=== PATIENT | female | born 1980 ===

== ENCOUNTER 2017-02-22 06:22 | Inpatient (IN) | payer MEDICAID ==
[~2017-02-22] VITALS: Ht 162.6 cm; Wt 70.8 kg
[2017-02-23 12:05] VITALS: BP 120/86
--- OUTSIDE RECORDS SUMMARY | 2017-02-23 12:30 | XMS REPORT ---
Author [facility] [place] Address [address] [place] [address] Care Team Providers Care Hall Porter Name Role Phone JULIEN COCHRAN Unavailable PROBLEMS Type Condition ICD9-CM Code [id number] Code Onset Dates Condition Status SNOMED Code Problem Glomerular disease in systemic lupus erythematosus M32.14 Active 891005743 Problem Fibromyalgia M79.7 Active 653199401 Problem Depression, major, recurrent, in partial remission F33.41 Active 23364061 Problem Other chronic pain G89.29 Active 41705334 Problem Drug-induced systemic lupus erythematosus M32.0 Active 815980783 Problem Anxiety F41.9 Active 08954460 Problem Benign essential hypertension I10 Active 6620743 ALLERGIES No Information SOCIAL HISTORY Never Assessed PLAN OF CARE VITAL SIGNS MEDICATIONS Medication Instructions Dosage Frequency Start Date End Date Duration Status Lyrica 75 MG Orally Twice a day 1 capsule 12h 23 Mar, 2016 Active RESULTS No Results PROCEDURES No Known procedures IMMUNIZATIONS No Known Immunizations MEDICAL (GENERAL) HISTORY Type Description Date Medical History stage 4 lupus- dx 2012 Medical History stage 2 kidney disease- [place] Medical History high blood pressure Surgical History right shoulder repair 2004 Surgical History tubal ligation 2002 Surgical History Right ovary removed 2009 Surgical History cholecystectomy 2009 Surgical History hysterectomy 2012 Hospitalization History surgeries Hospitalization History lupus 2013 Hospitalization History Phenumia 2014 Hospitalization History child
--- OUTSIDE RECORDS SUMMARY | 2017-02-23 12:31 | XMS REPORT ---
Author Author [facility] Address [address] [place] [address] Care Team Providers Care Skiving Machine Operator Name Role Phone JULIEN COCHRAN Unavailable PROBLEMS Type Condition ICD9-CM Code [id number] Code Onset Dates Condition Status SNOMED Code Problem Glomerular disease in systemic lupus erythematosus M32.14 Active 324905295 Problem Fibromyalgia M79.7 Active 909759357 Problem Depression, major, recurrent, in partial remission F33.41 Active 64185322 Problem Other chronic pain G89.29 Active 56704098 Problem Drug-induced systemic lupus erythematosus M32.0 Active 030952963 Problem Anxiety F41.9 Active 99433981 Problem Benign essential hypertension I10 Active 2231581 ALLERGIES Unknown Allergies SOCIAL HISTORY No smoking Hx information available PLAN OF CARE VITAL SIGNS MEDICATIONS Medication Instructions Dosage Frequency Start Date End Date Duration Status Gabapentin 300 MG Orally at bedtime for 3 days, then twice daily 1 capsule Mar, 0 days Active RESULTS No Results PROCEDURES No Known procedures IMMUNIZATIONS No Known Immunizations
--- OUTSIDE RECORDS SUMMARY | 2017-02-23 12:31 | XMS REPORT ---
Author Author [facility] [place] Address [address] [place] [address] Care Team Providers Care Pallet Stone Positioner Name Role Phone JULIEN COCHRAN Unavailable PROBLEMS Type Condition ICD9-CM Code [id number] Code Onset Dates Condition Status SNOMED Code Problem Glomerular disease in systemic lupus erythematosus M32.14 Active 973368294 Problem Fibromyalgia M79.7 Active 751890622 Problem Depression, major, recurrent, in partial remission F33.41 Active 83119007 Problem Other chronic pain G89.29 Active 12251471 Problem Drug-induced systemic lupus erythematosus M32.0 Active 077427712 Problem Anxiety F41.9 Active 72904246 Problem Benign essential hypertension I10 Active 3780268 ALLERGIES No Information SOCIAL HISTORY Never Assessed PLAN OF CARE VITAL SIGNS MEDICATIONS Medication Instructions Dosage Frequency Start Date End Date Duration Status Xanax XR 1 MG Orally Once a day- MUST LAST A MONTH 1 tablet Mar, Active RESULTS No Results PROCEDURES No Known procedures IMMUNIZATIONS No Known Immunizations MEDICAL (GENERAL) HISTORY Type Description Date Medical History stage 4 lupus- dx 2012 [facility] Surgical History right shoulder repair 2004 Surgical History tubal ligation 2002 Surgical History Right ovary removed 2009 Surgical History cholecystectomy 2009 Surgical History hysterectomy 2013 Hospitalization History surgeries Hospitalization History lupus 2013 Hospitalization History Phenumia 2014 Hospitalization History child
--- OUTSIDE RECORDS SUMMARY | 2017-02-23 12:31 | XMS REPORT ---
Author Author [facility] [place] Address [address] [place] [address] Care Team Providers Care Access Manager Name Role Phone JULIEN COCHRAN Unavailable PROBLEMS Type Condition ICD9-CM Code [id number] Code Onset Dates Condition Status SNOMED Code Problem Glomerular disease in systemic lupus erythematosus M32.14 Active 516628645 Problem Fibromyalgia M79.7 Active 410467716 Problem Depression, major, recurrent, in partial remission F33.41 Active 43963460 Problem Other chronic pain G89.29 Active 32170229 Problem Drug-induced systemic lupus erythematosus M32.0 Active 214147933 Problem Anxiety F41.9 Active 41074318 Problem Benign essential hypertension I10 Active 8324369 ALLERGIES Unknown Allergies SOCIAL HISTORY No smoking Hx information available PLAN OF CARE VITAL SIGNS MEDICATIONS Medication Instructions Dosage Frequency Start Date End Date Duration Status Xanax XR 1 MG Orally Once a day- MUST LAST A MONTH 1 tablet Mar, Active RESULTS No Results PROCEDURES No Known procedures IMMUNIZATIONS No Known Immunizations
--- OUTSIDE RECORDS SUMMARY | 2017-02-23 12:31 | XMS REPORT ---
Author Author JULIEN COCHRAN [facility] [place] Address [address] [place] [address] Care Team Providers Care And Rescue Fire Fighter Crash Fire Name Role Phone JULIEN COCHRAN Unavailable PROBLEMS Type Condition ICD9-CM Code [id number] Code Onset Dates Condition Status SNOMED Code Problem Other chronic pain G89.29 Active 43641281 Problem Fibromyalgia M79.7 Active 452008333 Problem Depression, major, recurrent, in partial remission F33.41 Active 97141533 Problem Benign essential hypertension I10 Active 6233231 Problem Anxiety F41.9 Active 11049913 Problem Drug-induced systemic lupus erythematosus M32.0 Active 802169588 Problem Glomerular disease in systemic lupus erythematosus M32.14 Active 967050569 ALLERGIES Substance Reaction Event Type Date Status Tramadol HCl headache Drug Allergy Feb, Active Morphine Sulfate hives Drug Allergy Feb, Active Keflex Unknown Drug Allergy Feb, Active SOCIAL HISTORY No smoking Hx information available PLAN OF CARE Activity Details Follow Up 2 Weeks Reason:anxiety/lupus f/u VITAL SIGNS Height 65.5 in 2016-03-09 Weight 181.1 lbs 2016-03-09 Temperature 96.9 degrees Fahrenheit 2016-03-09 Heart Rate 69 bpm 2016-03-09 Respiratory Rate 16 2016-03-09 Oximetry 97 % 2016-03-09 BMI 29.68 kg/m2 2016-03-09 Blood pressure systolic 130 mmHg 2016-03-09 Blood pressure diastolic 90 mmHg 2016-03-09 MEDICATIONS Medication Instructions Dosage Frequency Start Date End Date Duration Status Azathioprine 50 MG Active PredniSONE 20 MG Orally Once a day 1 tablet 24h Active Alprazolam 1 MG Orally Twice a day 1 tablet 12h Active BuPROPion HCl (SR) 150 MG Orally Twice a day 1 tablet 12h Active BusPIRone HCl 10 mg Orally Three times a day as needed for anxiety 1 tablet Feb, Active Glucosamine 500 MG Orally Once a day 1 capsule with a meal 24h Active Losartan Potassium 100 MG Orally Once a day 1 tablet 24h Active Minoxidil 10 mg Orally twice a day 2 tablet 12h Active Percocet 7.5-325 MG Orally every 6 hrs 1 tablet as needed 6h Active Norvasc 5 mg Orally Once a day 1 tablet 24h Feb, Active Metoprolol Succinate ER 100 MG Orally Once a day 1 tablet 24h Active RESULTS Name Result Date Reference Range URINE DRUG SCREEN (IN HOUSE) 2016-03-09 Lot # [id number] Exp date 08/03 Control + COCAINE neg AMPH neg MTD neg THC neg OPIATE neg BENZO + PCP neg BAR neg OXY + MAMP neg TCA + BUP MDMA neg UA LONG DIP (IN HOUSE) 2016-03-09 Lot # [id number] Exp date 11/02 Clarity clear Color dark yellow Odor none GLU neg IVORY 1+ KET negative SG >1.030 BLO 2+ pH 6.0 Protein 1+ URO 0.2 E.U/dL NIT neg SELENE neg Lot # Exp date THYROID ANALYZER 2016-03-09 TSH 3.270 0.450-4.500 CBC 2016-03-09 WBC 7.9 3.4-10.8 RBC 4.52 3.77-5.28 Hemoglobin 14.1 11.1-15.9 Hematocrit 41.5 34.0-46.6 MCV 92 79-97 MCH 31.2 26.6-33.0 MCHC 34.0 31.5-35.7 RDW 15.0 12.3-15.4 Platelets 250 150-379 Neutrophils 77 Lymphs 14 Monocytes 6 Eos 3 Basos 0 Neutrophils (Absolute) 6.0 1.4-7.0 Lymphs (Absolute) 1.1 0.7-3.1 Monocytes(Absolute) 0.5 0.1-0.9 Eos (Absolute) 0.2 0.0-0.4 Baso (Absolute) 0.0 0.0-0.2 Immature Granulocytes 0 Immature Grans (Abs) 0.0 0.0-0.1 ESR/SED RATE 2016-03-09 Sedimentation Rate-Westergren 8 0-32 CRP 2016-03-09 C-Reactive Protein, Quant 2.4 0.0-4.9 CMP 2016-03-09 Glucose, Serum 91 65-99 BUN 11 6-20 Creatinine, Serum 0.91 0.57-1.00 eGFR If NonAfricn Am 81 >59 eGFR If Africn Am 94 >59 BUN/Creatinine Ratio 12 8-20 Sodium, Serum 141 134-144 Potassium, Serum 3.8 3.5-5.2 Chloride, Serum 104 96-106 Carbon Dioxide, Total 22 18-29 Calcium, Serum 9.2 8.7-10.2 Protein, Total, Serum 6.5 6.0-8.5 Albumin, Serum 4.2 3.5-5.5 Globulin, Total 2.3 1.5-4.5 A/G Ratio 1.8 1.1-2.5 Bilirubin, Total 0.4 0.0-1.2 Alkaline Phosphatase, S 43 39-117 AST (SGOT) 13 0-40 ALT (SGPT) 9 0-32 PROCEDURES Procedure Date Ordered Related Diagnosis Body Site ROUTINE VENIPUNCTURE 2016-03-09 N/A LAB NOT BILLED BY [facility] Mar 09, 2016 DRUG SCREEN NON TLC DEVICES Mar 09, 2016 URINALYSIS, AUTO, W/O SCOPE Mar 09, 2016 Office Visit, New Pt., Level 4 Mar 09, 2016 VENIPUNCT, ROUTINE* Mar 09, 2016 IMMUNIZATIONS No Known Immunizations
--- OUTSIDE RECORDS SUMMARY | 2017-02-23 12:31 | XMS REPORT ---
Author Author [facility]ALD RUTLEDGE [facility] Address Unknown Phone Unavailable Care Team Providers Care Laborer Drying Department Name Role Phone GERALD RUTLEDGE Unavailable Unavailable PROBLEMS Type Condition ICD9-CM Code [id number] Code Onset Dates Condition Status SNOMED Code Problem Other chronic pain G89.29 Active 16018743 Problem Fibromyalgia M79.7 Active 559014557 Problem Depression, major, recurrent, in partial remission F33.41 Active 70714917 Problem Benign essential hypertension I10 Active 9887941 Problem Anxiety F41.9 Active 74984631 Problem Drug-induced systemic lupus erythematosus M32.0 Active 492982341 Problem Glomerular disease in systemic lupus erythematosus M32.14 Active 686656700 ALLERGIES Unknown Allergies SOCIAL HISTORY No smoking Hx information available PLAN OF CARE VITAL SIGNS MEDICATIONS Unknown Medications RESULTS No Results PROCEDURES No Known procedures IMMUNIZATIONS No Known Immunizations
--- OUTSIDE RECORDS SUMMARY | 2017-02-23 12:31 | XMS REPORT ---
Author Author [facility] [place] Address [address] [place] [address] Care Team Providers Care Drafter Automotive Design Name Role Phone JULIEN COCHRAN Unavailable PROBLEMS Type Condition ICD9-CM Code [id number] Code Onset Dates Condition Status SNOMED Code Problem Glomerular disease in systemic lupus erythematosus M32.14 Active 787940242 Problem Fibromyalgia M79.7 Active 210573085 Problem Depression, major, recurrent, in partial remission F33.41 Active 58483496 Problem Other chronic pain G89.29 Active 79449891 Problem Drug-induced systemic lupus erythematosus M32.0 Active 650760946 Problem Anxiety F41.9 Active 61066187 Problem Benign essential hypertension I10 Active 5560600 ALLERGIES Unknown Allergies SOCIAL HISTORY No smoking Hx information available PLAN OF CARE VITAL SIGNS MEDICATIONS Medication Instructions Dosage Frequency Start Date End Date Duration Status Percocet 7.5-500 MG Orally once daily as needed for severe pain 1 tablet Active RESULTS No Results PROCEDURES No Known procedures IMMUNIZATIONS No Known Immunizations
--- OUTSIDE RECORDS SUMMARY | 2017-02-23 12:31 | XMS REPORT ---
Author [facility] Address [address] [place] [address] Care Team Providers Care Plant Hr Manager Name Role Phone JULIEN COCHRAN Unavailable PROBLEMS Type Condition ICD9-CM Code KPB37-KC Code Onset Dates Condition Status SNOMED Code Problem Glomerular disease in systemic lupus erythematosus M32.14 Active 196456252 Problem Fibromyalgia M79.7 Active 697982751 Problem Depression, major, recurrent, in partial remission F33.41 Active 26265078 Problem Other chronic pain G89.29 Active 57122231 Problem Drug-induced systemic lupus erythematosus M32.0 Active 911508212 Problem Anxiety F41.9 Active 08794937 Problem Benign essential hypertension I10 Active 7554496 ALLERGIES Unknown Allergies SOCIAL HISTORY No smoking Hx information available PLAN OF CARE VITAL SIGNS MEDICATIONS Medication Instructions Dosage Frequency Start Date End Date Duration Status Percocet 7.5-325 MG Orally every 12 hours as needed- (MUST LAST A MONTH) 1 tablet Apr, Active RESULTS No Results PROCEDURES No Known procedures IMMUNIZATIONS No Known Immunizations
--- OUTSIDE RECORDS SUMMARY | 2017-02-23 12:31 | XMS REPORT ---
Author Author JULIEN COCHRAN [facility] [place] Address [address] [place] [address] Care Team Providers Care Radiological Technologist Name Role Phone JULIEN COCHRAN Unavailable PROBLEMS Type Condition ICD9-CM Code IIN41-UK Code Onset Dates Condition Status SNOMED Code Problem Other chronic pain G89.29 Active 33464533 Problem Fibromyalgia M79.7 Active 111158363 Problem Depression, major, recurrent, in partial remission F33.41 Active 12810893 Problem Benign essential hypertension I10 Active 0647908 Problem Anxiety F41.9 Active 98484422 Problem Drug-induced systemic lupus erythematosus M32.0 Active 249039254 Problem Glomerular disease in systemic lupus erythematosus M32.14 Active 489255037 ALLERGIES Substance Reaction Event Type Date Status Tramadol HCl headache Drug Allergy Mar, Active Morphine Sulfate hives Drug Allergy Mar, Active Keflex Unknown Drug Allergy Mar, Active SOCIAL HISTORY No smoking Hx information available PLAN OF CARE Activity Details Follow Up 3 Weeks Reason:pain/anxiety VITAL SIGNS Height 65.5 in 2016-03-20 Weight 185.3 lbs 2016-03-20 Temperature 97.9 degrees Fahrenheit 2016-03-20 Heart Rate 78 bpm 2016-03-20 Respiratory Rate 18 2016-03-20 BMI 30.36 kg/m2 2016-03-20 Blood pressure systolic 122 mmHg 2016-03-20 Blood pressure diastolic 64 mmHg 2016-03-20 MEDICATIONS Medication Instructions Dosage Frequency Start Date End Date Duration Status Glucosamine 500 MG Orally Once a day 1 capsule with a meal 24h Active BusPIRone HCl 10 mg Orally Three times a day as needed for anxiety 1 tablet Feb, Active Azathioprine 50 MG Active Metoprolol Succinate ER 100 MG Orally Once a day 1 tablet 24h Active Xanax XR 1 MG Orally Once a day- MUST LAST A MONTH 1 tablet Mar, Active BuPROPion HCl (SR) 150 MG Orally Twice a day 1 tablet 12h Active Percocet 7.5-325 MG Orally every 8 hours as needed- MUST LAST ONE MONTH 1 tablet Active Abilify 5 mg Orally Once a day 1 tablet 24h Mar, Active PredniSONE 20 MG Orally Once a day 1 tablet 24h Active Norvasc 5 mg Orally Once a day 1 tablet 24h Feb, Active Minoxidil 10 mg Orally twice a day 2 tablet 12h Active Losartan Potassium 100 MG Orally Once a day 1 tablet 24h Active RESULTS No Results PROCEDURES Procedure Date Ordered Related Diagnosis Body Site Office Visit, Est Pt., Level 3 Mar 20, 2016 IMMUNIZATIONS No Known Immunizations
--- OUTSIDE RECORDS SUMMARY | 2017-02-23 12:31 | XMS REPORT ---
Author Author PATRICE BLANCO [facility] Address [address] [place] [address] Care Team Providers Care Study Hall Supervisor Name Role Phone PATRICE BLANCO Unavailable PROBLEMS Type Condition ICD9-CM Code [id number] Code Onset Dates Condition Status SNOMED Code Problem Glomerular disease in systemic lupus erythematosus M32.14 Active 249028913 Problem Fibromyalgia M79.7 Active 790605528 Problem Depression, major, recurrent, in partial remission F33.41 Active 08576292 Problem Other chronic pain G89.29 Active 61425719 Problem Drug-induced systemic lupus erythematosus M32.0 Active 500672058 Problem Anxiety F41.9 Active 81921020 Problem Benign essential hypertension I10 Active 3428685 ALLERGIES No Information SOCIAL HISTORY Never Assessed [...] [facility] Surgical History right shoulder repair 2004 Surgical History tubal ligation 2002 Surgical History Right ovary removed 2009 Surgical History cholecystectomy 2010 Surgical History hysterectomy 2013 Hospitalization History surgeries Hospitalization History lupus 2013 Hospitalization History Phenumia 2014 Hospitalization History child
--- OUTSIDE RECORDS SUMMARY | 2017-02-23 12:31 | XMS REPORT ---
Author Author [facility] [place] Address [address] [place] [address] Care Team Providers Care Relations Mgr Name Role Phone JULIEN COCHRAN Unavailable PROBLEMS Type Condition ICD9-CM Code [id number] Code Onset Dates Condition Status SNOMED Code Problem Glomerular disease in systemic lupus erythematosus M32.14 Active 876924804 Problem Fibromyalgia M79.7 Active 285504436 Problem Depression, major, recurrent, in partial remission F33.41 Active 09752961 Problem Other chronic pain G89.29 Active 18388900 Problem Drug-induced systemic lupus erythematosus M32.0 Active 682889335 Problem Anxiety F41.9 Active 32164959 Problem Benign essential hypertension I10 Active 7374048 ALLERGIES Unknown Allergies SOCIAL HISTORY No smoking Hx information available PLAN OF CARE VITAL SIGNS MEDICATIONS Medication Instructions Dosage Frequency Start Date End Date Duration Status Xanax XR 1 MG Orally Once a day- MUST LAST A MONTH 1 tablet Mar, Active RESULTS No Results PROCEDURES No Known procedures IMMUNIZATIONS No Known Immunizations
--- OUTSIDE RECORDS SUMMARY | 2017-02-23 12:31 | XMS REPORT ---
Author Author [facility] [place] Address [address] [place] [address] Care Team Providers Care Hide House Supervisor Name Role Phone JULIEN COCHRAN Unavailable PROBLEMS Type Condition ICD9-CM Code ZTZ22-HM Code Onset Dates Condition Status SNOMED Code Problem Glomerular disease in systemic lupus erythematosus M32.14 Active 656829434 Problem Fibromyalgia M79.7 Active 619146034 Problem Depression, major, recurrent, in partial remission F33.41 Active 97328829 Problem Other chronic pain G89.29 Active 25011181 Problem Drug-induced systemic lupus erythematosus M32.0 Active 487674480 Problem Anxiety F41.9 Active 72737706 Problem Benign essential hypertension I10 Active 0544065 ALLERGIES No Information SOCIAL HISTORY Never Assessed PLAN OF CARE VITAL SIGNS MEDICATIONS Unknown Medications RESULTS No Results PROCEDURES No Known procedures IMMUNIZATIONS No Known Immunizations MEDICAL (GENERAL) HISTORY Type Description Date Medical History stage 4 lupus- dx 2012 Medical History stage 2 kidney disease- [place] Medical History high blood pressure Surgical History right shoulder repair 2004 Surgical History tubal ligation 2002 Surgical History Right ovary removed 2009 Surgical History cholecystectomy 2009 Surgical History hysterectomy 2013 Hospitalization History surgeries Hospitalization History lupus 2013 Hospitalization History Phenumia 2014 Hospitalization History child
--- OUTSIDE RECORDS SUMMARY | 2017-02-23 12:31 | XMS REPORT ---
Author Author JULIEN COCHRAN [facility] [place] Address [address] [place] [address] Care Team Providers Care In House Cra Name Role Phone JULIEN COCHRAN Unavailable PROBLEMS Type Condition ICD9-CM Code [id number] Code Onset Dates Condition Status SNOMED Code Problem Glomerular disease in systemic lupus erythematosus M32.14 Active 514972478 Problem Fibromyalgia M79.7 Active 792836416 Problem Depression, major, recurrent, in partial remission F33.41 Active 76723140 Problem Other chronic pain G89.29 Active 28732817 Problem Drug-induced systemic lupus erythematosus M32.0 Active 578695342 Problem Anxiety F41.9 Active 49088915 Problem Benign essential hypertension I10 Active 3160073 ALLERGIES Substance Reaction Event Type Date Status Tramadol HCl headache Drug Allergy Mar, Active Morphine Sulfate hives Drug Allergy Mar, Active Keflex Unknown Drug Allergy Mar, Active SOCIAL HISTORY No smoking Hx information available PLAN OF CARE Activity Details Follow Up 3 Weeks Reason:pain/anxiety visit VITAL SIGNS Height 65.5 in 2016-04-10 Weight 179.0 lbs 2016-04-10 Temperature 97.6 degrees Fahrenheit 2016-04-10 Heart Rate 81 bpm 2016-04-10 Respiratory Rate 17 2016-04-10 BMI 29.33 kg/m2 2016-04-10 Blood pressure systolic 118 mmHg 2016-04-10 Blood pressure diastolic 78 mmHg 2016-04-10 MEDICATIONS Medication Instructions Dosage Frequency Start Date End Date Duration Status Xanax XR 1 MG Orally Once a day- MUST LAST A MONTH 1 tablet Mar, Active Azathioprine 50 MG Active Lyrica 75 MG Orally Twice a day 1 capsule 12h Mar, Active Abilify 5 mg Orally Once a day 1 tablet 24h Mar, Active BuPROPion HCl (SR) 150 MG Orally Once a day 1 tablet 24h Active Metoprolol Succinate ER 100 MG Orally Once a day 1 tablet 24h Active PredniSONE 20 MG Orally Once a day 1 tablet 24h Active BusPIRone HCl 10 mg Orally Three times a day as needed for anxiety 1 tablet Feb, Active Losartan Potassium 100 MG Orally Once a day 1 tablet 24h Active Glucosamine 500 MG Orally Once a day 1 capsule with a meal 24h Active Minoxidil 10 mg Orally twice a day 2 tablet 12h Active Ranitidine Acid Director Blood Bank 75 MG Orally Once a day 1 tablet as needed 24h Active Percocet 7.5-500 MG Orally once daily as needed for severe pain 1 tablet Active Norvasc 5 mg Orally Once a day 1 tablet 24h Feb, Active RESULTS No Results PROCEDURES Procedure Date Ordered Related Diagnosis Body Site Office Visit, Est Pt., Level 3 Apr 10, 2016 IMMUNIZATIONS No Known Immunizations
[2017-02-23] MEDS ORDERED: NON-FORMULARY MEDICATION 1 EA EA PO SCH (13:00)
[2017-02-23] MEDS ORDERED: RANI-515 PO (13:26)
[2017-02-23] MEDS ORDERED: ARIP5TAB20 PO (13:26)
[2017-02-23] MEDS ORDERED: OXYC-464 PO (13:26)
[2017-02-23] MEDS ORDERED: GLUC500T10 PO (13:26)
[2017-02-23] MEDS ORDERED: AMLO5TAB2 PO (13:26)
[2017-02-23] MEDS ORDERED: LOSA100T28 PO (13:26)
[2017-02-23] MEDS ORDERED: BUPR150T14 PO (13:26)
[2017-02-23] MEDS ORDERED: PROM25TA14 PO (13:26)
[2017-02-23] MEDS ORDERED: ALPR1TAB7 PO (13:29)
[2017-02-23] MEDS ORDERED: METO-395 PO (13:29)
[2017-02-23] MEDS: oxyCODONE/APAP 5/325MG (PERCOCET 5) TABLET PO PRN ×2 (13:58→20:23)
--- NOTE | 2017-02-23 14:06 | Physical Therapy Evaluation ---
PT Evaluation-General Medical Diagnosis Admission Date Feb 23, 2017 at 11:55 Medical Diagnosis: CVA Onset Date: Feb 19, 2017 Therapy Diagnosis Therapy Diagnosis: impaired mobility, strength, endurance, balance Referral Physician: Rg Reason for Referral: Evaluation/Treatment Medical History Additional Medical History acute renal failure, anxiety, depression, chest pain, diarrhea, GERD, kidney calculus, headache, IBS, HTN, hyponatremia, hypoxia, Lupus, nephrotic syndrome, panic attacks, PTSD, cholecystectomy, left oophorectomy, hysterectomy, tubal ligation, RCR Reviewed History: Yes Social History Home: Single Level Current Living Status: Entry Into Home: Stairs Without Railing PT Steps Into Home: 2 Patient lives with roommates Prior/Core FIM Prior Level of Function Functional [place] Measure 0=Not Assessed/NA 4=Minimal Assistance 1=Total Assistance 5=Supervision or Setup 2=Maximal Assistance 6=Modified [place] 3=Moderate Assistance 7=Complete [place] Bed Mobility: 7 Transfers (B,C,W/C) (FIM): 7 Gait: 7 Patient was completely independent with mobility prior to having CVA PT Evaluation-Current Subjective Patient wheelchair pre tx, she had been working with OT. Has pain of 4/10 headache. Will be co-treating with OT after evaluation. Patient states she is extremely tired and has been since she had her stroke, she states she will often actually fall asleep during previous activities in the hospital. Pt/Family Goals to be able to take care of herself at home Objective Patient Orientation: Person, Place, Situation ROM/Strength ROM Lower Extremities WNL Strenght Lower Extremities right leg gross 5/5, left leg hip flexion 1/5, knee flexion 1/5, knee extension 2/5, dorsiflexion 0/5 Neuromuscular (Tone, Coordination, Reflexes) Patient has slightly increased tone in left leg. Patient has no numbness in her face but has a left facial droop, tongue deviates to the left, has a slightly impaired left peripheral vision and minimally reduced tracking Sensory Vision: Functional Hearing: Functional Sensation Right Lower Extremit: Intact Sensation Left Lower Extremity: Intact Sensation Lower Extremities Patient has no complaints of numbness or tingling in her left leg and seems to have intact light touch sensation. Transfers Functional [place] Measure 0=Not Assessed/NA 4=Minimal Assistance 1=Total Assistance 5=Supervision or Setup 2=Maximal Assistance 6=Modified [place] 3=Moderate Assistance 7=Complete IndependenceIRFPAI Quality Coding Scale 6 Independent with activity with or without an assistive device 5 Patient requires set up or clean up by helper. Patient completes activity by themselves 4 Supervision or touching assist (CGA). [place] provide cues , steadying assist 3 The helper provides less than half the effort to complete the activity 2 The helper provides more than half the effort to complete the activity 1 Dependent. The helper does all the effort to complete an activity 7 Patient refused to complete or attempt activity 9 The patient did not perform the activity before the current illness or injury 88 Not attempted due to Medical conditions or safety concerns Transfers (B, C, W/C) (FIM): 3 Scootin Rollin Roll Left to Right (QC): 3 Supine to/from Sit: 4 Sit to/from Stand: 4 bed t/f WC(FIM only if WC use): 2 Sit to Lying (QC): 3 Lying to Sitting/Side of Bed(Q: 3 Sit to Stand (QC): 3 Chair/Nxf-zk-Whidb Xfer(QC): 2 Car Transfer (QC): 88 Patient performs bed mobility with min assist (needs assist with left leg going supine <-> sit), sit to stand with min assist, and stand pivot transfer with min assist to the right and mod assist to the left. Gait Does the Patient Walk?: Yes Mode of Locomotion: Walk Anticipated Mode of Locomotion: Walk Gait (FIM): 1 Walk 10 feet (QC): 88 Walk 50 ft with 2 Turns(QC): 88 Walk 150 ft (QC): 88 Walking 10ft/uneven surface-QC: 88 Distance: 8'x3 Gait Level of Assist: 2 Gait Persons Needed: 1 Gait Assistive Device: Parallel Bars Comments/Gait Description Wheelchair follow. Max assist for balance and support of left leg. Patient has hyperextension of left leg and requires assist to advance left leg. Wheelchair Training Does the Pt Use a Wheelchair?: Yes Wheelchair (FIM): 5 Distance: 150' Wheelchair Level of Assist: 5 Wheel 50 ft with 2 turns (QC): 4 Wheel 150 ft (QC): 4 Type of Wheelchair: Manual Patient can propel a manual wheelchair 150' with standby assist, cues for direction and obstacles. She uses her right arm and leg to propel. Stairs 1 Step (curb) (QC): 88 4 Steps (QC): 88 12 Steps (QC): 88 If not tested on admit;explain Patient is not safe to attempt stairs at this time due to poor strength in her left leg and poor balance. Balance Sitting Static: Fair Sitting Dynamic: Fair Standing Static: Poor Standing Dynamic: Poor Picking up an Object (QC): 88 Treatment Co-treated with OT for 70 min. PT performed evaluation for 10' and then worked on bed mobility, transfers, ambulation, wheelchair mobility, and sitting and standing balance during grooming and bathing. OT worked on grooming, bathing, transfers, ADL's Assessment/Needs Patient has impaired mobility, strength, endurance, balance, post CVA. Left hemiparesis. Rehab Potential: Fair PT Short Term Goals Short Term Goals Time Frame: Mar 02, 2017 Transfers (B,C,W/C) (FIM): 4 Gait (FIM): 1 Gait Distance Comment: 20' Gait Level of Assist: 2 Gait Assistive Device: Walker Nathan Wheelchair (FIM): 6 PT Ell Tutor Goals Ell Tutor Goals PT Ell Tutor Goals Time Frame: Mar 16, 2017 Transfers (B,C,W/C) (FIM): 5 Sit to Lying (QC): 4 Lying-Sitting on Side/Bed(QC): 4 Sit to Stand (QC): 4 Rollin Roll Left to Right (QC): 4 Chair/Vai-cf-Rfksy Xfer(QC): 4 Car Transfer (QC): 3 Gait (FIM): 2 Distance: 30' Walk 10 feet (QC): 3 Walk 10ft-Uneven Surface(QC): 3 Gait Level of Assist: 4 Gait Assistive Device: Cane Large Base Quad PT Plan Problem List Problem List: Activity Tolerance, Functional Strength, Safety, Balance, Gait, Transfer, Bed Mobility, ROM Treatment/Plan Treatment Plan: Continue Plan of Care Treatment Plan: Bed Mobility, Concurrent Therapy, Education, Functional Activity Luis, Functional Strength, Group Therapy, Gait, Safety, Therapeutic Exercise, Transfers Treatment Duration: Mar 16, 2017 Frequency: At least 5 of 7 days/Wk (IRF) Estimated Hrs Per Day: 1.5 hours per day Patient and/or Family Agrees t: Yes Safety Risks/Education Patient Education: Gait Training, Transfer Techniques, Correct Positioning, W/ C Management, Disease Process, Safety Issues Teaching Recipient: Patient Teaching Methods: Demonstration, Discussion Response to Teaching: Reinforcement Needed Discharge Recommendations Plan Patient will perform bed mobility and transfer training, balance and endurance training, functional strengthening, stair training, gait training, education, to improve functional mobility and independence at home. Therapy D/C Recommendations: Home w/ Family Support Time/GCodes Time In: 1240 Time Out: 1400 Total Billed Treatment Time: 80 Total Billed Treatment 1 visit EVM 10' GT 20' WCH 15' FA 35' PT performed eval from [id number] and co-treated from [id number] KIERRA STERLING PT Feb 23, 2017 14:06
--- NOTE | 2017-02-23 14:37 | ST Cognitive Linguistic Eval ---
Speech Evaluation-General Medical Diagnosis CVA Onset Date: Feb 19, 2017 Therapy Diagnosis Therapy Diagnosis: Mild Dysarthria Referral Referring Physician: Dr. Carrington Diez Reason for Referral: Evaluation/Treatment Cognitive Evaluation Medical History Reviewed History: Yes Social History Current Living Status: Speech PLF-Current Status Prior Level of Function The patient denied prior challenges with speech, langauge, or cognition. Subjective The patient was recently admitted to [facility] following a CVA. The patient greeted the clinician and was agreeable to participation in the cognitive evaluation. Language Eval: Auditory Comprehends Simple Yes/No Ques: Functional Indent/Objects [place]: Functional Ident/Pics in [place]: Functional Follows 1-Step Commands: Functional Follows Complex Directions: Functional Follows General Conversations: Functional Language Eval: Verbal Language Completes Spontaneous Greeting: Functional Produces Auto, Serial Info: Functional Imitates Simple Words/Phrases: Functional Word Finding: Functional Requests Basic Needs: Functional States Basic Personal Info: Functional Expresses Complex Ideas: Functional Cognitive Patient Orientation The patient was independently oriented to month, day of week, date, and year. Objective Cognitive Domain Attention: WNL Memory: Mild Problem Solving: Functional Objective Oral Motor/Speech Production The patient displayed a left facial droop, imprecise articulation, hyponasal resonance, and slightly reduced rate of speech correlating to mild dysarthria. Impression The patient displays cognitive skills within normal limits. The patient demonstrates mild flaccid dysarthria. Communication/Social Cognition Comprehension: 5 Expression: 5 Social Interaction: 5 Problem Solvin Memory: 5 Speech Patient Assess Expression of Ideas/Wants: Exhibits (3) Understanding [place] Content: Usually Understands (3) Brief Interview-Mental Status: Yes Repetition of Three Words: Three (3) Temporal Orientation: Year: Correct (3) Temporal Orientation: Month: Accurate within 5 days(2) Temporal Orientation: Day: Correct (1) Recall : Wear to say "Sock": Yes, no cue required (2) Recall : Color: Yes, no cue required (2) Recall : Bed: No, could not recall (0) Speech Short Term Goals Short Term Goals Short Term Goals 1. The patient will display 90% accuracy with oral motor exercises with mild clinician cueing. Time Frame-STG: One Week Speech Intermediate Goals Intermediate Goals 1. The patient will display improved articulatory precision for increased intelligibility through verbal communication. Time Frame: Two Weeks Comprehension: 5 Expression: 6 Social Interaction: 6 Problem Solvin Memory: 5 Speech-Plan Treatment Plan Speech Therapy Treatment Plan: Continue Plan of Care Continue skilled speech pathology to target improved labial and lingual strength and function. Treatment Duration: Mar 09, 2017 Frequency: Modified Program (IRF) Estimated Hrs Per Day: .5 hour per day Rehab Potential: Fair Safety Risks/Education Teaching Recipient: Patient Teaching Methods: Discussion Response to Teaching: Verbalize Understanding Education Topics Provided: Results, Plan of Care, Recommendations Time Speech Therapy Time In: 14:00 Speech Therapy Time Out: 14:10 Total Billed Time: 10 Billed Treatment Time 1, CAMI MACIEL Feb 23, 2017 14:37
--- NOTE | 2017-02-23 14:42 | ST Dysphagia Evaluation ---
Speech Evaluation-General Medical Diagnosis CVA Onset Date: Feb 19, 2017 Therapy Diagnosis Therapy Diagnosis: Mild Oral Dysphagia Precautions Precautions: Aspiration Referral Referring Physician: Dr. Carrington Diez Reason for Referral: Evaluation/Treatment Clinical Bedside Swallowing Evaluation Medical History Reviewed History: Yes Social History Current Living Status: Speech PLF/Current-Dysphagia Prior Level of Function The patient denied prior challenges with swallowing. The patient stated she consumed a regular diet with thin liquids at home. Following the patient's CVA, she was placed on a mechanical soft diet with thin liquids. Subjective The patient greeted the clinician upon entrance. The patient was seated upright in bed and was agreeable to participation in the dysphagia evaluation. Cognitive Status Patient Orientation: Person, Place, Time, Situation, Normal For Age Oral Motor Skills Dentition: Natural Current Food Consistancy: Mechanical Soft, Thin Liquids Ability to Follow Directions: Excellent Oral Expression Ability: Mild Impairment Voice Voice Phonatory-Based Quality: Normal (Mild hyponasality.) Voice Pitch: Normal Voice Loudness: Normal Face Facial Symmetry: Asymmetrical (Left facial droop.) Oral-Facial Assessment Oral-Facial Dentition: Normal Labial Seal Description: Droops Left Smile: Droops Left Puff Cheeks: Reduced Strength (Left) Lingual Protrusion: Normal Lingual ROM: Normal Lingual Strength: Normal Pharynx Velopharyngeal Move.: Normal Volitional Dry Swallow: Yes Dysphagia Evaluation Consistencies Presented: Regular, Thin Liquid Oral Phase: Anterior Spillage, Left Pocketing - The patient displayed anterior left labial spillage (thin liquid via straw), as well as, left pocketing (solid). The patient was able to independently clear the pocketed material with a left lingual tongue sweep. - No pharyngeal deficits were noted. - No signs/symptoms of aspiration were displayed with multiple trials of thin liquid (via straw), solid (saltine cracker), or pill administration (whole with water- administered by RN). The patient's vocal quality remained clear throughout the trials. Dietary Recommendations: Regular Liquid Recommendations: Thin Swallowing Precautions: Alternate Liquids/Solids, Pocketing, Small Bites and Sips, Sitting Upright 90 Degrees, Left Tongue Sweep Dysphagia Evaluation Summary The patient displayed mild oral dysphagia characterized by reduced left labial strength, range of motion and sensation. Speech Short Term Goals Short Term Goals Short Term Goals 1. The patient will display 90% accuracy with oral motor exercises with mild clinician cueing. Time Frame-STG: One Week Speech Fpc Goals Ict Educator Goals 1. The patient will display improved articulatory precision for increased intelligibility through verbal communication. Time Frame: Two Weeks Comprehension: 5 Expression: 6 Social Interaction: 6 Problem Solvin Memory: 5 Speech-Plan Treatment Plan Speech Therapy Treatment Plan: Discontinue ST Evaluation, only. Treatment Duration: Mar 09, 2017 Frequency: Modified Program (IRF) (Continued skilled speech pathology for labial strengthening.) Estimated Hrs Per Day: .5 hour per day Rehab Potential: Fair Safety Risks/Education Teaching Recipient: Patient Teaching Methods: Discussion Response to Teaching: Verbalize Understanding Education Topics Provided: Plan of Care, Results, Recommendations Time Speech Therapy Time In: 14:10 Speech Therapy Time Out: 14:20 Total Billed Time: 10 Billed Treatment Time 1, CAMI CUELLAR Feb 23, 2017 14:42
--- NOTE | 2017-02-23 14:46 | Occupational Therapy Eval ---
OT Evaluation-General/PLF Medical Diagnosis Admission Date Feb 23, 2017 at 11:55 Medical Diagnosis: CVA Onset Date: Feb 19, 2017 Therapy Diagnosis Therapy Diagnosis: impaired self care skills Referral Physician: Rg Medical History Pertinent Medical History: GERD, HTN Additional Medical History acute renal failure, anxiety, depression, chest pain, diarrhea, kidney calculus , headache, IBS, hyponatremia, hypoxia, Lupus, nephrotic syndrome, panic attacks , PTSD, cholecystectomy, left oophorectomy, hysterectomy, tubal ligation, RCR Reviewed History: Yes Social History Home: Single Level Current Living Status: roommates Entry Into Home: Stairs Without Railing Steps Into Home: 2 ADL-Prior Level of Function ADL PLOF Comments Pt reports being independent with self care and mobility prior to CVA. DME/Equipment: Tub/Shower Drive Self: Yes OT Current Status Subjective Pt sitting in w/c, agrees to treatment. Pt reports 7 headache, requests pain meds, RN aware. Pt states she is very fatigued this afternoon. Mental Status/Objective Patient Orientation: Person, Place, Time Current Glasses/Contacts: Yes (reading) Hearing Aids: No Hand Dominance: Left Upper Extremity ROM Right UE grossly WFL Left UE PROM grossly WFL. Slightly increased tone Upper Extremity Coordination Right UE WFL Left UE impaired Upper Extremity Sensation Right UE WFL Left UE: intact to light touch. Upper Extremity Strength Right UE WFL Left UE: no active movement noted Pt has mildly decreased left peripheral vision and tracking. ADL-Treatment ADL-Current Co-treat with PT this pm. Pt agrees to shower this afternoon. Pt transferred EOB to shower chair with mod assist to left side. To shower room via shower chair. Pt required maximal assistance to doff pants and mod assist to doff shirt.Total assist to doff socks. Seated bathing completed using hand held shower. pt able to wash chest, abdomen, and bilateral upper legs. Assist is required for all other areas. Pt has decreased sitting balance during shower and requires occasional CGA. Don pullover shirt with mod assist. Pt dependent to don pants and socks. Pt combed hair using right hand, requires assist to brush left side of head. Pt brushed teeth while sitting at sink. Pt required assist to place toothpaste on toothbrush, but then able to complete task. Pt declined need to use restroom during treatment. To therapy gym via w/c. Pt stood in parallel bars and was able to walk short distance with max assist and close w/c follow. Pt fatigues with activity. Pt demonstrated ability to propel w /c with right UE/LE with cues for technique and to avoid obstacles. Pt returned to bed with needs met after session. Co-treat with PT. OT focusing on ADL completion, safety, and UE positioning while PT focusing on balance, safety, and LE positioning. Functional [place] Measure 0=Not Assessed/NA 4=Minimal Assistance 1=Total Assistance 5=Supervision or Setup 2=Maximal Assistance 6=Modified [place] 3=Moderate Assistance 7=Complete IndependenceIRFPAI Quality Coding Scale 6 Independent with activity with or without an assistive device 5 Patient requires set up or clean up by helper. Patient completes activity by themselves 4 Supervision or touching assist (CGA). [place] provide cues , steadying assist 3 The helper provides less than half the effort to complete the activity 2 The helper provides more than half the effort to complete the activity 1 Dependent. The helper does all the effort to complete an activity 7 Patient refused to complete or attempt activity 9 The patient did not perform the activity before the current illness or injury 88 Not attempted due to Medical conditions or safety concerns Eating (FIM): 5 (Pt drinking from cup with set up) Grooming (FIM): 3 Oral Hygiene (QC): 3 Bathing (FIM): 2 Shower/Bathe Self (QC): 2 Upper Body Dressing (FIM): 3 Upper Body Dressing (QC): 3 Lower Body Dressing (FIM): 1 Lower Body Dressing (QC): 1 On/Off Footwear (QC): 1 Shower Transfer (FIM): 1 Education OT Patient Education: Rehab process Teaching Recipient: Patient Teaching Methods: Discussion Response to Teaching: Verbalize Understanding OT Short Term Goals Short Term Goals Time Frame: Mar 02, 2017 Grooming(FIM): 5 Bathing(FIM): 3 Upper Body Dressing(FIM): 4 Lower Body Dressing(FIM): 3 Toileting(FIM): 3 Transfers (B,C,W/C) (FIM): 4 Toilet/Commode Transfer(FIM): 3 1=Demonstrate adherence to instructed precautions during ADL tasks. 2=Patient will verbalize/demonstrate understanding of assistive devices/ modifications for ADL. 3=Patient will improve strength/tolerance for activity to enable patient to perform ADL's. OT Tv Production Assistant Goals Retirement Goals Time Frame: Mar 16, 2017 Eating (FIM): 6 Eating (QC): 6 Groomin Oral Hygiene (QC): 6 Bathing(FIM): 4 Shower/Bathe Self (QC): 4 Upper Body Dressing(FIM): 5 Upper Body Dressing (QC): 5 Lower Body Dressing(FIM): 4 Lower Body Dressing (QC): 4 On/Off Footwear (QC): 4 Toileting(FIM): 5 Toileting Hygiene (QC): 4 Toilet/Commode Transfer(FIM): 5 Toilet/Commode Transfer (QC): 4 Shower Transfer(FIM): 4 Additional Goals: 1-Demonstrate ADL Tasks, 2-Verbalize Understanding, 3- ImproveStrength/Luis 1=Demonstrate adherence to instructed precautions during ADL tasks. 2=Patient will verbalize/demonstrate understanding of assistive devices/ modifications for ADL. 3=Patient will improve strength/tolerance for activity to enable patient to perform ADL's. OT Education/Plan Problem List/Assessment Assessment: Decreased Activ Tolerance, Decreased UE Strength, Dependent Transfers, Impaired Coordination, Impaired Funct Balance, Impaired I ADL's, Impaired Self-Care Skills, Restricted Funct UE ROM Pt admitted with CVA with left side deficits. Pt demonstrates decreased mobility , strength, activity tolerance, and ADL functioning. Pt to benefit from skilled OT intervention for ADL training, transfers, strengthening, and safety education to improve level of function and allow safe discharge plan. Discharge Recommendations Plan/Recommendations: Continue POC Treatment Plan/Plan of Care Treatment,Training & Education: Yes Patient would benefit from OT for education, treatment and training to promote independence in ADL's, mobility, safety and/or upper extremity function for ADL' s. Plan of Care: ADL Retraining, Functional Mobility, Group Exercise/Act as Ind, UE Funct Exercise/Act, UE Neuromus Re-Ed/Coord Treatment Duration: Mar 16, 2017 Frequency: At least 5 of 7 days/Wk (IRF) Estimated Hrs Per Day: 1.5 hours per day Agreement: Yes Rehab Potential: Fair Time/GCodes Start Time: 12:30 Stop Time: 14:00 Total Time Billed (hr/min): 80 Billed Treatment Time 1 visit, EV [id number] (10minutes) Co-treat with PT [id number] ADLx2(35minutes) FAx2(35minutes) RUBY MENDOSA OT Feb 23, 2017 14:46
[2017-02-23] MEDS: buPROPion SR 150 MG (WELLBUTRIN SR) TAB PO SCH (18:00)
[2017-02-23 19:33] VITALS: BP 104/72
[2017-02-23] MEDS: FAMOTIDINE 20 MG (PEPCID) TABLET PO SCH (20:21)
[2017-02-23] MEDS: DOCUSATE SODIUM 100 MG (COLACE) CAP PO SCH (20:22)
[2017-02-23] MEDS: ATORVASTATIN 40 MG (LIPITOR) TABLET PO SCH (20:22)
[2017-02-24 05:31] VITALS: BP 110/67
[2017-02-24] MEDS: buPROPion SR 150 MG (WELLBUTRIN SR) TAB PO SCH ×2 (05:32→16:15)
[2017-02-24] MEDS: oxyCODONE/APAP 5/325MG (PERCOCET 5) TABLET PO PRN ×3 (05:32→19:44)
[2017-02-24] MEDS: CLOPIDOGREL 75 MG (PLAVIX) TABLET PO SCH (10:00)
[2017-02-24] MEDS: ARIPIPRAZOLE 10 MG (ABILIFY) TAB PO SCH (10:00)
[2017-02-24] MEDS: meTOprolol SUCCINATE 100 MG (TOPROL XL) TAB PO SCH (10:00)
[2017-02-24] MEDS: FAMOTIDINE 20 MG (PEPCID) TABLET PO SCH ×2 (10:00→19:44)
[2017-02-24] MEDS: amLODIPine 5 MG (NORVASC) TAB PO SCH (10:01)
[2017-02-24] MEDS: DOCUSATE SODIUM 100 MG (COLACE) CAP PO SCH ×2 (10:01→19:44)
--- NOTE | 2017-02-24 11:08 | Physical Therapy Daily Note ---
PT Daily Note-Current Subjective Pt agreeable with encouragement. With standing attempts Pt stated, "okay, I'm tired" and returned to [facility]. c/o pain in (B) LE but not rated. Mental Status Patient Orientation: Person, Place, Time, Situation Transfers Functional [place] Measure 0=Not Assessed/NA 4=Minimal Assistance 1=Total Assistance 5=Supervision or Setup 2=Maximal Assistance 6=Modified [place] 3=Moderate Assistance 7=Complete IndependenceIRFPAI Quality Coding Scale 6 Independent with activity with or without an assistive device 5 Patient requires set up or clean up by helper. Patient completes activity by themselves 4 Supervision or touching assist (CGA). [place] provide cues , steadying assist 3 The helper provides less than half the effort to complete the activity 2 The helper provides more than half the effort to complete the activity 1 Dependent. The helper does all the effort to complete an activity 7 Patient refused to complete or attempt activity 9 The patient did not perform the activity before the current illness or injury 88 Not attempted due to Medical conditions or safety concerns Transfers (B, C, W/C) (FIM): 4 Supine to/from Sit: 4 Sit to/from Stand: 4 Sit to Lying (QC): 3 Sit to Stand (QC): 3 Chair/Paq-zo-Tuthi Xfer(QC): 3 Weight Bearing Right Lower Extremity: Right Weight Bearing/Tolerated Left Lower Extremity: Left Weight Bearing/Tolerated Exercises NuStep Minutes: 8 NuStep Workload: 3 Treatments NuStep for (B) integration, functional strengthening with assist to maintain neutral hip abduction on (L). TFR training, to (R) side, with min A x 1. Sit<-> stand and weightbearing/weight shifting in // bars. Returned to bed with all needs met. Assessment Current Status: Fair Progress Pt tolerated fair, c/o fatigue. Some facilitation in (L) LE with forced weight- bearing. PT Short Term Goals Short Term Goals Time Frame: Mar 02, 2017 Transfers (B,C,W/C) (FIM): 4 Gait (FIM): 1 Gait Distance Comment: 20' Gait Level of Assist: 2 Gait Assistive Device: Walker Nathan Wheelchair (FIM): 6 Wheelchair Distance: 150' PT Spring Former Machine Goals Longterm Goals PT Longterm Goals Time Frame: Mar 16, 2017 Transfers (B,C,W/C) (FIM): 5 Sit to Lying (QC): 4 Lying-Sitting on Side/Bed(QC): 4 Sit to Stand (QC): 4 Rollin Roll Left to Right (QC): 4 Chair/Olo-sk-Jngzz Xfer(QC): 4 Car Transfer (QC): 3 Gait (FIM): 2 Distance: 30' Walk 10 feet (QC): 3 Walk 10ft-Uneven Surface(QC): 3 Gait Level of Assist: 4 Gait Assistive Device: Cane Large Base Quad PT Plan Problem List Problem List: Activity Tolerance, Functional Strength, Safety, Balance, Gait, Transfer, Bed Mobility Treatment/Plan Treatment Plan: Continue Plan of Care Treatment Plan: Bed Mobility, Concurrent Therapy, Education, Functional Activity Luis, Functional Strength, Group Therapy, Gait, Safety, Therapeutic Exercise, Transfers Treatment Duration: Mar 17, 2017 Frequency: At least 5 of 7 days/Wk (IRF) Estimated Hrs Per Day: 1.5 hours per day Patient and/or Family Agrees t: Yes Safety Risks/Education Patient Education: Transfer Techniques Teaching Recipient: Patient Teaching Methods: Demonstration, Discussion Response to Teaching: Reinforcement Needed Discharge Recommendations Barriers to Progress arousal, fatigue Time/GCodes Time In: 0848 Time Out: 0920 Total Billed Treatment Time: 32 Total Billed Treatment 1, EX x 8', FA x 24' G Codes Necessary: ROE Garcia DPJamison Feb 24, 2017 11:08
[2017-02-24 17:43] VITALS: BP 126/93
[2017-02-24] MEDS: ALPRAZolam 1 MG (XANAX) TAB PO PRN (17:49)
[2017-02-24] MEDS: ATORVASTATIN 40 MG (LIPITOR) TABLET PO SCH (19:44)
[2017-02-24] MEDS: RT-ALBUTEROL/IPRATROPIUM 3 ML (DUONEB) VIAL INH SCH (22:00)
[2017-02-25 05:25] VITALS: BP 112/78
[2017-02-25] MEDS: buPROPion SR 150 MG (WELLBUTRIN SR) TAB PO SCH ×2 (05:27→17:43)
[2017-02-25] MEDS: oxyCODONE/APAP 5/325MG (PERCOCET 5) TABLET PO PRN ×2 (05:27→18:34)
[2017-02-25] MEDS: RT-ALBUTEROL/IPRATROPIUM 3 ML (DUONEB) VIAL INH SCH ×2 (07:55→14:15)
[2017-02-25] MEDS: amLODIPine 5 MG (NORVASC) TAB PO SCH (08:44)
[2017-02-25] MEDS: meTOprolol SUCCINATE 100 MG (TOPROL XL) TAB PO SCH (08:44)
[2017-02-25] MEDS: DOCUSATE SODIUM 100 MG (COLACE) CAP PO SCH ×3 (08:44→20:16)
[2017-02-25] MEDS: FAMOTIDINE 20 MG (PEPCID) TABLET PO SCH ×2 (08:44→20:16)
[2017-02-25] MEDS: ARIPIPRAZOLE 10 MG (ABILIFY) TAB PO SCH (08:44)
[2017-02-25] MEDS: CLOPIDOGREL 75 MG (PLAVIX) TABLET PO SCH (08:44)
--- NOTE | 2017-02-25 08:50 | PM&R Post Admission Assessment ---
Post Admission Physician Asses The preadmission screen agrees with the post admission assessment that the patient is a good candidate for inpatient rehabilitation. The patient will have a comprehensive program of inpatient rehabilitation with a goal of maximizing level of functional independence prior to discharge home with [facility]. The patient will have PT/OT ninety minutes per day, each discipline , five days a week for gait, strengthening, conditioning, balance, ADLs, any patient/family/caregiver training as necessary. Speech therapy to do cognitive assessment and treat as indicated. Rehabilitation nursing to assist with bowel, bladder, skin, wound care, medication administration, pain management. Roller Painter to assist with discharge planning, community reentry. SCD's for DVT prophylaxis. She appears to be well motivated to participate in three hours of therapy a day. She should be able to tolerate three hours of therapy a day from a medical standpoint. She should benefit from the three hours of therapy a day. She has a reasonable discharge plan, reasonable discharge rehabilitation goals and a supportive family. She has various comorbidities that need to be closely monitored with medications and treatments adjusted on a daily basis as needed. These include: HTN Barriers to discharge for this patient who had been independent prior to this are for her to be modified independent to supervision for ADLs and mobility skills prior to discharge home with [facility], so as to lessen the burden of the caregivers. Risks for this patient include: 1. Fall 2. Fracture 3. DVT 4. Pulmonary embolism 5. poorly controlled HTN 6. Skin breakdown 7. Contractures 8. Poorly controlled pain 9. Urinary retention 10. UTI 11. Respiratory infection 12. Aspiration Estimated Length of Stay: 21 days Prognosis: Rehab prognosis appears good for goal of discharge home with [facility] modified independent to supervision for ADLs and mobility skills. RODOLFO HUITRON MD Feb 25, 2017 08:50
[2017-02-25] MEDS: guaiFENesin/CODEINE (ROBITUSSIN AC) 10ML UDC PO PRN ×2 (10:54→18:12)
--- NOTE | 2017-02-25 12:09 | Consultation-Hospitalist ---
HPI History of Present Illness: HPI/Chief Complaint CC: Wheezing and cough HPI: This is a 36yoWF who presented to [facility] In-pt rehab s/p ischemic stroke on s/p tPA but sustained severe left sided weakness as residual. She has a h/ o of non-compliance with BP meds prior to the CVA and a h/o meth use. Currently she is c/o cough and yesterday I ordered Nebs and Robitussin AC which have helped but her lungs are very coarse and will check CXR in am and add meds. Source: patient Exam Limitations: no limitations Date Seen 02/25/17 Attending Physician Carrington Diez MD PCP Girish Mccoy DO Referring Physician Date of Admission Feb 23, 2017 at 11:55 Home Medications & Allergies Home Medications Reviewed patient Home Medication Reconciliation Form Allergies Allergies Coded Allergies morphine (Verified Allergy, Unknown, 02/23/17) RASH tramadol (Verified Allergy, Unknown, 02/23/17) Past Ejfcdlz-Tfnlzg-Zvmahw Hx Patient Social History Marrital Status: single Employed/Student: unemployed Alcohol Use: Occasionally Uses Recreational Drug Use: Yes ("I have used meth in the past") Drug of Choice: meth Smoking Status: Current Everyday Smoker Type Used: Cigarettes Physical Abuse Screen: No Sexual Abuse: No Recent Foreign Travel: No Contact w/other who traveled: No Recent Hopitalizations: Yes ([facility]) Recent Infectious Disease Expo: No Immunizations Up To Date Date of Pneumonia Vaccine: Dec 03, 2013 Date of Influenza Vaccine: Jan 20, 2017 Seasonal Allergies Seasonal Allergies: Yes Surgeries Yes Respiratory Yes Asthma, COPD Cardiovascular Yes Hypertension Neurological Yes Stroke (02/19/17) Genitourinary Yes Kidney Stones Gastrointestinal Gastroesophageal Reflux, Pancreatitis, Irritable Bowel Musculoskeletal Yes (Lupus) Endocrine History of Endocrine Disorders: No HEENT Loss of Vision: Denies Cancer No Psychosocial History of Psychiatric Problem: Yes (panic attacks) Behavioral Health Disorders: Sleep Difficulties, Anxiety, Depression Blood Transfusions History of Blood Disorders: Yes (thrombocytopenia) Review of Systems Constitutional: see HPI EENTM: no symptoms reported Respiratory: cough, wheezing Cardiovascular: no symptoms reported Gastrointestinal: no symptoms reported Genitourinary: no symptoms reported Musculoskeletal: muscle weakness Skin: no symptoms reported Psychiatric/Neurological: Depressed All Other Systems Reviewed Negative Unless Noted: Yes Physical Exam Physical Exam Vital Signs Vital Sign - Last 12Hours 02/23/17 12:05 Temp 97.5 Pulse 64 Resp 20 B/P (MAP) 120/86 (97) Pulse Ox 96 O2 Delivery Room Air Capillary Refill : General Appearance: No Apparent Distress, WD/WN, Chronically ill Eyes: Bilateral Eye Normal Inspection, Bilateral Eye PERRL HEENT: PERRL/EOMI, Normal ENT Inspection, Pharynx Normal Neck: Full Range of Motion, Normal Inspection, Non Tender, Supple, Carotid Bruit Respiratory: Chest Non Tender, No Accessory Muscle Use, No Respiratory Distress , Crackles, Decreased Breath Sounds, Wheezing Cardiovascular: Regular Rate, Rhythm, No Edema, No Gallop, No JVD, No Murmur, Normal Peripheral Pulses Gastrointestinal: Normal Bowel Sounds, No Organomegaly, No Pulsatile Mass, Non Tender, Soft Back: Normal Inspection, No CVA Tenderness, No Vertebral Tenderness Extremity: Normal Capillary Refill, Normal Inspection, Normal Range of Motion, Non Tender, No Calf Tenderness, No Pedal Edema Neurologic/Psychiatric: Alert, Oriented x3, No Motor/Sensory Deficits, Normal Mood/Affect Skin: Normal Color, Warm/Dry Lymphatic: No Adenopathy Assessment/Plan Admission Diagnosis s/p CVA at [facility] s/p tPA right with subsequent left sided weakness 02/19/17 HTN Meth abuse Wheezing Assessment and Plan Plan: Rehab protocol Home med Nebs IS Pulmicort Smoking cessation Clinical Quality Measures DVT/VTE Risk/Contraindication: Risk Factor Score Per Nursin RFS Level Per Nursing on Admit: 4+=Very High TRACEY SIMON DO Feb 25, 2017 12:09
[2017-02-25 12:41] VITALS: BP 125/85
[2017-02-25] MEDS: ALPRAZolam 1 MG (XANAX) TAB PO PRN (12:46)
[2017-02-25 18:20] VITALS: BP 130/83
[2017-02-25] MEDS: ATORVASTATIN 40 MG (LIPITOR) TABLET PO SCH (20:16)
[2017-02-26] MEDS: oxyCODONE/APAP 5/325MG (PERCOCET 5) TABLET PO PRN ×4 (01:08→20:02)
[2017-02-26] MEDS: RT-BUDESONIDE NEBS 0.5 MG/2ML (PULMICORT) AMP INH SCH ×3 (03:08→21:51)
[2017-02-26] MEDS: RT-ALBUTEROL/IPRATROPIUM 3 ML (DUONEB) VIAL INH SCH ×4 (03:08→21:51)
[2017-02-26 05:44] VITALS: BP 126/84
[2017-02-26] MEDS: buPROPion SR 150 MG (WELLBUTRIN SR) TAB PO SCH ×2 (05:46→18:17)
--- NOTE | 2017-02-26 08:00 | Diagnostic Imaging Report ---
INDICATION: Cough with congestion and wheezing.. TECHNIQUE: Two view chest 7:52 AM CORRELATION STUDY: None FINDINGS: The heart size, mediastinal configuration and pulmonary vasculature are within normal limits. The lungs are clear with no consolidating infiltrate. There is no significant pleural effusion or pneumothorax. Cholecystectomy clips in the right upper quadrant. Visualized osseous structures are unremarkable. IMPRESSION: 1. No radiographic evidence for acute abnormality of the chest. Dictated by: Dictated on workstation # [id number]
--- NOTE | 2017-02-26 08:09 | History & Physicial ---
History of Present Illness History of Present Illness Reason for visit/HPI patient had an ischemic stroke on 02/19/17 on the right side with left-sided weakness especially of the left upper extremity. Patient has a history of hypertension with noncompliance blood pressure medicine. Patient has history of meth use. Surgeries rotator cuff . right, complete hysterectomy and gallbladder. Patient transferred to [facility] in [facility] Patient has drooping on left side of mouth. Patient can move left leg Date of Admission Feb 23, 2017 at 11:55 Time Seen by Provider: 08:05 I consulted on this patient on 02/26/17 08:05 Attending Physician Carrington Diez MD Admitting Physician Girish Mccoy DO Consult Allergies and Home Medications Allergies Coded Allergies: morphine (Verified Allergy, Unknown, 02/23/17) RASH tramadol (Verified Allergy, Unknown, 02/23/17) Home Medications Alprazolam 1 Mg Tablet, 1 MG PO BID PRN for ANXIETY, (Reported) Amlodipine Besylate 5 Mg Tablet, 5 MG PO DAILY, (Reported) Aripiprazole 5 Mg Tablet, 5 MG PO DAILY, (Reported) Bupropion HCl 150 Mg Tablet.er, 150 MG PO BID, (Reported) Glucosamine HCl 500 Mg Tablet, 500 MG PO DAILY, (Reported) Losartan Potassium 100 Mg Tablet, 100 MG PO DAILY, (Reported) Metoprolol Succinate 100 Mg Tab.er.24h, 100 MG PO BID, (Reported) Oxycodone HCl/Acetaminophen 1 Each Tablet, 1 TAB PO Q6H PRN for PAIN-MODERATE, ( Reported) Promethazine HCl 25 Mg Tablet, 25 MG PO Q6H PRN for NAUSEA/VOMITING-2ND LINE, ( Reported) Ranitidine HCl 150 Mg Tablet, 150 MG PO BID, (Reported) Past Ipckfsp-Cirwpd-Wsdkwh Hx Patient Social History Marrital Status: single Employed/Student: unemployed Alcohol Use: Occasionally Uses Recreational Drug Use: Yes ("I have used meth in the past") Drug of Choice: meth Smoking Status: Current Everyday Smoker Type Used: Cigarettes Physical Abuse Screen: No Sexual Abuse: No Recent Foreign Travel: No Contact w/other who traveled: No Recent Hopitalizations: Yes ([facility]) Recent Infectious Disease Expo: No Immunizations Up To Date Date of Pneumonia Vaccine: Dec 03, 2013 Date of Influenza Vaccine: Jan 20, 2017 Seasonal Allergies Seasonal Allergies: Yes Surgeries Yes Respiratory Yes Asthma, COPD Cardiovascular Yes Hypertension Neurological Yes Stroke (02/19/17) Genitourinary Yes Kidney Stones Gastrointestinal Gastroesophageal Reflux, Pancreatitis, Irritable Bowel Musculoskeletal Yes (Lupus) Endocrine History of Endocrine Disorders: No HEENT Loss of Vision: Denies Cancer No Psychosocial History of Psychiatric Problem: Yes (panic attacks) Behavioral Health Disorders: Sleep Difficulties, Anxiety, Depression Blood Transfusions History of Blood Disorders: Yes (thrombocytopenia) Constitutional: weakness EENTM: no symptoms reported Respiratory: no symptoms reported Cardiovascular: other (hypertension) Gastrointestinal: no symptoms reported Genitourinary: no symptoms reported Physical Exam Vital Signs Vital Sign - Last 12Hours 02/23/17 12:05 Temp 97.5 Pulse 64 Resp 20 B/P (MAP) 120/86 (97) Pulse Ox 96 O2 Delivery Room Air Capillary Refill : General Appearance: No Apparent Distress Eyes: Bilateral Eye Normal Inspection HEENT: Normal ENT Inspection, Other (left mouth droops) Neck: Full Range of Motion, Normal Inspection Respiratory: Chest Non Tender, Decreased Breath Sounds, Wheezing Cardiovascular: Regular Rate, Rhythm, No Murmur Gastrointestinal: Non Tender, Soft Assessment/Plan Assessment and Plan CVA. Hypertension. History of meth use. Problems: Clinical Quality Measures DVT/VTE Risk/Contraindication: Risk Factor Score Per Nursin RFS Level Per Nursing on Admit: 4+=Very High JOAQUIM SHEN DO Feb 26, 2017 08:09
[2017-02-26] MEDS: PROMETHAZINE 25 MG (PHENERGAN) TAB PO PRN (08:25)
[2017-02-26] MEDS: amLODIPine 5 MG (NORVASC) TAB PO SCH (09:10)
[2017-02-26] MEDS: CLOPIDOGREL 75 MG (PLAVIX) TABLET PO SCH (09:10)
[2017-02-26] MEDS: meTOprolol SUCCINATE 100 MG (TOPROL XL) TAB PO SCH (09:10)
[2017-02-26] MEDS: FAMOTIDINE 20 MG (PEPCID) TABLET PO SCH ×2 (09:10→20:01)
[2017-02-26] MEDS: ARIPIPRAZOLE 10 MG (ABILIFY) TAB PO SCH (09:10)
[2017-02-26] MEDS: DOCUSATE SODIUM 100 MG (COLACE) CAP PO SCH ×2 (09:12→19:29)
--- NOTE | 2017-02-26 09:42 | Physical Therapy Daily Note ---
PT Daily Note-Current Subjective Agreeable to PT. Reports nausea, which she took an anti nausea pill at start of treatment. Tearful...."I don't know why I cry all the time." Mental Status Patient Orientation: Person, Place, Time (questionable, she asked if it was Radha time after seeing decoration.), Situation Transfers Functional [place] Measure 0=Not Assessed/NA 4=Minimal Assistance 1=Total Assistance 5=Supervision or Setup 2=Maximal Assistance 6=Modified [place] 3=Moderate Assistance 7=Complete IndependenceIRFPAI Quality Coding Scale 6 Independent with activity with or without an assistive device 5 Patient requires set up or clean up by helper. Patient completes activity by themselves 4 Supervision or touching assist (CGA). [place] provide cues , steadying assist 3 The helper provides less than half the effort to complete the activity 2 The helper provides more than half the effort to complete the activity 1 Dependent. The helper does all the effort to complete an activity 7 Patient refused to complete or attempt activity 9 The patient did not perform the activity before the current illness or injury 88 Not attempted due to Medical conditions or safety concerns Transfers (B, C, W/C) (FIM): 2 Roll Left to Right (QC): 4 Supine to/from Sit: 4 Sit to/from Stand: 2 Sit to Stand (QC): 2 Chair/Ghy-wz-Pxcat Xfer(QC): 2 max assist with stand pivot transfer several transfers throughout treatment to get in/out of wheelchair, on/off toilet. Pt able to take steps with the rigth LE and turn the left; poor ankle control left and it tends to invert in standing. Pt able to assist with the stand put for optimal safety and completion, needs max assist. PUshes up from the surface and holds this therapist's forearm during transfer; transfer is performed dance style. Weight Bearing Right Lower Extremity: Right Weight Bearing/Tolerated Left Lower Extremity: Left Weight Bearing/Tolerated Gait Training Took steps in the // bars 4 ft x 2 with asssit to hold onto the bar with the left UE as asssit to step with the left as well as to support knee and ankle position in WB with the left. Poor hip, knee and ankle control in WB stance on the left. Wheelchair Training Does the Pt Use a Wheelchair?: Yes Wheelchair (FIM): 4 Wheelchair Distance: 3=150 ft Wheelchair Level of Assist: 4 Type of Wheelchair: Manual pt uses right arm and leg to propel, tends to graze her left side in doorways and with turns, needs min assist to maneuver in small spaces but she is able to go in/out of the room and get into the bathroom, needed min assist to position at the toilet or at the sink. Skilled cues provided 50% of the time for sequencing and safety. Neuromuscular Pt does have proprioceptive awareness of the left LE but is not able to discriminate hot/cold or sharp/dull left LE; she also has difficulty discriminating sharp/dull on the right side but can tell hot/cold on the right. Assessment Pt is progressing, recent admit. Working on functional transfers and mobility; safety training implemented as well. Pt cooperative and motivated; pt follows cues well and able to carry out what is asked of her. She is doing will with problem solving as well to complete tasks. PT Short Term Goals Short Term Goals Time Frame: Mar 02, 2017 Transfers (B,C,W/C) (FIM): 4 Gait (FIM): 1 Gait Distance Comment: 20' Gait Level of Assist: 2 Gait Assistive Device: Walker Nathan Wheelchair (FIM): 6 Wheelchair Distance: 150' PT Mcfp Goals Mcfp Goals PT Senior Marketing Manager Goals Time Frame: Mar 16, 2017 Transfers (B,C,W/C) (FIM): 5 Sit to Lying (QC): 4 Lying-Sitting on Side/Bed(QC): 4 Sit to Stand (QC): 4 Rollin Roll Left to Right (QC): 4 Chair/Iva-xm-Crrnm Xfer(QC): 4 Car Transfer (QC): 3 Gait (FIM): 2 Distance: 30' Walk 10 feet (QC): 3 Walk 10ft-Uneven Surface(QC): 3 Gait Level of Assist: 4 Gait Assistive Device: Cane Large Base Quad PT Plan Problem List Problem List: Activity Tolerance, Functional Strength, Safety, Balance, Gait, Transfer, Bed Mobility Treatment/Plan Treatment Plan: Continue Plan of Care Treatment Plan: Bed Mobility, Concurrent Therapy, Education, Functional Activity Luis, Functional Strength, Group Therapy, Gait, Safety, Therapeutic Exercise, Transfers Treatment Duration: Mar 17, 2017 Frequency: At least 5 of 7 days/Wk (IRF) Estimated Hrs Per Day: 1.5 hours per day Patient and/or Family Agrees t: Yes Safety Risks/Education Patient Education: Transfer Techniques, Safety Issues Teaching Recipient: Patient Teaching Methods: Demonstration, Discussion Response to Teaching: Reinforcement Needed Also educated on the aspect of being tearful and explained to pt that this is very normal. Time/GCodes Time In: 804 Time Out: 900 Total Billed Treatment Time: 56 Total Billed Treatment visit FA 46 WC 10 KAHLIL JOSHUA PT Feb 26, 2017 09:42
[2017-02-26 09:50] LABS: HEMOGLOBIN 12.8 G/DL (11.5-16.0); MEAN PLATELET VOLUME 10.2 FL (7.4-10.4); RED BLOOD COUNT 4.12 10^6/uL (4.35-5.85); RED CELL DISTRIBUTION WIDTH 12.3 % (10.0-14.5); WHITE BLOOD COUNT 9.7 10^3/uL (4.3-11.0)
[2017-02-26 10:10] LABS: BUN/CREATININE RATIO 17; CALCIUM 9.1 MG/DL (8.5-10.1); CARBON DIOXIDE 22 MMOL/L (21-32); CHLORIDE 107 MMOL/L (98-107); CREATININE SERUM 0.81 MG/DL (0.60-1.30); GFR ESTIMATED > 60; GLUCOSE 99 MG/DL (70-105); POTASSIUM 3.2 MMOL/L (3.6-5.0); SODIUM 139 MMOL/L (135-145)
--- NOTE | 2017-02-26 10:48 | Speech Therapy Daily Note ---
Speech Daily Progress Note Subjective Date Seen by Provider: Feb 26, 2017 Time Seen by Provider: 09:00 The patient was seated upright in wheelchair upon entrance. The patient greeted the clinician and was agreeable to participation in the speech therapy session. Objective Oral Motor Exercises: Oral motor exercises were initiated on this date in attempts to improve functional range of motion of the left facial nerve. The patient completed all exercises with high accuracy and completed five repetitions of each exercise with moderate clinician cueing. The patient was provided with a handout of the exercises following the session. The patient and clinician discussed the patient's increased emotions on this date. The patient was reassured that her feelings were valid and not unusual with her current condition. The patient appeared relieved and participated well in the session. Assessment Assessment Current Status: Good Progress Treatment Plan Continue Plan of Care Communication Comprehension: 4 Expression: 5 Social Cognition Social Interaction: 4 Problem Solvin Memory: 4 Speech Short Term Goals Short Term Goals Short Term Goals 1. The patient will display 90% accuracy with oral motor exercises with mild clinician cueing. Time Frame-STG: One Week Speech Maintenance Engineer [employer] Goals Maintenance Engineer [employer] Goals 1. The patient will display improved articulatory precision for increased intelligibility through verbal communication. Time Frame: Two Weeks Social Interaction: 6 Problem Solvin Memory: 6 Speech-Plan Treatment Plan Speech Therapy Treatment Plan: Continue Plan of Care Continue skilled speech pathology to target improved range of motion of left musculature. Treatment Duration: Mar 09, 2017 Frequency: Modified Program (IRF) (Continued skilled speech pathology for labial strengthening.) Estimated Hrs Per Day: .5 hour per day Rehab Potential: Fair Safety Risks/Education Teaching Recipient: Patient Teaching Methods: Demonstration, Handout, Discussion Response to Teaching: Return Demonstration, Reinforcement Needed Education Topics Provided: Oral Motor Exercises Time Speech Therapy Time In: 09:00 Speech Therapy Time Out: 09:30 Total Billed Time: 30 Billed Treatment Time 1, NICKOLASJOSE CAMI SPRINGER Feb 26, 2017 10:48
--- NOTE | 2017-02-26 13:50 | Physical Therapy Daily Note ---
PT Daily Note-Current Subjective Reports she is tired from this morning's therapy sessions. Agreeable to PT. Transfers Functional [place] Measure 0=Not Assessed/NA 4=Minimal Assistance 1=Total Assistance 5=Supervision or Setup 2=Maximal Assistance 6=Modified [place] 3=Moderate Assistance 7=Complete IndependenceIRFPAI Quality Coding Scale 6 Independent with activity with or without an assistive device 5 Patient requires set up or clean up by helper. Patient completes activity by themselves 4 Supervision or touching assist (CGA). [place] provide cues , steadying assist 3 The helper provides less than half the effort to complete the activity 2 The helper provides more than half the effort to complete the activity 1 Dependent. The helper does all the effort to complete an activity 7 Patient refused to complete or attempt activity 9 The patient did not perform the activity before the current illness or injury 88 Not attempted due to Medical conditions or safety concerns Weight Bearing Right Lower Extremity: Right Weight Bearing/Tolerated Left Lower Extremity: Left Weight Bearing/Tolerated Treatments Supine to sit EOB with min asssit and skilled cues for techniques to get her left leg out of bed. SPT x 4 reps dance style with mod assist, pt able to push up to a stand with little outside assist and perform SPT; difficulty picking up her left foot to turn to transfer. Nu step x 10 minutes to increase LE strength and functional activity tolernace. Transferred onto the toilet at end of treatment as pt needed to have BM. She was able to pull her pants down while this therapist assisted with standing. Pt on toilet post treatment with nursing notified. Assessment Current Status: Good Progress Pt tolerated treatment well. Fatigued from therapy services today. PT Short Term Goals Short Term Goals Time Frame: Mar 02, 2017 Transfers (B,C,W/C) (FIM): 4 Gait (FIM): 1 Gait Distance Comment: 20' Gait Level of Assist: 2 Gait Assistive Device: Walker Nathan Wheelchair (FIM): 6 Wheelchair Distance: 150' PT Manager Information Goals Manager Information Goals PT Manager Information Goals Time Frame: Mar 16, 2017 Transfers (B,C,W/C) (FIM): 5 Sit to Lying (QC): 4 Lying-Sitting on Side/Bed(QC): 4 Sit to Stand (QC): 4 Rollin Roll Left to Right (QC): 4 Chair/Cux-zh-Zdskt Xfer(QC): 4 Car Transfer (QC): 3 Gait (FIM): 2 Distance: 30' Walk 10 feet (QC): 3 Walk 10ft-Uneven Surface(QC): 3 Gait Level of Assist: 4 Gait Assistive Device: Cane Large Base Quad PT Plan Problem List Problem List: Activity Tolerance, Functional Strength, Safety Treatment/Plan Treatment Plan: Continue Plan of Care Treatment Plan: Bed Mobility, Concurrent Therapy, Education, Functional Activity Luis, Functional Strength, Group Therapy, Gait, Safety, Therapeutic Exercise, Transfers Treatment Duration: Mar 17, 2017 Frequency: At least 5 of 7 days/Wk (IRF) Estimated Hrs Per Day: 1.5 hours per day Patient and/or Family Agrees t: Yes Safety Risks/Education Patient Education: Transfer Techniques Teaching Recipient: Patient Teaching Methods: Demonstration, Discussion Response to Teaching: Reinforcement Needed Time/GCodes Time In: 1245 Time Out: 1315 Total Billed Treatment Time: 30 Total Billed Treatment visit EX 10 FA 20 KAHLIL JOSHUA PT Feb 26, 2017 13:50
--- NOTE | 2017-02-26 14:09 | Diagnostic Imaging Report ---
INDICATION: Left elbow pain status post fall. COMPARISON: None. FINDINGS: Three views of the left elbow show no fractures, dislocations, or other acute bony abnormalities identified. Joint spaces are well maintained throughout. The soft tissues appear unremarkable. No radiopaque foreign bodies are identified. IMPRESSION: No acute fractures or dislocations of the left elbow. Dictated by: Dictated on workstation # [id number]
--- NOTE | 2017-02-26 15:06 | Occupational Ther Daily Note ---
OT Current Status-Daily Note Subjective No pain reported. Pt. states that she is very tired. Appearance Pt. is in bed. Declines showering, as her boyfriend is bringing her clothing later. OT offered to get her a gown, but pt. states that she will shower tomorrow. Mental Status/Objective Patient Orientation: Person, Place Functional [place] Measure 0=Not Assessed/NA 4=Minimal Assistance 1=Total Assistance 5=Supervision or Setup 2=Maximal Assistance 6=Modified [place] 3=Moderate Assistance 7=Complete [place] Memory(FIM): 4 (Occassionally pt. will ask a question about something that did not happen. When it is explained to her that it did not happen, pt. states, "I must have dreamed it.") ADL-Treatment Functional [place] Measure 0=Not Assessed/NA 4=Minimal Assistance 1=Total Assistance 5=Supervision or Setup 2=Maximal Assistance 6=Modified [place] 3=Moderate Assistance 7=Complete IndependenceIRFPAI Quality Coding Scale 6 Independent with activity with or without an assistive device 5 Patient requires set up or clean up by helper. Patient completes activity by themselves 4 Supervision or touching assist (CGA). [place] provide cues , steadying assist 3 The helper provides less than half the effort to complete the activity 2 The helper provides more than half the effort to complete the activity 1 Dependent. The helper does all the effort to complete an activity 7 Patient refused to complete or attempt activity 9 The patient did not perform the activity before the current illness or injury 88 Not attempted due to Medical conditions or safety concerns Transfers (B, C, W/C) (FIM): 3 (Pt. requires mod assist for supine-sit, and then mod assist to stand and pivot transfer to either side. Did this transfer multiple times today. Please see note.) Other Treatment Pt. declined ADLs but agreed to go to therapy gym. Transferred to wheelchair with mod assist to stand and pivot to left side. Pt. practiced using right UE/ LE to self propel wheelchair to gym. OT completed PROM to pt's left UE in all planes while pt. sitting up. Noted that pt's arm is tight in shoulder and elbow. Pt. able to tolerate PROM to approximately 80 degrees in shoulder flexion. Pt. tolerated e-stim to left wrist extensors, 5 brandi-amps x 10 minutes. Noted good muscle facilitation in wrist extensors. Pt. then tolerated e-stim to finger flexors on left hand, 4 brandi-amps x 10 minutes. Tolerated this well. Transferred to mat and laid down with mod assist. Pt. tolerated passive stretch in supine position. OT able to stretch left UE within full range and provided compression to pectorals. Pt. tolerated facilitated scapular glide. Completed joint compressions to left shoulder. No subluxation noted. Provided education for position as pt. has no active movement noted in left hand, elbow, shoulder. Provided hot moist pack for comfort during education. Transferred back to chair with mod assist and went back to room. Transferred back to chair in room and positioned pt. to comfort level. Called call center and ordered pt's lunch. All needs met. Education OT Patient Education: Correct positioning, Exercise program, Modified ADL techniques, Progress toward Goal/Update tx plan, Purpose of tx/functional activities, Reviewed precautions, Rehab process, Transfer techniques Teaching Recipient: Patient Teaching Methods: Demonstration, Discussion Response to Teaching: Verbalize Understanding, Return Demonstration OT Short Term Goals Short Term Goals Time Frame: Mar 02, 2017 Grooming(FIM): 5 Bathing(FIM): 3 Upper Body Dressing(FIM): 4 Lower Body Dressing(FIM): 3 Toileting(FIM): 3 Transfers (B,C,W/C) (FIM): 4 Toilet/Commode Transfer(FIM): 3 1=Demonstrate adherence to instructed precautions during ADL tasks. 2=Patient will verbalize/demonstrate understanding of assistive devices/ modifications for ADL. 3=Patient will improve strength/tolerance for activity to enable patient to perform ADL's. OT Intermediate Goals Intermediate Goals Time Frame: Mar 16, 2017 Eating (FIM): 6 Eating (QC): 6 Groomin Oral Hygiene (QC): 6 Bathing(FIM): 4 Shower/Bathe Self (QC): 4 Upper Body Dressing(FIM): 5 Upper Body Dressing (QC): 5 Lower Body Dressing(FIM): 4 Lower Body Dressing (QC): 4 On/Off Footwear (QC): 4 Toileting(FIM): 6 Toileting Hygiene (QC): 4 Toilet/Commode Transfer(FIM): 5 Toilet/Commode Transfer (QC): 4 Shower Transfer(FIM): 4 Social Interaction(FIM): 6 Problem Solving(FIM): 6 Memory(FIM): 6 Additional Goals: 1-Demonstrate ADL Tasks, 2-Verbalize Understanding, 3- ImproveStrength/Luis 1=Demonstrate adherence to instructed precautions during ADL tasks. 2=Patient will verbalize/demonstrate understanding of assistive devices/ modifications for ADL. 3=Patient will improve strength/tolerance for activity to enable patient to perform ADL's. OT Education/Plan Problem List/Assessment Assessment: Decreased Activ Tolerance, Decreased Safety Aware, Decreased UE Strength, Dependent Transfers, Impaired Bed Mobility, Impaired Cognition, Impaired Coordination, Impaired Funct Balance, Impaired I ADL's, Impaired Self- Care Skills, Restricted Funct UE ROM Pt admitted with CVA with left side deficits. Pt demonstrates decreased mobility , strength, activity tolerance, and ADL functioning. Pt to benefit from skilled OT intervention for ADL training, transfers, strengthening, and safety education to improve level of function and allow safe discharge plan. Discharge Recommendations Plan/Recommendations: Continue POC Therapy D/C Recommendations: Home w/ Family Support, Occupational Therapy Home Care, Scheduled Assistance Comment Equipment needs to be determined. Treatment Plan/Plan of Care Treatment,Training & Education: Yes Patient would benefit from OT for education, treatment and training to promote independence in ADL's, mobility, safety and/or upper extremity function for ADL' s. Plan of Care: ADL Retraining, Functional Mobility, Group Exercise/Act as Ind, UE Funct Exercise/Act, UE Neuromus Re-Ed/Coord Treatment Duration: Mar 16, 2017 Frequency: At least 5 of 7 days/Wk (IRF) Estimated Hrs Per Day: 1.5 hours per day Agreement: Yes Rehab Potential: Fair Time/GCodes Start Time: 10:15 Stop Time: 11:30 Total Time Billed (hr/min): 75 Billed Treatment Time 1, NM x 60minutes, ADL x 15minutes MARI ECKERT OT Feb 26, 2017 15:06
[2017-02-26] MEDS: ACETAMINOPHEN 325 MG TABLET/CAPLET (TYLENOL) PO PRN (15:22)
[2017-02-26 18:00] VITALS: BP 117/77
[2017-02-26] MEDS: ATORVASTATIN 40 MG (LIPITOR) TABLET PO SCH (20:01)
[2017-02-26] MEDS: ALPRAZolam 1 MG (XANAX) TAB PO PRN (22:40)
[2017-02-27] MEDS: buPROPion SR 150 MG (WELLBUTRIN SR) TAB PO SCH ×2 (05:15→16:49)
[2017-02-27] MEDS: oxyCODONE/APAP 5/325MG (PERCOCET 5) TABLET PO PRN ×2 (05:15→17:34)
[2017-02-27 05:42] VITALS: BP 124/84
[2017-02-27] MEDS: RT-ALBUTEROL/IPRATROPIUM 3 ML (DUONEB) VIAL INH SCH ×3 (06:47→21:24)
[2017-02-27] MEDS: RT-BUDESONIDE NEBS 0.5 MG/2ML (PULMICORT) AMP INH SCH ×2 (06:48→21:24)
--- NOTE | 2017-02-27 07:59 | Progress Note (SOAP) ---
Subjective Time Seen by Provider: 07:55 Subjective/Events-last exam CVA on left. History of meth use. Hypertension history noncompliant with medicine. Patient wants a NicoDerm patch to stop smoking. X-ray of elbow negative. Patient working progress Objective Exam Vital Signs Date Time Temp Pulse Resp B/P (MAP) Pulse Ox O2 Delivery O2 Flow Rate FiO2 02/27/17 06:52 93 02/27/17 06:47 94 Room Air 02/27/17 05:42 98.0 85 18 124/84 (97) 97 Room Air 02/26/17 21:55 Room Air 02/26/17 21:51 95 Room Air 02/26/17 21:00 Room Air 02/26/17 18:00 97.7 74 20 117/77 (90) 97 Room Air 02/26/17 15:04 95 Room Air 02/26/17 09:00 94 Room Air I & O 02/27/17 07:00 Intake Total 560 ml Balance 560 ml Capillary Refill : General Appearance: No Apparent Distress, WD/WN HEENT: Normal ENT Inspection, Other (left side of mouth drooping) Neck: Normal Inspection Respiratory: Chest Non Tender, No Accessory Muscle Use, No Respiratory Distress Cardiovascular: Regular Rate, Rhythm, No Murmur Gastrointestinal: non tender, soft Results Lab Laboratory Tests 02/26/17 09:40 Laboratory Tests 02/26/17 09:40: White Blood Count 9.7, Red Blood Count 4.12L, Hemoglobin 12.8, Hematocrit 38, Mean Corpuscular Volume 92, Mean Corpuscular Hemoglobin 31, Mean Corpuscular Hemoglobin Concent 34, Red Cell Distribution Width 12.3, Platelet Count 243, Mean Platelet Volume 10.2, Sodium Level 139, Potassium Level 3.2L, Chloride Level 107, Carbon Dioxide Level 22, Anion Gap 10, Blood Urea Nitrogen 14, Creatinine 0.81, Estimat Glomerular Filtration Rate > 60, BUN/Creatinine Ratio 17, Glucose Level 99, Calcium Level 9.1 Assessment/Plan Assessment/Plan Assess & Plan/Chief Complaint CVA. Left side weakness. Hypertension. Meth abuse history. Clinical Quality Measures DVT/VTE Risk/Contraindication: Risk Factor Score Per Nursin RFS Level Per Nursing on Admit: 4+=Very High JOAQUIM SHEN DO Feb 27, 2017 07:59
[2017-02-27] MEDS ORDERED: NICOTINE 21 MG (NICODERM) PATCH TD NR (08:00)
--- NOTE | 2017-02-27 08:59 | Physical Therapy Daily Note ---
PT Daily Note-Current Subjective Patient in bed pre tx, agrees to PT, has no complaints of pain. Appearance Patient in bed post tx with nurse call, phone, tray, all needs met. Mental Status Patient Orientation: Normal For Age Transfers Functional [place] Measure 0=Not Assessed/NA 4=Minimal Assistance 1=Total Assistance 5=Supervision or Setup 2=Maximal Assistance 6=Modified [place] 3=Moderate Assistance 7=Complete IndependenceIRFPAI Quality Coding Scale 6 Independent with activity with or without an assistive device 5 Patient requires set up or clean up by helper. Patient completes activity by themselves 4 Supervision or touching assist (CGA). [place] provide cues , steadying assist 3 The helper provides less than half the effort to complete the activity 2 The helper provides more than half the effort to complete the activity 1 Dependent. The helper does all the effort to complete an activity 7 Patient refused to complete or attempt activity 9 The patient did not perform the activity before the current illness or injury 88 Not attempted due to Medical conditions or safety concerns Transfers (B, C, W/C) (FIM): 4 Scootin Rollin Supine to/from Sit: 4 (needs assist with left leg) Sit to/from Stand: 4 Bed to/from Chair: 4 Weight Bearing Right Lower Extremity: Right Weight Bearing/Tolerated Left Lower Extremity: Left Weight Bearing/Tolerated Gait Training Gait (FIM): 1 Distance: 10'x3 Gait Level of Assist: 3 Gait Persons Needed: 1 Gait Assistive Device: Walker Nathan Wheelchair follow, albaro wrap on left ankle, knee immobilizer. She is able to advance her left leg but needs assist with balance and weight shifting. Wheelchair Training Does the Pt Use a Wheelchair?: Yes Wheelchair (FIM): 5 Distance: 150'x2 Type of Wheelchair: Manual Exercises in parallel bars standing hip flexion on the right side with therapist supporting left leg, LAQ left side x10 Treatments bed mobility and transfers, ambulation, functional strengthening, wheelchair mobility Assessment Current Status: Fair Progress improving balance, endurance, ambulation PT Short Term Goals Short Term Goals Time Frame: Mar 02, 2017 Transfers (B,C,W/C) (FIM): 4 Gait (FIM): 1 Gait Distance Comment: 20' Gait Level of Assist: 2 Gait Assistive Device: Walker Nathan Wheelchair (FIM): 6 Wheelchair Distance: 150' PT Shelter Goals Plant Floor Automation Manager Goals PT Shelter Goals Time Frame: Mar 16, 2017 Transfers (B,C,W/C) (FIM): 5 Sit to Lying (QC): 4 Lying-Sitting on Side/Bed(QC): 4 Sit to Stand (QC): 4 Rollin Roll Left to Right (QC): 4 Chair/Teh-ke-Ifrhs Xfer(QC): 4 Car Transfer (QC): 3 Gait (FIM): 2 Distance: 30' Walk 10 feet (QC): 3 Walk 10ft-Uneven Surface(QC): 3 Gait Level of Assist: 4 Gait Assistive Device: Cane Large Base Quad PT Plan Problem List Problem List: Activity Tolerance, Functional Strength, Safety, Balance, Gait, Transfer, Bed Mobility, ROM Treatment/Plan Treatment Plan: Continue Plan of Care Treatment Plan: Bed Mobility, Concurrent Therapy, Education, Functional Activity Luis, Functional Strength, Group Therapy, Gait, Safety, Therapeutic Exercise, Transfers Treatment Duration: Mar 17, 2017 Frequency: At least 5 of 7 days/Wk (IRF) Estimated Hrs Per Day: 1.5 hours per day Patient and/or Family Agrees t: Yes Safety Risks/Education Patient Education: Gait Training, Transfer Techniques, Correct Positioning, W/ C Management, Safety Issues Teaching Recipient: Patient Teaching Methods: Demonstration, Discussion Response to Teaching: Reinforcement Needed Time/GCodes Time In: 800 Time Out: 900 Total Billed Treatment Time: 60 Total Billed Treatment 1 visit GT 30' FA 15' EX 15' KIERRA STERLING PT Feb 27, 2017 08:59
[2017-02-27 09:21] LABS: BUN/CREATININE RATIO 18; CALCIUM 8.7 MG/DL (8.5-10.1); CARBON DIOXIDE 20 MMOL/L (21-32); CHLORIDE 108 MMOL/L (98-107); CREATININE SERUM 0.84 MG/DL (0.60-1.30); GFR ESTIMATED > 60; GLUCOSE 92 MG/DL (70-105); POTASSIUM 3.8 MMOL/L (3.6-5.0); SODIUM 139 MMOL/L (135-145)
[2017-02-27] MEDS: CLOPIDOGREL 75 MG (PLAVIX) TABLET PO SCH (09:27)
[2017-02-27] MEDS: FAMOTIDINE 20 MG (PEPCID) TABLET PO SCH ×2 (09:27→20:04)
[2017-02-27] MEDS: DOCUSATE SODIUM 100 MG (COLACE) CAP PO SCH ×2 (09:28→20:04)
[2017-02-27] MEDS: ARIPIPRAZOLE 10 MG (ABILIFY) TAB PO SCH (09:28)
[2017-02-27] MEDS: amLODIPine 5 MG (NORVASC) TAB PO SCH (09:29)
[2017-02-27] MEDS: meTOprolol SUCCINATE 100 MG (TOPROL XL) TAB PO SCH (09:29)
[2017-02-27] MEDS: guaiFENesin/CODEINE (ROBITUSSIN AC) 10ML UDC PO PRN ×3 (09:29→20:04)
--- NOTE | 2017-02-27 11:17 | Occupational Ther Daily Note ---
OT Current Status-Daily Note Subjective Pt in bed, agrees to treatment. Pt states she is tired today. Reports 8/10 upper back pain. Mental Status/Objective Functional [place] Measure 0=Not Assessed/NA 4=Minimal Assistance 1=Total Assistance 5=Supervision or Setup 2=Maximal Assistance 6=Modified [place] 3=Moderate Assistance 7=Complete [place] ADL-Treatment Pt declined to shower today, but agrees to sponge bath. Supine to sit with minimal assistance for left LE. Stand pivot transfer to w/c with moderate assistance and cues for safety. To restroom via w/c. Sponge bath completed seated at sink. Pt doffed shirt with minimal assistance and cues for technique. Sit to stand with minimal assistance using grab bar. Max assist to doff pants. Pt able to wash left UE, chest, abdomen, and [place] area. Assist required to wash buttocks and upper legs. Pt doffed socks with minimal assistance. Assist to wash bilateral lower legs and feet. Pt donned pullover shirt with mod assist and skilled cues for technique. Pt donned pants with max assist. Don right sock with set up. Don left sock with minimal assistance. Grooming tasks completed seated at sink. Pt brushed teeth with set up. Pt able to brush hair, but requires assist to pull back in ponytail. Pt practiced transfers to [facility] over toilet x3. Pt able to complete transfer with mod to min assist using grab bar for balance and safety. Pt required assist to manage pants down/up, but is able to complete toileting hygiene without assistance. Pt washed right hand while seated at sink with SBA. Pt fatigues with activity and requires occasional rest breaks during functional tasks. Functional [place] Measure 0=Not Assessed/NA 4=Minimal Assistance 1=Total Assistance 5=Supervision or Setup 2=Maximal Assistance 6=Modified [place] 3=Moderate Assistance 7=Complete IndependenceIRFPAI Quality Coding Scale 6 Independent with activity with or without an assistive device 5 Patient requires set up or clean up by helper. Patient completes activity by themselves 4 Supervision or touching assist (CGA). [place] provide cues , steadying assist 3 The helper provides less than half the effort to complete the activity 2 The helper provides more than half the effort to complete the activity 1 Dependent. The helper does all the effort to complete an activity 7 Patient refused to complete or attempt activity 9 The patient did not perform the activity before the current illness or injury 88 Not attempted due to Medical conditions or safety concerns Grooming (FIM): 4 Oral Hygiene (QC): 5 Bathing (FIM): 2 Upper Body (FIM): 3 Upper Body Dressing (QC): 3 Lower Body Dressing (FIM): 2 Lower Body Dressing (QC): 2 On/Off Footwear (QC): 3 Toileting (FIM): 2 Toileting Hygiene (QC): 2 Toilet/Commode Transfer (FIM): 3 Other Treatment Pt transferred w/c to EOB with minimal assistance to right side. Weight bearing completed through left UE while seated EOB. Assist required to maintain proper posture. PROM completed at all joints. Tightness noted in left shoulder and elbow. Pt sit to supine with assist for left LE. Pt tolerated passive stretch while in supine position. Pt resting in bed with needs met after session. OT Short Term Goals Short Term Goals Time Frame: Mar 02, 2017 Grooming(FIM): 5 Bathing(FIM): 3 Upper Body Dressing(FIM): 4 Lower Body Dressing(FIM): 3 Toileting(FIM): 3 Transfers (B,C,W/C) (FIM): 4 Toilet/Commode Transfer(FIM): 3 1=Demonstrate adherence to instructed precautions during ADL tasks. 2=Patient will verbalize/demonstrate understanding of assistive devices/ modifications for ADL. 3=Patient will improve strength/tolerance for activity to enable patient to perform ADL's. OT Longterm Goals [place] Machine Feeder Goals Time Frame: Mar 16, 2017 Eating (FIM): 6 Eating (QC): 6 Groomin Oral Hygiene (QC): 6 Bathing(FIM): 4 Shower/Bathe Self (QC): 4 Upper Body Dressing(FIM): 5 Upper Body Dressing (QC): 5 Lower Body Dressing(FIM): 4 Lower Body Dressing (QC): 4 On/Off Footwear (QC): 4 Toileting(FIM): 6 Toileting Hygiene (QC): 4 Toilet/Commode Transfer(FIM): 5 Toilet/Commode Transfer (QC): 4 Shower Transfer(FIM): 4 Social Interaction(FIM): 6 Problem Solving(FIM): 6 Memory(FIM): 6 Additional Goals: 1-Demonstrate ADL Tasks, 2-Verbalize Understanding, 3- ImproveStrength/Luis 1=Demonstrate adherence to instructed precautions during ADL tasks. 2=Patient will verbalize/demonstrate understanding of assistive devices/ modifications for ADL. 3=Patient will improve strength/tolerance for activity to enable patient to perform ADL's. OT Education/Plan Discharge Recommendations Plan/Recommendations: Continue POC Treatment Plan/Plan of Care Patient would benefit from OT for education, treatment and training to promote independence in ADL's, mobility, safety and/or upper extremity function for ADL' s. Plan of Care: ADL Retraining, Functional Mobility, Group Exercise/Act as Ind, UE Funct Exercise/Act, UE Neuromus Re-Ed/Coord Treatment Duration: Mar 16, 2017 Frequency: At least 5 of 7 days/Wk (IRF) Estimated Hrs Per Day: 1.5 hours per day Agreement: Yes Rehab Potential: Fair Time/GCodes Start Time: 09:30 Stop Time: 10:45 Total Time Billed (hr/min): 75 Billed Treatment Time 1 visit, ADLx3(50minutes), NMx2(25minutes) RUBY MENDOSA OT Feb 27, 2017 11:17
--- NOTE | 2017-02-27 13:01 | Speech Therapy Daily Note ---
Speech Daily Progress Note Subjective Date Seen by Provider: Feb 27, 2017 Time Seen by Provider: 09:00 The patient was seated upright in her bed upon entrance. The patient greeted the clinician and was agreeable to participation in the speech treatment session. Objective Oral Motor Exercises: Oral motor exercises were continued on this date in attempts to improve functional range of motion of the left facial nerve/left labial retraction. The patient completed all exercises with high accuracy and completed five to ten repetitions of each exercise with minimal clinician cueing. The patient denied questions regarding the exercises. Assessment Assessment Current Status: Good Progress Treatment Plan Discontinue ST, Goals Met Communication Comprehension: 5 Expression: 5 Social Cognition Social Interaction: 4 Problem Solvin Memory: 5 Speech Short Term Goals Short Term Goals Short Term Goals 1. The patient will display 90% accuracy with oral motor exercises with mild clinician cueing. MET Time Frame-STG: One Week Speech Field Trainer Goals Senior Care Goals 1. The patient will display improved articulatory precision for increased intelligibility through verbal communication. MET Time Frame: Two Weeks Comprehension: 5 (MET) Expression: 5 (MET) Social Interaction: 5 (NOT MET) Problem Solvin (MET) Memory: 5 (MET) Speech-Plan Treatment Plan Speech Therapy Treatment Plan: Discontinue ST, Goals Met Goals met at this time. Discontinue ST. Treatment Duration: Mar 09, 2017 Frequency: Modified Program (IRF) (Continued skilled speech pathology for labial strengthening.) Estimated Hrs Per Day: .5 hour per day Rehab Potential: Fair Safety Risks/Education Teaching Recipient: Patient Teaching Methods: Discussion Response to Teaching: Verbalize Understanding Education Topics Provided: Oral Motor Exercises, Discharge Time Speech Therapy Time In: 09:00 Speech Therapy Time Out: 09:30 Total Billed Time: 30 Billed Treatment Time 1ELISABETH ELIZABETH ST Feb 27, 2017 13:01
--- NOTE | 2017-02-27 13:03 | Therapy Team Discharge Summary ---
Therapy Discharge Summary Discharge Recommendations Date of Discharge Therapy D/C Recommendations: Home w/ Family Support, Occupational Therapy Home Care, Scheduled Assistance Occupational Therapy Decreased Activ Tolerance, Decreased Safety Aware, Decreased UE Strength, Dependent Transfers, Impaired Bed Mobility, Impaired Cognition, Impaired Coordination, Impaired Funct Balance, Impaired I ADL's, Impaired Self-Care Skills, Restricted Funct UE ROM Speech-Language Pathology The patient was admitted to [facility] following a right sided CVA. Upon admission, the patient demonstrated a left facial droop resulting in mild dysarthria. Skilled speech pathology focused on oral motor exercises to stimulate the left facial nerve. While the patient continues to demonstrate a left facial droop, she is able to independently demonstrate oral motor exercises with high accuracy. At this time, the patient has met all speech pathology goals and was encouraged to continue oral motor exercises independently. The patient verbalized comprehension of the plan. The patient will be discharged from skilled speech pathology. PT Elevator Adjuster Goals Elevator Adjuster Goals PT Chcf Goals Time Frame: Mar 16, 2017 Transfers (B,C,W/C) (FIM): 5 Roll Left to Right (QC): 4 Sit to Lying (QC): 4 Lying-Sitting on Side/Bed(QC): 4 Sit to Stand (QC): 4 Chair/Eyv-wd-Zatha Xfer(QC): 4 Car Transfer (QC): 3 Gait (FIM): 2 Distance: 30' Walk 10 feet (QC): 3 Walk 10ft-Uneven Surface(QC): 3 Gait Level of Assist: 4 Gait Assistive Device: Cane Large Base Quad OT Chcf Goals Chcf Goals Time Frame: Mar 16, 2017 Eating (FIM): 6 Eating (QC): 6 Oral Hygiene (QC): 6 Grooming(FIM): 6 Bathing(FIM): 4 Shower/Bathe Self (QC): 4 Upper Body Dressing(FIM): 5 Upper Body Dressing (QC): 5 Lower Body Dressing(FIM): 4 Lower Body Dressing (QC): 4 On/Off Footwear (QC): 4 Toileting(FIM): 6 Toileting Hygiene (QC): 4 Toilet/Commode Transfer(FIM): 5 Toilet/Commode Transfer (QC): 4 Shower Transfer(FIM): 4 Comprehension(FIM): 5 (MET) Expression (FIM): 5 (MET) Social Interaction(FIM): 5 (NOT MET) Problem Solving(FIM): 5 (MET) Memory(FIM): 5 (MET) Additional Goals: 1-Demonstrate ADL Tasks, 2-Verbalize Understanding, 3- ImproveStrength/Luis 1=Demonstrate adherence to instructed precautions during ADL tasks. 2=Patient will verbalize/demonstrate understanding of assistive devices/ modifications for ADL. 3=Patient will improve strength/tolerance for activity to enable patient to perform ADL's. Speech Elevator Adjuster Goals Chcf Goals 1. The patient will display improved articulatory precision for increased intelligibility through verbal communication. MET Time Frame: Two Weeks Comprehension: 5 (MET) Expression: 5 (MET) Social Interaction: 5 (NOT MET) Problem Solvin (MET) Memory: 5 (MET) CAMI SPRINGER Feb 27, 2017 13:03
--- NOTE | 2017-02-27 13:36 | Physical Therapy Daily Note ---
PT Daily Note-Current Subjective Patient agrees to PT. No c/o. Pain Numeric Pain Scale: 0-No Pain Location: No Pain Reported Mental Status Patient Orientation: Normal For Age Transfers Functional [place] Measure 0=Not Assessed/NA 4=Minimal Assistance 1=Total Assistance 5=Supervision or Setup 2=Maximal Assistance 6=Modified [place] 3=Moderate Assistance 7=Complete IndependenceIRFPAI Quality Coding Scale 6 Independent with activity with or without an assistive device 5 Patient requires set up or clean up by helper. Patient completes activity by themselves 4 Supervision or touching assist (CGA). [place] provide cues , steadying assist 3 The helper provides less than half the effort to complete the activity 2 The helper provides more than half the effort to complete the activity 1 Dependent. The helper does all the effort to complete an activity 7 Patient refused to complete or attempt activity 9 The patient did not perform the activity before the current illness or injury 88 Not attempted due to Medical conditions or safety concerns Transfers (B, C, W/C) (FIM): 4 Scootin Rollin Roll Left to Right (QC): 4 Supine to/from Sit: 4 Sit to/from Stand: 4 Sit to Lying (QC): 4 Sit to Stand (QC): 4 Chair/Slr-vw-[place] Xfer(QC): 4 Bed to/from Chair: 4 Weight Bearing Right Lower Extremity: Right Weight Bearing/Tolerated Left Lower Extremity: Left Weight Bearing/Tolerated Wheelchair Training Does the Pt Use a Wheelchair?: Yes Wheelchair (FIM): 2 Wheelchair Distance: 4=293-28 ft Distance: 50' x 2 Wheelchair Level of Assist: 3 Wheel 50 ft with 2 turns (QC): 3 Type of Wheelchair: Manual Exercises Supine Ex: Bridging, Pelvic tilt, Glut sets Supine Reps: 10 NuStep Minutes: 10 NuStep Workload: 3 (to increase strength) Assessment Patient improving with sit to stand and SPT to the right. Patient is emotional during treatment while talking about her children. PT Short Term Goals Short Term Goals Time Frame: Mar 02, 2017 Transfers (B,C,W/C) (FIM): 4 Gait (FIM): 1 Gait Distance Comment: 20' Gait Level of Assist: 2 Gait Assistive Device: Walker Nathan Wheelchair (FIM): 6 Wheelchair Distance: 150'x2 PT Cyberathlete Goals Fpc Goals PT Fpc Goals Time Frame: Mar 16, 2017 Transfers (B,C,W/C) (FIM): 5 Sit to Lying (QC): 4 Lying-Sitting on Side/Bed(QC): 4 Sit to Stand (QC): 4 Rollin Roll Left to Right (QC): 4 Chair/Gjl-va-Oputw Xfer(QC): 4 Car Transfer (QC): 3 Gait (FIM): 2 Distance: 30' Walk 10 feet (QC): 3 Walk 10ft-Uneven Surface(QC): 3 Gait Level of Assist: 4 Gait Assistive Device: Cane Large Base Quad PT Plan Treatment/Plan Treatment Plan: Continue Plan of Care Treatment Plan: Bed Mobility, Concurrent Therapy, Education, Functional Activity Luis, Functional Strength, Group Therapy, Gait, Safety, Therapeutic Exercise, Transfers Treatment Duration: Mar 16, 2017 Frequency: At least 5 of 7 days/Wk (IRF) Estimated Hrs Per Day: 1.5 hours per day Patient and/or Family Agrees t: Yes Time/GCodes Time In: 1300 Time Out: 1330 Total Billed Treatment Time: 30 Total Billed Treatment 1 visit EX 17 min [facility] 13 min KANDACE NICHOLE PT Feb 27, 2017 13:36
[2017-02-27] MEDS: ALPRAZolam 1 MG (XANAX) TAB PO PRN (14:13)
--- NOTE | 2017-02-27 16:23 | PM & R (SOAP) Progress Note ---
Subjective Time Seen by Provider: 16:15 Subjective/Events-last exam Patient was seen in her room this afternoon Patient min assist for transfers Appreciate DR chavez and Eula notes and therapy notes ST has signed nahid on patient Patient states that she lives with her boyfriend and 2 roommates,Has no volitional movement noted in left arm. Review of Systems Gastrointestinal: Other (dyspepsia) Neurological: Weakness Objective Exam Last Set of Vital Signs Vital Signs Date Time Temp Pulse Resp B/P (MAP) Pulse Ox O2 Delivery O2 Flow Rate FiO2 02/27/17 14:40 98 Room Air 02/27/17 05:42 98.0 85 18 124/84 (97) Capillary Refill : I&O Intake and Output 02/27/17 00:00 Intake Total 560 ml Balance 560 ml Intake Oral 560 ml # Voids 6 # Bowel Movements 2 General: Alert, Oriented X3, Cooperative, No Acute Distress HEENT: Atraumatic, EOMI, Mucous Memb Moist/[place] Neck: Supple, No JVD Lungs: Clear to Auscultation Abdomen: Normal Bowel Sounds, Soft, No Tenderness Extremities: No Edema, No Tenderness/Swelling Neuro: Other (Left HP with o/5 strength UE fiar+ good - left leg Sensation intact Cognition and speech and swallow intact) Results Lab Laboratory Tests 02/26/17 09:40: White Blood Count 9.7, Red Blood Count 4.12L, Hemoglobin 12.8, Hematocrit 38, Mean Corpuscular Volume 92, Mean Corpuscular Hemoglobin 31, Mean Corpuscular Hemoglobin Concent 34, Red Cell Distribution Width 12.3, Platelet Count 243, Mean Platelet Volume 10.2, Sodium Level 139, Potassium Level 3.2L, Chloride Level 107, Carbon Dioxide Level 22, Anion Gap 10, Blood Urea Nitrogen 14, Creatinine 0.81, Estimat Glomerular Filtration Rate > 60, BUN/Creatinine Ratio 17, Glucose Level 99, Calcium Level 9.1 02/27/17 08:56: Sodium Level 139, Potassium Level 3.8, Chloride Level 108H, Carbon Dioxide Level 20L, Anion Gap 11, Blood Urea Nitrogen 15, Creatinine 0.84, Estimat Glomerular Filtration Rate > 60, BUN/Creatinine Ratio 18, Glucose Level 92, Calcium Level 8.7 Assessment/Plan Assessment RT cva with Left HP HTN controlled HX of meth use Plan ContinuePT/OT ST has signed off Team Conference tomorrow Treat dyspepsia as needed Monitor PO intake RODOLFO HUITRON MD Feb 27, 2017 16:23
--- NOTE | 2017-02-27 16:31 | Individualized Plan of Care ---
Individualized Plan of Care Rehab Nursing IPOC Order Admission Date Feb 23, 2017 at 11:55 Current Orders Orders Transfer - Room Transfer (02/23/17 11:55) Ambulate TID (02/23/17 12:29) Sequential Compression Device 08,20 (02/23/17 12:29) Dvt/Vte Risk - Notifiy Physici (02/23/17 12:29) Admission (Physician Order) (02/23/17 12:46) Code/Resuscitation (02/23/17 12:46) Initiate Admission Nursing Pro .admission (02/23/17 12:46) Isolation Central Supply Req (02/23/17 12:46) Acetaminophen Tablet/Caplet (Tylenol T (02/23/17 13:00) Atorvastatin Tablet (Lipitor) (02/23/17 21:00) Clopidogrel Tablet (Plavix Tablet) (02/24/17 09:00) Docusate Sodium Capsule (Colace Capsule) (02/23/17 21:00) Oxycodone/Apap 5/325mg Tablet (Percocet (02/23/17 13:00) Alprazolam Tablet (Xanax Tablet) (02/23/17 13:00) Metoprolol Succinate (Xl) Tab (Toprol Xl (02/24/17 09:00) Amlodipine Tablet (Norvasc Tablet) (02/24/17 09:00) Aripiprazole Tablet (Abilify Tablet) (02/24/17 09:00) Bupropion Sr 12 Hr Tablet (Wellbutrin Sr (02/23/17 17:00) Promethazine Tablet (Phenergan Tablet) (02/23/17 13:00) Non-Formulary Medication (Non-Formulary (02/23/17 13:00) Dys2 Mechanically Altered (02/23/17 Lunch) Activity (02/23/17 12:47) Follow-Up Appointment (02/23/17 12:47) Famotidine Tablet (Pepcid Tablet) (02/23/17 21:00) General/Regular (02/23/17 Lunch) Patient Visit (02/23/17 ) Speech Sound Lang Comp (02/23/17 ) Patient Visit (02/23/17 ) Dysphagia Evaluation Std (02/23/17 ) Patient Visit (02/23/17 ) Pt Eval Moderate Complexity (02/23/17 ) Gait Training, Ea 15 Min (02/23/17 ) Wheelchair Mgmt/Propulsn 15min (02/23/17 ) Functional Activities, Ea 15 (02/23/17 ) Admission-Acute Rehab Unit (02/23/17 15:57) Edu Tobacco/Smoking Cessation .prn (02/23/17 16:15) Tobacco Replacement Protocol (02/23/17 16:16) Request Ot Evaluate & Treat (02/23/17 16:46) Pt Evaluate/Treat Request (02/23/17 16:46) Weight Bearing Status (02/23/17 16:46) Request Speech/Language Servic (02/23/17 16:46) Patient Visit (02/24/17 ) Exercise Therap, Ea 15 Min (02/24/17 ) Functional Activities, Ea 15 (02/24/17 ) Consult Physician (02/24/17 18:36) Guaifenesin/Codeine Syrup (Robitussin Ac (02/24/17 19:00) Albuterol/Ipra Inhalation Soln (Duoneb I (02/24/17 22:00) Svn Sm Volume Nebulizer Rt-Rfs (02/24/17 18:59) Chest Pa/Lat (2 View) (02/26/17 09:00) Budesonide Inhalation Solution (Pulmicor (02/25/17 12:15) Svn Sm Volume Nebulizer Rt-Rfs (02/25/17 12:04) Incentive Spirometryrt Initial (02/25/17 12:04) Incentive Spirometry (Nursing) Q2H (02/25/17 12:04) Basic Metabolic Panel (02/26/17 08:09) Cbc No Diff (02/26/17 08:09) Patient Visit (02/26/17 ) Treat. Speech/Lang/Voice (02/26/17 ) Elbow, Left, 3 Views (02/26/17 13:37) Patient Visit (02/26/17 ) Functional Activities, Ea 15 (02/26/17 ) Exercise Therap, Ea 15 Min (02/26/17 ) Wheelchair Mgmt/Propulsn 15min (02/26/17 ) Basic Metabolic Panel (02/27/17 07:53) Nicotine Patch (Nicoderm Patch) (02/27/17 08:00) Patch Removal (Patch Removal) (02/28/17 07:59) Patient Visit (02/27/17 ) Treat. Speech/Lang/Voice (02/27/17 ) Patient Visit (02/27/17 ) Gait Training, Ea 15 Min (02/27/17 ) Exercise Therap, Ea 15 Min (02/27/17 ) Functional Activities, Ea 15 (02/27/17 ) Patient Visit (02/27/17 ) Exercise Therap, Ea 15 Min (02/27/17 ) Wheelchair Mgmt/Propulsn 15min (02/27/17 ) Other Nursing Orders: Monitor for urinary retention and constipation PT IPOC Problem List: Activity Tolerance, Functional Strength, Safety, Balance, Gait, Transfer, Bed Mobility, ROM Treatment Plan: Continue Plan of Care Bed Mobility, Concurrent Therapy, Education, Functional Activity Luis, Functional Strength, Group Therapy, Gait, Safety, Therapeutic Exercise, Transfers Treatment Duration: Mar 16, 2017 Frequency: At least 5 of 7 days/Wk (IRF) Estimated Hrs Per Day: 1.5 hours per day OT IPOC Problems: Decreased Activ Tolerance, Decreased Safety Aware, Decreased UE Strength, Dependent Transfers, Impaired Bed Mobility, Impaired Cognition, Impaired Coordination, Impaired Funct Balance, Impaired I ADL's, Impaired Self- Care Skills, Restricted Funct UE ROM OT Treatment, Training and Edu: Yes Plan of Care: ADL Retraining, Functional Mobility, Group Exercise/Act as Ind, UE Funct Exercise/Act, UE Neuromus Re-Ed/Coord Treatment Duration: Mar 16, 2017 Frequency: At least 5 of 7 days/Wk (IRF) Estimated Hrs Per Day: 1.[address] IPOC Speech Therapy Treatment Plan: Discontinue ST, Goals Met Treatment Duration: Feb 27, 2017 Frequency: Modified Program (IRF) (Continued skilled speech pathology for labial strengthening.) Estimated Hrs Per Day: .5 hour per day Milieu Therapist/Case Mgmt Milieu Therapist/Case Managemen: Discharge Planning, Patient/Family Counseling Physician IPOC Medical Issues being managed closely and that require the 24 hour availability of a physician: HTN Pain Smoking cessation Dyspepsia Medical Issues: Bowel/Bladder Function, DVT Prophylaxis, Falls Precautions, Fluid/Electrolyte/Nutrition Balance, Infection Protection, Pain Management, Other (List) (as per above) Brief Synthesis of Preadmission Screen, Post-Admission Evaluation, and Therapy Evaluations: 36 yo female who sustained a RT CVA with left HP with rsulting decline in Functional [place] PMH Tobaccoism HTN Meth use Had been Independent prior to this Lives in [place] with boyfriend Medical Prognosis: good Anticipated Length of Stay: 03-16-17 Rehab Goals Modified Independent to supervision for adls and mobility skills Anticipated discharge destinat: Home with Friends and [facility] RODOLFO HUITRON MD Feb 27, 2017 16:31
[2017-02-27 18:00] VITALS: BP 124/84
[2017-02-27] MEDS: ATORVASTATIN 40 MG (LIPITOR) TABLET PO SCH (20:04)
[2017-02-28] MEDS: oxyCODONE/APAP 5/325MG (PERCOCET 5) TABLET PO PRN ×3 (02:24→21:16)
[2017-02-28 05:33] VITALS: BP 102/64
[2017-02-28] MEDS: buPROPion SR 150 MG (WELLBUTRIN SR) TAB PO SCH ×2 (06:25→16:55)
[2017-02-28] MEDS: RT-BUDESONIDE NEBS 0.5 MG/2ML (PULMICORT) AMP INH SCH ×2 (07:56→21:35)
[2017-02-28] MEDS: RT-ALBUTEROL/IPRATROPIUM 3 ML (DUONEB) VIAL INH SCH ×3 (07:56→21:35)
[2017-02-28] MEDS ORDERED: NICOTINE PATCH REMOVAL TP SCH (07:59)
[2017-02-28] MEDS: ARIPIPRAZOLE 10 MG (ABILIFY) TAB PO SCH (08:06)
[2017-02-28] MEDS: meTOprolol SUCCINATE 100 MG (TOPROL XL) TAB PO SCH (08:07)
[2017-02-28] MEDS: amLODIPine 5 MG (NORVASC) TAB PO SCH (08:07)
[2017-02-28] MEDS: DOCUSATE SODIUM 100 MG (COLACE) CAP PO SCH ×2 (08:07→20:34)
[2017-02-28] MEDS: CLOPIDOGREL 75 MG (PLAVIX) TABLET PO SCH (08:07)
[2017-02-28] MEDS: FAMOTIDINE 20 MG (PEPCID) TABLET PO SCH ×2 (08:07→20:34)
--- NOTE | 2017-02-28 08:15 | Progress Note (SOAP) ---
Subjective Time Seen by Provider: 08:13 Subjective/Events-last exam patient complaining of chest problems today. Patient had a chest x-ray yesterday and has medicine for coughing. CVA. History of meth use Objective Exam Vital Signs Date Time Temp Pulse Resp B/P (MAP) Pulse Ox O2 Delivery O2 Flow Rate FiO2 02/28/17 07:56 89 Room Air 02/28/17 07:56 Room Air 02/28/17 05:33 97.0 72 20 102/64 (77) 97 Room Air 02/27/17 21:29 98 Room Air 02/27/17 21:24 94 Room Air 02/27/17 20:00 Room Air 02/27/17 18:00 97.7 86 18 124/84 (97) 96 Room Air 02/27/17 14:40 98 Room Air 02/27/17 09:00 Room Air I & O 02/28/17 07:00 Intake Total 1780 ml Balance 1780 ml Capillary Refill : General Appearance: No Apparent Distress HEENT: Normal ENT Inspection Respiratory: Other (loose congestion with coughing) Cardiovascular: Regular Rate, Rhythm, No Murmur Gastrointestinal: non tender, soft Results Lab Laboratory Tests 02/27/17 08:56 Laboratory Tests 02/27/17 08:56: Sodium Level 139, Potassium Level 3.8, Chloride Level 108H, Carbon Dioxide Level 20L, Anion Gap 11, Blood Urea Nitrogen 15, Creatinine 0.84, Estimat Glomerular Filtration Rate > 60, BUN/Creatinine Ratio 18, Glucose Level 92, Calcium Level 8.7 Assessment/Plan Assessment/Plan Assess & Plan/Chief Complaint CVA. Left side weakness. Hypertension. Meth abuse history. . 02/28/17. CVA. Left-sided weakness. Hypertension. Patient is abuse history. Chest discomfort with some loose congestion Clinical Quality Measures DVT/VTE Risk/Contraindication: Risk Factor Score Per Nursin RFS Level Per Nursing on Admit: 4+=Very High JOAQUIM SHEN DO Feb 28, 2017 08:15
--- NOTE | 2017-02-28 09:08 | Physical Therapy Daily Note ---
PT Daily Note-Current Subjective Patient in bed pre tx, agrees to PT, has no complaints of pain. Patient states she feels bad today like she is getting a cold, nurse and doctor are aware. Appearance Patient in wheelchair at bedside post tx, has nurse call, phone, tray, all needs met. Mental Status Patient Orientation: Normal For Age Transfers Functional [place] Measure 0=Not Assessed/NA 4=Minimal Assistance 1=Total Assistance 5=Supervision or Setup 2=Maximal Assistance 6=Modified [place] 3=Moderate Assistance 7=Complete IndependenceIRFPAI Quality Coding Scale 6 Independent with activity with or without an assistive device 5 Patient requires set up or clean up by helper. Patient completes activity by themselves 4 Supervision or touching assist (CGA). [place] provide cues , steadying assist 3 The helper provides less than half the effort to complete the activity 2 The helper provides more than half the effort to complete the activity 1 Dependent. The helper does all the effort to complete an activity 7 Patient refused to complete or attempt activity 9 The patient did not perform the activity before the current illness or injury 88 Not attempted due to Medical conditions or safety concerns Transfers (B, C, W/C) (FIM): 4 Scootin Rollin Supine to/from Sit: 4 Sit to/from Stand: 4 Bed to/from Chair: 4 patient needs min assist with left leg getting up from bed, CGA with transfers to the right and min assist with stand pivot to the left Weight Bearing Right Lower Extremity: Right Weight Bearing/Tolerated Left Lower Extremity: Left Weight Bearing/Tolerated Gait Training Gait (FIM): 1 Distance: 20'x2 Gait Level of Assist: 3 Gait Persons Needed: 1 Gait Assistive Device: Walker Nathan wheelchair follow, AFO left side and left knee immobilizer, patient needs assist with balance and weight shifting Wheelchair Training Does the Pt Use a Wheelchair?: Yes Wheelchair (FIM): 6 Distance: 150'x2 Type of Wheelchair: Manual Exercises NuStep Minutes: 15 NuStep Workload: 5 Treatments bed mobility and transfers, ambulation, functional strengthening Assessment Current Status: Fair Progress improved ambulation and transfers PT Short Term Goals Short Term Goals Time Frame: Mar 02, 2017 Transfers (B,C,W/C) (FIM): 4 Gait (FIM): 1 Gait Distance Comment: 20' Gait Level of Assist: 2 Gait Assistive Device: Walker Nathan Wheelchair (FIM): 6 Wheelchair Distance: 50' x 2 PT Halfway Goals Halfway Goals PT Occupational Health Physiotherapist Goals Time Frame: Mar 16, 2017 Transfers (B,C,W/C) (FIM): 5 Sit to Lying (QC): 4 Lying-Sitting on Side/Bed(QC): 4 Sit to Stand (QC): 4 Rollin Roll Left to Right (QC): 4 Chair/Opo-bw-Oevks Xfer(QC): 4 Car Transfer (QC): 3 Gait (FIM): 2 Distance: 30' Walk 10 feet (QC): 3 Walk 10ft-Uneven Surface(QC): 3 Gait Level of Assist: 4 Gait Assistive Device: Cane Large Base Quad PT Plan Problem List Problem List: Activity Tolerance, Functional Strength, Safety, Balance, Gait, Transfer, Bed Mobility Treatment/Plan Treatment Plan: Continue Plan of Care Treatment Plan: Bed Mobility, Concurrent Therapy, Education, Functional Activity Luis, Functional Strength, Group Therapy, Gait, Safety, Therapeutic Exercise, Transfers Treatment Duration: Mar 16, 2017 Frequency: At least 5 of 7 days/Wk (IRF) Estimated Hrs Per Day: 1.5 hours per day Patient and/or Family Agrees t: Yes Safety Risks/Education Patient Education: Gait Training, Transfer Techniques, Correct Positioning, W/ C Management, Safety Issues Teaching Recipient: Patient Teaching Methods: Demonstration, Discussion Response to Teaching: Reinforcement Needed Time/GCodes Time In: 800 Time Out: 900 Total Billed Treatment Time: 60 Total Billed Treatment 1 visit EX 15' WCH 15' GT 30' KIERRA STERLING PT Feb 28, 2017 09:08
--- NOTE | 2017-02-28 09:48 | PM & R (SOAP) Progress Note ---
Subjective Time Seen by Provider: 09:15 Subjective/Events-last exam Patient was seen in her room this AM C/O cough Receiving Resp treatments Cough is somewhat productive and patient has mild tenderness to palpation ant ribs Patient on Patch for smoking cessation.Patient up in chairPatient min assist for transfers. Review of Systems Pulmonary: Cough Neurological: Weakness Objective Exam Last Set of Vital Signs Vital Signs Date Time Temp Pulse Resp B/P (MAP) Pulse Ox O2 Delivery O2 Flow Rate FiO2 02/28/17 08:31 Room Air 02/28/17 07:56 89 02/28/17 05:33 97.0 72 20 102/64 (77) Capillary Refill : I&O Intake and Output 02/28/17 00:00 Intake Total 1480 ml Balance 1480 ml Intake Oral 1480 ml # Voids 5 General: Alert, Oriented X3, Cooperative, No Acute Distress HEENT: Atraumatic, EOMI, Mucous Memb Moist/[place] Neck: Supple, No JVD Lungs: Clear to Auscultation Abdomen: Normal Bowel Sounds, Soft, No Tenderness Extremities: No Edema, No Tenderness/Swelling Neuro: Other (Left HP with o/5 strength UE fiar+ good - left leg Sensation intact Cognition and speech and swallow intact) Results Lab Laboratory Tests 02/26/17 09:40: White Blood Count 9.7, Red Blood Count 4.12L, Hemoglobin 12.8, Hematocrit 38, Mean Corpuscular Volume 92, Mean Corpuscular Hemoglobin 31, Mean Corpuscular Hemoglobin Concent 34, Red Cell Distribution Width 12.3, Platelet Count 243, Mean Platelet Volume 10.2, Sodium Level 139, Potassium Level 3.2L, Chloride Level 107, Carbon Dioxide Level 22, Anion Gap 10, Blood Urea Nitrogen 14, Creatinine 0.81, Estimat Glomerular Filtration Rate > 60, BUN/Creatinine Ratio 17, Glucose Level 99, Calcium Level 9.1 02/27/17 08:56: Sodium Level 139, Potassium Level 3.8, Chloride Level 108H, Carbon Dioxide Level 20L, Anion Gap 11, Blood Urea Nitrogen 15, Creatinine 0.84, Estimat Glomerular Filtration Rate > 60, BUN/Creatinine Ratio 18, Glucose Level 92, Calcium Level 8.7 Assessment/Plan Assessment RT cva with Left HP HTN controlled HX of meth use Tobaccoism-currently abstaining and on patch GERD on med COPD with cough on resp treatments-CXR clear Plan ContinuePT/OT ST has signed off Team Conference later today-see report for full functional update and POC and ELOS Treat dyspepsia as needed-improved Monitor PO intake Continue resp treatments-add Mucinex See orders RODOLFO HUITRON MD Feb 28, 2017 09:48
--- NOTE | 2017-02-28 10:45 | Occupational Ther Daily Note ---
OT Current Status-Daily Note Subjective Pt alert, sitting in w/c. Pt agreed to therapy. No c/o pain. Mental Status/Objective Patient Orientation: Person, Place, Time, Situation Functional [place] Measure 0=Not Assessed/NA 4=Minimal Assistance 1=Total Assistance 5=Supervision or Setup 2=Maximal Assistance 6=Modified [place] 3=Moderate Assistance 7=Complete [place] ADL-Treatment Functional [place] Measure 0=Not Assessed/NA 4=Minimal Assistance 1=Total Assistance 5=Supervision or Setup 2=Maximal Assistance 6=Modified [place] 3=Moderate Assistance 7=Complete IndependenceIRFPAI Quality Coding Scale 6 Independent with activity with or without an assistive device 5 Patient requires set up or clean up by helper. Patient completes activity by themselves 4 Supervision or touching assist (CGA). [place] provide cues , steadying assist 3 The helper provides less than half the effort to complete the activity 2 The helper provides more than half the effort to complete the activity 1 Dependent. The helper does all the effort to complete an activity 7 Patient refused to complete or attempt activity 9 The patient did not perform the activity before the current illness or injury 88 Not attempted due to Medical conditions or safety concerns Grooming (FIM): 4 (Pt is able to complete oral care sitting at sink. Pt is able to brush hair, requires assistance for ponytail.) Oral Hygiene (QC): 6 Bathing (FIM): 4 (Using grabbar, long handle sponge, hand held shower and shower bench pt is able to complete all bathing/drying except buttocks. Pt stabilizes self using grabbar while assist to cleanse buttocks.) Bathing Location: L Arm, R Arm, L Upper Leg, R Upper Leg, L Lower Leg ( including foot), R Lower Leg (including foot), Chest, Abdomen, Perineal Area Shower/Bathe Self (QC): 3 Upper Body (FIM): 3 (After set up, pt is able to doff shirt by self. Pt educated on one handed dressing technique to don shirt. Assist to thread L UE through shirt then pt able to thread arm and head. Assist to straighten shirt.) Upper Body Dressing (QC): 3 Lower Body Dressing (FIM): 3 (Assist to cross L LE over R knee pt is able to thread pants over L LE. Pt able to thread pants over R LE. Assist for standing balance, pt is able to hike pants over hips, assist to straighten. Pt educated on one-handed technique to don socks. Pt able to don socks with assist to stabilize L LE over R knee. Assist to don/doff shoes.) Lower Body Dressing (QC): 2 On/Off Footwear (QC): 2 Transfers (B, C, W/C) (FIM): 3 (Positioning L LE then assist to shift L foot during stand pivot transfer. Pt able to bear wt on R LE.) Shower Transfer(FIM): 3 (Using shower bench and grabbar then positioning L LE then assist to shift L foot during stand pivot transfer. Pt able to bear wt on R LE. ) Pt educated on self-ROM techniques. Pt only able to move L UE with R UE small amount before pt c/o L shldr hurting. Pt was able to bear wt through L elbow/ shldr while sitting in w/c, tolerated. Pt completed 2 sets 5 reps of shldr shrugs. Minimal movement noted. Pt was able to place clothing into washer at w /c level, set up required. After therapy, pt lying in bed with call light/ phone in reach. All needs met in room. Education OT Patient Education: Exercise program, Modified ADL techniques Teaching Recipient: Patient Teaching Methods: Demonstration, Discussion Response to Teaching: Verbalize Understanding, Return Demonstration, Reinforcement Needed OT Short Term Goals Short Term Goals Time Frame: Mar 02, 2017 Grooming(FIM): 5 Bathing(FIM): 3 Upper Body Dressing(FIM): 4 Lower Body Dressing(FIM): 3 Toileting(FIM): 3 Transfers (B,C,W/C) (FIM): 4 Toilet/Commode Transfer(FIM): 3 1=Demonstrate adherence to instructed precautions during ADL tasks. 2=Patient will verbalize/demonstrate understanding of assistive devices/ modifications for ADL. 3=Patient will improve strength/tolerance for activity to enable patient to perform ADL's. OT Mcc Goals Oxide Furnace Tender Goals Time Frame: Mar 16, 2017 Eating (FIM): 6 Eating (QC): 6 Groomin Oral Hygiene (QC): 6 Bathing(FIM): 4 Shower/Bathe Self (QC): 4 Upper Body Dressing(FIM): 5 Upper Body Dressing (QC): 5 Lower Body Dressing(FIM): 4 Lower Body Dressing (QC): 4 On/Off Footwear (QC): 4 Toileting(FIM): 6 Toileting Hygiene (QC): 4 Toilet/Commode Transfer(FIM): 5 Toilet/Commode Transfer (QC): 4 Shower Transfer(FIM): 4 Comprehension(FIM): 5 (MET) Expression (FIM): 5 (MET) Social Interaction(FIM): 5 (NOT MET) Problem Solving(FIM): 5 (MET) Memory(FIM): 5 (MET) Additional Goals: 1-Demonstrate ADL Tasks, 2-Verbalize Understanding, 3- ImproveStrength/Luis 1=Demonstrate adherence to instructed precautions during ADL tasks. 2=Patient will verbalize/demonstrate understanding of assistive devices/ modifications for ADL. 3=Patient will improve strength/tolerance for activity to enable patient to perform ADL's. OT Education/Plan Discharge Recommendations Plan/Recommendations: Continue POC Treatment Plan/Plan of Care Patient would benefit from OT for education, treatment and training to promote independence in ADL's, mobility, safety and/or upper extremity function for ADL' s. Plan of Care: ADL Retraining, Functional Mobility, Group Exercise/Act as Ind, UE Funct Exercise/Act, UE Neuromus Re-Ed/Coord Treatment Duration: Mar 16, 2017 Frequency: At least 5 of 7 days/Wk (IRF) Estimated Hrs Per Day: 1.5 hours per day Agreement: Yes Rehab Potential: Fair Time/GCodes Start Time: 09:00 Stop Time: 10:30 Total Time Billed (hr/min): 90 Billed Treatment Time 1 visit-ADL 4 (60 min) FA 1 (10 min) NM 1 (20 min) KAHLIL MENDEZ Feb 28, 2017 10:45
[2017-02-28] MEDS: guaiFENesin/CODEINE (ROBITUSSIN AC) 10ML UDC PO PRN ×2 (11:40→18:25)
--- NOTE | 2017-02-28 13:39 | Physical Therapy Daily Note ---
PT Daily Note-Current Subjective Patient in bed pre tx, agrees to PT, has no complaints of pain. Appearance Patient in wheelchair at bedside post tx with nurse call, brown, all needs met. Mental Status Patient Orientation: Normal For Age Transfers Functional [place] Measure 0=Not Assessed/NA 4=Minimal Assistance 1=Total Assistance 5=Supervision or Setup 2=Maximal Assistance 6=Modified [place] 3=Moderate Assistance 7=Complete IndependenceIRFPAI Quality Coding Scale 6 Independent with activity with or without an assistive device 5 Patient requires set up or clean up by helper. Patient completes activity by themselves 4 Supervision or touching assist (CGA). [place] provide cues , steadying assist 3 The helper provides less than half the effort to complete the activity 2 The helper provides more than half the effort to complete the activity 1 Dependent. The helper does all the effort to complete an activity 7 Patient refused to complete or attempt activity 9 The patient did not perform the activity before the current illness or injury 88 Not attempted due to Medical conditions or safety concerns Transfers (B, C, W/C) (FIM): 4 Scootin Rollin Supine to/from Sit: 4 Sit to/from Stand: 4 Bed to/from Chair: 4 Weight Bearing Right Lower Extremity: Right Weight Bearing/Tolerated Left Lower Extremity: Left Weight Bearing/Tolerated Wheelchair Training Does the Pt Use a Wheelchair?: Yes Wheelchair (FIM): 6 Distance: 150'x2 Type of Wheelchair: Manual Exercises SAQ left side for 5 min, manually resisted leg press left side 3 sets of 10, PROM left LE Treatments bed mobility and transfers, wheelchair mobility, ROM, strengthening Assessment Current Status: Fair Progress improving transfers PT Short Term Goals Short Term Goals Time Frame: Mar 02, 2017 Transfers (B,C,W/C) (FIM): 4 Gait (FIM): 1 Gait Distance Comment: 20' Gait Level of Assist: 2 Gait Assistive Device: Walker Nathan Wheelchair (FIM): 6 Wheelchair Distance: 150'x2 PT Online Marketing Analyst Goals Online Marketing Analyst Goals PT Online Marketing Analyst Goals Time Frame: Mar 16, 2017 Transfers (B,C,W/C) (FIM): 5 Sit to Lying (QC): 4 Lying-Sitting on Side/Bed(QC): 4 Sit to Stand (QC): 4 Rollin Roll Left to Right (QC): 4 Chair/[id number]-Zjlsd Xfer(QC): 4 Car Transfer (QC): 3 Gait (FIM): 2 Distance: 30' Walk 10 feet (QC): 3 Walk 10ft-Uneven Surface(QC): 3 Gait Level of Assist: 4 Gait Assistive Device: Cane Large Base Quad PT Plan Problem List Problem List: Activity Tolerance, Functional Strength, Safety, Balance, Gait, Transfer, Bed Mobility, ROM Treatment/Plan Treatment Plan: Continue Plan of Care Treatment Plan: Bed Mobility, Concurrent Therapy, Education, Functional Activity Luis, Functional Strength, Group Therapy, Gait, Safety, Therapeutic Exercise, Transfers Treatment Duration: Mar 16, 2017 Frequency: At least 5 of 7 days/Wk (IRF) Estimated Hrs Per Day: 1.5 hours per day Patient and/or Family Agrees t: Yes Safety Risks/Education Patient Education: Transfer Techniques, Correct Positioning, W/C Management, Safety Issues Teaching Recipient: Patient Teaching Methods: Demonstration, Discussion Response to Teaching: Reinforcement Needed Time/GCodes Time In: 1300 Time Out: 1331 Total Billed Treatment Time: 31 Total Billed Treatment 1 visit [facility] 10' EX 21' KIERRA STERLING PT Feb 28, 2017 13:39
[2017-02-28 14:29] VITALS: BP 130/80
[2017-02-28 17:25] VITALS: BP 126/76
[2017-02-28] MEDS: guaiFENesin (MUCINEX) 600 MG TAB PO SCH (20:34)
[2017-02-28] MEDS: ATORVASTATIN 40 MG (LIPITOR) TABLET PO SCH (20:34)
[2017-03-01] MEDS: oxyCODONE/APAP 5/325MG (PERCOCET 5) TABLET PO PRN ×4 (03:14→21:17)
[2017-03-01 05:10] VITALS: BP 138/87
[2017-03-01] MEDS: RT-BUDESONIDE NEBS 0.5 MG/2ML (PULMICORT) AMP INH SCH ×2 (07:22→21:01)
[2017-03-01] MEDS: RT-ALBUTEROL/IPRATROPIUM 3 ML (DUONEB) VIAL INH SCH ×3 (07:22→21:01)
[2017-03-01] MEDS: buPROPion SR 150 MG (WELLBUTRIN SR) TAB PO SCH ×2 (07:24→17:46)
[2017-03-01] MEDS: FAMOTIDINE 20 MG (PEPCID) TABLET PO SCH ×2 (08:06→21:17)
[2017-03-01] MEDS: CLOPIDOGREL 75 MG (PLAVIX) TABLET PO SCH (08:06)
[2017-03-01] MEDS: amLODIPine 5 MG (NORVASC) TAB PO SCH (08:06)
[2017-03-01] MEDS: meTOprolol SUCCINATE 100 MG (TOPROL XL) TAB PO SCH (08:07)
[2017-03-01] MEDS: ARIPIPRAZOLE 10 MG (ABILIFY) TAB PO SCH (08:07)
[2017-03-01] MEDS: DOCUSATE SODIUM 100 MG (COLACE) CAP PO SCH ×2 (08:07→21:18)
[2017-03-01] MEDS: PROMETHAZINE 25 MG (PHENERGAN) TAB PO PRN (08:08)
--- NOTE | 2017-03-01 08:21 | Progress Note (SOAP) ---
Subjective Time Seen by Provider: 08:15 Subjective/Events-last exam patient felt nauseous today. Patient improving with left leg in walking. patient can't move the left upper extremity. CVA. hypertension. History of meth usage Objective Exam Vital Signs Date Time Temp Pulse Resp B/P (MAP) Pulse Ox O2 Delivery O2 Flow Rate FiO2 03/01/17 07:23 93 Room Air 03/01/17 07:22 93 Room Air 03/01/17 05:10 97.5 67 16 138/87 (104) 98 Room Air 02/28/17 21:41 99 Room Air 02/28/17 21:35 96 Room Air 02/28/17 21:30 Room Air 02/28/17 17:25 98.0 84 20 126/76 (93) 98 Room Air 02/28/17 14:29 98.4 78 22 130/80 (97) 100 Room Air 02/28/17 08:31 Room Air I & O 03/01/17 07:00 Intake Total 1085 ml Balance 1085 ml Capillary Refill : General Appearance: No Apparent Distress, WD/WN HEENT: Normal ENT Inspection Neck: Full Range of Motion, Normal Inspection Respiratory: Chest Non Tender, No Accessory Muscle Use, No Respiratory Distress Cardiovascular: Regular Rate, Rhythm, No Murmur Assessment/Plan Assessment/Plan Assess & Plan/Chief Complaint CVA. Left side weakness. Hypertension. Meth abuse history. . 02/28/17. CVA. Left-sided weakness. Hypertension. Patient is abuse history. Chest discomfort with some loose congestion. . 03/01/17. cva. llEFT-SIDED WEAKNESS. hYPERTENSION. METH ABUSE. Patient felt nauseous this a.m. Clinical Quality Measures DVT/VTE Risk/Contraindication: Risk Factor Score Per Nursin RFS Level Per Nursing on Admit: 4+=Very High JOAQUIM SHEN DO Mar 01, 2017 08:20
--- NOTE | 2017-03-01 09:28 | Physical Therapy Daily Note ---
PT Daily Note-Current Subjective Patient in bed pre tx, agrees to PT, has no complaints of pain, patient has nausea and nurse gave her medication for that. Appearance Patient in wheelchair at bedside post tx, has nurse call, brown. Patient needs to use the restroom and wants nursing to take her, nursing notified. Mental Status Patient Orientation: Normal For Age Transfers Functional [place] Measure 0=Not Assessed/NA 4=Minimal Assistance 1=Total Assistance 5=Supervision or Setup 2=Maximal Assistance 6=Modified [place] 3=Moderate Assistance 7=Complete IndependenceIRFPAI Quality Coding Scale 6 Independent with activity with or without an assistive device 5 Patient requires set up or clean up by helper. Patient completes activity by themselves 4 Supervision or touching assist (CGA). [place] provide cues , steadying assist 3 The helper provides less than half the effort to complete the activity 2 The helper provides more than half the effort to complete the activity 1 Dependent. The helper does all the effort to complete an activity 7 Patient refused to complete or attempt activity 9 The patient did not perform the activity before the current illness or injury 88 Not attempted due to Medical conditions or safety concerns Transfers (B, C, W/C) (FIM): 4 Scootin Rollin Supine to/from Sit: 4 Sit to/from Stand: 4 Bed to/from Chair: 4 patient performs supine to sit with min assist with left leg, sit to stand with CGA, transfers to the right with CGA, and transfers to the left with min assist , cues for hand placement and positioning. Patient practiced transfers to the left side x8. Weight Bearing Right Lower Extremity: Right Weight Bearing/Tolerated Left Lower Extremity: Left Weight Bearing/Tolerated Gait Training Gait (FIM): 1 Distance: 20'x3 Gait Level of Assist: 3 Gait Persons Needed: 1 Gait Assistive Device: Walker Nathan Patient ambulated 20'x3 with min/mod assist using a nathan walker and left AFO and knee immobilizer. Patient needs assist with balance and weight shifting and cues for positioning of walker. Wheelchair Training Does the Pt Use a Wheelchair?: Yes Wheelchair (FIM): 6 Distance: 150'x2 Type of Wheelchair: Manual Exercises sit to senior principal parallel bars 3 sets of 5 NuStep Minutes: 15 NuStep Workload: 5 Treatments bed mobility and transfers, ambulation, functional strengthening Assessment Current Status: Fair Progress Improving ambulation but patient was a little ill and needed extra rest breaks. PT Short Term Goals Short Term Goals Time Frame: Mar 02, 2017 Transfers (B,C,W/C) (FIM): 4 Gait (FIM): 1 Gait Distance Comment: 20' Gait Level of Assist: 2 Gait Assistive Device: Walker Nathan Wheelchair (FIM): 6 Wheelchair Distance: 150'x2 PT Belt Buckle Maker Goals Belt Buckle Maker Goals PT [place] Goals Time Frame: Mar 16, 2017 Transfers (B,C,W/C) (FIM): 5 Sit to Lying (QC): 4 Lying-Sitting on Side/Bed(QC): 4 Sit to Stand (QC): 4 Rollin Roll Left to Right (QC): 4 Chair/Fuq-dv-Mhayq Xfer(QC): 4 Car Transfer (QC): 3 Gait (FIM): 2 Distance: 30' Walk 10 feet (QC): 3 Walk 10ft-Uneven Surface(QC): 3 Gait Level of Assist: 4 Gait Assistive Device: Cane Large Base Quad PT Plan Problem List Problem List: Activity Tolerance, Functional Strength, Safety, Balance, Gait, Transfer, Bed Mobility, ROM Treatment/Plan Treatment Plan: Continue Plan of Care Treatment Plan: Bed Mobility, Concurrent Therapy, Education, Functional Activity Lusi, Functional Strength, Group Therapy, Gait, Safety, Therapeutic Exercise, Transfers Treatment Duration: Mar 16, 2017 Frequency: At least 5 of 7 days/Wk (IRF) Estimated Hrs Per Day: 1.5 hours per day Patient and/or Family Agrees t: Yes Safety Risks/Education Patient Education: Gait Training, Transfer Techniques, Correct Positioning, W/ C Management, Safety Issues Teaching Recipient: Patient Teaching Methods: Demonstration, Discussion Response to Teaching: Reinforcement Needed Time/GCodes Time In: 800 Time Out: 930 Total Billed Treatment Time: 90 Total Billed Treatment 1 visit [facility] 30' FA 30' EX 30' KIERRA STERLING PT Mar 01, 2017 09:27
--- NOTE | 2017-03-01 10:42 | PM & R (SOAP) Progress Note ---
Subjective Time Seen by Provider: 09:45 Subjective/Events-last exam Patient was seen in GYM this AM Patient min assist for transfers Cough improved Objective Exam Last Set of Vital Signs Vital Signs Date Time Temp Pulse Resp B/P (MAP) Pulse Ox O2 Delivery O2 Flow Rate FiO2 03/01/17 09:00 Room Air 03/01/17 07:23 93 03/01/17 05:10 97.5 67 16 138/87 (104) Capillary Refill : I&O Intake and Output 03/01/17 00:00 Intake Total 1065 ml Balance 1065 ml Intake Oral 1065 ml # Voids 5 # Bowel Movements 1 General: Alert, Oriented X3, Cooperative, No Acute Distress HEENT: Atraumatic, EOMI, Mucous Memb Moist/[place] Neck: Supple, No JVD Lungs: Clear to Auscultation Abdomen: Normal Bowel Sounds, Soft, No Tenderness Extremities: No Edema, No Tenderness/Swelling Neuro: Other (Left HP with o/5 strength UE fiar+ good - left leg Sensation intact Cognition and speech and swallow intact) Results Lab Laboratory Tests 02/27/17 08:56: Sodium Level 139, Potassium Level 3.8, Chloride Level 108H, Carbon Dioxide Level 20L, Anion Gap 11, Blood Urea Nitrogen 15, Creatinine 0.84, Estimat Glomerular Filtration Rate > 60, BUN/Creatinine Ratio 18, Glucose Level 92, Calcium Level 8.7 Assessment/Plan Assessment RT cva with Left HP HTN controlled HX of meth use Tobaccoism-currently abstaining and on patch GERD on med COPD with cough on resp treatments-CXR clear Plan ContinuePT/OT ST has signed off Team Conference held yesterday--see report for full functional update and POC and ELOS Treat dyspepsia as needed-improved Monitor PO intake Continue resp treatments-add Mucinex-done cough improving RODOLFO HUITRON MD Mar 01, 2017 10:42
[2017-03-01] MEDS: guaiFENesin (MUCINEX) 600 MG TAB PO SCH ×2 (11:26→21:17)
--- NOTE | 2017-03-01 12:56 | Occupational Ther Daily Note ---
OT Current Status-Daily Note Subjective Pt seen in room, up in w/c, agreeable to OT. No pain mentioned. Appearance Alert, cooperative Mental Status/Objective Functional [place] Measure 0=Not Assessed/NA 4=Minimal Assistance 1=Total Assistance 5=Supervision or Setup 2=Maximal Assistance 6=Modified [place] 3=Moderate Assistance 7=Complete [place] ADL-Treatment Pt declined bathing but agreed to groom and change clothes. Functional [place] Measure 0=Not Assessed/NA 4=Minimal Assistance 1=Total Assistance 5=Supervision or Setup 2=Maximal Assistance 6=Modified [place] 3=Moderate Assistance 7=Complete IndependenceIRFPAI Quality Coding Scale 6 Independent with activity with or without an assistive device 5 Patient requires set up or clean up by helper. Patient completes activity by themselves 4 Supervision or touching assist (CGA). [place] provide cues , steadying assist 3 The helper provides less than half the effort to complete the activity 2 The helper provides more than half the effort to complete the activity 1 Dependent. The helper does all the effort to complete an activity 7 Patient refused to complete or attempt activity 9 The patient did not perform the activity before the current illness or injury 88 Not attempted due to Medical conditions or safety concerns Grooming (FIM): 5 (setup at sink to brush teeth and comb hair. Help to braid hair. ) Upper Body (FIM): 4 (Pt was able to take dirty shirt off without help. Skilled cues for problem-solving getting L arm in shirt sleeve and min assist. pt was able to recall instructions and to get shirt over head and pulled down. ) Lower Body Dressing (FIM): 3 (Pt stood mod assist and held on to bed rail while OT pulled pants down over hips. pt was able to get them off the rest of the way. Able to remove shoes and socks. Able to get panties and pants over L foot but needs help to hold L foot on R knee. Stood mod assist for help to pull pants up over hips. She is unable to turn loose of railing to help. She put socks and shoes on but was unable to tie shoes. ) Other Treatment Pt propelled w/c from room to gym. In gym, skilled facilitation techniques used for shoulder and forearm passive and active assisted movement. Pt reported tightness in upper L shoulder felt better and she was able to achieve approx 100 degrees sh flex passively. With gravity eliminate, pt demonstrated L horizontal sh abd and elbow flexion. Pt has some increased muscle tone L UE. Transferred min to mod assist from w/c back to bed at end of tx. Pt educ on different facilitation techniques used and why they work. Pt seemed pleased with progress. Pt propelled w/c back to room and transferred to bed with mod assist and help to get L leg up into bed. Pt left up in bed, 4 rails up, all needs met. Education OT Patient Education: Modified ADL techniques, Progress toward Goal/Update tx plan, Purpose of tx/functional activities Teaching Recipient: Patient Teaching Methods: Discussion Response to Teaching: Verbalize Understanding OT Short Term Goals Short Term Goals Time Frame: Mar 02, 2017 Grooming(FIM): 5 Bathing(FIM): 3 Upper Body Dressing(FIM): 4 Lower Body Dressing(FIM): 3 Toileting(FIM): 3 Transfers (B,C,W/C) (FIM): 4 Toilet/Commode Transfer(FIM): 3 1=Demonstrate adherence to instructed precautions during ADL tasks. 2=Patient will verbalize/demonstrate understanding of assistive devices/ modifications for ADL. 3=Patient will improve strength/tolerance for activity to enable patient to perform ADL's. OT Data Control Clerk Supervisor Goals Shelter Goals Time Frame: Mar 16, 2017 Eating (FIM): 6 Eating (QC): 6 Groomin Oral Hygiene (QC): 6 Bathing(FIM): 4 Shower/Bathe Self (QC): 4 Upper Body Dressing(FIM): 5 Upper Body Dressing (QC): 5 Lower Body Dressing(FIM): 4 Lower Body Dressing (QC): 4 On/Off Footwear (QC): 4 Toileting(FIM): 6 Toileting Hygiene (QC): 4 Toilet/Commode Transfer(FIM): 5 Toilet/Commode Transfer (QC): 4 Shower Transfer(FIM): 4 Comprehension(FIM): 5 (MET) Expression (FIM): 5 (MET) Social Interaction(FIM): 5 (NOT MET) Problem Solving(FIM): 5 (MET) Memory(FIM): 5 (MET) Additional Goals: 1-Demonstrate ADL Tasks, 2-Verbalize Understanding, 3- ImproveStrength/Luis 1=Demonstrate adherence to instructed precautions during ADL tasks. 2=Patient will verbalize/demonstrate understanding of assistive devices/ modifications for ADL. 3=Patient will improve strength/tolerance for activity to enable patient to perform ADL's. OT Education/Plan Discharge Recommendations Plan/Recommendations: Continue POC Treatment Plan/Plan of Care Patient would benefit from OT for education, treatment and training to promote independence in ADL's, mobility, safety and/or upper extremity function for ADL' s. Plan of Care: ADL Retraining, Functional Mobility, Group Exercise/Act as Ind, UE Funct Exercise/Act, UE Neuromus Re-Ed/Coord Treatment Duration: Mar 16, 2017 Frequency: At least 5 of 7 days/Wk (IRF) Estimated Hrs Per Day: 1.5 hours per day Agreement: Yes Rehab Potential: Fair Time/GCodes Start Time: 09:30 Stop Time: 11:00 Total Time Billed (hr/min): 90 Billed Treatment Time visit, 28 minutes ADL, 62 minutes neuromotor TENISHA IGLESIAS OT Mar 01, 2017 12:56
[2017-03-01 17:57] VITALS: BP 115/61
[2017-03-01] MEDS: guaiFENesin/CODEINE (ROBITUSSIN AC) 10ML UDC PO PRN (18:21)
[2017-03-01] MEDS: ACETAMINOPHEN 325 MG TABLET/CAPLET (TYLENOL) PO PRN (18:21)
[2017-03-01] MEDS: ATORVASTATIN 40 MG (LIPITOR) TABLET PO SCH (21:17)
[2017-03-02] MEDS: guaiFENesin/CODEINE (ROBITUSSIN AC) 10ML UDC PO PRN ×4 (04:49→17:59)
[2017-03-02 04:54] VITALS: BP 98/58
[2017-03-02] MEDS: buPROPion SR 150 MG (WELLBUTRIN SR) TAB PO SCH ×2 (06:14→17:23)
[2017-03-02] MEDS: RT-ALBUTEROL/IPRATROPIUM 3 ML (DUONEB) VIAL INH SCH ×3 (06:53→19:54)
[2017-03-02] MEDS: RT-BUDESONIDE NEBS 0.5 MG/2ML (PULMICORT) AMP INH SCH ×2 (06:54→19:54)
--- NOTE | 2017-03-02 08:11 | Progress Note (SOAP) ---
Subjective Time Seen by Provider: 08:10 Subjective/Events-last exam CVA. Left sided weakness. Left leg doing better. Left upper extremity not improving at this moment. hypertension noncompliance. history of meth use Objective Exam Vital Signs Date Time Temp Pulse Resp B/P (MAP) Pulse Ox O2 Delivery O2 Flow Rate FiO2 03/02/17 06:58 98 03/02/17 06:53 95 Room Air 03/02/17 04:54 97.2 76 18 98/58 (71) 97 Room Air 03/01/17 21:09 97 Room Air 03/01/17 21:03 97 Room Air 03/01/17 21:00 98.9 03/01/17 20:39 Room Air 03/01/17 17:57 99.3 85 18 115/61 (79) 97 Room Air 03/01/17 15:22 97 Room Air 03/01/17 09:00 Room Air I & O 03/02/17 07:00 Intake Total 504 ml Balance 504 ml Capillary Refill : General Appearance: No Apparent Distress, WD/WN Assessment/Plan Assessment/Plan Assess & Plan/Chief Complaint CVA. Left side weakness. Hypertension. Meth abuse history. . 02/28/17. CVA. Left-sided weakness. Hypertension. Patient is abuse history. Chest discomfort with some loose congestion. . 03/01/17. cva. llEFT-SIDED WEAKNESS. hYPERTENSION. METH ABUSE. Patient felt nauseous this a.m.. . 03/02/17. CVA. Left-sided weakness. Hypertension. Left abuse. Patient's left leg doing better. Patient's left upper extremity problems Clinical Quality Measures DVT/VTE Risk/Contraindication: Risk Factor Score Per Nursin RFS Level Per Nursing on Admit: 4+=Very High JOAQUIM SHEN DO Mar 02, 2017 08:11
--- NOTE | 2017-03-02 08:21 | PM & R (SOAP) Progress Note ---
Subjective Time Seen by Provider: 07:50 Subjective/Events-last exam Patient was seen in her room this AM Patient min assist for transfers Cough better Slept well .Continent of bowel and bladder Objective Exam Last Set of Vital Signs Vital Signs Date Time Temp Pulse Resp B/P (MAP) Pulse Ox O2 Delivery O2 Flow Rate FiO2 03/02/17 06:58 98 03/02/17 06:53 Room Air 03/02/17 04:54 97.2 76 18 98/58 (71) Capillary Refill : I&O Intake and Output 03/02/17 00:00 Intake Total 900 ml Balance 900 ml Intake Oral 900 ml # Voids 3 General: Alert, Oriented X3, Cooperative, No Acute Distress HEENT: Atraumatic, EOMI, Mucous Memb Moist/[place] Neck: Supple, No JVD Lungs: Clear to Auscultation Abdomen: Normal Bowel Sounds, Soft, No Tenderness Extremities: No Edema, No Tenderness/Swelling Neuro: Other (Left HP with o/5 strength UE fiar+ good - left leg Sensation intact Cognition and speech and swallow intact) Results Lab Laboratory Tests 02/27/17 08:56: Sodium Level 139, Potassium Level 3.8, Chloride Level 108H, Carbon Dioxide Level 20L, Anion Gap 11, Blood Urea Nitrogen 15, Creatinine 0.84, Estimat Glomerular Filtration Rate > 60, BUN/Creatinine Ratio 18, Glucose Level 92, Calcium Level 8.7 Assessment/Plan Assessment RT cva with Left HP HTN controlled HX of meth use Tobaccoism-currently abstaining and on patch GERD on med COPD with cough on resp treatments-CXR clear Plan ContinuePT/OT ST has signed off Team Conference held 02-28-17-see report for full functional update and POC and ELOS Treat dyspepsia as needed-improved Monitor PO intake Continue resp treatments-add Mucinex-done cough improved RODOLFO HUITRON MD Mar 02, 2017 08:21
[2017-03-02] MEDS: DOCUSATE SODIUM 100 MG (COLACE) CAP PO SCH ×2 (08:23→20:59)
[2017-03-02] MEDS: meTOprolol SUCCINATE 100 MG (TOPROL XL) TAB PO SCH (08:23)
[2017-03-02] MEDS: ARIPIPRAZOLE 10 MG (ABILIFY) TAB PO SCH (08:23)
[2017-03-02] MEDS: FAMOTIDINE 20 MG (PEPCID) TABLET PO SCH ×2 (08:23→20:54)
[2017-03-02] MEDS: oxyCODONE/APAP 5/325MG (PERCOCET 5) TABLET PO PRN ×4 (08:24→23:34)
[2017-03-02] MEDS: amLODIPine 5 MG (NORVASC) TAB PO SCH (08:24)
[2017-03-02] MEDS: CLOPIDOGREL 75 MG (PLAVIX) TABLET PO SCH (08:24)
[2017-03-02] MEDS: PROMETHAZINE 25 MG (PHENERGAN) TAB PO PRN (08:26)
[2017-03-02] MEDS: guaiFENesin (MUCINEX) 600 MG TAB PO SCH ×2 (08:27→20:58)
--- NOTE | 2017-03-02 10:37 | Physical Therapy Daily Note ---
PT Daily Note-Current Subjective Pt sitting on [facility] upon arrival. Pt agrees to PT but reports not sleeping well, feeling nauseated & tired. Pain Numeric Pain Scale: 6 Location: Left Location Body Site: Thigh Pain Description: Ache, Tightness Mental Status Patient Orientation: Person, Place, Situation Attachments: Other-See Comments (AFO & Knee Immobilizer fotr LLE) Transfers Functional [place] Measure 0=Not Assessed/NA 4=Minimal Assistance 1=Total Assistance 5=Supervision or Setup 2=Maximal Assistance 6=Modified [place] 3=Moderate Assistance 7=Complete IndependenceIRFPAI Quality Coding Scale 6 Independent with activity with or without an assistive device 5 Patient requires set up or clean up by helper. Patient completes activity by themselves 4 Supervision or touching assist (CGA). [place] provide cues , steadying assist 3 The helper provides less than half the effort to complete the activity 2 The helper provides more than half the effort to complete the activity 1 Dependent. The helper does all the effort to complete an activity 7 Patient refused to complete or attempt activity 9 The patient did not perform the activity before the current illness or injury 88 Not attempted due to Medical conditions or safety concerns Scootin Supine to/from Sit: 4 Sit to/from Stand: 4 Sit to Lying (QC): 4 Sit to Stand (QC): 4 Weight Bearing Right Lower Extremity: Right Weight Bearing/Tolerated Left Lower Extremity: Left Weight Bearing/Tolerated Gait Training Does the Patient Walk?: Yes Distance (FIM): 1=up to 49 ft Distance: 30' Walk 10 feet (QC): 4 Gait Level of Assist: 4 Gait Persons Needed: 1 Gait Assistive Device: Walker Nathan Wheelchair Training Does the Pt Use a Wheelchair?: Yes Wheelchair Distance: 0=192-04 ft Distance: 100' Wheelchair Level of Assist: 5 Wheel 50 ft with 2 turns (QC): 5 Type of Wheelchair: Manual Exercises Seated Therapy Exercises: Ankle pumps (PROM to loosen up tightness) Seated Reps: 20 NuStep Minutes: 10 NuStep Workload: 5 Treatments Pt using [facility]. Pt transfers from [facility] to [facility] at Min A. Pt propelled [facility] to Therapy Gym. Pt transfers to [facility] and uses for 10m at Workload 5. Pt then takes short rest before putting AFO & knee immobilizer on while pt lays Supine on mat. Pt ambulates using Nathan walker at [facility] in Gym before needing to rest. Pt wants to return to room so HEALTH OCCUPATIONS TEACHER propels [facility] for pt. Pt rests in room at end of tx with all needs met awaiting OT. Assessment Current Status: Good Progress Pt reports feeling fatigued, didn't sleep well so she is tired as well as nauseated. PT Short Term Goals Short Term Goals Time Frame: Mar 02, 2017 Transfers (B,C,W/C) (FIM): 4 Gait (FIM): 1 Gait Distance Comment: 20' Gait Level of Assist: 2 Gait Assistive Device: Walker Nathan Wheelchair (FIM): 6 Wheelchair Distance: 150'x2 PT Mcfp Goals Wood Crew Supervisor Goals PT Wood [employer] Supervisor Goals Time Frame: Mar 16, 2017 Transfers (B,C,W/C) (FIM): 5 Sit to Lying (QC): 4 Lying-Sitting on Side/Bed(QC): 4 Sit to Stand (QC): 4 Rollin Roll Left to Right (QC): 4 Chair/Opu-wp-Ckxtm Xfer(QC): 4 Car Transfer (QC): 3 Gait (FIM): 2 Distance: 30' Walk 10 feet (QC): 3 Walk 10ft-Uneven Surface(QC): 3 Gait Level of Assist: 4 Gait Assistive Device: Cane Large Base Quad PT Plan Problem List Problem List: Activity Tolerance, Functional Strength, Safety, Balance, Gait, Transfer Treatment/Plan Treatment Plan: Continue Plan of Care Treatment Plan: Bed Mobility, Concurrent Therapy, Education, Functional Activity Luis, Functional Strength, Group Therapy, Gait, Safety, Therapeutic Exercise, Transfers Treatment Duration: Mar 16, 2017 Frequency: At least 5 of 7 days/Wk (IRF) Estimated Hrs Per Day: 1.5 hours per day Patient and/or Family Agrees t: Yes Safety Risks/Education Patient Education: Gait Training, Transfer Techniques, Correct Positioning, Safety Issues Teaching Recipient: Patient Teaching Methods: Discussion Response to Teaching: Verbalize Understanding Time/GCodes Time In: 820 Time Out: 925 Total Billed Treatment Time: 65 Total Billed Treatment 1, WCH (15m), FA (15m), GT (15m) & EX (20m) EMAJESSE HEALTH OCCUPATIONS TEACHER Mar 02, 2017 10:37
--- NOTE | 2017-03-02 12:02 | Occupational Ther Daily Note ---
OT Current Status-Daily Note Subjective Pt sitting in chair, states she is tired today. Agrees to treatment. Pt reports 7/10 back pain. Mental Status/Objective Functional [place] Measure 0=Not Assessed/NA 4=Minimal Assistance 1=Total Assistance 5=Supervision or Setup 2=Maximal Assistance 6=Modified [place] 3=Moderate Assistance 7=Complete [place] ADL-Treatment Pt agrees to shower this morning. To restroom via w/c. Pt transferred w/c to shower bench with minimal assistance using grab bar for balance and safety. Pt requires assist to pull pants down over hips, but is then able to doff them the rest of the way while seated. Pt required assist to doff left shoe, but is able to doff right shoe and socks with CGA for balance. Doff pullover shirt with SBA and verbal cues for technique. Pt able to wash left UE, chest, abdomen, bilateral upper legs, and kelby area. Uses long handled sponge to wash lower legs and feet. Assist to wash/dry right UE and buttocks. Pt donned pullover shirt with minimal assistance and cues for technique. Pt able to start underwear and pants over feet and pull up to knees. Pt sit to stand with minimal assistance using grab bar for balance. Assist required to pull pants up over hips. Pt donned bilateral socks with set up. Pt able to don right shoe, but requires assist for left. Assist required to tie both shoes. Pt brushed teeth with set up while seated in w/c. Pt able to comb hair, but requires assist to pull back in ponytail. Pt propelled w/c to laundry room. Pt placed laundry and soap in washer at w/c level, but required assist to manage washer settings as she was unable to reach them. Functional [place] Measure 0=Not Assessed/NA 4=Minimal Assistance 1=Total Assistance 5=Supervision or Setup 2=Maximal Assistance 6=Modified [place] 3=Moderate Assistance 7=Complete IndependenceIRFPAI Quality Coding Scale 6 Independent with activity with or without an assistive device 5 Patient requires set up or clean up by helper. Patient completes activity by themselves 4 Supervision or touching assist (CGA). [place] provide cues , steadying assist 3 The helper provides less than half the effort to complete the activity 2 The helper provides more than half the effort to complete the activity 1 Dependent. The helper does all the effort to complete an activity 7 Patient refused to complete or attempt activity 9 The patient did not perform the activity before the current illness or injury 88 Not attempted due to Medical conditions or safety concerns Grooming (FIM): 4 Oral Hygiene (QC): 5 Bathing (FIM): 4 Shower/Bathe Self (QC): 3 Upper Body (FIM): 4 Upper Body Dressing (QC): 3 Lower Body Dressing (FIM): 3 Lower Body Dressing (QC): 3 Shower Transfer(FIM): 4 Other Treatment Pt completed weight bearing through left UE while seated EOB. Pt demonstrates minimal active left shoulder shrug and scapular retraction. Pt sit to supine with assist for left LE. Pt has increased tone in shoulder and elbow. PROM completed left UE at all joints. Pt demonstrates minimal active shoulder abduction. Pt resting in bed with needs met after session. OT Short Term Goals Short Term Goals Time Frame: Mar 02, 2017 Grooming(FIM): 5 Bathing(FIM): 3 Upper Body Dressing(FIM): 4 Lower Body Dressing(FIM): 3 Toileting(FIM): 3 Transfers (B,C,W/C) (FIM): 4 Toilet/Commode Transfer(FIM): 3 1=Demonstrate adherence to instructed precautions during ADL tasks. 2=Patient will verbalize/demonstrate understanding of assistive devices/ modifications for ADL. 3=Patient will improve strength/tolerance for activity to enable patient to perform ADL's. OT Net C Developer Goals Residential Goals Time Frame: Mar 16, 2017 Eating (FIM): 6 Eating (QC): 6 Groomin Oral Hygiene (QC): 6 Bathing(FIM): 4 Shower/Bathe Self (QC): 4 Upper Body Dressing(FIM): 5 Upper Body Dressing (QC): 5 Lower Body Dressing(FIM): 4 Lower Body Dressing (QC): 4 On/Off Footwear (QC): 4 Toileting(FIM): 6 Toileting Hygiene (QC): 4 Toilet/Commode Transfer(FIM): 5 Toilet/Commode Transfer (QC): 4 Shower Transfer(FIM): 4 Comprehension(FIM): 5 (MET) Expression (FIM): 5 (MET) Social Interaction(FIM): 5 (NOT MET) Problem Solving(FIM): 5 (MET) Memory(FIM): 5 (MET) Additional Goals: 1-Demonstrate ADL Tasks, 2-Verbalize Understanding, 3- ImproveStrength/Luis 1=Demonstrate adherence to instructed precautions during ADL tasks. 2=Patient will verbalize/demonstrate understanding of assistive devices/ modifications for ADL. 3=Patient will improve strength/tolerance for activity to enable patient to perform ADL's. OT Education/Plan Discharge Recommendations Plan/Recommendations: Continue POC Treatment Plan/Plan of Care Patient would benefit from OT for education, treatment and training to promote independence in ADL's, mobility, safety and/or upper extremity function for ADL' s. Plan of Care: ADL Retraining, Functional Mobility, Group Exercise/Act as Ind, UE Funct Exercise/Act, UE Neuromus Re-Ed/Coord Treatment Duration: Mar 16, 2017 Frequency: At least 5 of 7 days/Wk (IRF) Estimated Hrs Per Day: 1.5 hours per day Agreement: Yes Rehab Potential: Fair Time/GCodes Start Time: 09:30 Stop Time: 11:00 Total Time Billed (hr/min): 90 Billed Treatment Time 1 visit, ALx4(60minutes), NMx2(30minutes) RUBY MENDOSA OT Mar 02, 2017 12:02
[2017-03-02] MEDS: ALPRAZolam 1 MG (XANAX) TAB PO PRN ×2 (12:40→17:25)
--- NOTE | 2017-03-02 14:49 | Physical Therapy Daily Note ---
PT Daily Note-Current Subjective Pt laying Supine in bed upon arrival. Pt agrees to PT. Mental Status Patient Orientation: Person, Place Transfers Functional [place] Measure 0=Not Assessed/NA 4=Minimal Assistance 1=Total Assistance 5=Supervision or Setup 2=Maximal Assistance 6=Modified [place] 3=Moderate Assistance 7=Complete IndependenceIRFPAI Quality Coding Scale 6 Independent with activity with or without an assistive device 5 Patient requires set up or clean up by helper. Patient completes activity by themselves 4 Supervision or touching assist (CGA). [place] provide cues , steadying assist 3 The helper provides less than half the effort to complete the activity 2 The helper provides more than half the effort to complete the activity 1 Dependent. The helper does all the effort to complete an activity 7 Patient refused to complete or attempt activity 9 The patient did not perform the activity before the current illness or injury 88 Not attempted due to Medical conditions or safety concerns Scootin Supine to/from Sit: 4 Sit to/from Stand: 4 Sit to Lying (QC): 4 Sit to Stand (QC): 4 Chair/Kaj-rr-Zsgvt Xfer(QC): 4 Bed to/from Chair: 4 Weight Bearing Right Lower Extremity: Right Weight Bearing/Tolerated Left Lower Extremity: Left Weight Bearing/Tolerated Exercises Supine Ex: Ankle pumps, Quad Set, Glut sets, Heel Slides, Straight leg raise, Hip abd/add Supine Reps: 20 Treatments Pt completes Supine Ex in bed. During Ex, pt needs to use BSC. Pt transfers to BSC at Min-Mod A. Pt returns to bed and finishes EX. Pt resting Supine in bed at end of tx with all needs met. Assessment Current Status: Good Progress Pt reports feeling tired and still a little nauseated. PT Short Term Goals Short Term Goals Time Frame: Mar 02, 2017 Transfers (B,C,W/C) (FIM): 4 Gait (FIM): 1 Gait Distance Comment: 20' Gait Level of Assist: 2 Gait Assistive Device: Walker Nathan Wheelchair (FIM): 6 Wheelchair Distance: 100' PT Assisted Goals Machine Heel Seat Laster Goals PT Machine Heel Seat Laster Goals Time Frame: Mar 16, 2017 Transfers (B,C,W/C) (FIM): 5 Sit to Lying (QC): 4 Lying-Sitting on Side/Bed(QC): 4 Sit to Stand (QC): 4 Rollin Roll Left to Right (QC): 4 Chair/Wbg-nc-Phhdj Xfer(QC): 4 Car Transfer (QC): 3 Gait (FIM): 2 Distance: 30' Walk 10 feet (QC): 3 Walk 10ft-Uneven Surface(QC): 3 Gait Level of Assist: 4 Gait Assistive Device: Cane Large Base Quad PT Plan Problem List Problem List: Activity Tolerance, Functional Strength, Safety, Balance, Gait, Transfer, Bed Mobility Treatment/Plan Treatment Plan: Continue Plan of Care Treatment Plan: Bed Mobility, Concurrent Therapy, Education, Functional Activity Luis, Functional Strength, Group Therapy, Gait, Safety, Therapeutic Exercise, Transfers Treatment Duration: Mar 16, 2017 Frequency: At least 5 of 7 days/Wk (IRF) Estimated Hrs Per Day: 1.5 hours per day Patient and/or Family Agrees t: Yes Safety Risks/Education Patient Education: Gait Training, Transfer Techniques, Correct Positioning, Safety Issues Teaching Recipient: Patient Teaching Methods: Discussion Response to Teaching: Verbalize Understanding Time/GCodes Time In: 1330 Time Out: 1355 Total Billed Treatment Time: 25 Total Billed Treatment 1, EX x2 (25m) JESSE BOO PTA Mar 02, 2017 14:49
[2017-03-02] MEDS: ACETAMINOPHEN 325 MG TABLET/CAPLET (TYLENOL) PO PRN (17:25)
[2017-03-02 18:00] VITALS: BP 121/60
[2017-03-02] MEDS: ATORVASTATIN 40 MG (LIPITOR) TABLET PO SCH (20:54)
[2017-03-03 06:10] VITALS: BP 103/70
[2017-03-03] MEDS: buPROPion SR 150 MG (WELLBUTRIN SR) TAB PO SCH ×2 (06:47→17:06)
[2017-03-03] MEDS: oxyCODONE/APAP 5/325MG (PERCOCET 5) TABLET PO PRN ×3 (06:47→20:04)
[2017-03-03] MEDS: RT-BUDESONIDE NEBS 0.5 MG/2ML (PULMICORT) AMP INH SCH ×2 (08:00→21:04)
[2017-03-03] MEDS: RT-ALBUTEROL/IPRATROPIUM 3 ML (DUONEB) VIAL INH SCH ×3 (08:00→21:04)
[2017-03-03] MEDS: ARIPIPRAZOLE 10 MG (ABILIFY) TAB PO SCH (09:00)
[2017-03-03] MEDS: amLODIPine 5 MG (NORVASC) TAB PO SCH (09:00)
[2017-03-03] MEDS: DOCUSATE SODIUM 100 MG (COLACE) CAP PO SCH ×2 (09:00→20:04)
[2017-03-03] MEDS: FAMOTIDINE 20 MG (PEPCID) TABLET PO SCH ×2 (09:00→20:04)
[2017-03-03] MEDS: meTOprolol SUCCINATE 100 MG (TOPROL XL) TAB PO SCH (09:00)
[2017-03-03] MEDS: CLOPIDOGREL 75 MG (PLAVIX) TABLET PO SCH (09:00)
[2017-03-03] MEDS: guaiFENesin/CODEINE (ROBITUSSIN AC) 10ML UDC PO PRN ×3 (09:06→21:38)
[2017-03-03] MEDS: guaiFENesin (MUCINEX) 600 MG TAB PO SCH ×2 (09:06→20:04)
--- NOTE | 2017-03-03 09:39 | Physical Therapy Daily Note ---
PT Daily Note-Current Subjective Pt. agrees to rx. Requests BSC at end of rx. No pain Pain Numeric Pain Scale: 0-No Pain Mental Status Patient Orientation: Normal For Age Attachments: Other-See Comments (AFO and knee brace left) Transfers Functional [place] Measure 0=Not Assessed/NA 4=Minimal Assistance 1=Total Assistance 5=Supervision or Setup 2=Maximal Assistance 6=Modified [place] 3=Moderate Assistance 7=Complete IndependenceIRFPAI Quality Coding Scale 6 Independent with activity with or without an assistive device 5 Patient requires set up or clean up by helper. Patient completes activity by themselves 4 Supervision or touching assist (CGA). [place] provide cues , steadying assist 3 The helper provides less than half the effort to complete the activity 2 The helper provides more than half the effort to complete the activity 1 Dependent. The helper does all the effort to complete an activity 7 Patient refused to complete or attempt activity 9 The patient did not perform the activity before the current illness or injury 88 Not attempted due to Medical conditions or safety concerns Transfers (B, C, W/C) (FIM): 4 Scootin Rollin Supine to/from Sit: 5 Sit to/from Stand: 4 Bed to/from Chair: 4 Weight Bearing Right Lower Extremity: Right Weight Bearing/Tolerated Left Lower Extremity: Left Weight Bearing/Tolerated Gait Training Does the Patient Walk?: Yes Gait (FIM): 1 Distance (FIM): 1=up to 49 ft (12x4) Gait Level of Assist: 2 Gait Persons Needed: 1 Gait Assistive Device: Parallel Bars parallel bars with w/c f/y. assist to stablize LLE and for step length etc Wheelchair Training Does the Pt Use a Wheelchair?: Yes Wheelchair (FIM): 3 Wheelchair Distance: 3=150 ft Wheelchair Level of Assist: 3 Type of Wheelchair: Manual assist with turns Exercises Supine Ex: Bridging, Quad Set, Rolling, Heel Slides, Straight leg raise, Hip abd/add Supine Reps: 15 Treatments toileted with assist for pants up down, SPTs CGA Assessment Current Status: Good Progress PT Short Term Goals Short Term Goals Time Frame: Mar 02, 2017 Transfers (B,C,W/C) (FIM): 4 Gait (FIM): 1 Gait Distance Comment: 20' Gait Level of Assist: 2 Gait Assistive Device: Walker Nathan Wheelchair (FIM): 6 Wheelchair Distance: 100' PT Halfway Goals Halfway Goals PT Commercial Crabber Goals Time Frame: Mar 16, 2017 Transfers (B,C,W/C) (FIM): 5 Sit to Lying (QC): 4 Lying-Sitting on Side/Bed(QC): 4 Sit to Stand (QC): 4 Rollin Roll Left to Right (QC): 4 Chair/Gqe-lo-Ziixp Xfer(QC): 4 Car Transfer (QC): 3 Gait (FIM): 2 Distance: 30' Walk 10 feet (QC): 3 Walk 10ft-Uneven Surface(QC): 3 Gait Level of Assist: 4 Gait Assistive Device: Cane Large Base Quad PT Plan Treatment/Plan Treatment Plan: Continue Plan of Care Treatment Plan: Bed Mobility, Concurrent Therapy, Education, Functional Activity Luis, Functional Strength, Group Therapy, Gait, Safety, Therapeutic Exercise, Transfers Treatment Duration: Mar 16, 2017 Frequency: At least 5 of 7 days/Wk (IRF) Estimated Hrs Per Day: 1.5 hours per day Patient and/or Family Agrees t: Yes Safety Risks/Education Patient Education: Gait Training, Transfer Techniques, Correct Positioning, Safety Issues Teaching Recipient: Patient Teaching Methods: Demonstration, Discussion Response to Teaching: Verbalize Understanding, Return Demonstration, Reinforcement Needed Time/GCodes Time In: 830 Time Out: 900 Total Billed Treatment Time: 30 Total Billed Treatment 1,GT15m,FA15m G Codes Necessary: MARY KATE Urena TEST DESK OPERATOR Mar 03, 2017 09:39
[2017-03-03 18:00] VITALS: BP 121/65
[2017-03-03] MEDS: ATORVASTATIN 40 MG (LIPITOR) TABLET PO SCH (20:04)
[2017-03-03] MEDS: ALPRAZolam 1 MG (XANAX) TAB PO PRN (21:38)
[2017-03-04 05:51] VITALS: BP 132/85
[2017-03-04] MEDS: buPROPion SR 150 MG (WELLBUTRIN SR) TAB PO SCH ×2 (06:19→16:47)
[2017-03-04] MEDS: guaiFENesin/CODEINE (ROBITUSSIN AC) 10ML UDC PO PRN ×3 (06:28→16:47)
[2017-03-04] MEDS: RT-BUDESONIDE NEBS 0.5 MG/2ML (PULMICORT) AMP INH SCH ×2 (07:02→21:08)
[2017-03-04] MEDS: RT-ALBUTEROL/IPRATROPIUM 3 ML (DUONEB) VIAL INH SCH ×3 (07:02→21:08)
[2017-03-04] MEDS: CLOPIDOGREL 75 MG (PLAVIX) TABLET PO SCH (08:25)
[2017-03-04] MEDS: oxyCODONE/APAP 5/325MG (PERCOCET 5) TABLET PO PRN ×2 (08:25→16:06)
[2017-03-04] MEDS: amLODIPine 5 MG (NORVASC) TAB PO SCH (08:25)
[2017-03-04] MEDS: ARIPIPRAZOLE 10 MG (ABILIFY) TAB PO SCH (08:26)
[2017-03-04] MEDS: FAMOTIDINE 20 MG (PEPCID) TABLET PO SCH ×2 (08:26→20:44)
[2017-03-04] MEDS: meTOprolol SUCCINATE 100 MG (TOPROL XL) TAB PO SCH (08:26)
[2017-03-04] MEDS: DOCUSATE SODIUM 100 MG (COLACE) CAP PO SCH ×2 (08:26→20:11)
[2017-03-04] MEDS: guaiFENesin (MUCINEX) 600 MG TAB PO SCH ×2 (08:47→20:44)
[2017-03-04 17:31] VITALS: BP 121/84
[2017-03-04] MEDS: ATORVASTATIN 40 MG (LIPITOR) TABLET PO SCH (20:44)
[2017-03-04] MEDS: ALPRAZolam 1 MG (XANAX) TAB PO PRN (22:01)
[2017-03-05 05:18] VITALS: BP 110/69
[2017-03-05] MEDS: oxyCODONE/APAP 5/325MG (PERCOCET 5) TABLET PO PRN ×2 (05:18→20:16)
[2017-03-05] MEDS: buPROPion SR 150 MG (WELLBUTRIN SR) TAB PO SCH ×2 (06:18→16:02)
[2017-03-05] MEDS: RT-BUDESONIDE NEBS 0.5 MG/2ML (PULMICORT) AMP INH SCH ×2 (07:08→22:10)
[2017-03-05] MEDS: RT-ALBUTEROL/IPRATROPIUM 3 ML (DUONEB) VIAL INH SCH ×3 (07:08→22:09)
--- NOTE | 2017-03-05 07:58 | Progress Note (SOAP) ---
Subjective Time Seen by Provider: 07:55 Subjective/Events-last exam CVA. Unable to move left upper extremity. Left leg doing better. history of meth use. Hypertension history noncompliance Objective Exam Vital Signs Date Time Temp Pulse Resp B/P (MAP) Pulse Ox O2 Delivery O2 Flow Rate FiO2 03/05/17 07:13 93 Room Air 03/05/17 07:08 95 Room Air 03/05/17 05:18 97.7 87 18 110/69 (83) 99 Room Air 03/04/17 21:14 99 Room Air 03/04/17 21:09 95 Room Air 03/04/17 20:10 Room Air 03/04/17 17:31 98.8 73 18 121/84 (96) 99 Room Air 03/04/17 14:46 97 Room Air 03/04/17 08:34 Room Air I & O 03/05/17 07:00 Intake Total 1050 ml Balance 1050 ml Capillary Refill : General Appearance: No Apparent Distress, WD/WN Assessment/Plan Assessment/Plan Assess & Plan/Chief Complaint CVA. Left side weakness. Hypertension. Meth abuse history. . 02/28/17. CVA. Left-sided weakness. Hypertension. Patient is abuse history. Chest discomfort with some loose congestion. . 03/01/17. cva. llEFT-SIDED WEAKNESS. hYPERTENSION. METH ABUSE. Patient felt nauseous this a.m.. . 03/02/17. CVA. Left-sided weakness. Hypertension. Left abuse. Patient's left leg doing better. Patient's left upper extremity problems. . 03/05/17. CVA Left sided weakness. Meth abuse. Patient's left leg doing better Patient has problems with moving of left upper extremity. Patient voices no complaints Clinical Quality Measures DVT/VTE Risk/Contraindication: Risk Factor Score Per Nursin RFS Level Per Nursing on Admit: 4+=Very High JOAQUIM SHEN DO Mar 05, 2017 07:58
[2017-03-05] MEDS: FAMOTIDINE 20 MG (PEPCID) TABLET PO SCH ×2 (08:56→21:30)
[2017-03-05] MEDS: guaiFENesin (MUCINEX) 600 MG TAB PO SCH ×2 (08:56→21:30)
[2017-03-05] MEDS: CLOPIDOGREL 75 MG (PLAVIX) TABLET PO SCH (08:56)
[2017-03-05] MEDS: DOCUSATE SODIUM 100 MG (COLACE) CAP PO SCH ×2 (08:56→21:30)
[2017-03-05] MEDS: ARIPIPRAZOLE 10 MG (ABILIFY) TAB PO SCH (08:56)
[2017-03-05] MEDS: meTOprolol SUCCINATE 100 MG (TOPROL XL) TAB PO SCH (08:56)
[2017-03-05] MEDS: amLODIPine 5 MG (NORVASC) TAB PO SCH (08:56)
--- NOTE | 2017-03-05 11:11 | Occupational Ther Daily Note ---
OT Current Status-Daily Note Subjective Pt. states that she slept most of the weekend. Does report that she got "out" yesterday in her wheelchair, and that this felt good. Appearance Pt. in bed. Declines showering but agrees to spongebathe with OT assist. Mental Status/Objective Patient Orientation: Person, Place Functional [place] Measure 0=Not Assessed/NA 4=Minimal Assistance 1=Total Assistance 5=Supervision or Setup 2=Maximal Assistance 6=Modified [place] 3=Moderate Assistance 7=Complete [place] ADL-Treatment Functional [place] Measure 0=Not Assessed/NA 4=Minimal Assistance 1=Total Assistance 5=Supervision or Setup 2=Maximal Assistance 6=Modified [place] 3=Moderate Assistance 7=Complete IndependenceIRFPAI Quality Coding Scale 6 Independent with activity with or without an assistive device 5 Patient requires set up or clean up by helper. Patient completes activity by themselves 4 Supervision or touching assist (CGA). [place] provide cues , steadying assist 3 The helper provides less than half the effort to complete the activity 2 The helper provides more than half the effort to complete the activity 1 Dependent. The helper does all the effort to complete an activity 7 Patient refused to complete or attempt activity 9 The patient did not perform the activity before the current illness or injury 88 Not attempted due to Medical conditions or safety concerns Grooming (FIM): 2 (OT brushed pt's hair and put it in ponytail, as pt. could not do for herself.) Oral Hygiene (QC): 5 (Pt. is able to brush her teeth with set up from wheelchair level at sink.) Bathing (FIM): 3 (OT washed under pt's arms, and assisted in stance while pt. washed between legs. Pt. able to wash all other parts including put lotion on feet.) Shower/Bathe Self (QC): 3 Upper Body (FIM): 2 (Max assist needed overall to don bra and shirt.) Upper Body Dressing (QC): 2 Lower Body Dressing (FIM): 3 (Pt. able to get brief and pants over feet and pulled to thighs. Required assist in stance and assist to wool puller hips. Able to get shoes and socks on, but required assist to tie shoes.) Lower Body Dressing (QC): 3 On/Off Footwear (QC): 3 Toileting (FIM): 3 Toileting Hygiene (QC): 3 (Pt. able to cleanse self, but required assist to pull up and down brief and pants.) Transfers (B, C, W/C) (FIM): 3 Toilet/Commode Transfer (FIM): 3 Toilet Transfer (QC): 3 Other Treatment After ADLs in room, pt. self propelled wheelchair to therapy gym. Tolerated 4 brandi-amps to left wrist extensors x 9 minutes for wrist extension, and then 5 brandi-amps to left finger flexors x 8 minutes for finger flexion. Noted good movement each time. No pain noted. Pt. then practiced self ROM with threading bilateral hands together and completing shoulder flexion exercises, x 10 reps. Pt. able to flex left shoulder to approximately 70 degrees without discomfort. Pt. is educated about joint integrity and need for movement. Pt. verbalizes understanding. Pt. self propelled back to room. Transferred to bed with mod assist and all needs met. Education OT Patient Education: Correct positioning, Modified ADL techniques, Progress toward Goal/Update tx plan, Purpose of tx/functional activities, Reviewed precautions, Rehab process, Transfer techniques Teaching Recipient: Patient Teaching Methods: Demonstration, Discussion Response to Teaching: Verbalize Understanding, Return Demonstration OT Short Term Goals Short Term Goals Time Frame: Mar 02, 2017 Grooming(FIM): 5 Bathing(FIM): 3 Upper Body Dressing(FIM): 4 Lower Body Dressing(FIM): 3 Toileting(FIM): 3 Transfers (B,C,W/C) (FIM): 4 Toilet/Commode Transfer(FIM): 3 1=Demonstrate adherence to instructed precautions during ADL tasks. 2=Patient will verbalize/demonstrate understanding of assistive devices/ modifications for ADL. 3=Patient will improve strength/tolerance for activity to enable patient to perform ADL's. OT Turbine Subassembler Goals Turbine Subassembler Goals Time Frame: Mar 16, 2017 Eating (FIM): 6 Eating (QC): 6 Groomin Oral Hygiene (QC): 6 Bathing(FIM): 4 Shower/Bathe Self (QC): 4 Upper Body Dressing(FIM): 5 Upper Body Dressing (QC): 5 Lower Body Dressing(FIM): 4 Lower Body Dressing (QC): 4 On/Off Footwear (QC): 4 Toileting(FIM): 6 Toileting Hygiene (QC): 4 Toilet/Commode Transfer(FIM): 5 Toilet/Commode Transfer (QC): 4 Shower Transfer(FIM): 4 Comprehension(FIM): 5 (MET) Expression (FIM): 5 (MET) Social Interaction(FIM): 5 (NOT MET) Problem Solving(FIM): 5 (MET) Memory(FIM): 5 (MET) Additional Goals: 1-Demonstrate ADL Tasks, 2-Verbalize Understanding, 3- ImproveStrength/Luis 1=Demonstrate adherence to instructed precautions during ADL tasks. 2=Patient will verbalize/demonstrate understanding of assistive devices/ modifications for ADL. 3=Patient will improve strength/tolerance for activity to enable patient to perform ADL's. OT Education/Plan Problem List/Assessment Assessment: Decreased Activ Tolerance, Decreased UE Strength, Dependent Transfers, Impaired Bed Mobility, Impaired Cognition, Impaired Coordination, Impaired Funct Balance, Impaired I ADL's, Impaired Self-Care Skills, Restricted Funct UE ROM, Visual-Perceptual Deficit Discharge Recommendations Plan/Recommendations: Continue POC Therapy D/C Recommendations: Home w/ Family Support, Occupational Therapy Home Care, Scheduled Assistance Comment Equipment needs to be determined. Pt. states that her boyfriend is buying them a new trailer, and is working on it while she is in the hospital. Treatment Plan/Plan of Care Treatment,Training & Education: Yes Patient would benefit from OT for education, treatment and training to promote independence in ADL's, mobility, safety and/or upper extremity function for ADL' s. Plan of Care: ADL Retraining, Functional Mobility, Group Exercise/Act as Ind, UE Funct Exercise/Act, UE Neuromus Re-Ed/Coord Treatment Duration: Mar 16, 2017 Frequency: At least 5 of 7 days/Wk (IRF) Estimated Hrs Per Day: 1.5 hours per day Agreement: Yes Rehab Potential: Fair Time/GCodes Start Time: 08:30 Stop Time: 10:00 Total Time Billed (hr/min): 90 Billed Treatment Time 1, ADL x 60minutes, NM x 30minutes MARI ECKERT OT Mar 05, 2017 11:11
--- NOTE | 2017-03-05 12:00 | Physical Therapy Daily Note ---
PT Daily Note-Current Subjective Pt. tearful today speaking of her medical issues and her past and her children. Agrees to Rx. C/o fatigue with gait Pain Numeric Pain Scale: 0-No Pain Mental Status Patient Orientation: Normal For Age Attachments: Other-See Comments (AFO and immoblizer donned to LLE as well as bilat shoes) Transfers Functional [place] Measure 0=Not Assessed/NA 4=Minimal Assistance 1=Total Assistance 5=Supervision or Setup 2=Maximal Assistance 6=Modified [place] 3=Moderate Assistance 7=Complete IndependenceIRFPAI Quality Coding Scale 6 Independent with activity with or without an assistive device 5 Patient requires set up or clean up by helper. Patient completes activity by themselves 4 Supervision or touching assist (CGA). [place] provide cues , steadying assist 3 The helper provides less than half the effort to complete the activity 2 The helper provides more than half the effort to complete the activity 1 Dependent. The helper does all the effort to complete an activity 7 Patient refused to complete or attempt activity 9 The patient did not perform the activity before the current illness or injury 88 Not attempted due to Medical conditions or safety concerns Transfers (B, C, W/C) (FIM): 4 Scootin Rollin Roll Left to Right (QC): 6 Supine to/from Sit: 5 Sit to/from Stand: 4 Bed to/from Chair: 4 Car Transfer (QC): 4 Weight Bearing Right Lower Extremity: Right Weight Bearing/Tolerated Left Lower Extremity: Left Weight Bearing/Tolerated Gait Training Does the Patient Walk?: Yes Gait (FIM): 1 Distance (FIM): 1=up to 49 ft (15ft at rail in hallway with w/c back up, 10ft x 3 in parallel bars) Gait Level of Assist: 3 Gait Persons Needed: 1 Gait Assistive Device: Parallel Bars (rail in lorezno, uses RUE only) AFO and knee immob on LLE. strong tone LLE this date, much stretching and tone reduction efforts L ankle before applied Wheelchair Training Does the Pt Use a Wheelchair?: Yes Wheelchair (FIM): 3 Wheelchair Distance: 3=150 ft Wheelchair Level of Assist: 3 Type of Wheelchair: Manual ssist for brakes and for tight turns Exercises Supine Ex: Bridging, Ankle pumps (HC stretch L), Quad Set, Rolling, Glut sets, Heel Slides, Short Arc Quads, Scooting, Straight leg raise, Hip abd/add Supine Reps: 15 NuStep Minutes: 10 NuStep Workload: 3 Assessment Current Status: Fair Progress dependent for all mobility PT Short Term Goals Short Term Goals Time Frame: Mar 02, 2017 Transfers (B,C,W/C) (FIM): 4 Gait (FIM): 1 Gait Distance Comment: 20' Gait Level of Assist: 2 Gait Assistive Device: Walker Nathan Wheelchair (FIM): 6 Wheelchair Distance: 100' PT Erp Analyst Goals Correction Goals PT Erp Analyst Goals Time Frame: Mar 16, 2017 Transfers (B,C,W/C) (FIM): 5 Sit to Lying (QC): 4 Lying-Sitting on Side/Bed(QC): 4 Sit to Stand (QC): 4 Rollin Roll Left to Right (QC): 4 Chair/Swf-tg-Xrshv Xfer(QC): 4 Car Transfer (QC): 3 Gait (FIM): 2 Distance: 30' Walk 10 feet (QC): 3 Walk 10ft-Uneven Surface(QC): 3 Gait Level of Assist: 4 Gait Assistive Device: Cane Large Base Quad PT Plan Treatment/Plan Treatment Plan: Continue Plan of Care Treatment Plan: Bed Mobility, Concurrent Therapy, Education, Functional Activity Luis, Functional Strength, Group Therapy, Gait, Safety, Therapeutic Exercise, Transfers Treatment Duration: Mar 16, 2017 Frequency: At least 5 of 7 days/Wk (IRF) Estimated Hrs Per Day: 1.5 hours per day Patient and/or Family Agrees t: Yes Safety Risks/Education Patient Education: Gait Training, Transfer Techniques, Correct Positioning, W/ C Management, Disease Process, Safety Issues Teaching Recipient: Patient Teaching Methods: Demonstration, Discussion Response to Teaching: Verbalize Understanding, Return Demonstration, Reinforcement Needed Time/GCodes Time In: 1100 Time Out: 1200 Total Billed Treatment Time: 60 Total Billed Treatment 1,GT25m,WC15m,EX20m G Codes Necessary: MARY KATE Urena PRINTING PRESS OPERATOR APPRENTICE Mar 05, 2017 12:00
--- NOTE | 2017-03-05 13:39 | Physical Therapy Daily Note ---
PT Daily Note-Current Subjective Pt. tearful this afternoon and states "this is scary to think about" States she is tired but agrees to Rx Pain Numeric Pain Scale: 3 Location: Right Location Body Site: Back Pain Description: Ache Mental Status Patient Orientation: Normal For Age Transfers Functional [place] Measure 0=Not Assessed/NA 4=Minimal Assistance 1=Total Assistance 5=Supervision or Setup 2=Maximal Assistance 6=Modified [place] 3=Moderate Assistance 7=Complete IndependenceIRFPAI Quality Coding Scale 6 Independent with activity with or without an assistive device 5 Patient requires set up or clean up by helper. Patient completes activity by themselves 4 Supervision or touching assist (CGA). [place] provide cues , steadying assist 3 The helper provides less than half the effort to complete the activity 2 The helper provides more than half the effort to complete the activity 1 Dependent. The helper does all the effort to complete an activity 7 Patient refused to complete or attempt activity 9 The patient did not perform the activity before the current illness or injury 88 Not attempted due to Medical conditions or safety concerns Rx focused on SPTs , discussed the goal of possibly TRFing toward right each time if she were alone but being able to move WC to her right from seated position in bed to be able to TRF back out again to her right etc. Pt. understood concept but states it is scary to consider but wants to be as indep as possible at DC. Will live in a mobile home after DC Weight Bearing Right Lower Extremity: Right Weight Bearing/Tolerated Left Lower Extremity: Left Weight Bearing/Tolerated Wheelchair Training Type of Wheelchair: Manual pt. manuevered w/c to good position beside bed indep as well as about her room with cues only Exercises Supine Ex: Bridging, Ankle pumps, Quad Set, Rolling, Glut sets, Heel Slides, Short Arc Quads, Scooting, Straight leg raise, Hip abd/add Supine Reps: 15 Assessment Current Status: Good Progress gives good effort PT Short Term Goals Short Term Goals Time Frame: Mar 02, 2017 Transfers (B,C,W/C) (FIM): 4 Gait (FIM): 1 Gait Distance Comment: 20' Gait Level of Assist: 2 Gait Assistive Device: Walker Nathan Wheelchair (FIM): 6 Wheelchair Distance: 100' PT Senior Living Goals Armament Repairer Goals PT Senior Living Goals Time Frame: Mar 16, 2017 Transfers (B,C,W/C) (FIM): 5 Sit to Lying (QC): 4 Lying-Sitting on Side/Bed(QC): 4 Sit to Stand (QC): 4 Rollin Roll Left to Right (QC): 4 Chair/Pya-jv-Tzrmy Xfer(QC): 4 Car Transfer (QC): 3 Gait (FIM): 2 Distance: 30' Walk 10 feet (QC): 3 Walk 10ft-Uneven Surface(QC): 3 Gait Level of Assist: 4 Gait Assistive Device: Cane Large Base Quad PT Plan Treatment/Plan Treatment Plan: Continue Plan of Care Treatment Plan: Bed Mobility, Concurrent Therapy, Education, Functional Activity Luis, Functional Strength, Group Therapy, Gait, Safety, Therapeutic Exercise, Transfers Treatment Duration: Mar 16, 2017 Frequency: At least 5 of 7 days/Wk (IRF) Estimated Hrs Per Day: 1.5 hours per day Patient and/or Family Agrees t: Yes Safety Risks/Education Patient Education: Transfer Techniques, Correct Positioning, W/C Management, Disease Process, Safety Issues Teaching Recipient: Patient Teaching Methods: Demonstration, Discussion Response to Teaching: Verbalize Understanding, Return Demonstration, Reinforcement Needed Time/GCodes Time In: 1300 Time Out: 1330 Total Billed Treatment Time: 30 Total Billed Treatment 1,FA20m,EX10m G Codes Necessary: MARY KATE Urena INFORMATICS SPECIALIST Mar 05, 2017 13:39
[2017-03-05] MEDS: guaiFENesin/CODEINE (ROBITUSSIN AC) 10ML UDC PO PRN (16:00)
[2017-03-05] MEDS: ALPRAZolam 1 MG (XANAX) TAB PO PRN (16:00)
[2017-03-05 17:31] VITALS: BP 140/90
--- NOTE | 2017-03-05 19:12 | PM & R (SOAP) Progress Note ---
Subjective Time Seen by Provider: 19:00 Subjective/Events-last exam Patient was seen in her room this evening. Patient with little return LUE BUT can slr on Left but lacks dorsiflexion. Patient min assist for transfers cough improved.. Review of Systems Neurological: Weakness Objective Exam Last Set of Vital Signs Vital Signs Date Time Temp Pulse Resp B/P (MAP) Pulse Ox O2 Delivery O2 Flow Rate FiO2 03/05/17 17:31 99.0 95 18 140/90 (107) 99 Room Air Capillary Refill : I&O Intake and Output 03/05/17 00:00 Intake Total 1610 ml Balance 1610 ml Intake Oral 1610 ml # Voids 2 General: Alert, Oriented X3, Cooperative, No Acute Distress HEENT: Atraumatic, EOMI, Mucous Memb Moist/[place] Neck: Supple, No JVD Lungs: Clear to Auscultation Abdomen: Normal Bowel Sounds, Soft, No Tenderness Extremities: No Edema, No Tenderness/Swelling Neuro: Other (Left HP with o/5 strength UE fiar+ good - left leg Sensation intact Cognition and speech and swallow intact) Assessment/Plan Assessment RT cva with Left HP HTN controlled HX of meth use Tobaccoism-currently abstaining and on patch GERD on med COPD with cough on resp treatments-CXR clear Plan ContinuePT/OT ST has signed off Treat dyspepsia as needed-improved Monitor PO intake Continue resp treatments-add Mucinex-done cough improved Next Team Conference 03-07-17 RODOLFO HUITRON MD Mar 05, 2017 19:12
[2017-03-05] MEDS: ATORVASTATIN 40 MG (LIPITOR) TABLET PO SCH (21:30)
[2017-03-06] MEDS: oxyCODONE/APAP 5/325MG (PERCOCET 5) TABLET PO PRN ×3 (03:50→17:32)
[2017-03-06 06:05] VITALS: BP 118/75
[2017-03-06] MEDS: buPROPion SR 150 MG (WELLBUTRIN SR) TAB PO SCH ×2 (06:05→16:46)
[2017-03-06] MEDS: RT-ALBUTEROL/IPRATROPIUM 3 ML (DUONEB) VIAL INH SCH ×3 (06:19→22:40)
[2017-03-06] MEDS: RT-BUDESONIDE NEBS 0.5 MG/2ML (PULMICORT) AMP INH SCH ×2 (06:20→22:40)
--- NOTE | 2017-03-06 08:00 | Progress Note (SOAP) ---
Subjective Time Seen by Provider: 08:00 Subjective/Events-last exam cVA on left. Hypertension noncompliance. History of meth use. Patient voices no complaints today Objective Exam Vital Signs Date Time Temp Pulse Resp B/P (MAP) Pulse Ox O2 Delivery O2 Flow Rate FiO2 03/06/17 06:24 97 03/06/17 06:19 95 Room Air 03/06/17 06:05 98.8 89 16 118/75 (89) 97 Room Air 03/05/17 22:18 Room Air 03/05/17 22:10 Room Air 03/05/17 22:10 97 Room Air 03/05/17 17:31 99.0 95 18 140/90 (107) 99 Room Air 03/05/17 14:41 95 Room Air 03/05/17 09:00 Room Air I & O 03/06/17 07:00 Intake Total 1440 ml Balance 1440 ml Capillary Refill : General Appearance: No Apparent Distress, WD/WN HEENT: Normal ENT Inspection Neck: Full Range of Motion, Non Tender Respiratory: Chest Non Tender, No Accessory Muscle Use, No Respiratory Distress Cardiovascular: Regular Rate, Rhythm, No Murmur Gastrointestinal: normal bowel sounds, non tender Assessment/Plan Assessment/Plan Assess & Plan/Chief Complaint CVA. Left side weakness. Hypertension. Meth abuse history. . 02/28/17. CVA. Left-sided weakness. Hypertension. Patient is abuse history. Chest discomfort with some loose congestion. . 03/01/17. cva. llEFT-SIDED WEAKNESS. hYPERTENSION. METH ABUSE. Patient felt nauseous this a.m.. . 03/02/17. CVA. Left-sided weakness. Hypertension. Left abuse. Patient's left leg doing better. Patient's left upper extremity problems. . 03/05/17. CVA Left sided weakness. Meth abuse. Patient's left leg doing better Patient has problems with moving of left upper extremity. Patient voices no complaints. . 04/1916. CVA on left. Meth abuse history. Patient doing better with left leg. Not so with left arm. Clinical Quality Measures DVT/VTE Risk/Contraindication: Risk Factor Score Per Nursin RFS Level Per Nursing on Admit: 4+=Very High JOAQUIM SHEN DO Mar 06, 2017 08:00
[2017-03-06] MEDS: meTOprolol SUCCINATE 100 MG (TOPROL XL) TAB PO SCH (08:54)
[2017-03-06] MEDS: DOCUSATE SODIUM 100 MG (COLACE) CAP PO SCH ×3 (08:54→20:35)
[2017-03-06] MEDS: ARIPIPRAZOLE 10 MG (ABILIFY) TAB PO SCH (08:54)
[2017-03-06] MEDS: amLODIPine 5 MG (NORVASC) TAB PO SCH (08:54)
[2017-03-06] MEDS: FAMOTIDINE 20 MG (PEPCID) TABLET PO SCH ×2 (08:54→20:35)
[2017-03-06] MEDS: CLOPIDOGREL 75 MG (PLAVIX) TABLET PO SCH (08:55)
[2017-03-06] MEDS: guaiFENesin (MUCINEX) 600 MG TAB PO SCH ×2 (08:55→20:35)
--- NOTE | 2017-03-06 10:21 | Occupational Ther Daily Note ---
OT Current Status-Daily Note Subjective Pt alert, lying in bed. Pt had difficult time motivating herself to get out of bed. Pt agreed to therapy. No c/o pain at this time. Mental Status/Objective Patient Orientation: Person, Place, Time, Situation Functional [place] Measure 0=Not Assessed/NA 4=Minimal Assistance 1=Total Assistance 5=Supervision or Setup 2=Maximal Assistance 6=Modified [place] 3=Moderate Assistance 7=Complete [place] ADL-Treatment Functional [place] Measure 0=Not Assessed/NA 4=Minimal Assistance 1=Total Assistance 5=Supervision or Setup 2=Maximal Assistance 6=Modified [place] 3=Moderate Assistance 7=Complete IndependenceIRFPAI Quality Coding Scale 6 Independent with activity with or without an assistive device 5 Patient requires set up or clean up by helper. Patient completes activity by themselves 4 Supervision or touching assist (CGA). [place] provide cues , steadying assist 3 The helper provides less than half the effort to complete the activity 2 The helper provides more than half the effort to complete the activity 1 Dependent. The helper does all the effort to complete an activity 7 Patient refused to complete or attempt activity 9 The patient did not perform the activity before the current illness or injury 88 Not attempted due to Medical conditions or safety concerns Eating (FIM): 6 (Pt able to set self up and use regular utensils to feed self.) Eating (QC): 6 Grooming (FIM): 6 (Sitting at sink in w/c, pt able to complete all grooming by self.) Oral Hygiene (QC): 6 Bathing (FIM): 4 (Using grabbar, long handle sponge, shower bench and hand held shower pt is able to complete all bathing. Pt leaned toward L side to cleanse buttocks. Pt required assist to cleanse R side.) Bathing Location: L Arm, L Upper Leg, R Upper Leg, L Lower Leg (including foot) , R Lower Leg (including foot), Chest, Abdomen, Buttocks, Perineal Area Shower/Bathe Self (QC): 3 Upper Body (FIM): 4 (Assist to thread L UE into sleeve using one handed technique. Pt able to thread R UE and head into shirt. Assist to hook bra.) Upper Body Dressing (QC): 3 Lower Body Dressing (FIM): 3 (CGA when leaning forward and position pants to initiate over feet. Pt hiked pants over hips with assist for standing balance. Pt used one-handed technique to don socks and shoes. Assist to tie shoes.) Lower Body Dressing (QC): 3 On/Off Footwear (QC): 4 Shower Transfer(FIM): 4 (Using w/c, grabbars and shower bench pt able to transfer toward strong and weak side with min A.) After therapy, pt sitting in w/c with call light/phone in reach. All needs met in room. OT Short Term Goals Short Term Goals Time Frame: Mar 02, 2017 Grooming(FIM): 5 Bathing(FIM): 3 Upper Body Dressing(FIM): 4 Lower Body Dressing(FIM): 3 Toileting(FIM): 3 Transfers (B,C,W/C) (FIM): 4 Toilet/Commode Transfer(FIM): 3 1=Demonstrate adherence to instructed precautions during ADL tasks. 2=Patient will verbalize/demonstrate understanding of assistive devices/ modifications for ADL. 3=Patient will improve strength/tolerance for activity to enable patient to perform ADL's. OT Usp Goals Usp Goals Time Frame: Mar 16, 2017 Eating (FIM): 6 Eating (QC): 6 Groomin Oral Hygiene (QC): 6 Bathing(FIM): 4 Shower/Bathe Self (QC): 4 Upper Body Dressing(FIM): 5 Upper Body Dressing (QC): 5 Lower Body Dressing(FIM): 4 Lower Body Dressing (QC): 4 On/Off Footwear (QC): 4 Toileting(FIM): 6 Toileting Hygiene (QC): 4 Toilet/Commode Transfer(FIM): 5 Toilet/Commode Transfer (QC): 4 Shower Transfer(FIM): 4 Comprehension(FIM): 5 (MET) Expression (FIM): 5 (MET) Social Interaction(FIM): 5 (NOT MET) Problem Solving(FIM): 5 (MET) Memory(FIM): 5 (MET) Additional Goals: 1-Demonstrate ADL Tasks, 2-Verbalize Understanding, 3- ImproveStrength/Luis 1=Demonstrate adherence to instructed precautions during ADL tasks. 2=Patient will verbalize/demonstrate understanding of assistive devices/ modifications for ADL. 3=Patient will improve strength/tolerance for activity to enable patient to perform ADL's. OT Education/Plan Discharge Recommendations Plan/Recommendations: Continue POC Treatment Plan/Plan of Care Patient would benefit from OT for education, treatment and training to promote independence in ADL's, mobility, safety and/or upper extremity function for ADL' s. Plan of Care: ADL Retraining, Functional Mobility, Group Exercise/Act as Ind, UE Funct Exercise/Act, UE Neuromus Re-Ed/Coord Treatment Duration: Mar 16, 2017 Frequency: At least 5 of 7 days/Wk (IRF) Estimated Hrs Per Day: 1.5 hours per day Agreement: Yes Rehab Potential: Fair Time/GCodes Start Time: 08:30 Stop Time: 10:00 Total Time Billed (hr/min): 90 Billed Treatment Time 1 visit-ADL 6 (90 min) KAHLIL MENDEZ Mar 06, 2017 10:21
--- NOTE | 2017-03-06 12:01 | Physical Therapy Daily Note ---
PT Daily Note-Current Subjective Patient has no complaints of pain. Sitting in wheelchair at bedside pre tx, agrees to PT. Appearance Patient BTB post tx with nurse call, phone, tray, all needs met. Mental Status Patient Orientation: Normal For Age Transfers Functional [place] Measure 0=Not Assessed/NA 4=Minimal Assistance 1=Total Assistance 5=Supervision or Setup 2=Maximal Assistance 6=Modified [place] 3=Moderate Assistance 7=Complete IndependenceIRFPAI Quality Coding Scale 6 Independent with activity with or without an assistive device 5 Patient requires set up or clean up by helper. Patient completes activity by themselves 4 Supervision or touching assist (CGA). [place] provide cues , steadying assist 3 The helper provides less than half the effort to complete the activity 2 The helper provides more than half the effort to complete the activity 1 Dependent. The helper does all the effort to complete an activity 7 Patient refused to complete or attempt activity 9 The patient did not perform the activity before the current illness or injury 88 Not attempted due to Medical conditions or safety concerns Transfers (B, C, W/C) (FIM): 4 Scootin Rollin Supine to/from Sit: 4 Sit to/from Stand: 4 Bed to/from Chair: 4 Bed mobility min assist to get leg into bed, sit to stand CGA, transfers to the left with min assist and to the right with CGA Weight Bearing Right Lower Extremity: Right Weight Bearing/Tolerated Left Lower Extremity: Left Weight Bearing/Tolerated Gait Training Gait (FIM): 1 Distance: 20'x5 Gait Level of Assist: 4 Gait Persons Needed: 1 Gait Assistive Device: Cane Small Base Quad Patient ambulated 20'x5 with a left side AFO and quad cane with min assist for balance and weight shifting. Patient did not need the knee immobilizer and upgraded to a quad cane from a hemiwalker. Wheelchair Training Does the Pt Use a Wheelchair?: Yes Wheelchair (FIM): 5 Distance: 150'x2 Wheelchair Level of Assist: 5 Type of Wheelchair: Manual Patient occasionally runs in to objects on the left side but she is able to correct without difficulty. Exercises Seated Therapy Exercises: Long arc quads Seated Reps: 20 Standing: Sit to Stand Standing Reps: 10 Treatments bed mobility and transfers, ambulation, wheelchair mobility, functional strengthening, patient was also toileted once for a BM Assessment Current Status: Fair Progress improving ambulation, balance, endurance PT Short Term Goals Short Term Goals Time Frame: Mar 02, 2017 Transfers (B,C,W/C) (FIM): 4 Gait (FIM): 1 Gait Distance Comment: 20' Gait Level of Assist: 2 Gait Assistive Device: Walker Nathan Wheelchair (FIM): 6 Wheelchair Distance: 100' PT Regional Sales Trainer Goals Regional Sales Trainer Goals PT Prison Goals Time Frame: Mar 16, 2017 Transfers (B,C,W/C) (FIM): 5 Sit to Lying (QC): 4 Lying-Sitting on Side/Bed(QC): 4 Sit to Stand (QC): 4 Rollin Roll Left to Right (QC): 4 Chair/Qkd-ps-Vsizi Xfer(QC): 4 Car Transfer (QC): 3 Gait (FIM): 2 Distance: 30' Walk 10 feet (QC): 3 Walk 10ft-Uneven Surface(QC): 3 Gait Level of Assist: 4 Gait Assistive Device: Cane Large Base Quad PT Plan Problem List Problem List: Activity Tolerance, Functional Strength, Safety, Balance, Gait, Transfer, Bed Mobility Treatment/Plan Treatment Plan: Continue Plan of Care Treatment Plan: Bed Mobility, Concurrent Therapy, Education, Functional Activity Luis, Functional Strength, Group Therapy, Gait, Safety, Therapeutic Exercise, Transfers Treatment Duration: Mar 16, 2017 Frequency: At least 5 of 7 days/Wk (IRF) Estimated Hrs Per Day: 1.5 hours per day Patient and/or Family Agrees t: Yes Safety Risks/Education Patient Education: Gait Training, Transfer Techniques, Correct Positioning, W/ C Management, Safety Issues Teaching Recipient: Patient Teaching Methods: Demonstration, Discussion Response to Teaching: Reinforcement Needed Time/GCodes Time In: 1100 Time Out: 1200 Total Billed Treatment Time: 60 Total Billed Treatment 1 visit GT 30' FA 15' EX 15' KIERRA STERLING PT Mar 06, 2017 12:01
[2017-03-06] MEDS: ACETAMINOPHEN 325 MG TABLET/CAPLET (TYLENOL) PO PRN (12:52)
--- NOTE | 2017-03-06 13:03 | PM & R (SOAP) Progress Note ---
Subjective Time Seen by Provider: 12:30 Subjective/Events-last exam Patient was seen in her room this noonhour.Patient min assist for transfers Gradually improving with therapies Discussed case with SW Review of Systems Neurological: Weakness Objective Exam Last Set of Vital Signs Vital Signs Date Time Temp Pulse Resp B/P (MAP) Pulse Ox O2 Delivery O2 Flow Rate FiO2 03/06/17 09:31 Room Air 03/06/17 06:24 97 03/06/17 06:05 98.8 89 16 118/75 (89) Capillary Refill : I&O Intake and Output 03/06/17 00:00 Intake Total 1360 ml Balance 1360 ml Intake Oral 1360 ml # Voids 5 # Bowel Movements 1 General: Alert, Oriented X3, Cooperative, No Acute Distress HEENT: Atraumatic, EOMI, Mucous Memb Moist/[place] Neck: Supple, No JVD Lungs: Clear to Auscultation Abdomen: Normal Bowel Sounds, Soft, No Tenderness Extremities: No Edema, No Tenderness/Swelling Neuro: Other (Left HP with o/5 strength UE fiar+ good - left leg Sensation intact Cognition and speech and swallow intact) Assessment/Plan Assessment RT cva with Left HP HTN controlled HX of meth use Tobaccoism-currently abstaining and on patch GERD on med COPD with cough on resp treatments-CXR clear Plan ContinuePT/OT ST has signed off Treat dyspepsia as needed-improved Monitor PO intake Continue resp treatments-add Mucinex-done cough improved Next Team Conference tomorrow 03-07-17 RODOLFO HUITRON MD Mar 06, 2017 13:03
--- NOTE | 2017-03-06 15:02 | Physical Therapy Daily Note ---
PT Daily Note-Current Subjective Patient in bed pre tx, agrees to PT, has a headache of 4/10. Appearance Patient BTB post tx with nurse call, phone, tray, all needs met. Mental Status Patient Orientation: Person, Place, Situation Transfers Functional [place] Measure 0=Not Assessed/NA 4=Minimal Assistance 1=Total Assistance 5=Supervision or Setup 2=Maximal Assistance 6=Modified [place] 3=Moderate Assistance 7=Complete IndependenceIRFPAI Quality Coding Scale 6 Independent with activity with or without an assistive device 5 Patient requires set up or clean up by helper. Patient completes activity by themselves 4 Supervision or touching assist (CGA). [place] provide cues , steadying assist 3 The helper provides less than half the effort to complete the activity 2 The helper provides more than half the effort to complete the activity 1 Dependent. The helper does all the effort to complete an activity 7 Patient refused to complete or attempt activity 9 The patient did not perform the activity before the current illness or injury 88 Not attempted due to Medical conditions or safety concerns Transfers (B, C, W/C) (FIM): 4 Scootin Rollin Supine to/from Sit: 5 Sit to/from Stand: 4 Bed to/from Chair: 4 Patient can perform a stand pivot transfer to the left side with CGA is the has detailed cues and directions. Weight Bearing Right Lower Extremity: Right Weight Bearing/Tolerated Left Lower Extremity: Left Weight Bearing/Tolerated Exercises Supine Ex: Short Arc Quads Supine Reps: 30 manually resisted leg press 3 sets of 10, PROM/stretching of left leg all planes Treatments bed mobility, transfers, functional strengthening, ROM Assessment Current Status: Fair Progress improving transfers PT Short Term Goals Short Term Goals Time Frame: Mar 02, 2017 Transfers (B,C,W/C) (FIM): 4 Gait (FIM): 1 Gait Distance Comment: 20' Gait Level of Assist: 2 Gait Assistive Device: Walker Nathan Wheelchair (FIM): 6 Wheelchair Distance: 150'x2 PT Fpc Goals Fpc Goals PT Fpc Goals Time Frame: Mar 16, 2017 Transfers (B,C,W/C) (FIM): 5 Sit to Lying (QC): 4 Lying-Sitting on Side/Bed(QC): 4 Sit to Stand (QC): 4 Rollin Roll Left to Right (QC): 4 Chair/Jau-nq-Xladz Xfer(QC): 4 Car Transfer (QC): 3 Gait (FIM): 2 Distance: 30' Walk 10 feet (QC): 3 Walk 10ft-Uneven Surface(QC): 3 Gait Level of Assist: 4 Gait Assistive Device: Cane Large Base Quad PT Plan Problem List Problem List: Activity Tolerance, Functional Strength, Safety, Balance, Gait, Transfer, Bed Mobility Treatment/Plan Treatment Plan: Continue Plan of Care Treatment Plan: Bed Mobility, Concurrent Therapy, Education, Functional Activity Luis, Functional Strength, Group Therapy, Gait, Safety, Therapeutic Exercise, Transfers Treatment Duration: Mar 16, 2017 Frequency: At least 5 of 7 days/Wk (IRF) Estimated Hrs Per Day: 1.5 hours per day Patient and/or Family Agrees t: Yes Safety Risks/Education Patient Education: Transfer Techniques, Correct Positioning, W/C Management, Safety Issues Teaching Recipient: Patient Teaching Methods: Demonstration, Discussion Response to Teaching: Reinforcement Needed Time/GCodes Time In: 1430 Time Out: 1500 Total Billed Treatment Time: 30 Total Billed Treatment 1 visit EX 20' FA 10' KIERRA STERLING PT Mar 06, 2017 15:02
[2017-03-06] MEDS: ALPRAZolam 1 MG (XANAX) TAB PO PRN (16:46)
[2017-03-06 17:42] VITALS: BP 110/75
[2017-03-06] MEDS: ATORVASTATIN 40 MG (LIPITOR) TABLET PO SCH (20:35)
[2017-03-07] MEDS: ALPRAZolam 1 MG (XANAX) TAB PO PRN ×2 (01:29→10:40)
[2017-03-07 06:00] VITALS: BP 111/76
[2017-03-07] MEDS: RT-ALBUTEROL/IPRATROPIUM 3 ML (DUONEB) VIAL INH SCH ×2 (07:09→15:30)
[2017-03-07] MEDS: RT-BUDESONIDE NEBS 0.5 MG/2ML (PULMICORT) AMP INH SCH (07:09)
--- NOTE | 2017-03-07 08:21 | Progress Note (SOAP) ---
Subjective Time Seen by Provider: 08:20 Subjective/Events-last exam patient doing better with the left leg and left arm. patient working progress. CVA. Meth use. Hypertension noncompliance. Patient states she's wanting to work hard Objective Exam Vital Signs Date Time Temp Pulse Resp B/P (MAP) Pulse Ox O2 Delivery O2 Flow Rate FiO2 03/07/17 07:11 95 Room Air 03/07/17 06:00 97.4 78 20 111/76 (88) 96 Room Air 03/06/17 22:42 96 Room Air 03/06/17 21:00 Room Air 03/06/17 17:42 96.6 78 20 110/75 (87) 98 Room Air 03/06/17 09:31 Room Air I & O 03/07/17 06:59 Intake Total 1100 ml Balance 1100 ml Capillary Refill : General Appearance: No Apparent Distress, WD/WN HEENT: Normal ENT Inspection Neck: Full Range of Motion, Normal Inspection Respiratory: No Accessory Muscle Use, No Respiratory Distress Cardiovascular: Regular Rate, Rhythm Assessment/Plan Assessment/Plan Assess & Plan/Chief Complaint CVA. Left side weakness. Hypertension. Meth abuse history. . 02/28/17. CVA. Left-sided weakness. Hypertension. Patient is abuse history. Chest discomfort with some loose congestion. . 03/01/17. cva. llEFT-SIDED WEAKNESS. hYPERTENSION. METH ABUSE. Patient felt nauseous this a.m.. . 03/02/17. CVA. Left-sided weakness. Hypertension. Left abuse. Patient's left leg doing better. Patient's left upper extremity problems. . 03/05/17. CVA Left sided weakness. Meth abuse. Patient's left leg doing better Patient has problems with moving of left upper extremity. Patient voices no complaints. . 04/1916. CVA on left. Meth abuse history. Patient doing better with left leg. Not so with left arm.. . 03/07/17. CVA on left. Weakness. Hypertension. Meth abuse. patient doing better with left leg in the left arm. Clinical Quality Measures DVT/VTE Risk/Contraindication: Risk Factor Score Per Nursin RFS Level Per Nursing on Admit: 4+=Very High JOAQUIM SHEN DO Mar 07, 2017 08:21
[2017-03-07] MEDS: FAMOTIDINE 20 MG (PEPCID) TABLET PO SCH ×2 (08:26→20:42)
[2017-03-07] MEDS: amLODIPine 5 MG (NORVASC) TAB PO SCH (08:26)
[2017-03-07] MEDS: CLOPIDOGREL 75 MG (PLAVIX) TABLET PO SCH (08:26)
[2017-03-07] MEDS: guaiFENesin (MUCINEX) 600 MG TAB PO SCH ×2 (08:26→20:42)
[2017-03-07] MEDS: meTOprolol SUCCINATE 100 MG (TOPROL XL) TAB PO SCH (08:26)
[2017-03-07] MEDS: ARIPIPRAZOLE 10 MG (ABILIFY) TAB PO SCH (08:27)
[2017-03-07] MEDS: buPROPion SR 150 MG (WELLBUTRIN SR) TAB PO SCH ×2 (08:27→17:09)
[2017-03-07] MEDS: DOCUSATE SODIUM 100 MG (COLACE) CAP PO SCH ×2 (08:31→19:46)
--- NOTE | 2017-03-07 09:30 | Occupational Ther Daily Note ---
OT Current Status-Daily Note Subjective Pt sleeping in bed, woke easily to name. Pt agreed to therapy. No c/o pain. Pt did report that she had slid to the ground last night when transferring. Pt was worried that it was her fault. VAZQUEZ assured her that as long as someone was there to help transfer her that it was not her fault. Mental Status/Objective Patient Orientation: Person, Place, Time, Situation Functional [place] Measure 0=Not Assessed/NA 4=Minimal Assistance 1=Total Assistance 5=Supervision or Setup 2=Maximal Assistance 6=Modified [place] 3=Moderate Assistance 7=Complete [place] ADL-Treatment Pt declined sponge bath or shower today. Agreed to complete grooming at w/c level. Pt able to complete by self. Pt requires assist to position L foot and stabilize when transferring. Min A to transfer from EOB to w/c toward L side. Pt then transferred to toilet with min A toward L and R side. Pt able to cleanse self though required assist to manipulate clothing. Pt then propelled w /c to therapy gym to complete neuromuscular tasks. Pt transferred to/from therapy mat with min A. Pt worked on wt bearing with L UE. Assist to position then pt was able to stabilize L shldr and elbow with wt bearing, assist with keeping hand in correct position due to increased tone. Min A to lie supine to complete APROM. Pt is able to complete UE adduction movements with assist of increased tone and shldr extension though unable to control speed. Pt then transferred back to w/c and completed horizontal abd/add with APROM. After therapy, pt sitting in w/c with call light/phone in reach. All needs met in room. Functional [place] Measure 0=Not Assessed/NA 4=Minimal Assistance 1=Total Assistance 5=Supervision or Setup 2=Maximal Assistance 6=Modified [place] 3=Moderate Assistance 7=Complete IndependenceIRFPAI Quality Coding Scale 6 Independent with activity with or without an assistive device 5 Patient requires set up or clean up by helper. Patient completes activity by themselves 4 Supervision or touching assist (CGA). [place] provide cues , steadying assist 3 The helper provides less than half the effort to complete the activity 2 The helper provides more than half the effort to complete the activity 1 Dependent. The helper does all the effort to complete an activity 7 Patient refused to complete or attempt activity 9 The patient did not perform the activity before the current illness or injury 88 Not attempted due to Medical conditions or safety concerns Grooming (FIM): 6 Oral Hygiene (QC): 6 Toileting (FIM): 3 Toileting Hygiene (QC): 3 Transfers (B, C, W/C) (FIM): 4 Toilet/Commode Transfer (FIM): 4 Toilet Transfer (QC): 3 Education OT Patient Education: Modified ADL techniques, Purpose of tx/functional activities, Safety issues, Transfer techniques Teaching Recipient: Patient Teaching Methods: Demonstration, Discussion Response to Teaching: Verbalize Understanding, Return Demonstration, Reinforcement Needed OT Short Term Goals Short Term Goals Time Frame: Mar 02, 2017 Grooming(FIM): 5 Bathing(FIM): 3 Upper Body Dressing(FIM): 4 Lower Body Dressing(FIM): 3 Toileting(FIM): 3 Transfers (B,C,W/C) (FIM): 4 Toilet/Commode Transfer(FIM): 3 1=Demonstrate adherence to instructed precautions during ADL tasks. 2=Patient will verbalize/demonstrate understanding of assistive devices/ modifications for ADL. 3=Patient will improve strength/tolerance for activity to enable patient to perform ADL's. OT [facility] Goals Assembler Mechanical Ordnance Goals Time Frame: Mar 16, 2017 Eating (FIM): 6 Eating (QC): 6 Groomin Oral Hygiene (QC): 6 Bathing(FIM): 4 Shower/Bathe Self (QC): 4 Upper Body Dressing(FIM): 5 Upper Body Dressing (QC): 5 Lower Body Dressing(FIM): 4 Lower Body Dressing (QC): 4 On/Off Footwear (QC): 4 Toileting(FIM): 6 Toileting Hygiene (QC): 4 Toilet/Commode Transfer(FIM): 5 Toilet/Commode Transfer (QC): 4 Shower Transfer(FIM): 4 Comprehension(FIM): 5 (MET) Expression (FIM): 5 (MET) Social Interaction(FIM): 5 (NOT MET) Problem Solving(FIM): 5 (MET) Memory(FIM): 5 (MET) Additional Goals: 1-Demonstrate ADL Tasks, 2-Verbalize Understanding, 3- ImproveStrength/Luis 1=Demonstrate adherence to instructed precautions during ADL tasks. 2=Patient will verbalize/demonstrate understanding of assistive devices/ modifications for ADL. 3=Patient will improve strength/tolerance for activity to enable patient to perform ADL's. OT Education/Plan Discharge Recommendations Plan/Recommendations: Continue POC Treatment Plan/Plan of Care Patient would benefit from OT for education, treatment and training to promote independence in ADL's, mobility, safety and/or upper extremity function for ADL' s. Plan of Care: ADL Retraining, Functional Mobility, Group Exercise/Act as Ind, UE Funct Exercise/Act, UE Neuromus Re-Ed/Coord Treatment Duration: Mar 16, 2017 Frequency: At least 5 of 7 days/Wk (IRF) Estimated Hrs Per Day: 1.5 hours per day Agreement: Yes Rehab Potential: Fair Time/GCodes Start Time: 08:00 Stop Time: 09:00 Total Time Billed (hr/min): 60 Billed Treatment Time 1 visit-ADL 2 (30 min) NM 2 (30 min) KAHLIL MENDEZ Mar 07, 2017 09:29
--- NOTE | 2017-03-07 10:04 | Physical Therapy Daily Note ---
PT Daily Note-Current Subjective Pt. agrees to Rx. After Rx states "Wow I did great today" Pain Numeric Pain Scale: 0-No Pain Mental Status Patient Orientation: Normal For Age Transfers Functional [place] Measure 0=Not Assessed/NA 4=Minimal Assistance 1=Total Assistance 5=Supervision or Setup 2=Maximal Assistance 6=Modified [place] 3=Moderate Assistance 7=Complete IndependenceIRFPAI Quality Coding Scale 6 Independent with activity with or without an assistive device 5 Patient requires set up or clean up by helper. Patient completes activity by themselves 4 Supervision or touching assist (CGA). [place] provide cues , steadying assist 3 The helper provides less than half the effort to complete the activity 2 The helper provides more than half the effort to complete the activity 1 Dependent. The helper does all the effort to complete an activity 7 Patient refused to complete or attempt activity 9 The patient did not perform the activity before the current illness or injury 88 Not attempted due to Medical conditions or safety concerns Transfers (B, C, W/C) (FIM): 4 Scootin Rollin Supine to/from Sit: 5 Sit to/from Stand: 5 Bed to/from Chair: 4 much time spent on education RE: TRFing to from w/c to the right with pt. managing w/c directly parallel to Rx table, braking bilat indep, then TRFing SPT with SBA only. Pt. was then able to sit at edge of Rx table , reach to unbrake w/c ,then move w/c 180 degrees and rebrake enabling her to TRF back to w /c with SBA. Weight Bearing Right Lower Extremity: Right Weight Bearing/Tolerated Left Lower Extremity: Left Weight Bearing/Tolerated Gait Training Does the Patient Walk?: Yes Gait (FIM): 1 Distance (FIM): 1=up to 49 ft (15ft,10ftx3) Gait Level of Assist: 3 Gait Persons Needed: 1 Gait Assistive Device: Walker Platform gait initiated this date with LUE platform attachment. Pt. with LLE AFO and knee immoblizer insitu. Pt. initially needed asist to advance and direct LLE but after some education and instruction was able to advance LLE in a good plane and position and step through with RLE. w/c to follow. Wheelchair Training Does the Pt Use a Wheelchair?: Yes Wheelchair (FIM): 3 Wheelchair Distance: 3=150 ft Wheelchair Level of Assist: 3 Type of Wheelchair: Manual slow, awkward dealing with LLE etc Treatments in bed after rx with jackman at hand, alarm insitu and reminder to ring if she has needs Assessment Current Status: Good Progress pt. feels proud and that she has made accomplishment this date. States she is going to go back and call her daughter PT Short Term Goals Short Term Goals Time Frame: Mar 02, 2017 Transfers (B,C,W/C) (FIM): 4 Gait (FIM): 1 Gait Distance Comment: 20' Gait Level of Assist: 2 Gait Assistive Device: Walker Nathan Wheelchair (FIM): 6 Wheelchair Distance: 150'x2 PT Snack Stewardess Goals Halfway Goals PT Halfway Goals Time Frame: Mar 16, 2017 Transfers (B,C,W/C) (FIM): 5 Sit to Lying (QC): 4 Lying-Sitting on Side/Bed(QC): 4 Sit to Stand (QC): 4 Rollin Roll Left to Right (QC): 4 Chair/Guv-lr-Jjtrw Xfer(QC): 4 Car Transfer (QC): 3 Gait (FIM): 2 Distance: 30' Walk 10 feet (QC): 3 Walk 10ft-Uneven Surface(QC): 3 Gait Level of Assist: 4 Gait Assistive Device: Cane Large Base Quad PT Plan Treatment/Plan Treatment Plan: Continue Plan of Care Treatment Plan: Bed Mobility, Concurrent Therapy, Education, Functional Activity Luis, Functional Strength, Group Therapy, Gait, Safety, Therapeutic Exercise, Transfers Treatment Duration: Mar 16, 2017 Frequency: At least 5 of 7 days/Wk (IRF) Estimated Hrs Per Day: 1.5 hours per day Patient and/or Family Agrees t: Yes Safety Risks/Education Patient Education: Gait Training, Transfer Techniques, Correct Positioning, W/ C Management, Disease Process, Safety Issues Teaching Recipient: Patient Teaching Methods: Demonstration, Discussion Response to Teaching: Verbalize Understanding, Return Demonstration, Reinforcement Needed Time/GCodes Time In: 900 Time Out: 1000 Total Billed Treatment Time: 60 Total Billed Treatment 1,GT30m,FA30m G Codes Necessary: MARY KATE Urena BOSTON CUTTER Mar 07, 2017 10:04
--- NOTE | 2017-03-07 11:53 | PM & R (SOAP) Progress Note ---
Subjective Time Seen by Provider: 11:20 Subjective/Events-last exam Patient was seen in her room this AM Patient min assist for transfers Eating and sleeping OK Objective Exam Last Set of Vital Signs Vital Signs Date Time Temp Pulse Resp B/P (MAP) Pulse Ox O2 Delivery O2 Flow Rate FiO2 03/07/17 09:19 Room Air 03/07/17 07:11 95 03/07/17 06:00 97.4 78 20 111/76 (88) Capillary Refill : I&O Intake and Output 03/07/17 00:00 Intake Total 1340 ml Balance 1340 ml Intake Oral 1340 ml # Voids 8 # Bowel Movements 2 General: Alert, Oriented X3, Cooperative, No Acute Distress HEENT: Atraumatic, EOMI, Mucous Memb Moist/[place] Neck: Supple, No JVD Lungs: Clear to Auscultation Abdomen: Normal Bowel Sounds, Soft, No Tenderness Extremities: No Edema, No Tenderness/Swelling Neuro: Other (Left HP with o/5 strength UE fiar+ good - left leg Sensation intact Cognition and speech and swallow intact) Assessment/Plan Assessment RT cva with Left HP HTN controlled HX of meth use Tobaccoism-currently abstaining and on patch GERD on med COPD with cough on resp treatments-CXR clear Plan ContinuePT/OT ST has signed off Treat dyspepsia as needed-improved Monitor PO intake Continue resp treatments-add Mucinex-done cough improved Next Team Conference later today-See report for full functional update and POC and RODOLFO STEVEN MD Mar 07, 2017 11:52
[2017-03-07] MEDS: oxyCODONE/APAP 5/325MG (PERCOCET 5) TABLET PO PRN ×2 (14:07→20:42)
--- NOTE | 2017-03-07 14:34 | Physical Therapy Daily Note ---
PT Daily Note-Current Subjective Pt. states "you really wore me out this morning" Pt. in bed, agrees to therex and bed mobility Pain Numeric Pain Scale: 0-No Pain Comment: c/o some discomfort LUE but does not rate Mental Status Patient Orientation: Normal For Age Transfers Functional [place] Measure 0=Not Assessed/NA 4=Minimal Assistance 1=Total Assistance 5=Supervision or Setup 2=Maximal Assistance 6=Modified [place] 3=Moderate Assistance 7=Complete IndependenceIRFPAI Quality Coding Scale 6 Independent with activity with or without an assistive device 5 Patient requires set up or clean up by helper. Patient completes activity by themselves 4 Supervision or touching assist (CGA). [place] provide cues , steadying assist 3 The helper provides less than half the effort to complete the activity 2 The helper provides more than half the effort to complete the activity 1 Dependent. The helper does all the effort to complete an activity 7 Patient refused to complete or attempt activity 9 The patient did not perform the activity before the current illness or injury 88 Not attempted due to Medical conditions or safety concerns rolling left to right as well as sup to sit and sit to sup all SBA Weight Bearing Right Lower Extremity: Right Weight Bearing/Tolerated Left Lower Extremity: Left Weight Bearing/Tolerated Exercises Supine Ex: Bridging, Ankle pumps, Quad Set, Rolling, Glut sets, Heel Slides, Short Arc Quads, Scooting, Straight leg raise, Hip abd/add Supine Reps: 15 Treatments pt. rolled in bed indep left and right as well as pushing self up in bed indep. sat up and layed down all SBA Assessment Current Status: Good Progress fatigued this PM PT Short Term Goals Short Term Goals Time Frame: Mar 02, 2017 Transfers (B,C,W/C) (FIM): 4 Gait (FIM): 1 Gait Distance Comment: 20' Gait Level of Assist: 2 Gait Assistive Device: Walker Nathan Wheelchair (FIM): 6 Wheelchair Distance: 150'x2 PT Assisted Goals [employer] Web Developer Goals PT Assisted Goals Time Frame: Mar 16, 2017 Transfers (B,C,W/C) (FIM): 5 Sit to Lying (QC): 4 Lying-Sitting on Side/Bed(QC): 4 Sit to Stand (QC): 4 Rollin Roll Left to Right (QC): 4 Chair/Biy-zo-Hdnpm Xfer(QC): 4 Car Transfer (QC): 3 Gait (FIM): 2 Distance: 30' Walk 10 feet (QC): 3 Walk 10ft-Uneven Surface(QC): 3 Gait Level of Assist: 4 Gait Assistive Device: Cane Large Base Quad PT Plan Treatment/Plan Treatment Plan: Continue Plan of Care Treatment Plan: Bed Mobility, Concurrent Therapy, Education, Functional Activity Luis, Functional Strength, Group Therapy, Gait, Safety, Therapeutic Exercise, Transfers Treatment Duration: Mar 16, 2017 Frequency: At least 5 of 7 days/Wk (IRF) Estimated Hrs Per Day: 1.5 hours per day Patient and/or Family Agrees t: Yes Time/GCodes Time In: 1300 Time Out: 1330 Total Billed Treatment Time: 30 Total Billed Treatment 1,EX20,FA10 G Codes Necessary: MARY KATE Urena POTAT[employer] SEED CUTTER Mar 07, 2017 14:34
--- NOTE | 2017-03-07 14:43 | Occupational Ther Daily Note ---
OT Current Status-Daily Note Subjective Pt alert, lying in bed. Pt agreed to therapy. No c/o pain. Mental Status/Objective Patient Orientation: Person, Place, Time, Situation Functional [place] Measure 0=Not Assessed/NA 4=Minimal Assistance 1=Total Assistance 5=Supervision or Setup 2=Maximal Assistance 6=Modified [place] 3=Moderate Assistance 7=Complete [place] ADL-Treatment Functional [place] Measure 0=Not Assessed/NA 4=Minimal Assistance 1=Total Assistance 5=Supervision or Setup 2=Maximal Assistance 6=Modified [place] 3=Moderate Assistance 7=Complete IndependenceIRFPAI Quality Coding Scale 6 Independent with activity with or without an assistive device 5 Patient requires set up or clean up by helper. Patient completes activity by themselves 4 Supervision or touching assist (CGA). [place] provide cues , steadying assist 3 The helper provides less than half the effort to complete the activity 2 The helper provides more than half the effort to complete the activity 1 Dependent. The helper does all the effort to complete an activity 7 Patient refused to complete or attempt activity 9 The patient did not perform the activity before the current illness or injury 88 Not attempted due to Medical conditions or safety concerns Other Treatment Pt completed w/c mobility throughout hospital to increase R UE strengthening and work on L side awareness for daily functional tasks. Pt able to maneuver w/ c through doors and across thresholds. After therapy, pt in room lying in bed. Call light/phone in reach. All needs met in room. OT Short Term Goals Short Term Goals Time Frame: Mar 02, 2017 Grooming(FIM): 5 Bathing(FIM): 3 Upper Body Dressing(FIM): 4 Lower Body Dressing(FIM): 3 Toileting(FIM): 3 Transfers (B,C,W/C) (FIM): 4 Toilet/Commode Transfer(FIM): 3 1=Demonstrate adherence to instructed precautions during ADL tasks. 2=Patient will verbalize/demonstrate understanding of assistive devices/ modifications for ADL. 3=Patient will improve strength/tolerance for activity to enable patient to perform ADL's. OT Halfway Goals Halfway Goals Time Frame: Mar 16, 2017 Eating (FIM): 6 Eating (QC): 6 Groomin Oral Hygiene (QC): 6 Bathing(FIM): 4 Shower/Bathe Self (QC): 4 Upper Body Dressing(FIM): 5 Upper Body Dressing (QC): 5 Lower Body Dressing(FIM): 4 Lower Body Dressing (QC): 4 On/Off Footwear (QC): 4 Toileting(FIM): 6 Toileting Hygiene (QC): 4 Toilet/Commode Transfer(FIM): 5 Toilet/Commode Transfer (QC): 4 Shower Transfer(FIM): 4 Comprehension(FIM): 5 (MET) Expression (FIM): 5 (MET) Social Interaction(FIM): 5 (NOT MET) Problem Solving(FIM): 5 (MET) Memory(FIM): 5 (MET) Additional Goals: 1-Demonstrate ADL Tasks, 2-Verbalize Understanding, 3- ImproveStrength/Luis 1=Demonstrate adherence to instructed precautions during ADL tasks. 2=Patient will verbalize/demonstrate understanding of assistive devices/ modifications for ADL. 3=Patient will improve strength/tolerance for activity to enable patient to perform ADL's. OT Education/Plan Discharge Recommendations Plan/Recommendations: Continue POC Treatment Plan/Plan of Care Patient would benefit from OT for education, treatment and training to promote independence in ADL's, mobility, safety and/or upper extremity function for ADL' s. Plan of Care: ADL Retraining, Functional Mobility, Group Exercise/Act as Ind, UE Funct Exercise/Act, UE Neuromus Re-Ed/Coord Treatment Duration: Mar 16, 2017 Frequency: At least 5 of 7 days/Wk (IRF) Estimated Hrs Per Day: 1.5 hours per day Agreement: Yes Rehab Potential: Fair Time/GCodes Start Time: 11:00 Stop Time: 11:30 Total Time Billed (hr/min): 30 Billed Treatment Time 1 visit-FA 2 (30 min) KAHLIL MENDEZ Mar 07, 2017 14:43
[2017-03-07 17:08] VITALS: BP 127/84
[2017-03-07] MEDS: PROMETHAZINE 25 MG (PHENERGAN) TAB PO PRN (18:36)
[2017-03-07] MEDS: ATORVASTATIN 40 MG (LIPITOR) TABLET PO SCH (20:42)
[2017-03-08] MEDS: RT-BUDESONIDE NEBS 0.5 MG/2ML (PULMICORT) AMP INH SCH ×3 (00:31→21:31)
[2017-03-08] MEDS: RT-ALBUTEROL/IPRATROPIUM 3 ML (DUONEB) VIAL INH SCH ×4 (00:31→21:31)
[2017-03-08] MEDS: buPROPion SR 150 MG (WELLBUTRIN SR) TAB PO SCH ×2 (06:02→16:28)
[2017-03-08 06:06] VITALS: BP 109/76
--- NOTE | 2017-03-08 08:32 | Progress Note (SOAP) ---
Subjective Time Seen by Provider: 08:30 Subjective/Events-last exam CVA. hypertension. Meth use. patient voices no complaints today Objective Exam Vital Signs Date Time Temp Pulse Resp B/P (MAP) Pulse Ox O2 Delivery O2 Flow Rate FiO2 03/08/17 06:06 97.8 74 18 109/76 (87) 96 Room Air 03/07/17 20:40 Room Air 03/07/17 17:08 97.5 82 18 127/84 (98) 97 Room Air 03/07/17 09:19 Room Air I & O 03/08/17 07:00 Intake Total 900 ml Balance 900 ml Capillary Refill : General Appearance: No Apparent Distress, WD/WN HEENT: Normal ENT Inspection Neck: Normal Inspection Assessment/Plan Assessment/Plan Assess & Plan/Chief Complaint CVA. Left side weakness. Hypertension. Meth abuse history. . 02/28/17. CVA. Left-sided weakness. Hypertension. Patient is abuse history. Chest discomfort with some loose congestion. . 03/01/17. cva. llEFT-SIDED WEAKNESS. hYPERTENSION. METH ABUSE. Patient felt nauseous this a.m.. . 03/02/17. CVA. Left-sided weakness. Hypertension. Left abuse. Patient's left leg doing better. Patient's left upper extremity problems. . 03/05/17. CVA Left sided weakness. Meth abuse. Patient's left leg doing better Patient has problems with moving of left upper extremity. Patient voices no complaints. . 04/1916. CVA on left. Meth abuse history. Patient doing better with left leg. Not so with left arm.. . 03/07/17. CVA on left. Weakness. Hypertension. Meth abuse. patient doing better with left leg in the left arm. . 03/08/17. CVA on left. Weakness. Hypertension. Clinical Quality Measures DVT/VTE Risk/Contraindication: Risk Factor Score Per Nursin RFS Level Per Nursing on Admit: 4+=Very High JOAQUIM SHEN DO Mar 08, 2017 08:31
--- NOTE | 2017-03-08 09:03 | PM & R (SOAP) Progress Note ---
Subjective Time Seen by Provider: 08:00 Subjective/Events-last exam Patient was seen in her room this AM Patient SBA for transfers,Continues to improve Tone increased in LUE Lacks Dorsiflexion Left ANKLE PT using AFO Objective Exam Last Set of Vital Signs Vital Signs Date Time Temp Pulse Resp B/P (MAP) Pulse Ox O2 Delivery O2 Flow Rate FiO2 03/08/17 06:06 97.8 74 18 109/76 (87) 96 Room Air Capillary Refill : I&O Intake and Output 03/08/17 00:00 Intake Total 740 ml Balance 740 ml Intake Oral 740 ml # Voids 3 General: Alert, Oriented X3, Cooperative, No Acute Distress HEENT: Atraumatic, EOMI, Mucous Memb Moist/[place] Neck: Supple, No JVD Lungs: Clear to Auscultation Abdomen: Normal Bowel Sounds, Soft, No Tenderness Extremities: No Edema, No Tenderness/Swelling Neuro: Other (Left HP with o/5 strength UE fiar+ good - left leg Sensation intact Cognition and speech and swallow intact) Assessment/Plan Assessment RT cva with Left HP HTN controlled HX of meth use Tobaccoism-currently abstaining and on patch GERD on med COPD with cough on resp treatments-CXR clear-cough improved Plan ContinuePT/OT ST has signed off Treat dyspepsia as needed-improved Monitor PO intake Continue resp treatments-add Mucinex-done cough improved Team Conference held yesterday--See report for full functional update and POC and ELOS Discharge set tentatively for next week RODOLFO HUITRON MD Mar 08, 2017 09:03
--- NOTE | 2017-03-08 09:46 | Physical Therapy Daily Note ---
PT Daily Note-Current Subjective Pt laying Supine in bed upon arrival. Pt agrees to PT. Pain Numeric Pain Scale: 0-No Pain Location: No Pain Reported Mental Status Patient Orientation: Person, Place, Time, Situation Attachments: Other-See Comments (Knee Immobilizer & L AFO) Transfers Functional [place] Measure 0=Not Assessed/NA 4=Minimal Assistance 1=Total Assistance 5=Supervision or Setup 2=Maximal Assistance 6=Modified [place] 3=Moderate Assistance 7=Complete IndependenceIRFPAI Quality Coding Scale 6 Independent with activity with or without an assistive device 5 Patient requires set up or clean up by helper. Patient completes activity by themselves 4 Supervision or touching assist (CGA). [place] provide cues , steadying assist 3 The helper provides less than half the effort to complete the activity 2 The helper provides more than half the effort to complete the activity 1 Dependent. The helper does all the effort to complete an activity 7 Patient refused to complete or attempt activity 9 The patient did not perform the activity before the current illness or injury 88 Not attempted due to Medical conditions or safety concerns Scootin Supine to/from Sit: 4 Sit to/from Stand: 4 Sit to Lying (QC): 4 Sit to Stand (QC): 4 Pt needs assistance getting LLE into bed to put brace on. Weight Bearing Right Lower Extremity: Right Weight Bearing/Tolerated Left Lower Extremity: Left Weight Bearing/Tolerated Gait Training Does the Patient Walk?: Yes Distance (FIM): 1=up to 49 ft Distance: 5' Gait Level of Assist: 4 Gait Persons Needed: 1 Gait Assistive Device: Walker Platform Pt felt dizzy and lightheaded upon standing. SOFTWARE QUALITY TESTER stood with pt for a minute to see if it would subside and after it didn't pt transfers to [facility]. Exercises Seated Therapy Exercises: Ankle pumps, Long arc quads, Hip flexion, Kicking activity Seated Reps: 20 Treatments Pt transfers to EOB at SBA. Pt transfers to BSC at CGA when transferring to R side. Pt completes Seated Ex at EOB. SOFTWARE QUALITY TESTER assists pt with donning L knee immobilizer & AFO. Pt transfers from EOB to standing at CGA-Min A using platform walker. Pt becomes dizzy & light headed and then transfers back to [facility]. Nurse takes pt's Blood Sugar which is 95. PT orders Chocolate milk & Coke to help keep sugar up while in Therapy. PT resting in [facility] at end of tx with all needs met and OT arriving. Assessment Current Status: Good Progress Pt is more independent with Supine to EOB transfers and transferring to R side but still needs assistance lifting LLE into bed due to weakness. PT Short Term Goals Short Term Goals Time Frame: Mar 02, 2017 Transfers (B,C,W/C) (FIM): 4 Gait (FIM): 1 Gait Distance Comment: 20' Gait Level of Assist: 2 Gait Assistive Device: Walker Nathan Wheelchair (FIM): 6 Wheelchair Distance: 150'x2 PT Fdc Goals Director [employer] Goals PT Director For [employer] Goals Time Frame: Mar 16, 2017 Transfers (B,C,W/C) (FIM): 5 Sit to Lying (QC): 4 Lying-Sitting on Side/Bed(QC): 4 Sit to Stand (QC): 4 Rollin Roll Left to Right (QC): 4 Chair/Qus-nt-Uxude Xfer(QC): 4 Car Transfer (QC): 3 Gait (FIM): 2 Distance: 30' Walk 10 feet (QC): 3 Walk 10ft-Uneven Surface(QC): 3 Gait Level of Assist: 4 Gait Assistive Device: Cane Large Base Quad PT Plan Problem List Problem List: Activity Tolerance, Functional Strength, Safety, Balance, Gait, Transfer, Bed Mobility Treatment/Plan Treatment Plan: Continue Plan of Care Treatment Plan: Bed Mobility, Concurrent Therapy, Education, Functional Activity Luis, Functional Strength, Group Therapy, Gait, Safety, Therapeutic Exercise, Transfers Treatment Duration: Mar 16, 2017 Frequency: At least 5 of 7 days/Wk (IRF) Estimated Hrs Per Day: 1.5 hours per day Patient and/or Family Agrees t: Yes Safety Risks/Education Patient Education: Gait Training, Transfer Techniques, Correct Positioning Teaching Recipient: Patient Teaching Methods: Discussion Response to Teaching: Verbalize Understanding Time/GCodes Time In: 845 Time Out: 930 Total Billed Treatment Time: 45 Total Billed Treatment 1, FA x2 (25m) & EX (20m) JESSE BOO SOFTWARE QUALITY TESTER Mar 08, 2017 09:46
[2017-03-08] MEDS: DOCUSATE SODIUM 100 MG (COLACE) CAP PO SCH ×2 (09:59→21:16)
[2017-03-08] MEDS: guaiFENesin (MUCINEX) 600 MG TAB PO SCH ×2 (09:59→21:14)
[2017-03-08] MEDS: ARIPIPRAZOLE 10 MG (ABILIFY) TAB PO SCH (09:59)
[2017-03-08] MEDS: CLOPIDOGREL 75 MG (PLAVIX) TABLET PO SCH (10:00)
[2017-03-08] MEDS: FAMOTIDINE 20 MG (PEPCID) TABLET PO SCH ×2 (10:00→21:14)
[2017-03-08] MEDS: amLODIPine 5 MG (NORVASC) TAB PO SCH (10:00)
[2017-03-08] MEDS: meTOprolol SUCCINATE 100 MG (TOPROL XL) TAB PO SCH (10:00)
[2017-03-08] MEDS: oxyCODONE/APAP 5/325MG (PERCOCET 5) TABLET PO PRN ×2 (10:00→16:28)
--- NOTE | 2017-03-08 10:35 | Occupational Ther Daily Note ---
OT Current Status-Daily Note Subjective Pt seen in room, up in w/c, agreeable to OT. Pt reported light headedness during PT and needed to eat. Appearance Alert, cooperative Mental Status/Objective Functional [place] Measure 0=Not Assessed/NA 4=Minimal Assistance 1=Total Assistance 5=Supervision or Setup 2=Maximal Assistance 6=Modified [place] 3=Moderate Assistance 7=Complete [place] ADL-Treatment Functional [place] Measure 0=Not Assessed/NA 4=Minimal Assistance 1=Total Assistance 5=Supervision or Setup 2=Maximal Assistance 6=Modified [place] 3=Moderate Assistance 7=Complete IndependenceIRFPAI Quality Coding Scale 6 Independent with activity with or without an assistive device 5 Patient requires set up or clean up by helper. Patient completes activity by themselves 4 Supervision or touching assist (CGA). [place] provide cues , steadying assist 3 The helper provides less than half the effort to complete the activity 2 The helper provides more than half the effort to complete the activity 1 Dependent. The helper does all the effort to complete an activity 7 Patient refused to complete or attempt activity 9 The patient did not perform the activity before the current illness or injury 88 Not attempted due to Medical conditions or safety concerns Eating (FIM): 5 (Pt needed set up to open fruit cup and milk carton, Able to eat fruit with concerns about spilling but she did not) Grooming (FIM): 5 (Pt did grooming at sink, w/c level. Sh was able to brush her teeth, brush her hair (help to braid it), put on eye shadow, blush and lipstick with setup. Pt pleased with progress) Other Treatment Pt transported to gym per w/c. Pt did 10 minutes R UE strengthening with arm bike set at 15W resistance and also was able to pinch and place graded clothespins. While she was strengthening R UE to help with transfers, OT was using facilitation techniques to help decrease tone with L UE to allow it to be more functional. Pt returned to room per w/c and was left up in chair per her request, all needs met. Education OT Patient Education: Modified ADL techniques, Progress toward Goal/Update tx plan, Purpose of tx/functional activities, Other Teaching Recipient: Patient Teaching Methods: Demonstration, Discussion Response to Teaching: Verbalize Understanding, Reinforcement Needed OT Short Term Goals Short Term Goals Time Frame: Mar 02, 2017 Grooming(FIM): 5 Bathing(FIM): 3 Upper Body Dressing(FIM): 4 Lower Body Dressing(FIM): 3 Toileting(FIM): 3 Transfers (B,C,W/C) (FIM): 4 Toilet/Commode Transfer(FIM): 3 1=Demonstrate adherence to instructed precautions during ADL tasks. 2=Patient will verbalize/demonstrate understanding of assistive devices/ modifications for ADL. 3=Patient will improve strength/tolerance for activity to enable patient to perform ADL's. OT Meat Hanger Goals Halfway Goals Time Frame: Mar 16, 2017 Eating (FIM): 6 Eating (QC): 6 Groomin Oral Hygiene (QC): 6 Bathing(FIM): 4 Shower/Bathe Self (QC): 4 Upper Body Dressing(FIM): 5 Upper Body Dressing (QC): 5 Lower Body Dressing(FIM): 4 Lower Body Dressing (QC): 4 On/Off Footwear (QC): 4 Toileting(FIM): 6 Toileting Hygiene (QC): 4 Toilet/Commode Transfer(FIM): 5 Toilet/Commode Transfer (QC): 4 Shower Transfer(FIM): 4 Comprehension(FIM): 5 (MET) Expression (FIM): 5 (MET) Social Interaction(FIM): 5 (NOT MET) Problem Solving(FIM): 5 (MET) Memory(FIM): 5 (MET) Additional Goals: 1-Demonstrate ADL Tasks, 2-Verbalize Understanding, 3- ImproveStrength/Luis 1=Demonstrate adherence to instructed precautions during ADL tasks. 2=Patient will verbalize/demonstrate understanding of assistive devices/ modifications for ADL. 3=Patient will improve strength/tolerance for activity to enable patient to perform ADL's. OT Education/Plan Discharge Recommendations Plan/Recommendations: Continue POC Treatment Plan/Plan of Care Patient would benefit from OT for education, treatment and training to promote independence in ADL's, mobility, safety and/or upper extremity function for ADL' s. Plan of Care: ADL Retraining, Functional Mobility, Group Exercise/Act as Ind, UE Funct Exercise/Act, UE Neuromus Re-Ed/Coord Treatment Duration: Mar 16, 2017 Frequency: At least 5 of 7 days/Wk (IRF) Estimated Hrs Per Day: 1.5 hours per day Agreement: Yes Rehab Potential: Fair Time/GCodes Start Time: 09:30 Stop Time: 10:30 Total Time Billed (hr/min): 60 Billed Treatment Time visit, 30 minutes ADL, 30 minutes exercise TENISHA IGLESIAS OT Mar 08, 2017 10:35
--- NOTE | 2017-03-08 15:05 | Physical Therapy Daily Note ---
PT Daily Note-Current Subjective Pt just finishing with OT and sitting in [facility] upon arrival. Pt agrees to to PT. Pain Numeric Pain Scale: 5-Moderate Pain Location: Left Location Body Site: Foot Pain Description: Tightness Mental Status Patient Orientation: Person, Place, Time, Situation Attachments: Other-See Comments (L AFO ) Transfers Functional [place] Measure 0=Not Assessed/NA 4=Minimal Assistance 1=Total Assistance 5=Supervision or Setup 2=Maximal Assistance 6=Modified [place] 3=Moderate Assistance 7=Complete IndependenceIRFPAI Quality Coding Scale 6 Independent with activity with or without an assistive device 5 Patient requires set up or clean up by helper. Patient completes activity by themselves 4 Supervision or touching assist (CGA). [place] provide cues , steadying assist 3 The helper provides less than half the effort to complete the activity 2 The helper provides more than half the effort to complete the activity 1 Dependent. The helper does all the effort to complete an activity 7 Patient refused to complete or attempt activity 9 The patient did not perform the activity before the current illness or injury 88 Not attempted due to Medical conditions or safety concerns Scootin Supine to/from Sit: 5 Sit to/from Stand: 4 Sit to Stand (QC): 4 Chair/Nyq-nl-Aekle Xfer(QC): 4 Bed to/from Chair: 4 Weight Bearing Right Lower Extremity: Right Weight Bearing/Tolerated Left Lower Extremity: Left Weight Bearing/Tolerated Treatments Pt was propelled to room by [employer]. Pt transfers from H to EOB via SPT. Pt transfers from EOB to Supine in bed by hooking LLE with RLE and lifting into bed. Pt is teary over the news that she will probably be staying longer than she expected and into the New Year. Pt then completes Supine Ex. Pt rests in bed at end of tx with all needs met. Assessment Current Status: Good Progress Pt & [employer] discuss why pt would benefit from staying a little longer for Therapy. Pt is feeling better at end of tx. PT Short Term Goals Short Term Goals Time Frame: Mar 02, 2017 Transfers (B,C,W/C) (FIM): 4 Gait (FIM): 1 Gait Distance Comment: 20' Gait Level of Assist: 2 Gait Assistive Device: Walker Nathan Wheelchair (FIM): 6 Wheelchair Distance: 150'x2 PT Assistant Therapy Aide Goals Assistant Therapy Aide Goals PT Chcf Goals Time Frame: Mar 16, 2017 Transfers (B,C,W/C) (FIM): 5 Sit to Lying (QC): 4 Lying-Sitting on Side/Bed(QC): 4 Sit to Stand (QC): 4 Rollin Roll Left to Right (QC): 4 Chair/Hkd-cn-[place] Xfer(QC): 4 Car Transfer (QC): 3 Gait (FIM): 2 Distance: 30' Walk 10 feet (QC): 3 Walk 10ft-Uneven Surface(QC): 3 Gait Level of Assist: 4 Gait Assistive Device: Cane Large Base Quad PT Plan Problem List Problem List: Activity Tolerance, Functional Strength, Safety, Balance, Gait, Transfer Treatment/Plan Treatment Plan: Continue Plan of Care Treatment Plan: Bed Mobility, Concurrent Therapy, Education, Functional Activity Luis, Functional Strength, Group Therapy, Gait, Safety, Therapeutic Exercise, Transfers Treatment Duration: Mar 16, 2017 Frequency: At least 5 of 7 days/Wk (IRF) Estimated Hrs Per Day: 1.5 hours per day Patient and/or Family Agrees t: Yes Safety Risks/Education Patient Education: Transfer Techniques, Correct Positioning, Safety Issues Teaching Recipient: Patient Teaching Methods: Discussion Response to Teaching: Verbalize Understanding Time/GCodes Time In: 1315 Time Out: 1400 Total Billed Treatment Time: 45 Total Billed Treatment 1, FA (15m) & EX x2 (30m) JESSE BOO PTA Mar 08, 2017 15:05
--- NOTE | 2017-03-08 15:17 | Occupational Ther Daily Note ---
OT Current Status-Daily Note Subjective Pt seen in room, up in w/c, agreeable to OT. No pain mentioned until end of tx when she indicated that her L foot was uncomfortable. Info shared with PT and PT will check AFO Appearance Alert, cooperative Mental Status/Objective Functional [place] Measure 0=Not Assessed/NA 4=Minimal Assistance 1=Total Assistance 5=Supervision or Setup 2=Maximal Assistance 6=Modified [place] 3=Moderate Assistance 7=Complete [place] ADL-Treatment Functional [place] Measure 0=Not Assessed/NA 4=Minimal Assistance 1=Total Assistance 5=Supervision or Setup 2=Maximal Assistance 6=Modified [place] 3=Moderate Assistance 7=Complete IndependenceIRFPAI Quality Coding Scale 6 Independent with activity with or without an assistive device 5 Patient requires set up or clean up by helper. Patient completes activity by themselves 4 Supervision or touching assist (CGA). [place] provide cues , steadying assist 3 The helper provides less than half the effort to complete the activity 2 The helper provides more than half the effort to complete the activity 1 Dependent. The helper does all the effort to complete an activity 7 Patient refused to complete or attempt activity 9 The patient did not perform the activity before the current illness or injury 88 Not attempted due to Medical conditions or safety concerns Other Treatment Pt transported to gym per w/c. Skilled facilitation techniques used with L UE to decrease tone and to increase functional use L UE. Pt demonstrated shoulder horiz abd and elbow flex with gravity degreased and trace elbow ext and shoulder horiz add with gravity eliminated and facilitation. With E stim, pt demonstrated wrist extension but was unable to control movement herself without the additional stimulation. Pt seemed pleased with progress. Care transferred to PT. Education OT Patient Education: Other (facil techniques) Teaching Recipient: Patient Teaching Methods: Discussion Response to Teaching: Verbalize Understanding OT Short Term Goals Short Term Goals Time Frame: Mar 02, 2017 Grooming(FIM): 5 Bathing(FIM): 3 Upper Body Dressing(FIM): 4 Lower Body Dressing(FIM): 3 Toileting(FIM): 3 Transfers (B,C,W/C) (FIM): 4 Toilet/Commode Transfer(FIM): 3 1=Demonstrate adherence to instructed precautions during ADL tasks. 2=Patient will verbalize/demonstrate understanding of assistive devices/ modifications for ADL. 3=Patient will improve strength/tolerance for activity to enable patient to perform ADL's. OT Chcf Goals Chcf Goals Time Frame: Mar 16, 2017 Eating (FIM): 6 Eating (QC): 6 Groomin Oral Hygiene (QC): 6 Bathing(FIM): 4 Shower/Bathe Self (QC): 4 Upper Body Dressing(FIM): 5 Upper Body Dressing (QC): 5 Lower Body Dressing(FIM): 4 Lower Body Dressing (QC): 4 On/Off Footwear (QC): 4 Toileting(FIM): 6 Toileting Hygiene (QC): 4 Toilet/Commode Transfer(FIM): 5 Toilet/Commode Transfer (QC): 4 Shower Transfer(FIM): 4 Comprehension(FIM): 5 (MET) Expression (FIM): 5 (MET) Social Interaction(FIM): 5 (NOT MET) Problem Solving(FIM): 5 (MET) Memory(FIM): 5 (MET) Additional Goals: 1-Demonstrate ADL Tasks, 2-Verbalize Understanding, 3- ImproveStrength/Luis 1=Demonstrate adherence to instructed precautions during ADL tasks. 2=Patient will verbalize/demonstrate understanding of assistive devices/ modifications for ADL. 3=Patient will improve strength/tolerance for activity to enable patient to perform ADL's. OT Education/Plan Discharge Recommendations Plan/Recommendations: Continue POC Treatment Plan/Plan of Care Patient would benefit from OT for education, treatment and training to promote independence in ADL's, mobility, safety and/or upper extremity function for ADL' s. Plan of Care: ADL Retraining, Functional Mobility, Group Exercise/Act as Ind, UE Funct Exercise/Act, UE Neuromus Re-Ed/Coord Treatment Duration: Mar 16, 2017 Frequency: At least 5 of 7 days/Wk (IRF) Estimated Hrs Per Day: 1.5 hours per day Agreement: Yes Rehab Potential: Fair Time/GCodes Start Time: 12:58 Stop Time: 13:30 Total Time Billed (hr/min): 32 Billed Treatment Time visit, 32 minutes neuromotor TENISHA IGLESIAS OT Mar 08, 2017 15:17
[2017-03-08 18:00] VITALS: BP 120/76
[2017-03-08] MEDS: ATORVASTATIN 40 MG (LIPITOR) TABLET PO SCH (21:14)
[2017-03-08] MEDS: ALPRAZolam 1 MG (XANAX) TAB PO PRN (22:58)
[2017-03-09] MEDS: oxyCODONE/APAP 5/325MG (PERCOCET 5) TABLET PO PRN ×2 (04:25→15:11)
[2017-03-09 05:51] VITALS: BP 137/79
[2017-03-09] MEDS: buPROPion SR 150 MG (WELLBUTRIN SR) TAB PO SCH ×2 (06:24→16:19)
[2017-03-09] MEDS: RT-ALBUTEROL/IPRATROPIUM 3 ML (DUONEB) VIAL INH SCH ×3 (06:27→21:42)
[2017-03-09] MEDS: RT-BUDESONIDE NEBS 0.5 MG/2ML (PULMICORT) AMP INH SCH ×2 (06:27→21:42)
[2017-03-09] MEDS: meTOprolol SUCCINATE 100 MG (TOPROL XL) TAB PO SCH (07:55)
[2017-03-09] MEDS: amLODIPine 5 MG (NORVASC) TAB PO SCH (07:55)
[2017-03-09] MEDS: DOCUSATE SODIUM 100 MG (COLACE) CAP PO SCH ×3 (07:55→20:26)
[2017-03-09] MEDS: CLOPIDOGREL 75 MG (PLAVIX) TABLET PO SCH (07:55)
[2017-03-09] MEDS: guaiFENesin (MUCINEX) 600 MG TAB PO SCH ×2 (07:55→20:24)
[2017-03-09] MEDS: FAMOTIDINE 20 MG (PEPCID) TABLET PO SCH ×2 (07:55→20:24)
[2017-03-09] MEDS: ARIPIPRAZOLE 10 MG (ABILIFY) TAB PO SCH (07:55)
--- NOTE | 2017-03-09 08:02 | Progress Note (SOAP) ---
Subjective Time Seen by Provider: 08:00 Subjective/Events-last exam patient resting comfortably this morning. Patient feeling okay. cVA. Hypertension. history of meth use Objective Exam Vital Signs Date Time Temp Pulse Resp B/P (MAP) Pulse Ox O2 Delivery O2 Flow Rate FiO2 03/09/17 06:33 93 Room Air 03/09/17 06:27 94 Room Air 03/09/17 05:51 98.6 81 18 137/79 (98) 98 Room Air 03/08/17 21:37 99 Room Air 03/08/17 21:31 99 Room Air 03/08/17 20:20 Room Air 03/08/17 18:00 98.2 73 20 120/76 (91) 97 Room Air 03/08/17 15:37 96 Room Air 03/08/17 09:00 Room Air I & O 03/09/17 07:00 Intake Total 1225 ml Balance 1225 ml Capillary Refill : General Appearance: No Apparent Distress, WD/WN HEENT: Normal ENT Inspection Neck: Full Range of Motion, Normal Inspection Respiratory: Chest Non Tender, Lungs Clear, Normal Breath Sounds, No Accessory Muscle Use, No Respiratory Distress Cardiovascular: Regular Rate, Rhythm, No Murmur Gastrointestinal: non tender, soft Results Lab Laboratory Tests 03/08/17 09:31: Glucometer 95 Assessment/Plan Assessment/Plan Assess & Plan/Chief Complaint CVA. Left side weakness. Hypertension. Meth abuse history. . 02/28/17. CVA. Left-sided weakness. Hypertension. Patient is abuse history. Chest discomfort with some loose congestion. . 03/01/17. cva. llEFT-SIDED WEAKNESS. hYPERTENSION. METH ABUSE. Patient felt nauseous this a.m.. . 03/02/17. CVA. Left-sided weakness. Hypertension. Left abuse. Patient's left leg doing better. Patient's left upper extremity problems. . 03/05/17. CVA Left sided weakness. Meth abuse. Patient's left leg doing better Patient has problems with moving of left upper extremity. Patient voices no complaints. . 04/1916. CVA on left. Meth abuse history. Patient doing better with left leg. Not so with left arm.. . 03/07/17. CVA on left. Weakness. Hypertension. Meth abuse. patient doing better with left leg in the left arm. . 03/08/17. CVA on left. Weakness. Hypertension. . 03/09/17. CVA on left. Weakness. Hypertension. patient resting comfortably. Clinical Quality Measures DVT/VTE Risk/Contraindication: Risk Factor Score Per Nursin RFS Level Per Nursing on Admit: 4+=Very High JOAQUIM SHEN DO Mar 09, 2017 08:02
--- NOTE | 2017-03-09 10:12 | Physical Therapy Daily Note ---
PT Daily Note-Current Subjective Pt. states that yesterday she had trouble with some dizziness but feels better today. Agrees to rx. Pain Numeric Pain Scale: 0-No Pain Mental Status Patient Orientation: Normal For Age Transfers Functional [place] Measure 0=Not Assessed/NA 4=Minimal Assistance 1=Total Assistance 5=Supervision or Setup 2=Maximal Assistance 6=Modified [place] 3=Moderate Assistance 7=Complete IndependenceIRFPAI Quality Coding Scale 6 Independent with activity with or without an assistive device 5 Patient requires set up or clean up by helper. Patient completes activity by themselves 4 Supervision or touching assist (CGA). [place] provide cues , steadying assist 3 The helper provides less than half the effort to complete the activity 2 The helper provides more than half the effort to complete the activity 1 Dependent. The helper does all the effort to complete an activity 7 Patient refused to complete or attempt activity 9 The patient did not perform the activity before the current illness or injury 88 Not attempted due to Medical conditions or safety concerns Transfers (B, C, W/C) (FIM): 4 Scootin Rollin Supine to/from Sit: 5 Sit to/from Stand: 4 Weight Bearing Right Lower Extremity: Right Weight Bearing/Tolerated Left Lower Extremity: Left Weight Bearing/Tolerated Gait Training Does the Patient Walk?: Yes Gait (FIM): 1 Distance (FIM): 1=up to 49 ft (12ftx2) Gait Level of Assist: 3 Gait Persons Needed: 1 Gait Assistive Device: Walker Platform Wheelchair Training Does the Pt Use a Wheelchair?: Yes Wheelchair (FIM): 5 Wheelchair Distance: 3=150 ft Wheelchair Level of Assist: 5 Type of Wheelchair: Manual Exercises Supine Ex: Bridging, Ankle pumps, Quad Set, Rolling, Glut sets, Heel Slides, Short Arc Quads, Scooting, Straight leg raise, Hip abd/add Supine Reps: 15 Treatments TRFs toward right w/c to bed and bed to w/c , managing w/c indep for turning around to prep for TRF back Assessment Current Status: Good Progress PT Short Term Goals Short Term Goals Time Frame: Mar 02, 2017 Transfers (B,C,W/C) (FIM): 4 Gait (FIM): 1 Gait Distance Comment: 20' Gait Level of Assist: 2 Gait Assistive Device: Walker Nathan Wheelchair (FIM): 6 Wheelchair Distance: 150'x2 PT Freight Car Loader Goals Freight Car Loader Goals PT Freight Car Loader Goals Time Frame: Mar 16, 2017 Transfers (B,C,W/C) (FIM): 5 Sit to Lying (QC): 4 Lying-Sitting on Side/Bed(QC): 4 Sit to Stand (QC): 4 Rollin Roll Left to Right (QC): 4 Chair/Ccq-gw-Ikrgw Xfer(QC): 4 Car Transfer (QC): 3 Gait (FIM): 2 Distance: 30' Walk 10 feet (QC): 3 Walk 10ft-Uneven Surface(QC): 3 Gait Level of Assist: 4 Gait Assistive Device: Cane Large Base Quad PT Plan Treatment/Plan Treatment Plan: Continue Plan of Care Treatment Plan: Bed Mobility, Concurrent Therapy, Education, Functional Activity Luis, Functional Strength, Group Therapy, Gait, Safety, Therapeutic Exercise, Transfers Treatment Duration: Mar 16, 2017 Frequency: At least 5 of 7 days/Wk (IRF) Estimated Hrs Per Day: 1.5 hours per day Patient and/or Family Agrees t: Yes Safety Risks/Education Patient Education: Gait Training, Transfer Techniques, Correct Positioning, W/ C Management, Disease Process, Safety Issues Teaching Recipient: Patient Teaching Methods: Demonstration, Discussion Response to Teaching: Verbalize Understanding, Return Demonstration, Reinforcement Needed Time/GCodes Time In: 900 Time Out: 1000 Total Billed Treatment Time: 60 Total Billed Treatment 1,GT30m,FA15m,EX15m G Codes Necessary: MARY KATE Urena TENANT SELECTOR Mar 09, 2017 10:12
--- NOTE | 2017-03-09 10:52 | Occupational Ther Daily Note ---
OT Current Status-Daily Note Subjective Pt in bed, agrees to treatment. Pt reports 7/10 headache, states she's already taken medication for it. Mental Status/Objective Functional [place] Measure 0=Not Assessed/NA 4=Minimal Assistance 1=Total Assistance 5=Supervision or Setup 2=Maximal Assistance 6=Modified [place] 3=Moderate Assistance 7=Complete [place] ADL-Treatment Pt would like to shower this morning. Supine to sit with SBA and increased time. Transfer EOB to w/c with minimal assistance. To restroom via w/c. Pt transferred w/c <-> shower bench with minimal assistance using grab bar. Pt doffed bra and shirt with SBA. Doffed pants and underwear with min assist for balance while pulling pants down. Seated bathing completed using hand held shower. Pt requires assist to wash/dry right UE and buttocks. Able to bathe other areas. Don bra with assist to fasten in back. Pt donned pullover shirt with SBA and cues for technique. Pt able to start underwear and pants over feet and pull up to thighs. Stood with minimal assistance for balance during pant hike. Pt able to don bilateral socks with SBA using one handed technique. Pt able to don right shoe, but needs assist to tie. Pt requires assist to don left shoe and AFO. Grooming tasks completed sitting at sink. Pt brushed hair with setup, but requires assist to pull back in ponytail. Pt brushed teeth with set up. Pt sitting in w/c with needs met after session. Functional [place] Measure 0=Not Assessed/NA 4=Minimal Assistance 1=Total Assistance 5=Supervision or Setup 2=Maximal Assistance 6=Modified [place] 3=Moderate Assistance 7=Complete IndependenceIRFPAI Quality Coding Scale 6 Independent with activity with or without an assistive device 5 Patient requires set up or clean up by helper. Patient completes activity by themselves 4 Supervision or touching assist (CGA). [place] provide cues , steadying assist 3 The helper provides less than half the effort to complete the activity 2 The helper provides more than half the effort to complete the activity 1 Dependent. The helper does all the effort to complete an activity 7 Patient refused to complete or attempt activity 9 The patient did not perform the activity before the current illness or injury 88 Not attempted due to Medical conditions or safety concerns Grooming (FIM): 4 Oral Hygiene (QC): 5 Bathing (FIM): 4 Shower/Bathe Self (QC): 3 Upper Body (FIM): 4 Upper Body Dressing (QC): 3 Lower Body Dressing (FIM): 3 Lower Body Dressing (QC): 3 On/Off Footwear (QC): 3 Shower Transfer(FIM): 4 OT Short Term Goals Short Term Goals Time Frame: Mar 02, 2017 Grooming(FIM): 5 Bathing(FIM): 3 Upper Body Dressing(FIM): 4 Lower Body Dressing(FIM): 3 Toileting(FIM): 3 Transfers (B,C,W/C) (FIM): 4 Toilet/Commode Transfer(FIM): 3 1=Demonstrate adherence to instructed precautions during ADL tasks. 2=Patient will verbalize/demonstrate understanding of assistive devices/ modifications for ADL. 3=Patient will improve strength/tolerance for activity to enable patient to perform ADL's. OT [place] Wheel Operator Goals Retirement Goals Time Frame: Mar 16, 2017 Eating (FIM): 6 Eating (QC): 6 Groomin Oral Hygiene (QC): 6 Bathing(FIM): 4 Shower/Bathe Self (QC): 4 Upper Body Dressing(FIM): 5 Upper Body Dressing (QC): 5 Lower Body Dressing(FIM): 4 Lower Body Dressing (QC): 4 On/Off Footwear (QC): 4 Toileting(FIM): 6 Toileting Hygiene (QC): 4 Toilet/Commode Transfer(FIM): 5 Toilet/Commode Transfer (QC): 4 Shower Transfer(FIM): 4 Comprehension(FIM): 5 (MET) Expression (FIM): 5 (MET) Social Interaction(FIM): 5 (NOT MET) Problem Solving(FIM): 5 (MET) Memory(FIM): 5 (MET) Additional Goals: 1-Demonstrate ADL Tasks, 2-Verbalize Understanding, 3- ImproveStrength/Luis 1=Demonstrate adherence to instructed precautions during ADL tasks. 2=Patient will verbalize/demonstrate understanding of assistive devices/ modifications for ADL. 3=Patient will improve strength/tolerance for activity to enable patient to perform ADL's. OT Education/Plan Discharge Recommendations Plan/Recommendations: Continue POC Treatment Plan/Plan of Care Patient would benefit from OT for education, treatment and training to promote independence in ADL's, mobility, safety and/or upper extremity function for ADL' s. Plan of Care: ADL Retraining, Functional Mobility, Group Exercise/Act as Ind, UE Funct Exercise/Act, UE Neuromus Re-Ed/Coord Treatment Duration: Mar 16, 2017 Frequency: At least 5 of 7 days/Wk (IRF) Estimated Hrs Per Day: 1.5 hours per day Agreement: Yes Rehab Potential: Fair Time/GCodes Start Time: 08:00 Stop Time: 09:00 Total Time Billed (hr/min): 60 Billed Treatment Time 1 visit, ADLx4(60minutes) RUBY MENDOSA OT Mar 09, 2017 10:52
--- NOTE | 2017-03-09 11:47 | Occupational Ther Daily Note ---
OT Current Status-Daily Note Subjective Pt sitting in w/c, agrees to treatment. Mental Status/Objective Functional [place] Measure 0=Not Assessed/NA 4=Minimal Assistance 1=Total Assistance 5=Supervision or Setup 2=Maximal Assistance 6=Modified [place] 3=Moderate Assistance 7=Complete [place] ADL-Treatment Functional [place] Measure 0=Not Assessed/NA 4=Minimal Assistance 1=Total Assistance 5=Supervision or Setup 2=Maximal Assistance 6=Modified [place] 3=Moderate Assistance 7=Complete IndependenceIRFPAI Quality Coding Scale 6 Independent with activity with or without an assistive device 5 Patient requires set up or clean up by helper. Patient completes activity by themselves 4 Supervision or touching assist (CGA). [place] provide cues , steadying assist 3 The helper provides less than half the effort to complete the activity 2 The helper provides more than half the effort to complete the activity 1 Dependent. The helper does all the effort to complete an activity 7 Patient refused to complete or attempt activity 9 The patient did not perform the activity before the current illness or injury 88 Not attempted due to Medical conditions or safety concerns Other Treatment Pt performed w/c mobility from room to therapy gym using right UE/LE. Transfer w /c <-> edge of mat with minimal assistance. Weight bearing completed through left UE with assistance to maintain proper positioning. Sit to supine with min assist for left LE. PROM completed left UE at all joints. Pt demonstrates increased tone left UE, but able to achieve functional PROM. Pt demonstrates minimal active shoulder abduction and elbow flexion in gravity eliminated position. Supine to sit with SBA. Pt returned to room, transferred to bed with minimal assistance. Sit to supine with min assist for left LE. Pt resting in bed with needs met after session. OT Short Term Goals Short Term Goals Time Frame: Mar 02, 2017 Grooming(FIM): 5 Bathing(FIM): 3 Upper Body Dressing(FIM): 4 Lower Body Dressing(FIM): 3 Toileting(FIM): 3 Transfers (B,C,W/C) (FIM): 4 Toilet/Commode Transfer(FIM): 3 1=Demonstrate adherence to instructed precautions during ADL tasks. 2=Patient will verbalize/demonstrate understanding of assistive devices/ modifications for ADL. 3=Patient will improve strength/tolerance for activity to enable patient to perform ADL's. OT Halfway Goals Halfway Goals Time Frame: Mar 16, 2017 Eating (FIM): 6 Eating (QC): 6 Groomin Oral Hygiene (QC): 6 Bathing(FIM): 4 Shower/Bathe Self (QC): 4 Upper Body Dressing(FIM): 5 Upper Body Dressing (QC): 5 Lower Body Dressing(FIM): 4 Lower Body Dressing (QC): 4 On/Off Footwear (QC): 4 Toileting(FIM): 6 Toileting Hygiene (QC): 4 Toilet/Commode Transfer(FIM): 5 Toilet/Commode Transfer (QC): 4 Shower Transfer(FIM): 4 Comprehension(FIM): 5 (MET) Expression (FIM): 5 (MET) Social Interaction(FIM): 5 (NOT MET) Problem Solving(FIM): 5 (MET) Memory(FIM): 5 (MET) Additional Goals: 1-Demonstrate ADL Tasks, 2-Verbalize Understanding, 3- ImproveStrength/Luis 1=Demonstrate adherence to instructed precautions during ADL tasks. 2=Patient will verbalize/demonstrate understanding of assistive devices/ modifications for ADL. 3=Patient will improve strength/tolerance for activity to enable patient to perform ADL's. OT Education/Plan Discharge Recommendations Plan/Recommendations: Continue POC Treatment Plan/Plan of Care Patient would benefit from OT for education, treatment and training to promote independence in ADL's, mobility, safety and/or upper extremity function for ADL' s. Plan of Care: ADL Retraining, Functional Mobility, Group Exercise/Act as Ind, UE Funct Exercise/Act, UE Neuromus Re-Ed/Coord Treatment Duration: Mar 16, 2017 Frequency: At least 5 of 7 days/Wk (IRF) Estimated Hrs Per Day: 1.5 hours per day Agreement: Yes Rehab Potential: Fair Time/GCodes Start Time: 11:00 Stop Time: 11:30 Total Time Billed (hr/min): 30 Billed Treatment Time 1 visit, NMx2(30minutes) RUBY MENDOSA OT Mar 09, 2017 11:47
--- NOTE | 2017-03-09 13:46 | Physical Therapy Daily Note ---
PT Daily Note-Current Subjective Pt. tearful and comments that she is tired as well as worried about her DC plans but is happy to find out she has until march before leaving here. States that her BF has not contacted her for 5 days, then begins to cry Pain Numeric Pain Scale: 0-No Pain Appearance tearful Transfers Functional [place] Measure 0=Not Assessed/NA 4=Minimal Assistance 1=Total Assistance 5=Supervision or Setup 2=Maximal Assistance 6=Modified [place] 3=Moderate Assistance 7=Complete IndependenceIRFPAI Quality Coding Scale 6 Independent with activity with or without an assistive device 5 Patient requires set up or clean up by helper. Patient completes activity by themselves 4 Supervision or touching assist (CGA). [place] provide cues , steadying assist 3 The helper provides less than half the effort to complete the activity 2 The helper provides more than half the effort to complete the activity 1 Dependent. The helper does all the effort to complete an activity 7 Patient refused to complete or attempt activity 9 The patient did not perform the activity before the current illness or injury 88 Not attempted due to Medical conditions or safety concerns in out bed SBA, sit to stand SBA, SPTs CGA Weight Bearing Right Lower Extremity: Right Weight Bearing/Tolerated Left Lower Extremity: Left Weight Bearing/Tolerated Exercises Supine Ex: Bridging, Ankle pumps (HC stretch), Rolling, Glut sets, Heel Slides , Short Arc Quads, Scooting, Straight leg raise, Hip abd/add Supine Reps: 15 Seated Therapy Exercises: Long arc quads, Hip flexion Seated Reps: 12 Treatments rolling left and right , pushing self up in bed , sidelying hip abd with assist on left Assessment Current Status: Fair Progress PT Short Term Goals Short Term Goals Time Frame: Mar 02, 2017 Transfers (B,C,W/C) (FIM): 4 Gait (FIM): 1 Gait Distance Comment: 20' Gait Level of Assist: 2 Gait Assistive Device: Walker Nathan Wheelchair (FIM): 6 Wheelchair Distance: 150'x2 PT Fci Goals Undraped Artist Model Goals PT Undraped Artist Model Goals Time Frame: Mar 16, 2017 Transfers (B,C,W/C) (FIM): 5 Sit to Lying (QC): 4 Lying-Sitting on Side/Bed(QC): 4 Sit to Stand (QC): 4 Rollin Roll Left to Right (QC): 4 Chair/Eer-jq-Affli Xfer(QC): 4 Car Transfer (QC): 3 Gait (FIM): 2 Distance: 30' Walk 10 feet (QC): 3 Walk 10ft-Uneven Surface(QC): 3 Gait Level of Assist: 4 Gait Assistive Device: Cane Large Base Quad PT Plan Treatment/Plan Treatment Plan: Continue Plan of Care Treatment Plan: Bed Mobility, Concurrent Therapy, Education, Functional Activity Luis, Functional Strength, Group Therapy, Gait, Safety, Therapeutic Exercise, Transfers Treatment Duration: Mar 16, 2017 Frequency: At least 5 of 7 days/Wk (IRF) Estimated Hrs Per Day: 1.5 hours per day Patient and/or Family Agrees t: Yes Time/GCodes Time In: 1300 Time Out: 1345 Total Billed Treatment Time: 45 Total Billed Treatment 1,FA20m,EX25m G Codes Necessary: MARY KATE Urena POURED PIPE MAKER Mar 09, 2017 13:46
--- NOTE | 2017-03-09 14:51 | Occupational Ther Daily Note ---
OT Current Status-Daily Note Subjective Pt alert, lying in bed. Pt stated that she thought she was done with therapy. Pt agreed to therapy. No c/o pain. Mental Status/Objective Patient Orientation: Person, Place, Time, Situation Functional [place] Measure 0=Not Assessed/NA 4=Minimal Assistance 1=Total Assistance 5=Supervision or Setup 2=Maximal Assistance 6=Modified [place] 3=Moderate Assistance 7=Complete [place] ADL-Treatment Functional [place] Measure 0=Not Assessed/NA 4=Minimal Assistance 1=Total Assistance 5=Supervision or Setup 2=Maximal Assistance 6=Modified [place] 3=Moderate Assistance 7=Complete IndependenceIRFPAI Quality Coding Scale 6 Independent with activity with or without an assistive device 5 Patient requires set up or clean up by helper. Patient completes activity by themselves 4 Supervision or touching assist (CGA). Spray provide cues , steadying assist 3 The helper provides less than half the effort to complete the activity 2 The helper provides more than half the effort to complete the activity 1 Dependent. The helper does all the effort to complete an activity 7 Patient refused to complete or attempt activity 9 The patient did not perform the activity before the current illness or injury 88 Not attempted due to Medical conditions or safety concerns Other Treatment Pt completed UE activity that works on strength, hand-eye coordination, dexterity and pinch strength for daily functional tasks. Pt then requested to use BSC. Pt was able to go from supine to sitting EOB. Min A for stand pivot transfer then pt hiked pants over hips. Pt was able to cleanse self sitting on BSC. Pt transferred back to bed with min A. After therapy, pt lying in bed with call light/phone in reach. All needs met in room. OT Short Term Goals Short Term Goals Time Frame: Mar 02, 2017 Grooming(FIM): 5 Bathing(FIM): 3 Upper Body Dressing(FIM): 4 Lower Body Dressing(FIM): 3 Toileting(FIM): 3 Transfers (B,C,W/C) (FIM): 4 Toilet/Commode Transfer(FIM): 3 1=Demonstrate adherence to instructed precautions during ADL tasks. 2=Patient will verbalize/demonstrate understanding of assistive devices/ modifications for ADL. 3=Patient will improve strength/tolerance for activity to enable patient to perform ADL's. OT Take Away Worker Goals Take Away Worker Goals Time Frame: Mar 16, 2017 Eating (FIM): 6 Eating (QC): 6 Groomin Oral Hygiene (QC): 6 Bathing(FIM): 4 Shower/Bathe Self (QC): 4 Upper Body Dressing(FIM): 5 Upper Body Dressing (QC): 5 Lower Body Dressing(FIM): 4 Lower Body Dressing (QC): 4 On/Off Footwear (QC): 4 Toileting(FIM): 6 Toileting Hygiene (QC): 4 Toilet/Commode Transfer(FIM): 5 Toilet/Commode Transfer (QC): 4 Shower Transfer(FIM): 4 Comprehension(FIM): 5 (MET) Expression (FIM): 5 (MET) Social Interaction(FIM): 5 (NOT MET) Problem Solving(FIM): 5 (MET) Memory(FIM): 5 (MET) Additional Goals: 1-Demonstrate ADL Tasks, 2-Verbalize Understanding, 3- ImproveStrength/Luis 1=Demonstrate adherence to instructed precautions during ADL tasks. 2=Patient will verbalize/demonstrate understanding of assistive devices/ modifications for ADL. 3=Patient will improve strength/tolerance for activity to enable patient to perform ADL's. OT Education/Plan Discharge Recommendations Plan/Recommendations: Continue POC Treatment Plan/Plan of Care Patient would benefit from OT for education, treatment and training to promote independence in ADL's, mobility, safety and/or upper extremity function for ADL' s. Plan of Care: ADL Retraining, Functional Mobility, Group Exercise/Act as Ind, UE Funct Exercise/Act, UE Neuromus Re-Ed/Coord Treatment Duration: Mar 16, 2017 Frequency: At least 5 of 7 days/Wk (IRF) Estimated Hrs Per Day: 1.5 hours per day Agreement: Yes Rehab Potential: Fair Time/GCodes Start Time: 13:45 Stop Time: 14:20 Total Time Billed (hr/min): 35 Billed Treatment Time 1 visit-FA 2 (35 min) KAHLIL MENDEZ Mar 09, 2017 14:51
[2017-03-09 18:33] VITALS: BP 108/75
[2017-03-09] MEDS: ATORVASTATIN 40 MG (LIPITOR) TABLET PO SCH (20:24)
[2017-03-09] MEDS: ALPRAZolam 1 MG (XANAX) TAB PO PRN (20:24)
[2017-03-10] MEDS: oxyCODONE/APAP 5/325MG (PERCOCET 5) TABLET PO PRN ×2 (04:56→20:14)
[2017-03-10 06:00] VITALS: BP 106/59
[2017-03-10] MEDS: buPROPion SR 150 MG (WELLBUTRIN SR) TAB PO SCH ×2 (06:31→15:59)
[2017-03-10] MEDS: guaiFENesin (MUCINEX) 600 MG TAB PO SCH ×2 (09:17→20:13)
[2017-03-10] MEDS: meTOprolol SUCCINATE 100 MG (TOPROL XL) TAB PO SCH (09:17)
[2017-03-10] MEDS: FAMOTIDINE 20 MG (PEPCID) TABLET PO SCH ×2 (09:17→20:14)
[2017-03-10] MEDS: amLODIPine 5 MG (NORVASC) TAB PO SCH (09:17)
[2017-03-10] MEDS: CLOPIDOGREL 75 MG (PLAVIX) TABLET PO SCH (09:17)
[2017-03-10] MEDS: ARIPIPRAZOLE 10 MG (ABILIFY) TAB PO SCH (09:17)
--- NOTE | 2017-03-10 09:31 | Occupational Ther Daily Note ---
OT Current Status-Daily Note Subjective Pt. reports discomfort in left UE, only with movement from OT. Pain subsides when movement subsides. Appearance Pt. is in bed. Agrees to work with OT. Mental Status/Objective Patient Orientation: Person, Place Functional [place] Measure 0=Not Assessed/NA 4=Minimal Assistance 1=Total Assistance 5=Supervision or Setup 2=Maximal Assistance 6=Modified [place] 3=Moderate Assistance 7=Complete [place] ADL-Treatment Functional [place] Measure 0=Not Assessed/NA 4=Minimal Assistance 1=Total Assistance 5=Supervision or Setup 2=Maximal Assistance 6=Modified [place] 3=Moderate Assistance 7=Complete IndependenceIRFPAI Quality Coding Scale 6 Independent with activity with or without an assistive device 5 Patient requires set up or clean up by helper. Patient completes activity by themselves 4 Supervision or touching assist (CGA). [place] provide cues , steadying assist 3 The helper provides less than half the effort to complete the activity 2 The helper provides more than half the effort to complete the activity 1 Dependent. The helper does all the effort to complete an activity 7 Patient refused to complete or attempt activity 9 The patient did not perform the activity before the current illness or injury 88 Not attempted due to Medical conditions or safety concerns Lower Body Dressing (FIM): 5 (Pt. is able to don socks with no difficulty.) Lower Body Dressing (QC): 4 On/Off Footwear (QC): 4 (SBA) Other Treatment Pt. transferred supine-sit with SBA. Declined showering or dressing, but requested for OT to "work on arm." OT completed gentle PROM to left UE in all planes, including shoulder flexion/abduction, elbow extension. Pt. able to tolerate approximately 90 degrees of shoulder flexion before it is uncomfortable. Noted no subluxation and good scapular glide. Tight pectoral with abduction and this causes discomfort as well. Completed joint compression exercises and elbow extension. Noted increased muscle tone from 90 degrees to end range in elbow extension. Pt. is educated about positioning, and continuing with exercises, mobility, de-sensitization, and strengthening. All needs met. Education OT Patient Education: Correct positioning, Exercise program, Modified ADL techniques, Progress toward Goal/Update tx plan, Purpose of tx/functional activities, Reviewed precautions, Rehab process, Transfer techniques Teaching Recipient: Patient Teaching Methods: Demonstration, Discussion Response to Teaching: Verbalize Understanding, Return Demonstration OT Short Term Goals Short Term Goals Time Frame: Mar 02, 2017 Grooming(FIM): 5 Bathing(FIM): 3 Upper Body Dressing(FIM): 4 Lower Body Dressing(FIM): 3 Toileting(FIM): 3 Transfers (B,C,W/C) (FIM): 4 Toilet/Commode Transfer(FIM): 3 1=Demonstrate adherence to instructed precautions during ADL tasks. 2=Patient will verbalize/demonstrate understanding of assistive devices/ modifications for ADL. 3=Patient will improve strength/tolerance for activity to enable patient to perform ADL's. OT Mcfp Goals Mash Tub Cooker Operator Goals Time Frame: Mar 16, 2017 Eating (FIM): 6 Eating (QC): 6 Groomin Oral Hygiene (QC): 6 Bathing(FIM): 4 Shower/Bathe Self (QC): 4 Upper Body Dressing(FIM): 5 Upper Body Dressing (QC): 5 Lower Body Dressing(FIM): 4 Lower Body Dressing (QC): 4 On/Off Footwear (QC): 4 Toileting(FIM): 6 Toileting Hygiene (QC): 4 Toilet/Commode Transfer(FIM): 5 Toilet/Commode Transfer (QC): 4 Shower Transfer(FIM): 4 Comprehension(FIM): 5 (MET) Expression (FIM): 5 (MET) Social Interaction(FIM): 5 (NOT MET) Problem Solving(FIM): 5 (MET) Memory(FIM): 5 (MET) Additional Goals: 1-Demonstrate ADL Tasks, 2-Verbalize Understanding, 3- ImproveStrength/Luis 1=Demonstrate adherence to instructed precautions during ADL tasks. 2=Patient will verbalize/demonstrate understanding of assistive devices/ modifications for ADL. 3=Patient will improve strength/tolerance for activity to enable patient to perform ADL's. OT Education/Plan Problem List/Assessment Assessment: Decreased Activ Tolerance, Decreased UE Strength, Dependent Transfers, Impaired Funct Balance, Impaired I ADL's, Impaired Self-Care Skills, Restricted Funct UE ROM Discharge Recommendations Plan/Recommendations: Continue POC Therapy D/C Recommendations: Home w/ Family Support, Occupational Therapy Home Care Treatment Plan/Plan of Care Treatment,Training & Education: Yes Patient would benefit from OT for education, treatment and training to promote independence in ADL's, mobility, safety and/or upper extremity function for ADL' s. Plan of Care: ADL Retraining, Functional Mobility, Group Exercise/Act as Ind, UE Funct Exercise/Act, UE Neuromus Re-Ed/Coord Treatment Duration: Mar 16, 2017 Frequency: At least 5 of 7 days/Wk (IRF) Estimated Hrs Per Day: 1.5 hours per day Agreement: Yes Rehab Potential: Good Time/GCodes Start Time: 08:45 Stop Time: 09:05 Total Time Billed (hr/min): 20 Billed Treatment Time 1, EX MARI ECKERT OT Mar 10, 2017 09:31
--- NOTE | 2017-03-10 09:31 | Physical Therapy Daily Note ---
PT Daily Note-Current Subjective Patient sitting EOB pre tx, agrees to PT, has no complaints of pain. Appearance Patient in bed post tx, has nurse call, phone, tray, all needs met. Mental Status Patient Orientation: Normal For Age Transfers Functional [place] Measure 0=Not Assessed/NA 4=Minimal Assistance 1=Total Assistance 5=Supervision or Setup 2=Maximal Assistance 6=Modified [place] 3=Moderate Assistance 7=Complete IndependenceIRFPAI Quality Coding Scale 6 Independent with activity with or without an assistive device 5 Patient requires set up or clean up by helper. Patient completes activity by themselves 4 Supervision or touching assist (CGA). [place] provide cues , steadying assist 3 The helper provides less than half the effort to complete the activity 2 The helper provides more than half the effort to complete the activity 1 Dependent. The helper does all the effort to complete an activity 7 Patient refused to complete or attempt activity 9 The patient did not perform the activity before the current illness or injury 88 Not attempted due to Medical conditions or safety concerns Transfers (B, C, W/C) (FIM): 4 Scootin Rollin Supine to/from Sit: 4 Sit to/from Stand: 4 Bed to/from Chair: 4 Patient needed min assist for sit to supine this morning with her left leg. She practiced stand pivot several times, SBA to the right but CGA to the left with cues for positioning and safety. Weight Bearing Right Lower Extremity: Right Weight Bearing/Tolerated Left Lower Extremity: Left Weight Bearing/Tolerated Exercises NuStep Minutes: 15 NuStep Workload: 5 Treatments bed mobility and transfers, functional strengthening Assessment Current Status: Fair Progress improving balance and transfers PT Short Term Goals Short Term Goals Time Frame: Mar 02, 2017 Transfers (B,C,W/C) (FIM): 4 Gait (FIM): 1 Gait Distance Comment: 20' Gait Level of Assist: 2 Gait Assistive Device: Walker Nathan Wheelchair (FIM): 6 Wheelchair Distance: 150'x2 PT [place] Programmer Goals [place] Programmer Goals PT Chcf Goals Time Frame: Mar 16, 2017 Transfers (B,C,W/C) (FIM): 5 Sit to Lying (QC): 4 Lying-Sitting on Side/Bed(QC): 4 Sit to Stand (QC): 4 Rollin Roll Left to Right (QC): 4 Chair/Vdi-pr-Ultae Xfer(QC): 4 Car Transfer (QC): 3 Gait (FIM): 2 Distance: 30' Walk 10 feet (QC): 3 Walk 10ft-Uneven Surface(QC): 3 Gait Level of Assist: 4 Gait Assistive Device: Cane Large Base Quad PT Plan Problem List Problem List: Activity Tolerance, Functional Strength, Safety, Balance, Gait, Transfer, Bed Mobility, ROM Treatment/Plan Treatment Plan: Continue Plan of Care Treatment Plan: Bed Mobility, Concurrent Therapy, Education, Functional Activity Luis, Functional Strength, Group Therapy, Gait, Safety, Therapeutic Exercise, Transfers Treatment Duration: Mar 16, 2017 Frequency: At least 5 of 7 days/Wk (IRF) Estimated Hrs Per Day: 1.5 hours per day Patient and/or Family Agrees t: Yes Safety Risks/Education Patient Education: Transfer Techniques, Correct Positioning, W/C Management, Safety Issues Teaching Recipient: Patient Teaching Methods: Demonstration, Discussion Response to Teaching: Reinforcement Needed Time/GCodes Time In: 900 Time Out: 930 Total Billed Treatment Time: 30 Total Billed Treatment 1 visit EX 15' FA 15' KIERRA STERLING PT Mar 10, 2017 09:31
[2017-03-10] MEDS: RT-BUDESONIDE NEBS 0.5 MG/2ML (PULMICORT) AMP INH SCH (10:21)
[2017-03-10] MEDS: RT-ALBUTEROL/IPRATROPIUM 3 ML (DUONEB) VIAL INH SCH ×2 (10:21→14:46)
--- NOTE | 2017-03-10 12:16 | Therapy Group Daily Note ---
Therapy Daily Group Note Patient Education Topic Home Safety Exercises LE Seated Exercise, UE Exercise Other/Notes Pt transported to OT/PT group via w/c in therapy gym. Group consisted of introductions (name, place living, favorite Radha memory), socialization, ARU description, seated UE/LE exercises, winter safety, brain teasers for cognition, memory and problem solving activities. Pt introduced self appropriately. Contributed to conversations throughout group with peers. Pt was able to complete R UE and R LE exercises well. Due to increase tone and decreased AROM unable to complete L UE/LE exercises. Pt emotional during group with discussions of family memories. Pt was able to toss childs bag to designated area to answer brain teaser questions. Pt verbalized understanding of winter safety education and was able to contribute to discussion. After therapy, pt lying in bed with call light/phone in reach. All needs met in room. Start Time: 10:30 Stop Time: 12:00 Total Billed Treatment Time: 90 Total Billed Treatment 1-GRP KAHLIL MENDEZ Mar 10, 2017 12:16
[2017-03-10] MEDS: DOCUSATE SODIUM 100 MG (COLACE) CAP PO SCH ×2 (14:28→20:13)
[2017-03-10] MEDS: ALPRAZolam 1 MG (XANAX) TAB PO PRN (15:59)
[2017-03-10 17:59] VITALS: BP 121/79
[2017-03-10] MEDS: ATORVASTATIN 40 MG (LIPITOR) TABLET PO SCH (20:14)
[2017-03-11] MEDS: RT-ALBUTEROL/IPRATROPIUM 3 ML (DUONEB) VIAL INH SCH ×4 (00:01→21:21)
[2017-03-11] MEDS: RT-BUDESONIDE NEBS 0.5 MG/2ML (PULMICORT) AMP INH SCH ×3 (00:01→21:21)
[2017-03-11] MEDS: oxyCODONE/APAP 5/325MG (PERCOCET 5) TABLET PO PRN ×4 (04:12→20:09)
[2017-03-11 05:10] VITALS: BP 120/77
[2017-03-11] MEDS: buPROPion SR 150 MG (WELLBUTRIN SR) TAB PO SCH ×2 (06:47→16:58)
[2017-03-11] MEDS: guaiFENesin (MUCINEX) 600 MG TAB PO SCH ×2 (08:04→20:09)
[2017-03-11] MEDS: ARIPIPRAZOLE 10 MG (ABILIFY) TAB PO SCH (08:04)
[2017-03-11] MEDS: FAMOTIDINE 20 MG (PEPCID) TABLET PO SCH ×2 (08:05→20:09)
[2017-03-11] MEDS: CLOPIDOGREL 75 MG (PLAVIX) TABLET PO SCH (08:05)
[2017-03-11] MEDS: amLODIPine 5 MG (NORVASC) TAB PO SCH (08:08)
[2017-03-11] MEDS: meTOprolol SUCCINATE 100 MG (TOPROL XL) TAB PO SCH (08:08)
[2017-03-11] MEDS: DOCUSATE SODIUM 100 MG (COLACE) CAP PO SCH ×2 (08:09→19:24)
[2017-03-11 08:10] VITALS: BP 106/63
[2017-03-11 16:58] VITALS: BP 119/87
[2017-03-11] MEDS: PROMETHAZINE 25 MG (PHENERGAN) TAB PO PRN (19:31)
[2017-03-11] MEDS: ATORVASTATIN 40 MG (LIPITOR) TABLET PO SCH (20:09)
[2017-03-12 06:00] VITALS: BP 97/68
[2017-03-12] MEDS: buPROPion SR 150 MG (WELLBUTRIN SR) TAB PO SCH ×2 (06:01→16:24)
[2017-03-12] MEDS: oxyCODONE/APAP 5/325MG (PERCOCET 5) TABLET PO PRN ×2 (06:01→16:25)
[2017-03-12 10:00] VITALS: BP 113/73
[2017-03-12] MEDS: ARIPIPRAZOLE 10 MG (ABILIFY) TAB PO SCH (10:09)
[2017-03-12] MEDS: FAMOTIDINE 20 MG (PEPCID) TABLET PO SCH ×2 (10:09→20:07)
[2017-03-12] MEDS: DOCUSATE SODIUM 100 MG (COLACE) CAP PO SCH ×2 (10:09→20:07)
[2017-03-12] MEDS: guaiFENesin (MUCINEX) 600 MG TAB PO SCH ×2 (10:09→20:07)
[2017-03-12] MEDS: CLOPIDOGREL 75 MG (PLAVIX) TABLET PO SCH (10:09)
[2017-03-12] MEDS: amLODIPine 5 MG (NORVASC) TAB PO SCH (10:10)
[2017-03-12] MEDS: meTOprolol SUCCINATE 100 MG (TOPROL XL) TAB PO SCH (10:10)
[2017-03-12] MEDS: ALPRAZolam 1 MG (XANAX) TAB PO PRN ×2 (14:16→22:24)
[2017-03-12] MEDS: PROMETHAZINE 25 MG (PHENERGAN) TAB PO PRN (16:25)
[2017-03-12 16:26] VITALS: BP 105/74
[2017-03-12] MEDS: ATORVASTATIN 40 MG (LIPITOR) TABLET PO SCH (20:07)
[2017-03-13] MEDS: oxyCODONE/APAP 5/325MG (PERCOCET 5) TABLET PO PRN ×2 (03:27→20:33)
[2017-03-13 05:05] VITALS: BP 99/66
[2017-03-13] MEDS: buPROPion SR 150 MG (WELLBUTRIN SR) TAB PO SCH ×3 (06:21→20:33)
--- NOTE | 2017-03-13 07:58 | Progress Note (SOAP) ---
Subjective Time Seen by Provider: 07:55 Subjective/Events-last exam CVA. Hypertension. History of meth abuse. Patient voicing no complaints. Patient would like an increase the dose of her Wellbutrin with depression Objective Exam Vital Signs Date Time Temp Pulse Resp B/P (MAP) Pulse Ox O2 Delivery O2 Flow Rate FiO2 03/13/17 05:05 98.8 85 18 99/66 (77) 98 Room Air 03/12/17 20:10 Room Air 03/12/17 16:26 98.6 88 20 105/74 (84) 98 Room Air 03/12/17 10:00 98.8 83 18 113/73 (86) 97 Room Air 03/12/17 08:17 Room Air I & O 03/13/17 07:00 Intake Total 1075 ml Balance 1075 ml Capillary Refill : General Appearance: No Apparent Distress, WD/WN HEENT: Normal ENT Inspection Neck: Full Range of Motion Respiratory: Chest Non Tender, Lungs Clear, No Accessory Muscle Use, No Respiratory Distress Cardiovascular: Regular Rate, Rhythm Gastrointestinal: non tender, soft Assessment/Plan Assessment/Plan Assess & Plan/Chief Complaint CVA. Left side weakness. Hypertension. Meth abuse history. . 02/28/17. CVA. Left-sided weakness. Hypertension. Patient is abuse history. Chest discomfort with some loose congestion. . 03/01/17. cva. llEFT-SIDED WEAKNESS. hYPERTENSION. METH ABUSE. Patient felt nauseous this a.m.. . 03/02/17. CVA. Left-sided weakness. Hypertension. Left abuse. Patient's left leg doing better. Patient's left upper extremity problems. . 03/05/17. CVA Left sided weakness. Meth abuse. Patient's left leg doing better Patient has problems with moving of left upper extremity. Patient voices no complaints. . 04/1916. CVA on left. Meth abuse history. Patient doing better with left leg. Not so with left arm.. . 03/07/17. CVA on left. Weakness. Hypertension. Meth abuse. patient doing better with left leg in the left arm. . 03/08/17. CVA on left. Weakness. Hypertension. . 03/09/17. CVA on left. Weakness. Hypertension. patient resting comfortably.. . 03/13/17. CVA on left. Weakness. Hypertension. Meth abuse. Depression. to increase the Wellbutrin. Clinical Quality Measures DVT/VTE Risk/Contraindication: Risk Factor Score Per Nursin RFS Level Per Nursing on Admit: 4+=Very High JOAQUIM SHEN DO Mar 13, 2017 07:58
[2017-03-13 09:00] VITALS: BP 119/83
[2017-03-13] MEDS: DOCUSATE SODIUM 100 MG (COLACE) CAP PO SCH ×2 (09:00→20:33)
--- NOTE | 2017-03-13 09:00 | Physical Therapy Daily Note ---
PT Daily Note-Current Subjective Patient in bed pre tx, agrees to PT, has no complaints of pain. Appearance Patient in wheelchair post tx, has nurse call, phone, tray, all needs met. Mental Status Patient Orientation: Normal For Age Transfers Functional [place] Measure 0=Not Assessed/NA 4=Minimal Assistance 1=Total Assistance 5=Supervision or Setup 2=Maximal Assistance 6=Modified [place] 3=Moderate Assistance 7=Complete IndependenceIRFPAI Quality Coding Scale 6 Independent with activity with or without an assistive device 5 Patient requires set up or clean up by helper. Patient completes activity by themselves 4 Supervision or touching assist (CGA). [place] provide cues , steadying assist 3 The helper provides less than half the effort to complete the activity 2 The helper provides more than half the effort to complete the activity 1 Dependent. The helper does all the effort to complete an activity 7 Patient refused to complete or attempt activity 9 The patient did not perform the activity before the current illness or injury 88 Not attempted due to Medical conditions or safety concerns Transfers (B, C, W/C) (FIM): 4 Scootin Rollin Supine to/from Sit: 5 Sit to/from Stand: 4 Bed to/from Chair: 4 Patient can now perform a stand pivot transfer to the left side with CGA and careful cues for positioning. Weight Bearing Right Lower Extremity: Right Weight Bearing/Tolerated Left Lower Extremity: Left Weight Bearing/Tolerated Gait Training Gait (FIM): 1 Distance: 20'x5 Gait Level of Assist: 4 Gait Persons Needed: 1 Gait Assistive Device: Cane Large Base Quad Patient needed occasional assist with balance but she was able to weight shift on her own although she had difficulty with it sometimes. Patient used an AFO on the left and a knee cage to control her knee hyperextension. A 3# ankle weight was applied on the left side to make her work harder on weight shifting. Wheelchair Training Does the Pt Use a Wheelchair?: Yes Wheelchair (FIM): 6 Distance: 150'x2 Type of Wheelchair: Manual Exercises LAQ left side for 5 min Treatments bed mobility, transfers, ambulation, functional strengthening Assessment Current Status: Fair Progress improving transfers and balance PT Short Term Goals Short Term Goals Time Frame: Mar 02, 2017 Transfers (B,C,W/C) (FIM): 4 Gait (FIM): 1 Gait Distance Comment: 20' Gait Level of Assist: 2 Gait Assistive Device: Walker Nathan Wheelchair (FIM): 6 Wheelchair Distance: 150'x2 PT Director Education Goals Director Education Goals PT Director Education Goals Time Frame: Mar 16, 2017 Transfers (B,C,W/C) (FIM): 5 Sit to Lying (QC): 4 Lying-Sitting on Side/Bed(QC): 4 Sit to Stand (QC): 4 Rollin Roll Left to Right (QC): 4 Chair/Gvl-nj-Sobfm Xfer(QC): 4 Car Transfer (QC): 3 Gait (FIM): 2 Distance: 30' Walk 10 feet (QC): 3 Walk 10ft-Uneven Surface(QC): 3 Gait Level of Assist: 4 Gait Assistive Device: Cane Large Base Quad PT Plan Problem List Problem List: Activity Tolerance, Functional Strength, Safety, Balance, Gait, Transfer, Bed Mobility, ROM Treatment/Plan Treatment Plan: Continue Plan of Care Treatment Plan: Bed Mobility, Concurrent Therapy, Education, Functional Activity Luis, Functional Strength, Group Therapy, Gait, Safety, Therapeutic Exercise, Transfers Treatment Duration: Mar 16, 2017 Frequency: At least 5 of 7 days/Wk (IRF) Estimated Hrs Per Day: 1.5 hours per day Patient and/or Family Agrees t: Yes Safety Risks/Education Patient Education: Gait Training, Transfer Techniques, Correct Positioning, W/ C Management, Disease Process, Safety Issues Teaching Recipient: Patient Teaching Methods: Demonstration, Discussion Response to Teaching: Reinforcement Needed Time/GCodes Time In: 800 Time Out: 859 Total Billed Treatment Time: 59 Total Billed Treatment 1 visit EX 5' FA 10' GT 44' KIERRA STERLING PT Mar 13, 2017 09:00
[2017-03-13] MEDS: guaiFENesin (MUCINEX) 600 MG TAB PO SCH ×2 (10:03→20:33)
[2017-03-13] MEDS: ARIPIPRAZOLE 10 MG (ABILIFY) TAB PO SCH (10:04)
[2017-03-13] MEDS: CLOPIDOGREL 75 MG (PLAVIX) TABLET PO SCH (10:04)
[2017-03-13] MEDS: FAMOTIDINE 20 MG (PEPCID) TABLET PO SCH ×2 (10:04→20:33)
[2017-03-13] MEDS: meTOprolol SUCCINATE 100 MG (TOPROL XL) TAB PO SCH (10:09)
[2017-03-13] MEDS: amLODIPine 5 MG (NORVASC) TAB PO SCH (10:11)
--- NOTE | 2017-03-13 11:53 | Occupational Ther Daily Note ---
OT Current Status-Daily Note Subjective Pt sitting in w/c, agrees to treatment. Pt does not have any c/o pain. Mental Status/Objective Functional [place] Measure 0=Not Assessed/NA 4=Minimal Assistance 1=Total Assistance 5=Supervision or Setup 2=Maximal Assistance 6=Modified [place] 3=Moderate Assistance 7=Complete [place] ADL-Treatment Pt requests to shower this morning. To restroom via w/c. Pt performed stand pivot transfer w/c <-> shower bench with CGA using grab bar for balance and safety. Seated bathing completed using hand held shower. Pt requires assist to wash/dry right UE and buttocks. Able to wash other areas with increased time. Don bra with assist to fasten in back. Pt donned pullover shirt with set up and skilled cues for technique. Pt able to thread bilateral LE into underwear and pants. Stood with minimal assistance for balance during pant hike. Pt donned bilateral socks with SBA. Pt able to don right shoe with set up and left shoe with minimal assistance. Requires assist to tie shoes. Grooming tasks completed seated at sink. Pt combed hair with SBA. Pt dried hair with SBA. Assisted pt to use straighten to fix hair. Pt requires assist and increased time to complete task. Pt applied make up with set up. Pt performed w/c mobility to laundry room using right UE/LE with SBA. Pt placed clothes and soap in to washer, but requires assist to manage washer setting secondary to difficulty reaching knobs. Pt returned to room and completed left UE activity while seated in w/c. PROM completed at all joints. Pt able to perform minimal active shoulder elevation and scapular retraction. Pt also demonstrates minimal shoulder abduction. Pt has increased tone in left UE. Pt sitting in w/c with needs met after session. Functional [place] Measure 0=Not Assessed/NA 4=Minimal Assistance 1=Total Assistance 5=Supervision or Setup 2=Maximal Assistance 6=Modified [place] 3=Moderate Assistance 7=Complete IndependenceIRFPAI Quality Coding Scale 6 Independent with activity with or without an assistive device 5 Patient requires set up or clean up by helper. Patient completes activity by themselves 4 Supervision or touching assist (CGA). [place] provide cues , steadying assist 3 The helper provides less than half the effort to complete the activity 2 The helper provides more than half the effort to complete the activity 1 Dependent. The helper does all the effort to complete an activity 7 Patient refused to complete or attempt activity 9 The patient did not perform the activity before the current illness or injury 88 Not attempted due to Medical conditions or safety concerns Grooming (FIM): 4 Bathing (FIM): 4 Shower/Bathe Self (QC): 3 Upper Body (FIM): 4 Upper Body Dressing (QC): 3 Lower Body Dressing (FIM): 4 Shower Transfer(FIM): 4 OT Short Term Goals Short Term Goals Time Frame: Mar 02, 2017 Grooming(FIM): 5 Bathing(FIM): 3 Upper Body Dressing(FIM): 4 Lower Body Dressing(FIM): 3 Toileting(FIM): 3 Transfers (B,C,W/C) (FIM): 4 Toilet/Commode Transfer(FIM): 3 1=Demonstrate adherence to instructed precautions during ADL tasks. 2=Patient will verbalize/demonstrate understanding of assistive devices/ modifications for ADL. 3=Patient will improve strength/tolerance for activity to enable patient to perform ADL's. OT Isotope Technician Goals Chcf Goals Time Frame: Mar 16, 2017 Eating (FIM): 6 Eating (QC): 6 Groomin Oral Hygiene (QC): 6 Bathing(FIM): 4 Shower/Bathe Self (QC): 4 Upper Body Dressing(FIM): 5 Upper Body Dressing (QC): 5 Lower Body Dressing(FIM): 4 Lower Body Dressing (QC): 4 On/Off Footwear (QC): 4 Toileting(FIM): 6 Toileting Hygiene (QC): 4 Toilet/Commode Transfer(FIM): 5 Toilet/Commode Transfer (QC): 4 Shower Transfer(FIM): 4 Comprehension(FIM): 5 (MET) Expression (FIM): 5 (MET) Social Interaction(FIM): 5 (NOT MET) Problem Solving(FIM): 5 (MET) Memory(FIM): 5 (MET) Additional Goals: 1-Demonstrate ADL Tasks, 2-Verbalize Understanding, 3- ImproveStrength/Luis 1=Demonstrate adherence to instructed precautions during ADL tasks. 2=Patient will verbalize/demonstrate understanding of assistive devices/ modifications for ADL. 3=Patient will improve strength/tolerance for activity to enable patient to perform ADL's. OT Education/Plan Discharge Recommendations Plan/Recommendations: Continue POC Treatment Plan/Plan of Care Patient would benefit from OT for education, treatment and training to promote independence in ADL's, mobility, safety and/or upper extremity function for ADL' s. Plan of Care: ADL Retraining, Functional Mobility, Group Exercise/Act as Ind, UE Funct Exercise/Act, UE Neuromus Re-Ed/Coord Treatment Duration: Mar 16, 2017 Frequency: At least 5 of 7 days/Wk (IRF) Estimated Hrs Per Day: 1.5 hours per day Agreement: Yes Rehab Potential: Good Time/GCodes Start Time: 09:00 Stop Time: 10:30 Total Time Billed (hr/min): 90 Billed Treatment Time 1 visit, ADLx5(45minutes), EX(15minutes) RUBY MENDOSA OT Mar 13, 2017 11:53
--- NOTE | 2017-03-13 14:33 | Physical Therapy Daily Note ---
PT Daily Note-Current Subjective Patient in bed pre tx, agrees to PT, has no complaints of pain. Appearance Patient BTB post tx with nurse call, phone, tray, all needs met. Mental Status Patient Orientation: Normal For Age Transfers Functional [place] Measure 0=Not Assessed/NA 4=Minimal Assistance 1=Total Assistance 5=Supervision or Setup 2=Maximal Assistance 6=Modified [place] 3=Moderate Assistance 7=Complete IndependenceIRFPAI Quality Coding Scale 6 Independent with activity with or without an assistive device 5 Patient requires set up or clean up by helper. Patient completes activity by themselves 4 Supervision or touching assist (CGA). [place] provide cues , steadying assist 3 The helper provides less than half the effort to complete the activity 2 The helper provides more than half the effort to complete the activity 1 Dependent. The helper does all the effort to complete an activity 7 Patient refused to complete or attempt activity 9 The patient did not perform the activity before the current illness or injury 88 Not attempted due to Medical conditions or safety concerns Transfers (B, C, W/C) (FIM): 4 Scootin Rollin Supine to/from Sit: 5 Sit to/from Stand: 4 Bed to/from Chair: 4 CGA for stand pivot to the left and SBA to the right Weight Bearing Right Lower Extremity: Right Weight Bearing/Tolerated Left Lower Extremity: Left Weight Bearing/Tolerated Wheelchair Training Does the Pt Use a Wheelchair?: Yes Wheelchair (FIM): 6 Distance: 150'x2 Type of Wheelchair: Manual Patient will hit objects on the left side occasionally but corrects without difficulty. Stair Training Stair Training: Handrails/: 1 handrail Stairs (FIM): 2 #of Steps: 4 Stairs: Pattern: Step to Level of Assist: 4 Patient can go up and down 4 steps using 1 handrail with min assist, AFO on the left, cues for foot placement and safety. Exercises Supine Ex: Bridging, Hip abd/add Supine Reps: 15 Treatments wheelchair mobility, bed mobility and transfers, stair training, functional strengthening Assessment Current Status: Fair Progress PT Short Term Goals Short Term Goals Time Frame: Mar 02, 2017 Transfers (B,C,W/C) (FIM): 4 Gait (FIM): 1 Gait Distance Comment: 20' Gait Level of Assist: 2 Gait Assistive Device: Walker Nathan Wheelchair (FIM): 6 Wheelchair Distance: 150'x2 PT Residential Goals Residential Goals PT Residential Goals Time Frame: Mar 16, 2017 Transfers (B,C,W/C) (FIM): 5 Sit to Lying (QC): 4 Lying-Sitting on Side/Bed(QC): 4 Sit to Stand (QC): 4 Rollin Roll Left to Right (QC): 4 Chair/Jwa-ga-Dbslw Xfer(QC): 4 Car Transfer (QC): 3 Gait (FIM): 2 Distance: 30' Walk 10 feet (QC): 3 Walk 10ft-Uneven Surface(QC): 3 Gait Level of Assist: 4 Gait Assistive Device: Cane Large Base Quad PT Plan Problem List Problem List: Activity Tolerance, Functional Strength, Safety, Balance, Gait, Transfer, Bed Mobility, ROM Treatment/Plan Treatment Plan: Continue Plan of Care Treatment Plan: Bed Mobility, Concurrent Therapy, Education, Functional Activity Luis, Functional Strength, Group Therapy, Gait, Safety, Therapeutic Exercise, Transfers Treatment Duration: Mar 16, 2017 Frequency: At least 5 of 7 days/Wk (IRF) Estimated Hrs Per Day: 1.5 hours per day Patient and/or Family Agrees t: Yes Safety Risks/Education Patient Education: Transfer Techniques, Steps, Correct Positioning, W/C Management, Safety Issues Teaching Recipient: Patient Teaching Methods: Demonstration, Discussion Response to Teaching: Reinforcement Needed Time/GCodes Time In: 1400 Time Out: 1431 Total Billed Treatment Time: 31 Total Billed Treatment 1 visit FA 31' KIERRA STERLING PT Mar 13, 2017 14:33
[2017-03-13] MEDS: ALPRAZolam 1 MG (XANAX) TAB PO PRN (15:37)
[2017-03-13 17:20] VITALS: BP 121/87
[2017-03-13] MEDS: ATORVASTATIN 40 MG (LIPITOR) TABLET PO SCH (20:33)
[2017-03-14 06:08] VITALS: BP 118/83
--- NOTE | 2017-03-14 08:03 | Progress Note (SOAP) ---
Subjective Time Seen by Provider: 08:00 Subjective/Events-last exam patient doing better today. patient in increase the dose of Wellbutrin. CVA. Hypertension. Meth abuse. Depression Objective Exam Vital Signs Date Time Temp Pulse Resp B/P (MAP) Pulse Ox O2 Delivery O2 Flow Rate FiO2 03/14/17 06:08 98.7 81 16 118/83 (95) 98 Room Air 03/13/17 21:00 Room Air 03/13/17 17:20 98.8 98 17 121/87 (98) 97 Room Air 03/13/17 09:00 Room Air 03/13/17 09:00 101 119/83 (95) I & O 03/14/17 07:00 Intake Total 1000 ml Balance 1000 ml Capillary Refill : General Appearance: No Apparent Distress, WD/WN Respiratory: Lungs Clear, No Accessory Muscle Use, No Respiratory Distress Cardiovascular: Regular Rate, Rhythm, No Murmur Assessment/Plan Assessment/Plan Assess & Plan/Chief Complaint CVA. Left side weakness. Hypertension. Meth abuse history. . 02/28/17. CVA. Left-sided weakness. Hypertension. Patient is abuse history. Chest discomfort with some loose congestion. . 03/01/17. cva. llEFT-SIDED WEAKNESS. hYPERTENSION. METH ABUSE. Patient felt nauseous this a.m.. . 03/02/17. CVA. Left-sided weakness. Hypertension. Left abuse. Patient's left leg doing better. Patient's left upper extremity problems. . 03/05/17. CVA Left sided weakness. Meth abuse. Patient's left leg doing better Patient has problems with moving of left upper extremity. Patient voices no complaints. . 04/1916. CVA on left. Meth abuse history. Patient doing better with left leg. Not so with left arm.. . 03/07/17. CVA on left. Weakness. Hypertension. Meth abuse. patient doing better with left leg in the left arm. . 03/08/17. CVA on left. Weakness. Hypertension. . 03/09/17. CVA on left. Weakness. Hypertension. patient resting comfortably.. . 03/13/17. CVA on left. Weakness. Hypertension. Meth abuse. Depression. to increase the Wellbutrin. . 03/14. CVA on left. Depression. Hypertension. meth abuse. Clinical Quality Measures DVT/VTE Risk/Contraindication: Risk Factor Score Per Nursin RFS Level Per Nursing on Admit: 4+=Very High JOAQUIM SHEN DO Mar 14, 2017 08:03
[2017-03-14] MEDS: ARIPIPRAZOLE 10 MG (ABILIFY) TAB PO SCH (08:24)
[2017-03-14] MEDS: guaiFENesin (MUCINEX) 600 MG TAB PO SCH ×2 (08:24→20:08)
[2017-03-14] MEDS: meTOprolol SUCCINATE 100 MG (TOPROL XL) TAB PO SCH (08:24)
[2017-03-14] MEDS: buPROPion SR 150 MG (WELLBUTRIN SR) TAB PO SCH ×2 (08:25→20:08)
[2017-03-14] MEDS: oxyCODONE/APAP 5/325MG (PERCOCET 5) TABLET PO PRN ×2 (08:25→22:08)
[2017-03-14] MEDS: DOCUSATE SODIUM 100 MG (COLACE) CAP PO SCH ×2 (08:25→19:59)
[2017-03-14] MEDS: FAMOTIDINE 20 MG (PEPCID) TABLET PO SCH ×2 (08:25→20:08)
[2017-03-14] MEDS: amLODIPine 5 MG (NORVASC) TAB PO SCH (08:25)
[2017-03-14] MEDS: CLOPIDOGREL 75 MG (PLAVIX) TABLET PO SCH (08:25)
--- NOTE | 2017-03-14 10:18 | Physical Therapy Daily Note ---
PT Daily Note-Current Subjective Pt sitting at EOB upon arrival. Pt agrees to PT. Pain Location: No Pain Reported Mental Status Patient Orientation: Person, Place, Time, Situation Attachments: Other-See Comments (L AFO & L knee immobilizer) Transfers Functional [place] Measure 0=Not Assessed/NA 4=Minimal Assistance 1=Total Assistance 5=Supervision or Setup 2=Maximal Assistance 6=Modified [place] 3=Moderate Assistance 7=Complete IndependenceIRFPAI Quality Coding Scale 6 Independent with activity with or without an assistive device 5 Patient requires set up or clean up by helper. Patient completes activity by themselves 4 Supervision or touching assist (CGA). [place] provide cues , steadying assist 3 The helper provides less than half the effort to complete the activity 2 The helper provides more than half the effort to complete the activity 1 Dependent. The helper does all the effort to complete an activity 7 Patient refused to complete or attempt activity 9 The patient did not perform the activity before the current illness or injury 88 Not attempted due to Medical conditions or safety concerns Scootin Rollin Supine to/from Sit: 5 Sit to/from Stand: 4 Sit to Lying (QC): 5 Sit to Stand (QC): 4 Chair/Uco-vd-Yexat Xfer(QC): 4 Bed to/from Chair: 4 Weight Bearing Right Lower Extremity: Right Weight Bearing/Tolerated Left Lower Extremity: Left Weight Bearing/Tolerated Gait Training Does the Patient Walk?: Yes Distance (FIM): 1=up to 49 ft Distance: 20 x2= 40' Walk 10 feet (QC): 4 Gait Level of Assist: 4 Gait Persons Needed: 1 Gait Assistive Device: FWW Pt wanted to try a FWW to walk with instead of Nathan Walker because she felt safer and didn't like how the platform walker held her arm so high. Pt walks with slow elliot and crossed LLE over R so added Yellow Tband to help aide with positioning. Pt is walking with FWW at CGA-Min A. Wheelchair Training Does the Pt Use a Wheelchair?: Yes Wheelchair Distance: 8=232-02 ft Distance: 100' Wheelchair Level of Assist: 5 Wheel 50 ft with 2 turns (QC): 5 Type of Wheelchair: Manual Exercises Seated Therapy Exercises: Ankle pumps Seated Reps: 20 Treatments Pt transfers from EOB to Supine to assist [employer] with donning knee immobilizer. Pt receives morning meds from Nurse before transferring to [facility] via SPT at [employer]. Pt propels [facility] to Therapy Gym. [employer] stretches DF/PF to aide with donning L AFO. Pt stands from [facility] to walk using FWW at [employer]. Pt ambulates using FWW at Min A. [employer] adds Yellow Tband for positioning to keep LLE from crossing RLE while walking. Pt returns to [facility] after 2x walking in Gym. Pt has all needs met and is seeing OT in Gym at end of PT tx. Assessment Current Status: Good Progress Pt is more independent and safer with transfers and mobility. PT Short Term Goals Short Term Goals Time Frame: Mar 02, 2017 Transfers (B,C,W/C) (FIM): 4 Gait (FIM): 1 Gait Distance Comment: 20' Gait Level of Assist: 2 Gait Assistive Device: Walker Nathan Wheelchair (FIM): 6 Wheelchair Distance: 150'x2 PT Technology Adoption Manager Goals Snf Goals PT Technology Adoption Manager Goals Time Frame: Mar 16, 2017 Transfers (B,C,W/C) (FIM): 5 Sit to Lying (QC): 4 Lying-Sitting on Side/Bed(QC): 4 Sit to Stand (QC): 4 Rollin Roll Left to Right (QC): 4 Chair/Pnx-di-Iidop Xfer(QC): 4 Car Transfer (QC): 3 Gait (FIM): 2 Distance: 30' Walk 10 feet (QC): 3 Walk 10ft-Uneven Surface(QC): 3 Gait Level of Assist: 4 Gait Assistive Device: Cane Large Base Quad PT Plan Problem List Problem List: Activity Tolerance, Functional Strength, Safety, Balance, Gait, Transfer Treatment/Plan Treatment Plan: Continue Plan of Care Treatment Plan: Bed Mobility, Concurrent Therapy, Education, Functional Activity Luis, Functional Strength, Group Therapy, Gait, Safety, Therapeutic Exercise, Transfers Treatment Duration: Mar 16, 2017 Frequency: At least 5 of 7 days/Wk (IRF) Estimated Hrs Per Day: 1.5 hours per day Patient and/or Family Agrees t: Yes Safety Risks/Education Patient Education: Gait Training, Transfer Techniques, Correct Positioning, Safety Issues Teaching Recipient: Patient Teaching Methods: Discussion Response to Teaching: Verbalize Understanding Time/GCodes Time In: 800 Time Out: 900 Total Billed Treatment Time: 60 Total Billed Treatment 1, GT (15m), FA x2 (30m) & [facility] (15m) JESSE BOO [employer] Mar 14, 2017 10:18
--- NOTE | 2017-03-14 11:51 | Occupational Ther Daily Note ---
OT Current Status-Daily Note Subjective No pain reported. Appearance Pt. in wheelchair after finishing with PT. Declined showering today. Agreed to work with OT in gym on UE mobility and strength. Mental Status/Objective Patient Orientation: Person, Place, Time, Situation Functional [place] Measure 0=Not Assessed/NA 4=Minimal Assistance 1=Total Assistance 5=Supervision or Setup 2=Maximal Assistance 6=Modified [place] 3=Moderate Assistance 7=Complete [place] ADL-Treatment Functional [place] Measure 0=Not Assessed/NA 4=Minimal Assistance 1=Total Assistance 5=Supervision or Setup 2=Maximal Assistance 6=Modified [place] 3=Moderate Assistance 7=Complete IndependenceIRFPAI Quality Coding Scale 6 Independent with activity with or without an assistive device 5 Patient requires set up or clean up by helper. Patient completes activity by themselves 4 Supervision or touching assist (CGA). [place] provide cues , steadying assist 3 The helper provides less than half the effort to complete the activity 2 The helper provides more than half the effort to complete the activity 1 Dependent. The helper does all the effort to complete an activity 7 Patient refused to complete or attempt activity 9 The patient did not perform the activity before the current illness or injury 88 Not attempted due to Medical conditions or safety concerns Upper Body (FIM): 4 (Pt. did request to change her shirt once back in room. Required min assist to get shirt off right UE. Pt. able to get clean shirt on with SBA.) Upper Body Dressing (QC): 4 Transfers (B, C, W/C) (FIM): 4 (CGA/Min assist with shoes on for sit-stand and transfers.) Pt. completed series of UE tasks in gym this date. OT completed PROM to left UE in all planes, noting increased tightness at 90 degrees shoulder flexion. Tight pectorals noted. Completed gentle stretch to pt's tolerance level. Constant education provided for pt to complete PROM exercises on her own. No active movement noted of fingers, wrist. Slight elbow flexion noted in gravity eliminated plane. Completed e-stim to left wrist extensors, 10 minutes x 5 brandi-amps, and then e-stim to finger flexors x 10 minutes x 4 brandi-amps. Good movement noted and elicited with this task. Went to therapy kitchen and pt. practiced standing at sink, retrieving cup, getting water, and taking steps to right and back. Pt. able to do this with CGA. Pt. states that she will likely be transferring home to her grandfather's home now. Talked about the set up there, and how to make things easier, and safer. Pt. verbalizes understanding of suggestions, such as using paper plates, keeping most used items handy, etc.....Went to room and pt. practiced doffing/donning shirt. Required min assist to doff shirt off of right UE, and SBA to don clean shirt. All needs met up in chair. Education OT Patient Education: Correct positioning, Exercise program, Home exercise program, Modified ADL techniques, Progress toward Goal/Update tx plan, Purpose of tx/functional activities, Reviewed precautions, Rehab process, Transfer techniques, W/C management Teaching Recipient: Patient Teaching Methods: Demonstration, Discussion Response to Teaching: Verbalize Understanding, Return Demonstration OT Short Term Goals Short Term Goals Time Frame: Mar 02, 2017 Grooming(FIM): 5 Bathing(FIM): 3 Upper Body Dressing(FIM): 4 Lower Body Dressing(FIM): 3 Toileting(FIM): 3 Transfers (B,C,W/C) (FIM): 4 Toilet/Commode Transfer(FIM): 3 1=Demonstrate adherence to instructed precautions during ADL tasks. 2=Patient will verbalize/demonstrate understanding of assistive devices/ modifications for ADL. 3=Patient will improve strength/tolerance for activity to enable patient to perform ADL's. OT Correction Goals Flower Arranger Goals Time Frame: Mar 16, 2017 Eating (FIM): 6 Eating (QC): 6 Groomin Oral Hygiene (QC): 6 Bathing(FIM): 4 Shower/Bathe Self (QC): 4 Upper Body Dressing(FIM): 5 Upper Body Dressing (QC): 5 Lower Body Dressing(FIM): 4 Lower Body Dressing (QC): 4 On/Off Footwear (QC): 4 Toileting(FIM): 6 Toileting Hygiene (QC): 4 Toilet/Commode Transfer(FIM): 5 Toilet/Commode Transfer (QC): 4 Shower Transfer(FIM): 4 Comprehension(FIM): 5 (MET) Expression (FIM): 5 (MET) Social Interaction(FIM): 5 (NOT MET) Problem Solving(FIM): 5 (MET) Memory(FIM): 5 (MET) Additional Goals: 1-Demonstrate ADL Tasks, 2-Verbalize Understanding, 3- ImproveStrength/Luis 1=Demonstrate adherence to instructed precautions during ADL tasks. 2=Patient will verbalize/demonstrate understanding of assistive devices/ modifications for ADL. 3=Patient will improve strength/tolerance for activity to enable patient to perform ADL's. OT Education/Plan Problem List/Assessment Assessment: Decreased Activ Tolerance, Dependent Transfers, Impaired Coordination, Impaired Funct Balance, Impaired I ADL's, Impaired Self-Care Skills, Restricted Funct UE ROM Discharge Recommendations Plan/Recommendations: Continue POC Therapy D/C Recommendations: Home w/ Family Support, Occupational Therapy Home Care Comment Equipment needs to be determined, as pt. has just decided to transfer to grandfathers home. Treatment Plan/Plan of Care Treatment,Training & Education: Yes Patient would benefit from OT for education, treatment and training to promote independence in ADL's, mobility, safety and/or upper extremity function for ADL' s. Plan of Care: ADL Retraining, Functional Mobility, Group Exercise/Act as Ind, UE Funct Exercise/Act, UE Neuromus Re-Ed/Coord Treatment Duration: Mar 16, 2017 Frequency: At least 5 of 7 days/Wk (IRF) Estimated Hrs Per Day: 1.5 hours per day Agreement: Yes Rehab Potential: Good Time/GCodes Start Time: 09:00 Stop Time: 10:30 Total Time Billed (hr/min): 90 Billed Treatment Time 1, ADL x 15minutes, NM x 75minutes MARI ECKERT OT Mar 14, 2017 11:51
--- NOTE | 2017-03-14 11:54 | Physical Therapy Daily Note ---
PT Daily Note-Current Subjective Pt sitting in [facility] in room upon arrival. Pt agrees to PT. Pain Location: No Pain Reported Mental Status Patient Orientation: Person, Place, Time, Situation Attachments: Other-See Comments (L AFO & L knee immobilizer) Transfers Functional [place] Measure 0=Not Assessed/NA 4=Minimal Assistance 1=Total Assistance 5=Supervision or Setup 2=Maximal Assistance 6=Modified [place] 3=Moderate Assistance 7=Complete IndependenceIRFPAI Quality Coding Scale 6 Independent with activity with or without an assistive device 5 Patient requires set up or clean up by helper. Patient completes activity by themselves 4 Supervision or touching assist (CGA). [place] provide cues , steadying assist 3 The helper provides less than half the effort to complete the activity 2 The helper provides more than half the effort to complete the activity 1 Dependent. The helper does all the effort to complete an activity 7 Patient refused to complete or attempt activity 9 The patient did not perform the activity before the current illness or injury 88 Not attempted due to Medical conditions or safety concerns Scootin Rollin Supine to/from Sit: 4 Sit to/from Stand: 4 Sit to Lying (QC): 4 Sit to Stand (QC): 4 Chair/Qeo-lb-Vxcyf Xfer(QC): 5 Bed to/from Chair: 5 Weight Bearing Right Lower Extremity: Right Weight Bearing/Tolerated Left Lower Extremity: Left Weight Bearing/Tolerated Exercises Seated Therapy Exercises: Ankle pumps, Long arc quads, Hip flexion, Kicking activity, Hip abd/add Seated Reps: 20 Treatments ASSOCIATE PROFESSOR OF ARCHAEOLOGY assists pt with doffing her L knee immobilizer and AFO in [facility]. Pt then SPT from [facility] to B. Pt completes Seated Ex at EOB before transferring to Supine in bed. Pt transfers at Min A to lift LLE into bed. Pt resting in bed at end of tx with all needs met. Assessment Pt fatigues and needs rest breaks during tx. PT Short Term Goals Short Term Goals Time Frame: Mar 02, 2017 Transfers (B,C,W/C) (FIM): 4 Gait (FIM): 1 Gait Distance Comment: 20' Gait Level of Assist: 2 Gait Assistive Device: Walker Nathan Wheelchair (FIM): 6 Wheelchair Distance: 100' PT Road Oiler Goals Road Oiler Goals PT Road Oiler Goals Time Frame: Mar 16, 2017 Transfers (B,C,W/C) (FIM): 5 Sit to Lying (QC): 4 Lying-Sitting on Side/Bed(QC): 4 Sit to Stand (QC): 4 Rollin Roll Left to Right (QC): 4 Chair/Lku-oz-Kfamt Xfer(QC): 4 Car Transfer (QC): 3 Gait (FIM): 2 Distance: 30' Walk 10 feet (QC): 3 Walk 10ft-Uneven Surface(QC): 3 Gait Level of Assist: 4 Gait Assistive Device: Cane Large Base Quad PT Plan Problem List Problem List: Activity Tolerance, Functional Strength, Safety, Balance, Gait, Transfer Treatment/Plan Treatment Plan: Continue Plan of Care Treatment Plan: Bed Mobility, Concurrent Therapy, Education, Functional Activity Luis, Functional Strength, Group Therapy, Gait, Safety, Therapeutic Exercise, Transfers Treatment Duration: Mar 16, 2017 Frequency: At least 5 of 7 days/Wk (IRF) Estimated Hrs Per Day: 1.5 hours per day Patient and/or Family Agrees t: Yes Safety Risks/Education Patient Education: Transfer Techniques, Correct Positioning, Safety Issues Teaching Recipient: Patient Teaching Methods: Discussion Response to Teaching: Verbalize Understanding Time/GCodes Time In: 1115 Time Out: 1145 Total Billed Treatment Time: 30 Total Billed Treatment 1, EX x2 (30m) JESSE BOO PTA Mar 14, 2017 11:54
[2017-03-14] MEDS: ALPRAZolam 1 MG (XANAX) TAB PO PRN (17:47)
[2017-03-14 18:23] VITALS: BP 142/78
[2017-03-14] MEDS: ATORVASTATIN 40 MG (LIPITOR) TABLET PO SCH (20:07)
[2017-03-15 06:30] VITALS: BP 119/75
--- NOTE | 2017-03-15 08:22 | Progress Note (SOAP) ---
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 dEPRESSION. hYPERTENSION. mETH ABUSE. Patient feeling better today. Patient positive Objective Exam Vital Signs Date Time Temp Pulse Resp B/P (MAP) Pulse Ox O2 Delivery O2 Flow Rate FiO2 03/15/17 06:30 97.8 82 16 119/75 (90) 99 Room Air 03/14/17 21:00 Room Air 03/14/17 18:23 97.3 83 16 142/78 (99) 98 Room Air 03/14/17 09:00 Room Air I & O 03/15/17 07:00 Intake Total 2140 ml Balance 2140 ml Capillary Refill : General Appearance: No Apparent Distress, WD/WN HEENT: Normal ENT Inspection Neck: Full Range of Motion, Normal Inspection Respiratory: Chest Non Tender, Normal Breath Sounds, No Accessory Muscle Use, No Respiratory Distress Cardiovascular: Regular Rate, Rhythm Assessment/Plan Assessment/Plan Assess & Plan/Chief Complaint CVA. Left side weakness. Hypertension. Meth abuse history. . 02/28/17. CVA. Left-sided weakness. Hypertension. Patient is abuse history. Chest discomfort with some loose congestion. . 03/01/17. cva. llEFT-SIDED WEAKNESS. hYPERTENSION. METH ABUSE. Patient felt nauseous this a.m.. . 03/02/17. CVA. Left-sided weakness. Hypertension. Left abuse. Patient's left leg doing better. Patient's left upper extremity problems. . 03/05/17. CVA Left sided weakness. Meth abuse. Patient's left leg doing better Patient has problems with moving of left upper extremity. Patient voices no complaints. . 04/1916. CVA on left. Meth abuse history. Patient doing better with left leg. Not so with left arm.. . 03/07/17. CVA on left. Weakness. Hypertension. Meth abuse. patient doing better with left leg in the left arm. . 03/08/17. CVA on left. Weakness. Hypertension. . 03/09/17. CVA on left. Weakness. Hypertension. patient resting comfortably.. . 03/13/17. CVA on left. Weakness. Hypertension. Meth abuse. Depression. to increase the Wellbutrin. . 03/14. CVA on left. Depression. Hypertension. meth abuse.. . 03/15/17. CVA on left. Depression better. Hypertension okay. Meth abuse. Patient positive today Clinical Quality Measures DVT/VTE Risk/Contraindication: Risk Factor Score Per Nursin RFS Level Per Nursing on Admit: 4+=Very High JOAQUIM SHEN DO Mar 15, 2017 08:21
[2017-03-15] MEDS: guaiFENesin (MUCINEX) 600 MG TAB PO SCH ×2 (08:36→20:17)
[2017-03-15] MEDS: meTOprolol SUCCINATE 100 MG (TOPROL XL) TAB PO SCH (08:36)
[2017-03-15] MEDS: buPROPion SR 150 MG (WELLBUTRIN SR) TAB PO SCH ×2 (08:36→20:18)
[2017-03-15] MEDS: amLODIPine 5 MG (NORVASC) TAB PO SCH (08:36)
[2017-03-15] MEDS: FAMOTIDINE 20 MG (PEPCID) TABLET PO SCH ×2 (08:36→20:17)
[2017-03-15] MEDS: CLOPIDOGREL 75 MG (PLAVIX) TABLET PO SCH (08:36)
[2017-03-15] MEDS: ARIPIPRAZOLE 10 MG (ABILIFY) TAB PO SCH (08:36)
[2017-03-15] MEDS: oxyCODONE/APAP 5/325MG (PERCOCET 5) TABLET PO PRN ×2 (08:36→18:25)
[2017-03-15] MEDS: DOCUSATE SODIUM 100 MG (COLACE) CAP PO SCH ×2 (08:37→19:25)
--- NOTE | 2017-03-15 09:58 | Physical Therapy Daily Note ---
PT Daily Note-Current Subjective Patient in wheelchair at bedside pre tx, agrees to PT, no complaints of pain. Appearance Patient in wheelchair at bedside post tx with nurse call, phone, tray, all needs met. Mental Status Patient Orientation: Normal For Age Transfers Functional [place] Measure 0=Not Assessed/NA 4=Minimal Assistance 1=Total Assistance 5=Supervision or Setup 2=Maximal Assistance 6=Modified [place] 3=Moderate Assistance 7=Complete IndependenceIRFPAI Quality Coding Scale 6 Independent with activity with or without an assistive device 5 Patient requires set up or clean up by helper. Patient completes activity by themselves 4 Supervision or touching assist (CGA). [place] provide cues , steadying assist 3 The helper provides less than half the effort to complete the activity 2 The helper provides more than half the effort to complete the activity 1 Dependent. The helper does all the effort to complete an activity 7 Patient refused to complete or attempt activity 9 The patient did not perform the activity before the current illness or injury 88 Not attempted due to Medical conditions or safety concerns Transfers (B, C, W/C) (FIM): 5 Sit to/from Stand: 5 Bed to/from Chair: 5 careful cueing and directions for stand pivot transfer to the left side Weight Bearing Right Lower Extremity: Right Weight Bearing/Tolerated Left Lower Extremity: Left Weight Bearing/Tolerated Gait Training Gait (FIM): 4 Distance: 150'x3 Gait Level of Assist: 4 Gait Persons Needed: 1 Gait Assistive Device: Cane Single Point Patient ambulated 150'x3 with a single point cane with min assist for balance, using a left AFO and knee cage. A second therapist was used on the other side during ambulation as a precaution but did not actually assist. Patient was placed at the end of the lorenzo, and after she stood she was instructed to ambulate as fast as she could with a step-through gait pattern. Patient was able to advance her left leg much better and clear the floor with her foot better. Exercises NuStep Minutes: 15 NuStep Workload: 5 Treatments transfers, ambulation, functional strengthening Assessment Current Status: Fair Progress improving balance and ambulation PT Short Term Goals Short Term Goals Time Frame: Mar 02, 2017 Transfers (B,C,W/C) (FIM): 4 Gait (FIM): 1 Gait Distance Comment: 20' Gait Level of Assist: 2 Gait Assistive Device: Walker Nathan Wheelchair (FIM): 6 Wheelchair Distance: 100' PT Resort Manager Goals Care Home Goals PT Care Home Goals Time Frame: Mar 16, 2017 Transfers (B,C,W/C) (FIM): 5 Sit to Lying (QC): 4 Lying-Sitting on Side/Bed(QC): 4 Sit to Stand (QC): 4 Rollin Roll Left to Right (QC): 4 Chair/Llq-ki-Nanmd Xfer(QC): 4 Car Transfer (QC): 3 Gait (FIM): 2 Distance: 30' Walk 10 feet (QC): 3 Walk 10ft-Uneven Surface(QC): 3 Gait Level of Assist: 4 Gait Assistive Device: Cane Large Base Quad PT Plan Problem List Problem List: Activity Tolerance, Functional Strength, Safety, Balance, Gait, Transfer, Bed Mobility, ROM Treatment/Plan Treatment Plan: Continue Plan of Care Treatment Plan: Bed Mobility, Concurrent Therapy, Education, Functional Activity Luis, Functional Strength, Group Therapy, Gait, Safety, Therapeutic Exercise, Transfers Treatment Duration: Mar 16, 2017 Frequency: At least 5 of 7 days/Wk (IRF) Estimated Hrs Per Day: 1.5 hours per day Patient and/or Family Agrees t: Yes Safety Risks/Education Patient Education: Gait Training, Transfer Techniques, Correct Positioning, Safety Issues Teaching Recipient: Patient Teaching Methods: Demonstration, Discussion Response to Teaching: Reinforcement Needed Time/GCodes Time In: 900 Time Out: 1000 Total Billed Treatment Time: 60 Total Billed Treatment 1 visit GT 30' FA 15' EX 15' KIERRA STERLING PT Mar 15, 2017 09:58
--- NOTE | 2017-03-15 11:30 | Occupational Ther Daily Note ---
OT Current Status-Daily Note Subjective Pt alert, sitting in w/c. Pt agreed to therapy. Pt stated that she felt nauseous and had already told nrsg. Mental Status/Objective Patient Orientation: Person, Place, Time, Situation Functional [place] Measure 0=Not Assessed/NA 4=Minimal Assistance 1=Total Assistance 5=Supervision or Setup 2=Maximal Assistance 6=Modified [place] 3=Moderate Assistance 7=Complete [place] ADL-Treatment Pt declined shower today, stating that she did not feel like it. Pt just wanted to complete grooming and change lower body clothing. Pt was able to doff socks/shoes by self. CGA in standing to doff/don pants over hips. Pt was able to doff pants over feet by self. Pt crossed leg over knee to don pants, socks and shoes. Dycem placed on R knee to keep L LE in place when crossing legs. This allowed pt to don lower body clothing over L LE by self. Pt required assist to tie shoes. Pt then took dirty clothing to laundry in w/c. Pt was able to place clothing in washer then stood with CGA to manipulate dials on wash machine to wash clothing. After clothing was washed pt stood at washer and dryer with CGA while pt transfer clothes from washer to dryer then manipulated dryers dials to dry clothing. After therapy, pt sitting in w/c in room with call light/phone in reach. All needs met in room. Functional [place] Measure 0=Not Assessed/NA 4=Minimal Assistance 1=Total Assistance 5=Supervision or Setup 2=Maximal Assistance 6=Modified [place] 3=Moderate Assistance 7=Complete IndependenceIRFPAI Quality Coding Scale 6 Independent with activity with or without an assistive device 5 Patient requires set up or clean up by helper. Patient completes activity by themselves 4 Supervision or touching assist (CGA). [place] provide cues , steadying assist 3 The helper provides less than half the effort to complete the activity 2 The helper provides more than half the effort to complete the activity 1 Dependent. The helper does all the effort to complete an activity 7 Patient refused to complete or attempt activity 9 The patient did not perform the activity before the current illness or injury 88 Not attempted due to Medical conditions or safety concerns Grooming (FIM): 6 (Using w/c, pt is able to sit in front of sink and complete grooming.) Oral Hygiene (QC): 6 Lower Body Dressing (FIM): 4 Lower Body Dressing (QC): 3 Transfers (B, C, W/C) (FIM): 4 Other Treatment Pt transferred to therapy mat from / and back with CGA. Pt laid on therapy mat and completed APROM with stretching. Pt's L shldr demonstrated increased tone with interal/external rotation. Pt has movement towards body, trace movements away from body. Then completed electrical stimulation while sitting in w/c. Worked on extensor patterns with opposite movement as electrical stimulation turned off. Pt did not demonstrate movement with this when working with extending fingers with e. stim and flexing without. OT Short Term Goals Short Term Goals Time Frame: Mar 02, 2017 Grooming(FIM): 5 Bathing(FIM): 3 Upper Body Dressing(FIM): 4 Lower Body Dressing(FIM): 3 Toileting(FIM): 3 Transfers (B,C,W/C) (FIM): 4 Toilet/Commode Transfer(FIM): 3 1=Demonstrate adherence to instructed precautions during ADL tasks. 2=Patient will verbalize/demonstrate understanding of assistive devices/ modifications for ADL. 3=Patient will improve strength/tolerance for activity to enable patient to perform ADL's. OT Hydroelectric Systems Technician Goals Senior Living Goals Time Frame: Mar 16, 2017 Eating (FIM): 6 Eating (QC): 6 Groomin Oral Hygiene (QC): 6 Bathing(FIM): 4 Shower/Bathe Self (QC): 4 Upper Body Dressing(FIM): 5 Upper Body Dressing (QC): 5 Lower Body Dressing(FIM): 4 Lower Body Dressing (QC): 4 On/Off Footwear (QC): 4 Toileting(FIM): 6 Toileting Hygiene (QC): 4 Toilet/Commode Transfer(FIM): 5 Toilet/Commode Transfer (QC): 4 Shower Transfer(FIM): 4 Comprehension(FIM): 5 (MET) Expression (FIM): 5 (MET) Social Interaction(FIM): 5 (NOT MET) Problem Solving(FIM): 5 (MET) Memory(FIM): 5 (MET) Additional Goals: 1-Demonstrate ADL Tasks, 2-Verbalize Understanding, 3- ImproveStrength/Luis 1=Demonstrate adherence to instructed precautions during ADL tasks. 2=Patient will verbalize/demonstrate understanding of assistive devices/ modifications for ADL. 3=Patient will improve strength/tolerance for activity to enable patient to perform ADL's. OT Education/Plan Discharge Recommendations Plan/Recommendations: Continue POC Treatment Plan/Plan of Care Patient would benefit from OT for education, treatment and training to promote independence in ADL's, mobility, safety and/or upper extremity function for ADL' s. Plan of Care: ADL Retraining, Functional Mobility, Group Exercise/Act as Ind, UE Funct Exercise/Act, UE Neuromus Re-Ed/Coord Treatment Duration: Mar 16, 2017 Frequency: At least 5 of 7 days/Wk (IRF) Estimated Hrs Per Day: 1.5 hours per day Agreement: Yes Rehab Potential: Good Time/GCodes Start Time: 01:00 Stop Time: 11:30 Total Time Billed (hr/min): 90 Billed Treatment Time 1 visit-ADL 1 (10 min) FA 3 (50 min) NM 2 (30 min) KAHLIL MENDEZ Mar 15, 2017 11:30
[2017-03-15] MEDS: PROMETHAZINE 25 MG (PHENERGAN) TAB PO PRN ×2 (12:33→20:17)
--- NOTE | 2017-03-15 14:53 | Physical Therapy Daily Note ---
PT Daily Note-Current Subjective Agrees to PT. Initially she reported feeling nauseated, but notes it subsided during the treatment. Pt reports she is likely going to discharge to her grandfather's house but her sister has offered for her to move in with her near [place]. Pain Numeric Pain Scale: 0-No Pain Location: No Pain Reported Mental Status Patient Orientation: Person, Place, Time, Situation Transfers Functional [place] Measure 0=Not Assessed/NA 4=Minimal Assistance 1=Total Assistance 5=Supervision or Setup 2=Maximal Assistance 6=Modified [place] 3=Moderate Assistance 7=Complete IndependenceIRFPAI Quality Coding Scale 6 Independent with activity with or without an assistive device 5 Patient requires set up or clean up by helper. Patient completes activity by themselves 4 Supervision or touching assist (CGA). [place] provide cues , steadying assist 3 The helper provides less than half the effort to complete the activity 2 The helper provides more than half the effort to complete the activity 1 Dependent. The helper does all the effort to complete an activity 7 Patient refused to complete or attempt activity 9 The patient did not perform the activity before the current illness or injury 88 Not attempted due to Medical conditions or safety concerns SPT x 4 reps, 2 times to the right and 2 times to the left ; all with CGA. Education on safety with transfer and on trying to transfer to her right as much as possible. Weight Bearing Right Lower Extremity: Right Weight Bearing/Tolerated Left Lower Extremity: Left Weight Bearing/Tolerated Wheelchair Training Does the Pt Use a Wheelchair?: Yes Wheelchair (FIM): 5 Wheelchair Distance: 3=150 ft Type of Wheelchair: Manual assist with managing her leg rests. Exercises Supine Ex: Bridging, Quad Set, Glut sets, Heel Slides, Short Arc Quads, Straight leg raise, Hip abd/add Supine Reps: 15 (to promote LE strength for improved functional transfers and gait progression. ) Sit to stand 2 x 5 at the // bars to work on sequencing with hand placement as well as strengthening to complete functional transfers without assist. Assessment Current Status: Good Progress Transfers still require CGA and she remains at a fall risk with the transfer if completed unassisted; however, her safety has improved and functional gains noted. PT Short Term Goals Short Term Goals Time Frame: Mar 02, 2017 Transfers (B,C,W/C) (FIM): 4 (met) Gait (FIM): 1 Gait Distance Comment: 20' Gait Level of Assist: 2 Gait Assistive Device: Walker Nathan Wheelchair (FIM): 6 Wheelchair Distance: 100' PT Skilled Nursing Goals Farm Operator Goals PT Skilled Nursing Goals Time Frame: Mar 16, 2017 Transfers (B,C,W/C) (FIM): 5 Sit to Lying (QC): 4 Lying-Sitting on Side/Bed(QC): 4 Sit to Stand (QC): 4 Rollin Roll Left to Right (QC): 4 Chair/Imz-li-Iwdue Xfer(QC): 4 Car Transfer (QC): 3 Gait (FIM): 2 Distance: 30' Walk 10 feet (QC): 3 Walk 10ft-Uneven Surface(QC): 3 Gait Level of Assist: 4 Gait Assistive Device: Cane Large Base Quad PT Plan Problem List Problem List: Activity Tolerance, Functional Strength, Safety, Balance, Gait, Transfer, Bed Mobility Treatment/Plan Treatment Plan: Continue Plan of Care Treatment Plan: Bed Mobility, Concurrent Therapy, Education, Functional Activity Luis, Functional Strength, Group Therapy, Gait, Safety, Therapeutic Exercise, Transfers Treatment Duration: Mar 16, 2017 Frequency: At least 5 of 7 days/Wk (IRF) Estimated Hrs Per Day: 1.5 hours per day Patient and/or Family Agrees t: Yes Safety Risks/Education Patient Education: Transfer Techniques, Safety Issues Teaching Recipient: Patient Teaching Methods: Demonstration, Discussion Response to Teaching: Reinforcement Needed Time/GCodes Time In: 1332 Time Out: 1403 Total Billed Treatment Time: 31 Total Billed Treatment visit EX 31 KAHLIL JOSHUA PT Mar 15, 2017 14:53
[2017-03-15 18:36] VITALS: BP 121/67
[2017-03-15] MEDS: ATORVASTATIN 40 MG (LIPITOR) TABLET PO SCH (20:17)
[2017-03-15] MEDS: ALPRAZolam 1 MG (XANAX) TAB PO PRN (23:57)
[2017-03-16] MEDS: PROMETHAZINE 25 MG (PHENERGAN) TAB PO PRN ×3 (03:07→17:14)
[2017-03-16] MEDS: oxyCODONE/APAP 5/325MG (PERCOCET 5) TABLET PO PRN ×4 (03:08→23:29)
[2017-03-16 05:28] VITALS: BP 135/88
[2017-03-16] MEDS: guaiFENesin (MUCINEX) 600 MG TAB PO SCH ×2 (08:28→20:37)
[2017-03-16] MEDS: FAMOTIDINE 20 MG (PEPCID) TABLET PO SCH ×2 (08:28→20:37)
[2017-03-16] MEDS: amLODIPine 5 MG (NORVASC) TAB PO SCH (08:28)
[2017-03-16] MEDS: meTOprolol SUCCINATE 100 MG (TOPROL XL) TAB PO SCH (08:28)
[2017-03-16] MEDS: buPROPion SR 150 MG (WELLBUTRIN SR) TAB PO SCH ×2 (08:28→20:37)
[2017-03-16] MEDS: DOCUSATE SODIUM 100 MG (COLACE) CAP PO SCH ×2 (08:29→20:37)
[2017-03-16] MEDS: ARIPIPRAZOLE 10 MG (ABILIFY) TAB PO SCH (08:29)
[2017-03-16] MEDS: CLOPIDOGREL 75 MG (PLAVIX) TABLET PO SCH (08:29)
--- NOTE | 2017-03-16 10:54 | Occupational Ther Daily Note ---
OT Current Status-Daily Note Subjective Pt in bed, states she was sick last night. Pt agrees to therapy, would like to shower. Pt reports 8/10 generalized pain. RN aware and provides pain medication during session. Mental Status/Objective Functional [place] Measure 0=Not Assessed/NA 4=Minimal Assistance 1=Total Assistance 5=Supervision or Setup 2=Maximal Assistance 6=Modified [place] 3=Moderate Assistance 7=Complete [place] ADL-Treatment Pt sitting EOB. Transfer EOB to w/c with CGA to left side. To restroom via w/c. Pt transferred w/c <-> shower bench with minimal assistance using grab bar for balance and safety. Pt required minimal assistance for balance while pulling underwear and pants down over hips. Doff socks with SBA. Pt doffed bra and shirt with SBA. Seated bathing completed using hand held shower. Pt requires minimal assistance and increased time to complete task. Pt able to don bra, but requires assist to fasten in the back. Don pullover shirt with minimal assistance to pull down in back. Pt able to start underwear and pants over feet. Stood with minimal assistance for balance during pant hike. Pt donned bilateral socks with SBA. Elastic shoe laces placed in shoes. Pt able to don right shoe with set up. Minimal assistance to don left shoe using foot funnel. Grooming tasks completed seated at sink. Pt combed hair and brushed teeth with SBA. Pt moves slowly today and fatigues with activity. Rest breaks taken throughout ADL tasks. Functional [place] Measure 0=Not Assessed/NA 4=Minimal Assistance 1=Total Assistance 5=Supervision or Setup 2=Maximal Assistance 6=Modified [place] 3=Moderate Assistance 7=Complete IndependenceIRFPAI Quality Coding Scale 6 Independent with activity with or without an assistive device 5 Patient requires set up or clean up by helper. Patient completes activity by themselves 4 Supervision or touching assist (CGA). [place] provide cues , steadying assist 3 The helper provides less than half the effort to complete the activity 2 The helper provides more than half the effort to complete the activity 1 Dependent. The helper does all the effort to complete an activity 7 Patient refused to complete or attempt activity 9 The patient did not perform the activity before the current illness or injury 88 Not attempted due to Medical conditions or safety concerns Grooming (FIM): 4 Oral Hygiene (QC): 4 Bathing (FIM): 4 Shower/Bathe Self (QC): 3 Upper Body (FIM): 4 Upper Body Dressing (QC): 3 Lower Body Dressing (FIM): 4 Lower Body Dressing (QC): 3 On/Off Footwear (QC): 3 Shower Transfer(FIM): 4 Other Treatment Left UE ROM exercises completed to promote increased active movement and ROM. PROM completed at all joints. Increased tone noted in elbow and shoulder. Pt demonstrates minimal active shoulder adduction as well as elbow flexion in gravity eliminated plane. Pt sitting in w/c with needs met after session. OT Short Term Goals Short Term Goals Time Frame: Mar 02, 2017 Grooming(FIM): 5 Bathing(FIM): 3 Upper Body Dressing(FIM): 4 Lower Body Dressing(FIM): 3 Toileting(FIM): 3 Transfers (B,C,W/C) (FIM): 4 (met) Toilet/Commode Transfer(FIM): 3 1=Demonstrate adherence to instructed precautions during ADL tasks. 2=Patient will verbalize/demonstrate understanding of assistive devices/ modifications for ADL. 3=Patient will improve strength/tolerance for activity to enable patient to perform ADL's. OT Fpc Goals Doctor Naturopathic Goals Time Frame: Mar 16, 2017 Eating (FIM): 6 Eating (QC): 6 Groomin Oral Hygiene (QC): 6 Bathing(FIM): 4 Shower/Bathe Self (QC): 4 Upper Body Dressing(FIM): 5 Upper Body Dressing (QC): 5 Lower Body Dressing(FIM): 4 Lower Body Dressing (QC): 4 On/Off Footwear (QC): 4 Toileting(FIM): 6 Toileting Hygiene (QC): 4 Toilet/Commode Transfer(FIM): 5 Toilet/Commode Transfer (QC): 4 Shower Transfer(FIM): 4 Comprehension(FIM): 5 (MET) Expression (FIM): 5 (MET) Social Interaction(FIM): 5 (NOT MET) Problem Solving(FIM): 5 (MET) Memory(FIM): 5 (MET) Additional Goals: 1-Demonstrate ADL Tasks, 2-Verbalize Understanding, 3- ImproveStrength/Luis 1=Demonstrate adherence to instructed precautions during ADL tasks. 2=Patient will verbalize/demonstrate understanding of assistive devices/ modifications for ADL. 3=Patient will improve strength/tolerance for activity to enable patient to perform ADL's. OT Education/Plan Discharge Recommendations Plan/Recommendations: Continue POC Treatment Plan/Plan of Care Patient would benefit from OT for education, treatment and training to promote independence in ADL's, mobility, safety and/or upper extremity function for ADL' s. Plan of Care: ADL Retraining, Functional Mobility, Group Exercise/Act as Ind, UE Funct Exercise/Act, UE Neuromus Re-Ed/Coord Treatment Duration: Mar 16, 2017 Frequency: At least 5 of 7 days/Wk (IRF) Estimated Hrs Per Day: 1.5 hours per day Agreement: Yes Rehab Potential: Good Time/GCodes Start Time: 08:30 Stop Time: 10:00 Total Time Billed (hr/min): 90 Billed Treatment Time 1 visit, ADLx5(70minutes), EX(20minutes) RUBY MENDOSA OT Mar 16, 2017 10:54
[2017-03-16] MEDS: ALPRAZolam 1 MG (XANAX) TAB PO PRN (11:45)
--- NOTE | 2017-03-16 12:20 | Physical Therapy Daily Note ---
PT Daily Note-Current Subjective Pt. tearful today speaking of her Mother and the situation with that relationship as well as with her boyfriend and wondering what she will do at DC and how much better she will get. States she has been nauseous today and having some pain but agrees to Rx and states she is feeling better as Rx progresses. Pain Numeric Pain Scale: 3 Location: Medial Location Body Site: Abdomen Pain Description: Ache Mental Status Patient Orientation: Normal For Age Transfers Functional [place] Measure 0=Not Assessed/NA 4=Minimal Assistance 1=Total Assistance 5=Supervision or Setup 2=Maximal Assistance 6=Modified [place] 3=Moderate Assistance 7=Complete IndependenceIRFPAI Quality Coding Scale 6 Independent with activity with or without an assistive device 5 Patient requires set up or clean up by helper. Patient completes activity by themselves 4 Supervision or touching assist (CGA). [place] provide cues , steadying assist 3 The helper provides less than half the effort to complete the activity 2 The helper provides more than half the effort to complete the activity 1 Dependent. The helper does all the effort to complete an activity 7 Patient refused to complete or attempt activity 9 The patient did not perform the activity before the current illness or injury 88 Not attempted due to Medical conditions or safety concerns Transfers (B, C, W/C) (FIM): 5 Scootin Rollin Supine to/from Sit: 6 Sit to/from Stand: 5 Bed to/from Chair: 5 Weight Bearing Right Lower Extremity: Right Weight Bearing/Tolerated Left Lower Extremity: Left Weight Bearing/Tolerated Gait Training Does the Patient Walk?: Yes Gait (FIM): 2 Distance (FIM): 8=692-21 ft (25x2,50x1) Gait Level of Assist: 3 Gait Persons Needed: 1 Gait Assistive Device: Walker Nathan w/c to f/u Exercises Supine Ex: Bridging, Ankle pumps, Quad Set, Rolling, Glut sets, Heel Slides, Short Arc Quads, Scooting, Straight leg raise, Hip abd/add Supine Reps: 20 Treatments sidelying and prone therex , unable to facilitate LLE hamstring in prone Assessment Current Status: Good Progress PT Short Term Goals Short Term Goals Time Frame: Mar 02, 2017 Transfers (B,C,W/C) (FIM): 4 (met) Gait (FIM): 1 Gait Distance Comment: 20' Gait Level of Assist: 2 Gait Assistive Device: Walker Nathan Wheelchair (FIM): 6 Wheelchair Distance: 100' PT Start Up Specialist Goals Start Up Specialist Goals PT Correction Goals Time Frame: Mar 16, 2017 Transfers (B,C,W/C) (FIM): 5 Sit to Lying (QC): 4 Lying-Sitting on Side/Bed(QC): 4 Sit to Stand (QC): 4 Rollin Roll Left to Right (QC): 4 Chair/Cqs-fi-Skwwf Xfer(QC): 4 Car Transfer (QC): 3 Gait (FIM): 2 Distance: 30' Walk 10 feet (QC): 3 Walk 10ft-Uneven Surface(QC): 3 Gait Level of Assist: 4 Gait Assistive Device: Cane Large Base Quad PT Plan Treatment/Plan Treatment Plan: Continue Plan of Care Treatment Plan: Bed Mobility, Concurrent Therapy, Education, Functional Activity Luis, Functional Strength, Group Therapy, Gait, Safety, Therapeutic Exercise, Transfers Treatment Duration: Mar 16, 2017 Frequency: At least 5 of 7 days/Wk (IRF) Estimated Hrs Per Day: 1.5 hours per day Patient and/or Family Agrees t: Yes Safety Risks/Education Patient Education: Gait Training, Transfer Techniques Teaching Recipient: Patient Teaching Methods: Demonstration, Discussion Response to Teaching: Verbalize Understanding, Return Demonstration, Reinforcement Needed Time/GCodes Time In: 1000 Time Out: 1100 Total Billed Treatment Time: 60 Total Billed Treatment 1,FA25m,GT15m,EX20m G Codes Necessary: MARY KATE Urena VARNISH SUPERVISOR Mar 16, 2017 12:20
--- NOTE | 2017-03-16 14:28 | PM & R (SOAP) Progress Note ---
Subjective Time Seen by Provider: 14:10 Subjective/Events-last exam Patient was seen in hallway Patient SBA for transfers with hemiwalker.Continues to make progress, Review of Systems Neurological: Weakness Objective Exam Last Set of Vital Signs Vital Signs Date Time Temp Pulse Resp B/P (MAP) Pulse Ox O2 Delivery O2 Flow Rate FiO2 03/16/17 08:44 Room Air 03/16/17 05:28 98.8 90 18 135/88 (104) 100 Capillary Refill : I&O Intake and Output 03/16/17 00:00 Intake Total 1870 ml Balance 1870 ml Intake Oral 1870 ml # Voids 5 General: Alert, Oriented X3, Cooperative, No Acute Distress HEENT: Atraumatic, EOMI, Mucous Memb Moist/[place] Neck: Supple, No JVD Lungs: Clear to Auscultation Abdomen: Normal Bowel Sounds, Soft, No Tenderness Extremities: No Edema, No Tenderness/Swelling Neuro: Other (Left HP with o/5 strength UE fiar+ good - left leg Sensation intact Cognition and speech and swallow intact) Assessment/Plan Assessment RT cva with Left HP HTN controlled HX of meth use Tobaccoism-currently abstaining and on patch GERD on med COPD with cough on resp treatments-CXR clear-cough improved Plan ContinuePT/OT ST has signed off Treat dyspepsia as needed-improved Monitor PO intake Continue resp treatments-add Mucinex-done cough improved Team Conference held 03-14-17-See report for full functional update and POC and ELOS Will review discharge plans with Team Next week RODOLFO HUITRON MD Mar 16, 2017 14:28
--- NOTE | 2017-03-16 15:33 | Physical Therapy Daily Note ---
PT Daily Note-Current Subjective Pt. states she is tired but will work. " I just feel like sleeping all the time. Is it my Lupus or my stroke or the how hard Im working here"? Pain Numeric Pain Scale: 0-No Pain Mental Status Patient Orientation: Normal For Age Attachments: Other-See Comments (AFO knee immob) Transfers Functional [place] Measure 0=Not Assessed/NA 4=Minimal Assistance 1=Total Assistance 5=Supervision or Setup 2=Maximal Assistance 6=Modified [place] 3=Moderate Assistance 7=Complete IndependenceIRFPAI Quality Coding Scale 6 Independent with activity with or without an assistive device 5 Patient requires set up or clean up by helper. Patient completes activity by themselves 4 Supervision or touching assist (CGA). [place] provide cues , steadying assist 3 The helper provides less than half the effort to complete the activity 2 The helper provides more than half the effort to complete the activity 1 Dependent. The helper does all the effort to complete an activity 7 Patient refused to complete or attempt activity 9 The patient did not perform the activity before the current illness or injury 88 Not attempted due to Medical conditions or safety concerns all bed mob indep, SPTs CGA Weight Bearing Right Lower Extremity: Right Weight Bearing/Tolerated Left Lower Extremity: Left Weight Bearing/Tolerated Gait Training Gait Assistive Device: Walker Nathan gait 25 ft x 2 , 30 ft x1 min assist, needs cues for sequence and for alignment LLE at times Treatments toileted with mod assist Assessment Current Status: Good Progress PT Short Term Goals Short Term Goals Time Frame: Mar 02, 2017 Transfers (B,C,W/C) (FIM): 4 (met) Gait (FIM): 1 Gait Distance Comment: 20' Gait Level of Assist: 2 Gait Assistive Device: Walker Nathan Wheelchair (FIM): 6 Wheelchair Distance: 100' PT Group Home Goals Hand Screen Printer Goals PT Hand Screen Printer Goals Time Frame: Mar 16, 2017 Transfers (B,C,W/C) (FIM): 5 Sit to Lying (QC): 4 Lying-Sitting on Side/Bed(QC): 4 Sit to Stand (QC): 4 Rollin Roll Left to Right (QC): 4 Chair/Mct-dw-Lvaxm Xfer(QC): 4 Car Transfer (QC): 3 Gait (FIM): 2 Distance: 30' Walk 10 feet (QC): 3 Walk 10ft-Uneven Surface(QC): 3 Gait Level of Assist: 4 Gait Assistive Device: Cane Large Base Quad PT Plan Treatment/Plan Treatment Plan: Continue Plan of Care Treatment Plan: Bed Mobility, Concurrent Therapy, Education, Functional Activity Luis, Functional Strength, Group Therapy, Gait, Safety, Therapeutic Exercise, Transfers Treatment Duration: Mar 16, 2017 Frequency: At least 5 of 7 days/Wk (IRF) Estimated Hrs Per Day: 1.5 hours per day Patient and/or Family Agrees t: Yes Safety Risks/Education Patient Education: Gait Training, Transfer Techniques Teaching Recipient: Patient Teaching Methods: Demonstration, Discussion Response to Teaching: Verbalize Understanding, Return Demonstration, Reinforcement Needed Time/GCodes Time In: 1400 Time Out: 1430 Total Billed Treatment Time: 30 Total Billed Treatment 1,GT30m G Codes Necessary: MARY KATE Urena CARBONATION EQUIPMENT OPERATOR Mar 16, 2017 15:32
[2017-03-16 18:29] VITALS: BP 120/77
[2017-03-16] MEDS: ONDANSETRON 4 MG (ZOFRAN) ORAL DISSOLVE TAB PO PRN (18:40)
[2017-03-16 20:22] VITALS: BP 123/77
[2017-03-16] MEDS: ATORVASTATIN 40 MG (LIPITOR) TABLET PO SCH (20:37)
[2017-03-17 05:54] VITALS: BP 133/81
[2017-03-17] MEDS: amLODIPine 5 MG (NORVASC) TAB PO SCH (08:36)
[2017-03-17] MEDS: oxyCODONE/APAP 5/325MG (PERCOCET 5) TABLET PO PRN ×2 (08:36→19:47)
[2017-03-17] MEDS: ARIPIPRAZOLE 10 MG (ABILIFY) TAB PO SCH (08:36)
[2017-03-17] MEDS: FAMOTIDINE 20 MG (PEPCID) TABLET PO SCH ×2 (08:36→19:49)
[2017-03-17] MEDS: buPROPion SR 150 MG (WELLBUTRIN SR) TAB PO SCH ×2 (08:36→19:49)
[2017-03-17] MEDS: guaiFENesin (MUCINEX) 600 MG TAB PO SCH ×2 (08:36→19:49)
[2017-03-17] MEDS: meTOprolol SUCCINATE 100 MG (TOPROL XL) TAB PO SCH (08:36)
[2017-03-17] MEDS: DOCUSATE SODIUM 100 MG (COLACE) CAP PO SCH ×2 (08:36→19:49)
[2017-03-17] MEDS: CLOPIDOGREL 75 MG (PLAVIX) TABLET PO SCH (08:36)
--- NOTE | 2017-03-17 11:44 | Physical Therapy Daily Note ---
PT Daily Note-Current Subjective Pt laying Supine in bed asleep upon arrival. Pt agrees to PT. Pt reports falling out of bed last night as well as feeling ill today. Mental Status Patient Orientation: Person, Place, Situation Transfers Functional [place] Measure 0=Not Assessed/NA 4=Minimal Assistance 1=Total Assistance 5=Supervision or Setup 2=Maximal Assistance 6=Modified [place] 3=Moderate Assistance 7=Complete IndependenceIRFPAI Quality Coding Scale 6 Independent with activity with or without an assistive device 5 Patient requires set up or clean up by helper. Patient completes activity by themselves 4 Supervision or touching assist (CGA). [place] provide cues , steadying assist 3 The helper provides less than half the effort to complete the activity 2 The helper provides more than half the effort to complete the activity 1 Dependent. The helper does all the effort to complete an activity 7 Patient refused to complete or attempt activity 9 The patient did not perform the activity before the current illness or injury 88 Not attempted due to Medical conditions or safety concerns Scootin Weight Bearing Right Lower Extremity: Right Weight Bearing/Tolerated Left Lower Extremity: Left Weight Bearing/Tolerated Exercises Supine Ex: Ankle pumps, Quad Set, Heel Slides, Hip abd/add Supine Reps: 15 Treatments Pt completes Supine Ex in bed with a couple short rest breaks due to feeling ill. Pt is resting in bed at end of tx with all needs met. Assessment Current Status: Good Progress Pt completes Ex despite feeling ill. PT Short Term Goals Short Term Goals Time Frame: Mar 02, 2017 Transfers (B,C,W/C) (FIM): 4 (met) Gait (FIM): 1 Gait Distance Comment: 20' Gait Level of Assist: 2 Gait Assistive Device: Walker Nathan Wheelchair (FIM): 6 Wheelchair Distance: 100' PT Door Closer Goals Door Closer Goals PT Snf Goals Time Frame: Mar 16, 2017 Transfers (B,C,W/C) (FIM): 5 Sit to Lying (QC): 4 Lying-Sitting on Side/Bed(QC): 4 Sit to Stand (QC): 4 Rollin Roll Left to Right (QC): 4 Chair/Uku-ue-Nfmeu Xfer(QC): 4 Car Transfer (QC): 3 Gait (FIM): 2 Distance: 30' Walk 10 feet (QC): 3 Walk 10ft-Uneven Surface(QC): 3 Gait Level of Assist: 4 Gait Assistive Device: Cane Large Base Quad PT Plan Problem List Problem List: Activity Tolerance, Functional Strength, Safety, Balance, Gait, Transfer Treatment/Plan Treatment Plan: Continue Plan of Care Treatment Plan: Bed Mobility, Concurrent Therapy, Education, Functional Activity Luis, Functional Strength, Group Therapy, Gait, Safety, Therapeutic Exercise, Transfers Treatment Duration: Mar 16, 2017 Frequency: At least 5 of 7 days/Wk (IRF) Estimated Hrs Per Day: 1.5 hours per day Patient and/or Family Agrees t: Yes Safety Risks/Education Patient Education: Transfer Techniques, Correct Positioning, Safety Issues Teaching Recipient: Patient Teaching Methods: Discussion Response to Teaching: Verbalize Understanding Time/GCodes Time In: 1045 Time Out: 1110 Total Billed Treatment 1, EX x2 (25m) JESSE BOO PTA Mar 17, 2017 11:43
[2017-03-17] MEDS: PROMETHAZINE 25 MG (PHENERGAN) TAB PO PRN (11:55)
[2017-03-17 18:30] VITALS: BP 128/69
[2017-03-17] MEDS: ATORVASTATIN 40 MG (LIPITOR) TABLET PO SCH (19:49)
[2017-03-18 05:05] VITALS: BP 112/81
[2017-03-18] MEDS: oxyCODONE/APAP 5/325MG (PERCOCET 5) TABLET PO PRN ×2 (05:37→20:42)
[2017-03-18] MEDS: buPROPion SR 150 MG (WELLBUTRIN SR) TAB PO SCH ×2 (10:44→20:41)
[2017-03-18] MEDS: meTOprolol SUCCINATE 100 MG (TOPROL XL) TAB PO SCH (10:44)
[2017-03-18] MEDS: DOCUSATE SODIUM 100 MG (COLACE) CAP PO SCH ×3 (10:44→20:42)
[2017-03-18] MEDS: guaiFENesin (MUCINEX) 600 MG TAB PO SCH ×2 (10:44→20:41)
[2017-03-18] MEDS: ARIPIPRAZOLE 10 MG (ABILIFY) TAB PO SCH (10:44)
[2017-03-18] MEDS: CLOPIDOGREL 75 MG (PLAVIX) TABLET PO SCH (10:44)
[2017-03-18] MEDS: FAMOTIDINE 20 MG (PEPCID) TABLET PO SCH ×2 (10:44→20:41)
[2017-03-18] MEDS: amLODIPine 5 MG (NORVASC) TAB PO SCH (10:44)
[2017-03-18 17:59] VITALS: BP 126/84
[2017-03-18] MEDS: ATORVASTATIN 40 MG (LIPITOR) TABLET PO SCH (20:41)
[2017-03-19 05:37] VITALS: BP 110/77
[2017-03-19] MEDS: oxyCODONE/APAP 5/325MG (PERCOCET 5) TABLET PO PRN ×2 (07:37→21:11)
[2017-03-19] MEDS: FAMOTIDINE 20 MG (PEPCID) TABLET PO SCH ×2 (08:03→20:03)
[2017-03-19] MEDS: buPROPion SR 150 MG (WELLBUTRIN SR) TAB PO SCH ×2 (08:03→20:03)
[2017-03-19] MEDS: CLOPIDOGREL 75 MG (PLAVIX) TABLET PO SCH (08:03)
[2017-03-19] MEDS: meTOprolol SUCCINATE 100 MG (TOPROL XL) TAB PO SCH (08:03)
[2017-03-19] MEDS: guaiFENesin (MUCINEX) 600 MG TAB PO SCH ×2 (08:03→20:03)
[2017-03-19] MEDS: ARIPIPRAZOLE 10 MG (ABILIFY) TAB PO SCH (08:03)
[2017-03-19] MEDS: amLODIPine 5 MG (NORVASC) TAB PO SCH (08:03)
[2017-03-19] MEDS: DOCUSATE SODIUM 100 MG (COLACE) CAP PO SCH ×2 (08:04→19:56)
--- NOTE | 2017-03-19 09:00 | Physical Therapy Daily Note ---
PT Daily Note-Current Subjective Patient in bed pre tx, agrees to PT, states she has been having some cramping in her hands. Appearance Patient in wheelchair in her room post tx, has nurse call, phone, tray, all needs met. Mental Status Patient Orientation: Normal For Age Transfers Functional [place] Measure 0=Not Assessed/NA 4=Minimal Assistance 1=Total Assistance 5=Supervision or Setup 2=Maximal Assistance 6=Modified [place] 3=Moderate Assistance 7=Complete IndependenceIRFPAI Quality Coding Scale 6 Independent with activity with or without an assistive device 5 Patient requires set up or clean up by helper. Patient completes activity by themselves 4 Supervision or touching assist (CGA). [place] provide cues , steadying assist 3 The helper provides less than half the effort to complete the activity 2 The helper provides more than half the effort to complete the activity 1 Dependent. The helper does all the effort to complete an activity 7 Patient refused to complete or attempt activity 9 The patient did not perform the activity before the current illness or injury 88 Not attempted due to Medical conditions or safety concerns Transfers (B, C, W/C) (FIM): 5 Scootin Rollin Supine to/from Sit: 5 Sit to/from Stand: 5 Bed to/from Chair: 5 close supervision for sit to stand and transfers to the left side but can do them with careful directions Weight Bearing Right Lower Extremity: Right Weight Bearing/Tolerated Left Lower Extremity: Left Weight Bearing/Tolerated Gait Training Gait (FIM): 4 Distance: 50', 150' Gait Level of Assist: 4 Gait Persons Needed: 1 Gait Assistive Device: Cane Small Base Quad Patient used a left AFO and knee cage, min assist occasionally for balance Wheelchair Training Does the Pt Use a Wheelchair?: Yes Wheelchair (FIM): 6 Distance: 150'x2 Type of Wheelchair: Manual Exercises LAQ left side for 5 min, mini-squats x15, toe touches on step left side x10, lunge left side Treatments bed mobility and transfers, ambulation, functional strengthening Assessment Current Status: Fair Progress improving balance and transfers, PT Short Term Goals Short Term Goals Time Frame: Mar 02, 2017 Transfers (B,C,W/C) (FIM): 4 (met) Gait (FIM): 1 Gait Distance Comment: 20' Gait Level of Assist: 2 Gait Assistive Device: Walker Nathan Wheelchair (FIM): 6 Wheelchair Distance: 100' PT [facility] Goals Uniform Maker Goals PT [facility] Goals Time Frame: Mar 16, 2017 Transfers (B,C,W/C) (FIM): 5 Sit to Lying (QC): 4 Lying-Sitting on Side/Bed(QC): 4 Sit to Stand (QC): 4 Rollin Roll Left to Right (QC): 4 Chair/Lje-wv-Nnqqv Xfer(QC): 4 Car Transfer (QC): 3 Gait (FIM): 2 Distance: 30' Walk 10 feet (QC): 3 Walk 10ft-Uneven Surface(QC): 3 Gait Level of Assist: 4 Gait Assistive Device: Cane Large Base Quad PT Plan Problem List Problem List: Activity Tolerance, Functional Strength, Safety, Balance, Gait, Transfer, Bed Mobility, ROM Treatment/Plan Treatment Plan: Continue Plan of Care Treatment Plan: Bed Mobility, Concurrent Therapy, Education, Functional Activity Luis, Functional Strength, Group Therapy, Gait, Safety, Therapeutic Exercise, Transfers Treatment Duration: Mar 16, 2017 Frequency: At least 5 of 7 days/Wk (IRF) Estimated Hrs Per Day: 1.5 hours per day Patient and/or Family Agrees t: Yes Safety Risks/Education Patient Education: Gait Training, Transfer Techniques, Correct Positioning, Safety Issues Teaching Recipient: Patient Teaching Methods: Demonstration, Discussion Response to Teaching: Reinforcement Needed Time/GCodes Time In: 800 Time Out: 900 Total Billed Treatment Time: 60 Total Billed Treatment 1 visit GT 30' EX 30' KIERRA STERLING PT Mar 19, 2017 09:00
--- NOTE | 2017-03-19 10:59 | Occupational Ther Daily Note ---
OT Current Status-Daily Note Subjective Pt sitting in w/c, agrees to treatment. Pt reports 8/10 pain in hands. Mental Status/Objective Functional [place] Measure 0=Not Assessed/NA 4=Minimal Assistance 1=Total Assistance 5=Supervision or Setup 2=Maximal Assistance 6=Modified [place] 3=Moderate Assistance 7=Complete [place] ADL-Treatment Pt has already completed ADL tasks this morning. Pt states she may be staying with grandfather at d/c and he has a tub/shower combo. Pt performed w/c mobility to shower room without assistance. Education provided regarding safe tub transfer using transfer bench. Pt transferred w/c<-> tub bench x2 with CGA for balance. Pt able to lift bilateral LE over edge of tub with SBA. Skilled cues for safety and technique. Functional [place] Measure 0=Not Assessed/NA 4=Minimal Assistance 1=Total Assistance 5=Supervision or Setup 2=Maximal Assistance 6=Modified [place] 3=Moderate Assistance 7=Complete IndependenceIRFPAI Quality Coding Scale 6 Independent with activity with or without an assistive device 5 Patient requires set up or clean up by helper. Patient completes activity by themselves 4 Supervision or touching assist (CGA). [place] provide cues , steadying assist 3 The helper provides less than half the effort to complete the activity 2 The helper provides more than half the effort to complete the activity 1 Dependent. The helper does all the effort to complete an activity 7 Patient refused to complete or attempt activity 9 The patient did not perform the activity before the current illness or injury 88 Not attempted due to Medical conditions or safety concerns Other Treatment W/c mobility to therapy gym without assistance. Pt transferred w/c<-> edge of mat with CGA. Weight bearing completed through left UE while seated edge of mat. Assist to maintain proper posture. Sit to supine with minimal assistance for left LE. PROM and stretching completed left UE. Pt has increased tone in shoulder, elbow, and hand, but able to achieve functional PROM. Pt demonstrates minimal active shoulder adduction and elbow flexion in gravity eliminated position. Pt performed minimal active shoulder elevation and scapular retraction while seated. No other active movement noted. Pt performed right UE exercises to promote increased strength needed for ADLs and transfers. Pt completed shoulder flexion, abduction, biceps curls, triceps extension, and wrist flex/ext exercises x10 reps, 2 sets with 2# weight. Rest breaks between exercises. Pt returned to room, transferred to EOB with CGA. Sit to supine with SBA. Pt resting in bed with needs met after session. OT Short Term Goals Short Term Goals Time Frame: Mar 02, 2017 Grooming(FIM): 5 Bathing(FIM): 3 Upper Body Dressing(FIM): 4 Lower Body Dressing(FIM): 3 Toileting(FIM): 3 Transfers (B,C,W/C) (FIM): 4 (met) Toilet/Commode Transfer(FIM): 3 1=Demonstrate adherence to instructed precautions during ADL tasks. 2=Patient will verbalize/demonstrate understanding of assistive devices/ modifications for ADL. 3=Patient will improve strength/tolerance for activity to enable patient to perform ADL's. OT Group Home Goals Group Home Goals Time Frame: Mar 16, 2017 Eating (FIM): 6 Eating (QC): 6 Groomin Oral Hygiene (QC): 6 Bathing(FIM): 4 Shower/Bathe Self (QC): 4 Upper Body Dressing(FIM): 5 Upper Body Dressing (QC): 5 Lower Body Dressing(FIM): 4 Lower Body Dressing (QC): 4 On/Off Footwear (QC): 4 Toileting(FIM): 6 Toileting Hygiene (QC): 4 Toilet/Commode Transfer(FIM): 5 Toilet/Commode Transfer (QC): 4 Shower Transfer(FIM): 4 Comprehension(FIM): 5 (MET) Expression (FIM): 5 (MET) Social Interaction(FIM): 5 (NOT MET) Problem Solving(FIM): 5 (MET) Memory(FIM): 5 (MET) Additional Goals: 1-Demonstrate ADL Tasks, 2-Verbalize Understanding, 3- ImproveStrength/Luis 1=Demonstrate adherence to instructed precautions during ADL tasks. 2=Patient will verbalize/demonstrate understanding of assistive devices/ modifications for ADL. 3=Patient will improve strength/tolerance for activity to enable patient to perform ADL's. OT Education/Plan Discharge Recommendations Plan/Recommendations: Continue POC Treatment Plan/Plan of Care Patient would benefit from OT for education, treatment and training to promote independence in ADL's, mobility, safety and/or upper extremity function for ADL' s. Plan of Care: ADL Retraining, Functional Mobility, Group Exercise/Act as Ind, UE Funct Exercise/Act, UE Neuromus Re-Ed/Coord Treatment Duration: Mar 16, 2017 Frequency: At least 5 of 7 days/Wk (IRF) Estimated Hrs Per Day: 1.5 hours per day Agreement: Yes Rehab Potential: Good Time/GCodes Start Time: 10:00 Stop Time: 11:00 Total Time Billed (hr/min): 60 Billed Treatment Time 1 visit, NMx2(30minutes), EX(15minutes), ADL(15minutes) RUBY MENDOSA OT Mar 19, 2017 10:59
[2017-03-19] MEDS: ALPRAZolam 1 MG (XANAX) TAB PO PRN ×2 (12:34→20:03)
--- NOTE | 2017-03-19 14:40 | Therapy Group Daily Note ---
Therapy Daily Group Note Patient Education Topic Home Safety, Exercises Exercises LE Seated Exercise, UE Exercise Other/Notes Pt propelled self to PT/OT Group in Therapy Gym using [facility]. Pt actively participated in Group which consisted of Introductions (Name, Where you are from & New Years Resolutions), Home Safety and Fall Prevention education as well as Seated UE & LE Exercise. Pt participated by completing exercise used to increase strength and decrease chance of falling as well as identify something she had learned to improve within her household to aide with Home Safety. Pt returned to room to rest at end of Group. Start Time: 12:30 Stop Time: 13:40 Total Billed Treatment Time: 70 Total Billed Treatment 1, GRP DANIELLEJESSE DORADO BAGGAGE SECURITY CHECKER Mar 19, 2017 14:40
[2017-03-19 17:30] VITALS: BP 127/83
[2017-03-19] MEDS: ATORVASTATIN 40 MG (LIPITOR) TABLET PO SCH (20:03)
[2017-03-20] MEDS: oxyCODONE/APAP 5/325MG (PERCOCET 5) TABLET PO PRN ×3 (04:33→20:47)
[2017-03-20 05:19] VITALS: BP 101/63
--- NOTE | 2017-03-20 08:00 | Progress Note (SOAP) ---
Subjective Time Seen by Provider: 08:00 Subjective/Events-last exam CVA on left. Hypertension history. Method use. Able to move left leg. Not able to move left arm Patient voices no complaints today Objective Exam Vital Signs Date Time Temp Pulse Resp B/P (MAP) Pulse Ox O2 Delivery O2 Flow Rate FiO2 03/20/17 05:19 98.9 97 18 101/63 (76) 97 Room Air 03/19/17 20:00 Room Air 03/19/17 17:30 98.3 88 18 127/83 (98) 100 Room Air 03/19/17 08:55 Room Air I & O 03/20/17 07:00 Intake Total 1700 ml Balance 1700 ml Capillary Refill : General Appearance: No Apparent Distress, WD/WN HEENT: Normal ENT Inspection Neck: Full Range of Motion Respiratory: Chest Non Tender, Lungs Clear, No Accessory Muscle Use, No Respiratory Distress Cardiovascular: Regular Rate, Rhythm Gastrointestinal: non tender, soft Assessment/Plan Assessment/Plan Assess & Plan/Chief Complaint CVA. Left side weakness. Hypertension. Meth abuse history. . 02/28/17. CVA. Left-sided weakness. Hypertension. Patient is abuse history. Chest discomfort with some loose congestion. . 03/01/17. cva. llEFT-SIDED WEAKNESS. hYPERTENSION. METH ABUSE. Patient felt nauseous this a.m.. . 03/02/17. CVA. Left-sided weakness. Hypertension. Left abuse. Patient's left leg doing better. Patient's left upper extremity problems. . 03/05/17. CVA Left sided weakness. Meth abuse. Patient's left leg doing better Patient has problems with moving of left upper extremity. Patient voices no complaints. . 04/1916. CVA on left. Meth abuse history. Patient doing better with left leg. Not so with left arm.. . 03/07/17. CVA on left. Weakness. Hypertension. Meth abuse. patient doing better with left leg in the left arm. . 03/08/17. CVA on left. Weakness. Hypertension. . 03/09/17. CVA on left. Weakness. Hypertension. patient resting comfortably.. . 03/13/17. CVA on left. Weakness. Hypertension. Meth abuse. Depression. to increase the Wellbutrin. . 03/14. CVA on left. Depression. Hypertension. meth abuse.. . 03/15/17. CVA on left. Depression better. Hypertension okay. Meth abuse. Patient positive today . 03/20/17. CVA on left. Depression. Hypertension. Left abuse. Patient voices no complaints today Clinical Quality Measures DVT/VTE Risk/Contraindication: Risk Factor Score Per Nursin RFS Level Per Nursing on Admit: 4+=Very High JOAQUIM SHEN DO Mar 20, 2017 08:00
[2017-03-20] MEDS: meTOprolol SUCCINATE 100 MG (TOPROL XL) TAB PO SCH (08:07)
[2017-03-20] MEDS: buPROPion SR 150 MG (WELLBUTRIN SR) TAB PO SCH ×2 (08:07→19:53)
[2017-03-20] MEDS: ARIPIPRAZOLE 10 MG (ABILIFY) TAB PO SCH (08:07)
[2017-03-20] MEDS: amLODIPine 5 MG (NORVASC) TAB PO SCH (08:07)
[2017-03-20] MEDS: DOCUSATE SODIUM 100 MG (COLACE) CAP PO SCH ×3 (08:07→19:14)
[2017-03-20] MEDS: FAMOTIDINE 20 MG (PEPCID) TABLET PO SCH ×2 (08:07→19:53)
[2017-03-20] MEDS: CLOPIDOGREL 75 MG (PLAVIX) TABLET PO SCH (08:07)
[2017-03-20] MEDS: guaiFENesin (MUCINEX) 600 MG TAB PO SCH ×2 (08:09→19:14)
--- NOTE | 2017-03-20 08:55 | Physical Therapy Daily Note ---
PT Daily Note-Current Subjective Patient in bed pre tx, agrees to PT, has no complaints of pain. Appearance Patient in wheelchair at bedside post tx with nurse call, phone, tray, all needs met. Mental Status Patient Orientation: Normal For Age Transfers Functional [place] Measure 0=Not Assessed/NA 4=Minimal Assistance 1=Total Assistance 5=Supervision or Setup 2=Maximal Assistance 6=Modified [place] 3=Moderate Assistance 7=Complete IndependenceIRFPAI Quality Coding Scale 6 Independent with activity with or without an assistive device 5 Patient requires set up or clean up by helper. Patient completes activity by themselves 4 Supervision or touching assist (CGA). [place] provide cues , steadying assist 3 The helper provides less than half the effort to complete the activity 2 The helper provides more than half the effort to complete the activity 1 Dependent. The helper does all the effort to complete an activity 7 Patient refused to complete or attempt activity 9 The patient did not perform the activity before the current illness or injury 88 Not attempted due to Medical conditions or safety concerns Transfers (B, C, W/C) (FIM): 5 Scootin Rollin Supine to/from Sit: 6 Sit to/from Stand: 5 Bed to/from Chair: 5 Patient now performs stand pivot with SBA to the left side, close SBA but no cues. Weight Bearing Right Lower Extremity: Right Weight Bearing/Tolerated Left Lower Extremity: Left Weight Bearing/Tolerated Wheelchair Training Does the Pt Use a Wheelchair?: Yes Wheelchair (FIM): 6 Distance: 150'x2 Type of Wheelchair: Manual Exercises Supine Ex: Bridging, Quad Set, Glut sets, Heel Slides, Straight leg raise, Hip abd/add Supine Reps: 20 Standing: Sit to Stand Standing Reps: 30 SAQ for 5 min left side with 2# ankle weight, manually resisted leg press left side 3 sets of 10, LLE stretching/ROM all planes Treatments bed mobility, transfers, ambulation, functional strengthening Assessment Current Status: Fair Progress Patient improving balance and transfers PT Short Term Goals Short Term Goals Time Frame: Mar 02, 2017 Transfers (B,C,W/C) (FIM): 4 (met) Gait (FIM): 1 Gait Distance Comment: 20' Gait Level of Assist: 2 Gait Assistive Device: Walker Nathan Wheelchair (FIM): 6 Wheelchair Distance: 150'x2 PT Fpc Goals Seed Packer Goals PT Fpc Goals Time Frame: Mar 16, 2017 Transfers (B,C,W/C) (FIM): 5 Sit to Lying (QC): 4 Lying-Sitting on Side/Bed(QC): 4 Sit to Stand (QC): 4 Rollin Roll Left to Right (QC): 4 Chair/Rxb-gt-Tobrd Xfer(QC): 4 Car Transfer (QC): 3 Gait (FIM): 2 Distance: 30' Walk 10 feet (QC): 3 Walk 10ft-Uneven Surface(QC): 3 Gait Level of Assist: 4 Gait Assistive Device: Cane Large Base Quad PT Plan Problem List Problem List: Activity Tolerance, Functional Strength, Safety, Balance, Gait, Transfer, Bed Mobility, ROM Treatment/Plan Treatment Plan: Continue Plan of Care Treatment Plan: Bed Mobility, Concurrent Therapy, Education, Functional Activity Luis, Functional Strength, Group Therapy, Gait, Safety, Therapeutic Exercise, Transfers Treatment Duration: Mar 16, 2017 Frequency: At least 5 of 7 days/Wk (IRF) Estimated Hrs Per Day: 1.5 hours per day Patient and/or Family Agrees t: Yes Safety Risks/Education Patient Education: Transfer Techniques, Correct Positioning, W/C Management, Safety Issues Teaching Recipient: Patient Teaching Methods: Demonstration, Discussion Response to Teaching: Reinforcement Needed Time/GCodes Time In: 800 Time Out: 900 Total Billed Treatment Time: 60 Total Billed Treatment 1 visit FA 15' [facility] 10' EX 35' KIERRA STERLING PT Mar 20, 2017 08:55
--- NOTE | 2017-03-20 13:45 | Occupational Ther Daily Note ---
OT Current Status-Daily Note Subjective No pain reported. Appearance Pt. is up in wheelchair this date. Agrees to shower. Mental Status/Objective Patient Orientation: Person, Place, Time, Situation Functional [place] Measure 0=Not Assessed/NA 4=Minimal Assistance 1=Total Assistance 5=Supervision or Setup 2=Maximal Assistance 6=Modified [place] 3=Moderate Assistance 7=Complete [place] ADL-Treatment Functional [place] Measure 0=Not Assessed/NA 4=Minimal Assistance 1=Total Assistance 5=Supervision or Setup 2=Maximal Assistance 6=Modified [place] 3=Moderate Assistance 7=Complete IndependenceIRFPAI Quality Coding Scale 6 Independent with activity with or without an assistive device 5 Patient requires set up or clean up by helper. Patient completes activity by themselves 4 Supervision or touching assist (CGA). [place] provide cues , steadying assist 3 The helper provides less than half the effort to complete the activity 2 The helper provides more than half the effort to complete the activity 1 Dependent. The helper does all the effort to complete an activity 7 Patient refused to complete or attempt activity 9 The patient did not perform the activity before the current illness or injury 88 Not attempted due to Medical conditions or safety concerns Grooming (FIM): 5 (Pt. is able to brush her hair and teeth with set up at sink from wheelchair level.) Oral Hygiene (QC): 5 Bathing (FIM): 4 (CGA in shower for stance only. Pt. able to reach all parts.) Shower/Bathe Self (QC): 4 Upper Body (FIM): 3 (Pt. requires assist to fasten bra in back, and to thread left UE into shirt. Pt. is able to pull shirt over head and down over torso.) Upper Body Dressing (QC): 3 Lower Body Dressing (FIM): 3 (Pt. is able to don underwear and pants over feet , but required assist to snout puller hips. Pt. able to don socks and shoes, but required assistance to tie shoes. Pt. has elastic laces in shoes, but still likes to untie them to make more room to don them.) Lower Body Dressing (QC): 3 On/Off Footwear (QC): 4 Transfers (B, C, W/C) (FIM): 4 (CGA to transfer to and from wheelchair, bed, and shower.) Shower Transfer(FIM): 4 Other Treatment After ADLs in room, pt. agreed to practice putting laundry in laundry room. Pt. had difficulty standing at washing machine and putting clothing into washing machine. Talked with pt. about her set up for home. She is concerned because she states that she will be staying with her grandfather, and is unsure if her wheelchair will fit behind the dryer to get to her bedroom and bathroom. Pt. states that she will have to ambulate with a walker to this area. Will speak with PT regarding this, to make sure pt. is ready for returning home. After laundry task, went to therapy gym via wheelchair. OT completed gentle PROM to left UE in all areas. Noted tone with elbow extension. No subluxation noted. Facilitated scapular movement. After ROM, pt. tolerated e-stim to left wrist extensor at 5 brandi-amps x 10 minutes with good movement. Went back to room and transferred to bed with CGA. All needs met. Education OT Patient Education: Correct positioning, Exercise program, Modified ADL techniques, Progress toward Goal/Update tx plan, Purpose of tx/functional activities, Reviewed precautions, Rehab process, Transfer techniques Teaching Recipient: Patient Teaching Methods: Demonstration Response to Teaching: Verbalize Understanding, Return Demonstration OT Short Term Goals Short Term Goals Time Frame: Mar 02, 2017 Grooming(FIM): 5 Bathing(FIM): 3 Upper Body Dressing(FIM): 4 Lower Body Dressing(FIM): 3 Toileting(FIM): 3 Transfers (B,C,W/C) (FIM): 4 (met) Toilet/Commode Transfer(FIM): 3 1=Demonstrate adherence to instructed precautions during ADL tasks. 2=Patient will verbalize/demonstrate understanding of assistive devices/ modifications for ADL. 3=Patient will improve strength/tolerance for activity to enable patient to perform ADL's. OT Jail Goals Jail Goals Time Frame: Mar 16, 2017 Eating (FIM): 6 Eating (QC): 6 Groomin Oral Hygiene (QC): 6 Bathing(FIM): 4 Shower/Bathe Self (QC): 4 Upper Body Dressing(FIM): 5 Upper Body Dressing (QC): 5 Lower Body Dressing(FIM): 4 Lower Body Dressing (QC): 4 On/Off Footwear (QC): 4 Toileting(FIM): 6 Toileting Hygiene (QC): 4 Toilet/Commode Transfer(FIM): 5 Toilet/Commode Transfer (QC): 4 Shower Transfer(FIM): 4 Comprehension(FIM): 5 (MET) Expression (FIM): 5 (MET) Social Interaction(FIM): 5 (NOT MET) Problem Solving(FIM): 5 (MET) Memory(FIM): 5 (MET) Additional Goals: 1-Demonstrate ADL Tasks, 2-Verbalize Understanding, 3- ImproveStrength/Luis 1=Demonstrate adherence to instructed precautions during ADL tasks. 2=Patient will verbalize/demonstrate understanding of assistive devices/ modifications for ADL. 3=Patient will improve strength/tolerance for activity to enable patient to perform ADL's. OT Education/Plan Problem List/Assessment Assessment: Decreased Activ Tolerance, Decreased UE Strength, Dependent Transfers, Impaired Bed Mobility, Impaired Funct Balance, Impaired I ADL's, Impaired Self-Care Skills, Restricted Funct UE ROM Discharge Recommendations Plan/Recommendations: Continue POC Therapy D/C Recommendations: Home w/ Family Support, Occupational Therapy Home Care Treatment Plan/Plan of Care Treatment,Training & Education: Yes Patient would benefit from OT for education, treatment and training to promote independence in ADL's, mobility, safety and/or upper extremity function for ADL' s. Plan of Care: ADL Retraining, Functional Mobility, Group Exercise/Act as Ind, UE Funct Exercise/Act, UE Neuromus Re-Ed/Coord Treatment Duration: Mar 16, 2017 Frequency: At least 5 of 7 days/Wk (IRF) Estimated Hrs Per Day: 1.5 hours per day Agreement: Yes Rehab Potential: Good Time/GCodes Start Time: 10:35 Stop Time: 12:05 Total Time Billed (hr/min): 90 Billed Treatment Time 1, ADL x 45minutes, FA x 30minutes, NM x 15minutes MARI ECKERT OT Mar 20, 2017 13:45
--- NOTE | 2017-03-20 13:51 | Occ Therapy Rehab Re-Cert ---
OT Re-Certification Form Plan of Care: ADL Retraining, Caregiver Training, Functional Mobility, Group Exercise/Act as Ind, UE Funct Exercise/Act, UE Neuromus Re-Ed/Coord Pt. has continued to make progress during rehab treatment. Pt. is working toward increased independence with daily tasks such as toileting, bathing, dressing. Pt. plans to discharge to grandfathers home. Pt. demonstrates little movement in left UE. However, has made substantial progress toward ADL skills, and is often able to complete tasks as wheelchair level. OT and PT continue to assess equipment needs for home. Discharge goals have changed, in that pt. plans to discharge to grandfathers home now instead of with boyfriend. Frequency: At least 5 of 7 days/Wk (IRF) Estimated Hrs Per Day: 1.5 hours per day Agreement: Yes Rehab Potential: Good OT Short Term Goals Short Term Goals Time Frame: Mar 02, 2017 Grooming(FIM): 5 Bathing(FIM): 3 Upper Body Dressing(FIM): 4 Lower Body Dressing(FIM): 3 Toileting(FIM): 3 Transfers (B,C,W/C) (FIM): 4 (met) Toilet/Commode Transfer(FIM): 3 1=Demonstrate adherence to instructed precautions during ADL tasks. 2=Patient will verbalize/demonstrate understanding of assistive devices/ modifications for ADL. 3=Patient will improve strength/tolerance for activity to enable patient to perform ADL's. OT Detention Goals [employer] Goals Time Frame: Mar 16, 2017 Eating (FIM): 6 (met) Grooming(FIM): 6 (ongoing) Bathing(FIM): 4 (met) Upper Body Dressing(FIM): 5 (ongoing) Lower Body Dressing(FIM): 4 (ongoing) Toileting(FIM): 6 (ongoing) Toilet/Commode Transfer(FIM): 5 (ongoing) Shower Transfer(FIM): 4 (met) Comprehension(FIM): 5 (MET) Expression (FIM): 5 (MET) Social Interaction(FIM): 5 (NOT MET) Problem Solving(FIM): 5 (MET) Memory(FIM): 5 (MET) Additional Goals: 1-Demonstrate ADL Tasks, 2-Verbalize Understanding, 3- ImproveStrength/Luis 1=Demonstrate adherence to instructed precautions during ADL tasks. 2=Patient will verbalize/demonstrate understanding of assistive devices/ modifications for ADL. 3=Patient will improve strength/tolerance for activity to enable patient to perform ADL's. MARI ECKERT OT Mar 20, 2017 13:51
--- NOTE | 2017-03-20 14:28 | Physical Therapy Daily Note ---
PT Daily Note-Current Subjective Patient in wheelchair at bedside pre tx, agrees to PT, no complaints of pain. Appearance Patient in wheelchair at bedside post tx with nurse call, brown, all needs met. Mental Status Patient Orientation: Normal For Age Transfers Functional [place] Measure 0=Not Assessed/NA 4=Minimal Assistance 1=Total Assistance 5=Supervision or Setup 2=Maximal Assistance 6=Modified [place] 3=Moderate Assistance 7=Complete IndependenceIRFPAI Quality Coding Scale 6 Independent with activity with or without an assistive device 5 Patient requires set up or clean up by helper. Patient completes activity by themselves 4 Supervision or touching assist (CGA). [place] provide cues , steadying assist 3 The helper provides less than half the effort to complete the activity 2 The helper provides more than half the effort to complete the activity 1 Dependent. The helper does all the effort to complete an activity 7 Patient refused to complete or attempt activity 9 The patient did not perform the activity before the current illness or injury 88 Not attempted due to Medical conditions or safety concerns Sit to/from Stand: 5 Bed to/from Chair: 5 good safety, no LOB Weight Bearing Right Lower Extremity: Right Weight Bearing/Tolerated Left Lower Extremity: Left Weight Bearing/Tolerated Wheelchair Training Does the Pt Use a Wheelchair?: Yes Wheelchair (FIM): 6 Distance: 150'x2 Type of Wheelchair: Manual Exercises NuStep Minutes: 15 NuStep Workload: 6 Treatments wheelchair mobility, transfers, functional strengthening Assessment Current Status: Fair Progress improving transfers PT Short Term Goals Short Term Goals Time Frame: Mar 02, 2017 Transfers (B,C,W/C) (FIM): 4 (met) Gait (FIM): 1 Gait Distance Comment: 20' Gait Level of Assist: 2 Gait Assistive Device: Walker Nathan Wheelchair (FIM): 6 Wheelchair Distance: 150'x2 PT Snf Goals Snf Goals PT Customer Service Attendant Goals Time Frame: Mar 16, 2017 Transfers (B,C,W/C) (FIM): 5 Sit to Lying (QC): 4 Lying-Sitting on Side/Bed(QC): 4 Sit to Stand (QC): 4 Rollin Roll Left to Right (QC): 4 Chair/Zdy-pk-Yyjtm Xfer(QC): 4 Car Transfer (QC): 3 Gait (FIM): 2 Distance: 30' Walk 10 feet (QC): 3 Walk 10ft-Uneven Surface(QC): 3 Gait Level of Assist: 4 Gait Assistive Device: Cane Large Base Quad PT Plan Problem List Problem List: Activity Tolerance, Functional Strength, Safety, Balance, Gait, Transfer Treatment/Plan Treatment Plan: Continue Plan of Care Treatment Plan: Bed Mobility, Concurrent Therapy, Education, Functional Activity Luis, Functional Strength, Group Therapy, Gait, Safety, Therapeutic Exercise, Transfers Treatment Duration: Mar 16, 2017 Frequency: At least 5 of 7 days/Wk (IRF) Estimated Hrs Per Day: 1.5 hours per day Patient and/or Family Agrees t: Yes Safety Risks/Education Patient Education: Transfer Techniques, Correct Positioning, W/C Management, Safety Issues Teaching Recipient: Patient Teaching Methods: Demonstration, Discussion Response to Teaching: Reinforcement Needed Time/GCodes Time In: 1400 Time Out: 1430 Total Billed Treatment Time: 30 Total Billed Treatment 1 visit EX 15' [facility] 10' FA 5' KIERRA STERLING PT Mar 20, 2017 14:28
--- NOTE | 2017-03-20 15:02 | Physical Therapy Rehab Re-Cert ---
PT Re-Certification Form Physical Therapy Treatment Plan: Continue Plan of Care Bed Mobility, Concurrent Therapy, Education, Functional Activity Luis, Functional Strength, Group Therapy, Gait, Safety, Therapeutic Exercise, Transfers Patient has made improvements in all areas of mobility (bed mobility, transfers , ambulation, wheelchair mobility, stairs) and balance and would benefit from continued stay to maximize her mobility and independence. Treatment Duration: 2 weeks Frequency: At least 5 of 7 days/Wk (IRF) Estimated Hrs Per Day: 1.5 hours per day Patient and/or Family Agrees t: Yes Rehab Potential: Fair PT Short Term Goals Short Term Goals Time Frame: Mar 02, 2017 Transfers (B,C,W/C) (FIM): 4 (met) Gait (FIM): 1 Gait Distance Comment: 20' Gait Level of Assist: 2 Gait Assistive Device: Walker Nathan Wheelchair (FIM): 6 Wheelchair Distance: 150'x2 PT Pipe Stem Sawyer Goals Mcfp Goals PT Mcfp Goals Time Frame: Mar 16, 2017 Transfers (B,C,W/C) (FIM): 5 Gait (FIM): 2 Distance: 30' Gait Level of Assist: 4 Gait Assistive Device: Cane Large Base Quad KIERRA STERLING PT Mar 20, 2017 15:02
--- NOTE | 2017-03-20 17:50 | PM & R (SOAP) Progress Note ---
Subjective Time Seen by Provider: 17:30 Subjective/Events-last exam Patient was seen in her room this evening Progressing well with therapies Having good return of strength Left knee and hip with antigravity strength.Patient SBA for transfers, Objective Exam Last Set of Vital Signs Vital Signs Date Time Temp Pulse Resp B/P (MAP) Pulse Ox O2 Delivery O2 Flow Rate FiO2 03/20/17 09:00 Room Air 03/20/17 05:19 98.9 97 18 101/63 (76) 97 Capillary Refill : I&O Intake and Output 03/20/17 00:00 Intake Total 1750 ml Balance 1750 ml Intake Oral 1750 ml # Voids 4 General: Alert, Oriented X3, Cooperative, No Acute Distress HEENT: Atraumatic, EOMI, Mucous Memb Moist/[place] Neck: Supple, No JVD Lungs: Clear to Auscultation Abdomen: Normal Bowel Sounds, Soft, No Tenderness Extremities: No Edema, No Tenderness/Swelling Neuro: Other (Left HP with o/5 strength UE fiar+ good - left leg Sensation intact Cognition and speech and swallow intact) Assessment/Plan Assessment RT cva with Left HP HTN controlled HX of meth use Tobaccoism-currently abstaining and on patch GERD on med COPD with cough on resp treatments-CXR clear-cough improved Plan ContinuePT/OT ST has signed off Treat dyspepsia as needed-improved Monitor PO intake Continue resp treatments-add Mucinex-done cough improved Next Team Conference tomorrow Will review discharge plans and ELOS with Team tomorrow. RODOLFO HUITRON MD Mar 20, 2017 17:50
[2017-03-20] MEDS: ALPRAZolam 1 MG (XANAX) TAB PO PRN (18:50)
[2017-03-20 18:54] VITALS: BP 127/86
[2017-03-20] MEDS: ATORVASTATIN 40 MG (LIPITOR) TABLET PO SCH (19:53)
[2017-03-21 05:05] VITALS: BP 108/73
[2017-03-21] MEDS: CLOPIDOGREL 75 MG (PLAVIX) TABLET PO SCH (08:09)
[2017-03-21] MEDS: amLODIPine 5 MG (NORVASC) TAB PO SCH (08:10)
[2017-03-21] MEDS: meTOprolol SUCCINATE 100 MG (TOPROL XL) TAB PO SCH (08:10)
[2017-03-21] MEDS: ARIPIPRAZOLE 10 MG (ABILIFY) TAB PO SCH (08:10)
[2017-03-21] MEDS: FAMOTIDINE 20 MG (PEPCID) TABLET PO SCH ×2 (08:11→20:11)
[2017-03-21] MEDS: buPROPion SR 150 MG (WELLBUTRIN SR) TAB PO SCH ×2 (08:11→20:10)
--- NOTE | 2017-03-21 08:25 | Progress Note (SOAP) ---
Subjective Time Seen by Provider: 08:20 Subjective/Events-last exam patient walking with a cane now. Left upper extremity not using much. CVA. Meth abuse. Hypertension noncompliance Objective Exam Vital Signs Date Time Temp Pulse Resp B/P (MAP) Pulse Ox O2 Delivery O2 Flow Rate FiO2 03/21/17 08:07 89 18 98 Room Air 03/21/17 05:05 98.5 111 16 108/73 (85) 100 Room Air 03/20/17 20:13 Room Air 03/20/17 18:54 98.0 97 16 127/86 (100) 97 Room Air 03/20/17 09:00 Room Air I & O 03/21/17 07:00 Intake Total 640 ml Balance 640 ml Capillary Refill : General Appearance: No Apparent Distress HEENT: Normal ENT Inspection Neck: Full Range of Motion, Normal Inspection Respiratory: Chest Non Tender, Lungs Clear, No Accessory Muscle Use, No Respiratory Distress Cardiovascular: Regular Rate, Rhythm, No Murmur Gastrointestinal: non tender, soft Assessment/Plan Assessment/Plan Assess & Plan/Chief Complaint CVA. Left side weakness. Hypertension. Meth abuse history. . 02/28/17. CVA. Left-sided weakness. Hypertension. Patient is abuse history. Chest discomfort with some loose congestion. . 03/01/17. cva. llEFT-SIDED WEAKNESS. hYPERTENSION. METH ABUSE. Patient felt nauseous this a.m.. . 03/02/17. CVA. Left-sided weakness. Hypertension. Left abuse. Patient's left leg doing better. Patient's left upper extremity problems. . 03/05/17. CVA Left sided weakness. Meth abuse. Patient's left leg doing better Patient has problems with moving of left upper extremity. Patient voices no complaints. . 04/1916. CVA on left. Meth abuse history. Patient doing better with left leg. Not so with left arm.. . 03/07/17. CVA on left. Weakness. Hypertension. Meth abuse. patient doing better with left leg in the left arm. . 03/08/17. CVA on left. Weakness. Hypertension. . 03/09/17. CVA on left. Weakness. Hypertension. patient resting comfortably.. . 03/13/17. CVA on left. Weakness. Hypertension. Meth abuse. Depression. to increase the Wellbutrin. . 03/14. CVA on left. Depression. Hypertension. meth abuse.. . 03/15/17. CVA on left. Depression better. Hypertension okay. Meth abuse. Patient positive today . 03/20/17. CVA on left. Depression. Hypertension. Left abuse. Patient voices no complaints today. . /DISEASE/STATES SEEN. cva ON LEFT. dEPRESSION APPEARS BETTER. hYPERTENSIONAREA Methamphetamine abuse. Hypertension noncompliant Clinical Quality Measures DVT/VTE Risk/Contraindication: Risk Factor Score Per Nursin RFS Level Per Nursing on Admit: 4+=Very High JOAQUIM SHEN DO Mar 21, 2017 08:24
--- NOTE | 2017-03-21 10:06 | Physical Therapy Daily Note ---
PT Daily Note-Current Subjective Pt. states she has good news. Her grandfather says he feels confident she will be able to get a w/c sown the [place] ans into the room where she will stay at his place b/c he is able to get an electric w/c down that [place]. Pt. states she has asked her daughter to finish highschool living with her to help her. Pain Numeric Pain Scale: 0-No Pain Mental Status Attachments: Other-See Comments (left AFO and knee immob) Transfers Functional [place] Measure 0=Not Assessed/NA 4=Minimal Assistance 1=Total Assistance 5=Supervision or Setup 2=Maximal Assistance 6=Modified [place] 3=Moderate Assistance 7=Complete IndependenceIRFPAI Quality Coding Scale 6 Independent with activity with or without an assistive device 5 Patient requires set up or clean up by helper. Patient completes activity by themselves 4 Supervision or touching assist (CGA). [place] provide cues , steadying assist 3 The helper provides less than half the effort to complete the activity 2 The helper provides more than half the effort to complete the activity 1 Dependent. The helper does all the effort to complete an activity 7 Patient refused to complete or attempt activity 9 The patient did not perform the activity before the current illness or injury 88 Not attempted due to Medical conditions or safety concerns Transfers (B, C, W/C) (FIM): 5 Scootin Rollin Supine to/from Sit: 6 Sit to/from Stand: 6 Bed to/from Chair: 5 Weight Bearing Right Lower Extremity: Right Weight Bearing/Tolerated Left Lower Extremity: Left Weight Bearing/Tolerated Gait Training Does the Patient Walk?: Yes Gait (FIM): 5 Distance (FIM): 3=150 ft (160) Gait Level of Assist: 5 Gait Persons Needed: 1 Gait Assistive Device: Walker Nathan w/c to follow up Wheelchair Training Does the Pt Use a Wheelchair?: Yes Wheelchair (FIM): 6 Wheelchair Distance: 3=150 ft (x2) Wheelchair Level of Assist: 6 Type of Wheelchair: Manual many turns as well as brakes and leg rest management Exercises Supine Ex: Bridging, Rolling, Heel Slides, Scooting, Straight leg raise Supine Reps: 15 Treatments much time spent practicing TRFs to left and right with and without AFO and knee immoblizer as pt. cannot put both on herself, pt. did demonstrate ability to put shoe on indep in laying down position Assessment Current Status: Good Progress more details lining up for possible successful DC to pts grandfathers home PT Short Term Goals Short Term Goals Time Frame: Mar 02, 2017 Transfers (B,C,W/C) (FIM): 4 (met) Gait (FIM): 1 Gait Distance Comment: 20' Gait Level of Assist: 2 Gait Assistive Device: Walker Nathan Wheelchair (FIM): 6 Wheelchair Distance: 150'x2 PT Senior Living Goals Professor Of Literacy Goals PT Professor Of Literacy Goals Time Frame: Mar 16, 2017 Transfers (B,C,W/C) (FIM): 5 Sit to Lying (QC): 4 Lying-Sitting on Side/Bed(QC): 4 Sit to Stand (QC): 4 Rollin Roll Left to Right (QC): 4 Chair/Xlf-xf-Lkgba Xfer(QC): 4 Car Transfer (QC): 3 Gait (FIM): 2 Distance: 30' Walk 10 feet (QC): 3 Walk 10ft-Uneven Surface(QC): 3 Gait Level of Assist: 4 Gait Assistive Device: Cane Large Base Quad PT Plan Treatment/Plan Treatment Plan: Continue Plan of Care Treatment Plan: Bed Mobility, Concurrent Therapy, Education, Functional Activity Luis, Functional Strength, Group Therapy, Gait, Safety, Therapeutic Exercise, Transfers Treatment Duration: Mar 16, 2017 Frequency: At least 5 of 7 days/Wk (IRF) Estimated Hrs Per Day: 1.5 hours per day Patient and/or Family Agrees t: Yes Safety Risks/Education Patient Education: Gait Training, Transfer Techniques, Correct Positioning, W/ C Management, Safety Issues Teaching Recipient: Patient Teaching Methods: Demonstration, Discussion Response to Teaching: Verbalize Understanding, Return Demonstration, Reinforcement Needed Time/GCodes Time In: 900 Time Out: 1000 Total Billed Treatment Time: 60 Total Billed Treatment 1,FA40m,Gt20m G Codes Necessary: MARY KATE Urena TRANSPORT CONDUCTOR Mar 21, 2017 10:06
--- NOTE | 2017-03-21 11:59 | Occupational Ther Daily Note ---
OT Current Status-Daily Note Subjective No pain reported. Appearance Pt. up in wheelchair. Agrees to work with OT. Declines taking a shower this morning. Pt. already dressed. Mental Status/Objective Patient Orientation: Person, Place Functional [place] Measure 0=Not Assessed/NA 4=Minimal Assistance 1=Total Assistance 5=Supervision or Setup 2=Maximal Assistance 6=Modified [place] 3=Moderate Assistance 7=Complete [place] ADL-Treatment Functional [place] Measure 0=Not Assessed/NA 4=Minimal Assistance 1=Total Assistance 5=Supervision or Setup 2=Maximal Assistance 6=Modified [place] 3=Moderate Assistance 7=Complete IndependenceIRFPAI Quality Coding Scale 6 Independent with activity with or without an assistive device 5 Patient requires set up or clean up by helper. Patient completes activity by themselves 4 Supervision or touching assist (CGA). [place] provide cues , steadying assist 3 The helper provides less than half the effort to complete the activity 2 The helper provides more than half the effort to complete the activity 1 Dependent. The helper does all the effort to complete an activity 7 Patient refused to complete or attempt activity 9 The patient did not perform the activity before the current illness or injury 88 Not attempted due to Medical conditions or safety concerns Transfers (B, C, W/C) (FIM): 4 (Pt. practiced sit-stand from wheelchair to chair and to mat, and back, with CGA. Please see note below.) Pt. and OT went to therapy gym. OT talked with pt. in depth regarding her bathroom set up at home. Pt. is able to state how her bathroom is set up, and that her toilet is on the left side. This makes transfers difficult, as pt. is unable to use left UE to assist with transfer. OT and pt. problem solved on different mechanisms to make transfer safe, and to make toileting safe. Pt. is able to practice setting herself up so that she can stand and pivot to toilet. Does this without using grab bars, but is able to problem solve that she will most likely need to transfer first, sit down, and then stand back up using a grab bar on her right side to stabilize self and pull pants down. After she is able to toilet, which she states that she is able to clean herself, she will transfer back to her wheelchair, and then to her bedroom, where she will transfer to her bed and pull up pants lying down. This will take practice, and pt. states that her grandfather will be present to call for help if she needs it. Pt. does become tearful, and states that she has a lot of family in the town where she is moving to, but that they "don't like me." Pt. tolerated 10 minutes x 6 brandi-amps to left finger flexors, and then 10 minutes x 4 brandi- amps for wrist extensors. Noted good movement with e-stim. Transferred back to mat and OT performed PROM to left UE in all planes. Completed joint compression exercises, as well as ROM and massage. Noted increased muscle tone in external rotation. However, able to overcome with passive stretch. Pt. is educated on importance of stretch and need for movement of left UE. Education OT Patient Education: Correct positioning, Exercise program, Modified ADL techniques, Progress toward Goal/Update tx plan, Purpose of tx/functional activities, Reviewed precautions, Rehab process, Transfer techniques Teaching Recipient: Patient Teaching Methods: Demonstration, Discussion Response to Teaching: Verbalize Understanding, Return Demonstration OT Short Term Goals Short Term Goals Time Frame: Mar 02, 2017 Grooming(FIM): 5 Bathing(FIM): 3 Upper Body Dressing(FIM): 4 Lower Body Dressing(FIM): 3 Toileting(FIM): 3 Transfers (B,C,W/C) (FIM): 4 (met) Toilet/Commode Transfer(FIM): 3 1=Demonstrate adherence to instructed precautions during ADL tasks. 2=Patient will verbalize/demonstrate understanding of assistive devices/ modifications for ADL. 3=Patient will improve strength/tolerance for activity to enable patient to perform ADL's. OT [facility] Goals [facility] Goals Time Frame: Mar 16, 2017 Eating (FIM): 6 (met) Eating (QC): 6 Groomin (ongoing) Oral Hygiene (QC): 6 Bathing(FIM): 4 (met) Shower/Bathe Self (QC): 4 Upper Body Dressing(FIM): 5 (ongoing) Upper Body Dressing (QC): 5 Lower Body Dressing(FIM): 4 (ongoing) Lower Body Dressing (QC): 4 On/Off Footwear (QC): 4 Toileting(FIM): 6 (ongoing) Toileting Hygiene (QC): 4 Toilet/Commode Transfer(FIM): 5 (ongoing) Toilet/Commode Transfer (QC): 4 Shower Transfer(FIM): 4 (met) Comprehension(FIM): 5 (MET) Expression (FIM): 5 (MET) Social Interaction(FIM): 5 (NOT MET) Problem Solving(FIM): 5 (MET) Memory(FIM): 5 (MET) Additional Goals: 1-Demonstrate ADL Tasks, 2-Verbalize Understanding, 3- ImproveStrength/Luis 1=Demonstrate adherence to instructed precautions during ADL tasks. 2=Patient will verbalize/demonstrate understanding of assistive devices/ modifications for ADL. 3=Patient will improve strength/tolerance for activity to enable patient to perform ADL's. OT Education/Plan Problem List/Assessment Assessment: Decreased Activ Tolerance, Decreased UE Strength, Dependent Transfers, Impaired Bed Mobility, Impaired Coordination, Impaired Funct Balance , Impaired I ADL's, Impaired Self-Care Skills, Restricted Funct UE ROM Discharge Recommendations Plan/Recommendations: Continue POC Therapy D/C Recommendations: Bath Aide, Home w/ Family Support, Occupational Therapy Home Care Treatment Plan/Plan of Care Treatment,Training & Education: Yes Patient would benefit from OT for education, treatment and training to promote independence in ADL's, mobility, safety and/or upper extremity function for ADL' s. Plan of Care: ADL Retraining, Caregiver Training, Functional Mobility, Group Exercise/Act as Ind, UE Funct Exercise/Act, UE Neuromus Re-Ed/Coord Treatment Duration: Mar 16, 2017 Frequency: At least 5 of 7 days/Wk (IRF) Estimated Hrs Per Day: 1.5 hours per day Agreement: Yes Rehab Potential: Fair Time/GCodes Start Time: 10:00 Stop Time: 11:30 Total Time Billed (hr/min): 90 Billed Treatment Time 1, ADL x 30minutes, NM x 60minutes MARI ECKERT OT Mar 21, 2017 11:59
--- NOTE | 2017-03-21 14:06 | Physical Therapy Daily Note ---
PT Daily Note-Current Subjective Pt. agrees to Rx. States she is tired this afternoon. Daughter is visiting. Pt. states she finally feels like she has a plan for DC Pain Numeric Pain Scale: 0-No Pain Mental Status Patient Orientation: Normal For Age Transfers Functional [place] Measure 0=Not Assessed/NA 4=Minimal Assistance 1=Total Assistance 5=Supervision or Setup 2=Maximal Assistance 6=Modified [place] 3=Moderate Assistance 7=Complete IndependenceIRFPAI Quality Coding Scale 6 Independent with activity with or without an assistive device 5 Patient requires set up or clean up by helper. Patient completes activity by themselves 4 Supervision or touching assist (CGA). [place] provide cues , steadying assist 3 The helper provides less than half the effort to complete the activity 2 The helper provides more than half the effort to complete the activity 1 Dependent. The helper does all the effort to complete an activity 7 Patient refused to complete or attempt activity 9 The patient did not perform the activity before the current illness or injury 88 Not attempted due to Medical conditions or safety concerns all TRFs toilet and w/c to bed to w/c SBA. sit to sup indep Weight Bearing Right Lower Extremity: Right Weight Bearing/Tolerated Left Lower Extremity: Left Weight Bearing/Tolerated Gait Training Gait Assistive Device: Walker Nathan 50 ft nathan walker CGA to SBA Exercises NuStep Minutes: 10 NuStep Workload: 5 Assessment Current Status: Good Progress PT Short Term Goals Short Term Goals Time Frame: Mar 02, 2017 Transfers (B,C,W/C) (FIM): 4 (met) Gait (FIM): 1 Gait Distance Comment: 20' Gait Level of Assist: 2 Gait Assistive Device: Walker Nathan Wheelchair (FIM): 6 Wheelchair Distance: 150'x2 PT Assistant Manager Retail Goals [facility] Goals PT [facility] Goals Time Frame: Mar 16, 2017 Transfers (B,C,W/C) (FIM): 5 Sit to Lying (QC): 4 Lying-Sitting on Side/Bed(QC): 4 Sit to Stand (QC): 4 Rollin Roll Left to Right (QC): 4 Chair/Kpj-mz-Lmkti Xfer(QC): 4 Car Transfer (QC): 3 Gait (FIM): 2 Distance: 30' Walk 10 feet (QC): 3 Walk 10ft-Uneven Surface(QC): 3 Gait Level of Assist: 4 Gait Assistive Device: Cane Large Base Quad PT Plan Treatment/Plan Treatment Plan: Continue Plan of Care Treatment Plan: Bed Mobility, Concurrent Therapy, Education, Functional Activity [place], Functional Strength, Group Therapy, Gait, Safety, Therapeutic Exercise, Transfers Treatment Duration: Mar 16, 2017 Frequency: At least 5 of 7 days/Wk (IRF) Estimated Hrs Per Day: 1.5 hours per day Patient and/or Family Agrees t: Yes Safety Risks/Education Patient Education: Gait Training, Transfer Techniques, Correct Positioning, W/ C Management, Safety Issues Teaching Recipient: Patient Teaching Methods: Demonstration, Discussion Response to Teaching: Verbalize Understanding, Return Demonstration, Reinforcement Needed Time/GCodes Time In: 1330 Time Out: 1400 Total Billed Treatment Time: 30 Total Billed Treatment 1,EX15m,FA15m G Codes Necessary: MARY KATE Urena CL[employer] LICENSEE Mar 21, 2017 14:06
[2017-03-21] MEDS: ALPRAZolam 1 MG (XANAX) TAB PO PRN (14:40)
--- NOTE | 2017-03-21 14:45 | PM & R (SOAP) Progress Note ---
Subjective Time Seen by Provider: 08:40 Subjective/Events-last exam Patient was seen in her room this AM Patient SBA for transfers Progressing well with therapies Has antigravity strength LLE Uses afo on left LUE with little return Review of Systems Neurological: Weakness Objective Exam Last Set of Vital Signs Vital Signs Date Time Temp Pulse Resp B/P (MAP) Pulse Ox O2 Delivery O2 Flow Rate FiO2 03/21/17 08:10 Room Air 03/21/17 08:07 89 18 98 03/21/17 05:05 98.5 108/73 (85) Capillary Refill : I&O Intake and Output 03/21/17 00:00 Intake Total 800 ml Balance 800 ml Intake Oral 800 ml # Voids 2 # Bowel Movements 1 General: Alert, Oriented X3, Cooperative, No Acute Distress HEENT: Atraumatic, EOMI, Mucous Memb Moist/[place] Neck: Supple, No JVD Lungs: Clear to Auscultation Abdomen: Normal Bowel Sounds, Soft, No Tenderness Extremities: No Edema, No Tenderness/Swelling Neuro: Other (Left HP with o/5 strength UE fiar+ good - left leg Sensation intact Cognition and speech and swallow intact) Assessment/Plan Assessment RT cva with Left HP HTN controlled HX of meth use Tobaccoism-currently abstaining and on patch GERD on med COPD with cough on resp treatments-CXR clear-cough improved Plan ContinuePT/OT ST has signed off Treat dyspepsia as needed-improved Monitor PO intake Continue resp treatments-add Mucinex-done cough improved-Mucinex d/cd Team Conference held earlier today -See report for full functional update and POC and ELOS. RODOLFO HUITRON MD Mar 21, 2017 14:45
[2017-03-21 18:10] VITALS: BP 135/87
[2017-03-21] MEDS: oxyCODONE/APAP 5/325MG (PERCOCET 5) TABLET PO PRN (20:10)
[2017-03-21] MEDS: ATORVASTATIN 40 MG (LIPITOR) TABLET PO SCH (20:10)
[2017-03-22] MEDS: oxyCODONE/APAP 5/325MG (PERCOCET 5) TABLET PO PRN ×3 (04:29→16:31)
[2017-03-22 05:48] VITALS: BP 125/77
--- NOTE | 2017-03-22 08:12 | Progress Note (SOAP) ---
Subjective Time Seen by Provider: 08:05 Subjective/Events-last exam patient continues to walk better. Patient unable to move left extremity. CVA. Meth abuse. hypertension noncompliance low back bothering her today to monitor Objective Exam Vital Signs Date Time Temp Pulse Resp B/P (MAP) Pulse Ox O2 Delivery O2 Flow Rate FiO2 03/22/17 05:48 98.2 91 14 125/77 (93) 99 Room Air 03/21/17 21:00 Room Air 03/21/17 18:10 98.4 82 18 135/87 (103) 99 Room Air 03/21/17 08:10 Room Air I & O 03/22/17 07:00 Intake Total 860 ml Balance 860 ml Capillary Refill : General Appearance: No Apparent Distress Assessment/Plan Assessment/Plan Assess & Plan/Chief Complaint CVA. Left side weakness. Hypertension. Meth abuse history. . 02/28/17. CVA. Left-sided weakness. Hypertension. Patient is abuse history. Chest discomfort with some loose congestion. . 03/01/17. cva. llEFT-SIDED WEAKNESS. hYPERTENSION. METH ABUSE. Patient felt nauseous this a.m.. . 03/02/17. CVA. Left-sided weakness. Hypertension. Left abuse. Patient's left leg doing better. Patient's left upper extremity problems. . 03/05/17. CVA Left sided weakness. Meth abuse. Patient's left leg doing better Patient has problems with moving of left upper extremity. Patient voices no complaints. . 04/1916. CVA on left. Meth abuse history. Patient doing better with left leg. Not so with left arm.. . 03/07/17. CVA on left. Weakness. Hypertension. Meth abuse. patient doing better with left leg in the left arm. . 03/08/17. CVA on left. Weakness. Hypertension. . 03/09/17. CVA on left. Weakness. Hypertension. patient resting comfortably.. . 03/13/17. CVA on left. Weakness. Hypertension. Meth abuse. Depression. to increase the Wellbutrin. . 03/14. CVA on left. Depression. Hypertension. meth abuse.. . 03/15/17. CVA on left. Depression better. Hypertension okay. Meth abuse. Patient positive today . 1/2/18. CVA on left. Depression. Hypertension. Left abuse. Patient voices no complaints today. . /DISEASE/STATES SEEN. cva ON LEFT. dEPRESSION APPEARS BETTER. hYPERTENSIONAREA Methamphetamine abuse. Hypertension noncompliant 03/22/16. CVA on left. depression. Hypertension noncompliant history Meth abuse. Patient a work in progress Clinical Quality Measures DVT/VTE Risk/Contraindication: Risk Factor Score Per Nursin RFS Level Per Nursing on Admit: 4+=Very High JOAQUIM SHEN DO Mar 22, 2017 08:12
[2017-03-22] MEDS: amLODIPine 5 MG (NORVASC) TAB PO SCH (08:34)
[2017-03-22] MEDS: ARIPIPRAZOLE 10 MG (ABILIFY) TAB PO SCH (08:34)
[2017-03-22] MEDS: CLOPIDOGREL 75 MG (PLAVIX) TABLET PO SCH (08:34)
[2017-03-22] MEDS: meTOprolol SUCCINATE 100 MG (TOPROL XL) TAB PO SCH (08:35)
[2017-03-22] MEDS: buPROPion SR 150 MG (WELLBUTRIN SR) TAB PO SCH ×2 (08:35→20:22)
[2017-03-22] MEDS: FAMOTIDINE 20 MG (PEPCID) TABLET PO SCH ×2 (08:35→20:22)
--- NOTE | 2017-03-22 08:58 | Physical Therapy Daily Note ---
PT Daily Note-Current Subjective Patient in bed pre tx, agrees to PT, states she has significant low back pain. Appearance Patient in bed post tx with nurse call, phone, tray, all needs met. Mental Status Patient Orientation: Normal For Age Transfers Functional [place] Measure 0=Not Assessed/NA 4=Minimal Assistance 1=Total Assistance 5=Supervision or Setup 2=Maximal Assistance 6=Modified [place] 3=Moderate Assistance 7=Complete IndependenceIRFPAI Quality Coding Scale 6 Independent with activity with or without an assistive device 5 Patient requires set up or clean up by helper. Patient completes activity by themselves 4 Supervision or touching assist (CGA). [place] provide cues , steadying assist 3 The helper provides less than half the effort to complete the activity 2 The helper provides more than half the effort to complete the activity 1 Dependent. The helper does all the effort to complete an activity 7 Patient refused to complete or attempt activity 9 The patient did not perform the activity before the current illness or injury 88 Not attempted due to Medical conditions or safety concerns Transfers (B, C, W/C) (FIM): 5 Scootin Rollin Supine to/from Sit: 6 Sit to/from Stand: 5 Bed to/from Chair: 5 Patient now performs a stand pivot transfer to the left with close SBA. Weight Bearing Right Lower Extremity: Right Weight Bearing/Tolerated Left Lower Extremity: Left Weight Bearing/Tolerated Gait Training Gait (FIM): 4 Distance: 150', 50' Gait Level of Assist: 4 Gait Persons Needed: 1 Gait Assistive Device: Cane Small Base Quad Patient ambulates with min assist for occasional assist with balance, she no longer needs help with weight shifting, uses a left AFO and knee cage. Wheelchair Training Does the Pt Use a Wheelchair?: Yes Wheelchair (FIM): 6 Distance: 150'x2 Type of Wheelchair: Manual Balance Special Test Comments balance activity stepping over an obstacle and back Exercises LAQ left side for 5 min, lunges left side for approx 30 sec each time x3, stepping onto step with left leg x10 Treatments bed mobility and transfers, ambulation, functional strengthening, balance training Assessment Current Status: Fair Progress slow but improving balance and mobility PT Short Term Goals Short Term Goals Time Frame: Mar 02, 2017 Transfers (B,C,W/C) (FIM): 4 (met) Gait (FIM): 1 Gait Distance Comment: 20' Gait Level of Assist: 2 Gait Assistive Device: Walker Nathan Wheelchair (FIM): 6 Wheelchair Distance: 150'x2 PT Bottom Polisher Goals Bottom Polisher Goals PT Bottom Polisher Goals Time Frame: Mar 16, 2017 Transfers (B,C,W/C) (FIM): 5 Sit to Lying (QC): 4 Lying-Sitting on Side/Bed(QC): 4 Sit to Stand (QC): 4 Rollin Roll Left to Right (QC): 4 Chair/Vfx-lo-Brdpw Xfer(QC): 4 Car Transfer (QC): 3 Gait (FIM): 2 Distance: 30' Walk 10 feet (QC): 3 Walk 10ft-Uneven Surface(QC): 3 Gait Level of Assist: 4 Gait Assistive Device: Cane Large Base Quad PT Plan Problem List Problem List: Activity Tolerance, Functional Strength, Safety, Balance, Gait, Transfer Treatment/Plan Treatment Plan: Continue Plan of Care Treatment Plan: Bed Mobility, Concurrent Therapy, Education, Functional Activity Luis, Functional Strength, Group Therapy, Gait, Safety, Therapeutic Exercise, Transfers Treatment Duration: Mar 16, 2017 Frequency: At least 5 of 7 days/Wk (IRF) Estimated Hrs Per Day: 1.5 hours per day Patient and/or Family Agrees t: Yes Safety Risks/Education Patient Education: Gait Training, Transfer Techniques, Correct Positioning, Safety Issues Teaching Recipient: Patient Teaching Methods: Demonstration, Discussion Response to Teaching: Reinforcement Needed Time/GCodes Time In: 800 Time Out: 900 Total Billed Treatment Time: 60 Total Billed Treatment 1 visit GT 30' NM 10' EX 20' KIERRA STERLING PT Mar 22, 2017 08:58
--- NOTE | 2017-03-22 12:32 | PM & R (SOAP) Progress Note ---
Subjective Time Seen by Provider: 10:35 Subjective/Events-last exam Patient was seen in the GYM this AM Patient SBA for transfers Progressing well with therapies Cough improved Mood improved Review of Systems Neurological: Weakness Objective Exam Last Set of Vital Signs Vital Signs Date Time Temp Pulse Resp B/P (MAP) Pulse Ox O2 Delivery O2 Flow Rate FiO2 03/22/17 08:15 Room Air 03/22/17 05:48 98.2 91 14 125/77 (93) 99 Capillary Refill : I&O Intake and Output 03/22/17 00:00 Intake Total 1300 ml Balance 1300 ml Intake Oral 1300 ml # Voids 6 # Bowel Movements 1 General: Alert, Oriented X3, Cooperative, No Acute Distress HEENT: Atraumatic, EOMI, Mucous Memb Moist/[place] Neck: Supple, No JVD Lungs: Clear to Auscultation Abdomen: Normal Bowel Sounds, Soft, No Tenderness Extremities: No Edema, No Tenderness/Swelling Neuro: Other (Left HP with o/5 strength UE fiar+ good - left leg Sensation intact Cognition and speech and swallow intact) Assessment/Plan Assessment RT cva with Left HP HTN controlled HX of meth use Tobaccoism-currently abstaining and on patch GERD on med COPD with cough on resp treatments-CXR clear-cough improved Plan ContinuePT/OT ST has signed off Treat dyspepsia as needed-improved Monitor PO intake Team Conference held yesterday- -See report for full functional update and POC and ELOS. Discharge set tentatively for next week 04-01-17 Pateint requesting TLOA ( DAY PASS) for this weekend as per SW -Will clarify RODOLFO HUITRON MD Mar 22, 2017 12:32
--- NOTE | 2017-03-22 14:19 | Occupational Ther Daily Note ---
OT Current Status-Daily Note Subjective Pt. states that her back is hurting. States that she has already taken a pain pill. Is unable to articulate the exact location or how it hurts. Appearance Pt. in bed. Declines showering but states that she will change her clothing. Mental Status/Objective Patient Orientation: Person, Place Functional [place] Measure 0=Not Assessed/NA 4=Minimal Assistance 1=Total Assistance 5=Supervision or Setup 2=Maximal Assistance 6=Modified [place] 3=Moderate Assistance 7=Complete [place] ADL-Treatment Functional [place] Measure 0=Not Assessed/NA 4=Minimal Assistance 1=Total Assistance 5=Supervision or Setup 2=Maximal Assistance 6=Modified [place] 3=Moderate Assistance 7=Complete IndependenceIRFPAI Quality Coding Scale 6 Independent with activity with or without an assistive device 5 Patient requires set up or clean up by helper. Patient completes activity by themselves 4 Supervision or touching assist (CGA). [place] provide cues , steadying assist 3 The helper provides less than half the effort to complete the activity 2 The helper provides more than half the effort to complete the activity 1 Dependent. The helper does all the effort to complete an activity 7 Patient refused to complete or attempt activity 9 The patient did not perform the activity before the current illness or injury 88 Not attempted due to Medical conditions or safety concerns Grooming (FIM): 5 (Pt. is able to brush her hair and teeth from wheelchair level while seated at sink with SBA.) Oral Hygiene (QC): 4 Upper Body (FIM): 5 (SBA for shirt only, to doff/don.) Upper Body Dressing (QC): 4 Lower Body Dressing (FIM): 5 (Pt. dressed self from bed level. Pt. able to do this with SBA and increased time. Pt. was able to lay down and roll side to side to pull up pants. Pt. also able to bring leg up to bed on left side to don AFO and shoe. Noted redness on bottom of foot from AFO. However, no pain reported. PT notified.) Lower Body Dressing (QC): 4 On/Off Footwear (QC): 4 Transfers (B, C, W/C) (FIM): 4 (CGA for sit-stand and transfer.) Other Treatment Pt. able to wheel self to therapy gym. Noted today that pt. is having increased tone in left hand and fingers. Pt. fit for and provided neutral resting hand splint to wear at night only. Pt. educated that purpose of splint is to provide good, safe position while sleeping, as well as to protect integrity of fingers. Pt. is educated to not wear this splint during the day, as this will inhibit any spontaneous movement. Pt. verbalizes understanding. OT provided e-stim to left finger/forearm for increased muscle stimulation. Provided 5 brandi-amps to left wrist extensors x 10 minutes, and 6 brandi-amps to finger flexors/extensors x 8 minutes. Tolerated this well. Completed PROM to left hand/forearm/elbow in all planes. Went back to room and transferred to bed with SBA. All needs met. Education OT Patient Education: Correct positioning, Exercise program, Instructions don/ doff splint/brace, Modified ADL techniques, Progress toward Goal/Update tx plan , Purpose of tx/functional activities, Reviewed precautions, Rehab process, Transfer techniques Teaching Recipient: Patient Teaching Methods: Demonstration, Discussion Response to Teaching: Verbalize Understanding, Return Demonstration OT Short Term Goals Short Term Goals Time Frame: Mar 02, 2017 Grooming(FIM): 5 Bathing(FIM): 3 Upper Body Dressing(FIM): 4 Lower Body Dressing(FIM): 3 Toileting(FIM): 3 Transfers (B,C,W/C) (FIM): 4 (met) Toilet/Commode Transfer(FIM): 3 1=Demonstrate adherence to instructed precautions during ADL tasks. 2=Patient will verbalize/demonstrate understanding of assistive devices/ modifications for ADL. 3=Patient will improve strength/tolerance for activity to enable patient to perform ADL's. OT Group Home Goals [employer] Web Developer Goals Time Frame: Mar 16, 2017 Eating (FIM): 6 (met) Eating (QC): 6 Groomin (ongoing) Oral Hygiene (QC): 6 Bathing(FIM): 4 (met) Shower/Bathe Self (QC): 4 Upper Body Dressing(FIM): 5 (ongoing) Upper Body Dressing (QC): 5 Lower Body Dressing(FIM): 4 (ongoing) Lower Body Dressing (QC): 4 On/Off Footwear (QC): 4 Toileting(FIM): 6 (ongoing) Toileting Hygiene (QC): 4 Toilet/Commode Transfer(FIM): 5 (ongoing) Toilet/Commode Transfer (QC): 4 Shower Transfer(FIM): 4 (met) Comprehension(FIM): 5 (MET) Expression (FIM): 5 (MET) Social Interaction(FIM): 5 (NOT MET) Problem Solving(FIM): 5 (MET) Memory(FIM): 5 (MET) Additional Goals: 1-Demonstrate ADL Tasks, 2-Verbalize Understanding, 3- ImproveStrength/Luis 1=Demonstrate adherence to instructed precautions during ADL tasks. 2=Patient will verbalize/demonstrate understanding of assistive devices/ modifications for ADL. 3=Patient will improve strength/tolerance for activity to enable patient to perform ADL's. OT Education/Plan Problem List/Assessment Assessment: Decreased Activ Tolerance, Decreased UE Strength, Dependent Transfers, Impaired Bed Mobility, Impaired Coordination, Impaired Funct Balance , Impaired I ADL's, Impaired Self-Care Skills, Restricted Funct UE ROM Discharge Recommendations Plan/Recommendations: Continue POC Therapy D/C Recommendations: Home w/ Family Support, Occupational Therapy Home Care Treatment Plan/Plan of Care Treatment,Training & Education: Yes Patient would benefit from OT for education, treatment and training to promote independence in ADL's, mobility, safety and/or upper extremity function for ADL' s. Plan of Care: ADL Retraining, Caregiver Training, Functional Mobility, Group Exercise/Act as Ind, UE Funct Exercise/Act, UE Neuromus Re-Ed/Coord Treatment Duration: Mar 16, 2017 Frequency: At least 5 of 7 days/Wk (IRF) Estimated Hrs Per Day: 1.5 hours per day Agreement: Yes Rehab Potential: Fair Time/GCodes Start Time: 10:00 Stop Time: 11:30 Total Time Billed (hr/min): 90 Billed Treatment Time 1, ADL x 30minutes, FA x 15minutes, Ex x 15minutes, NM x 30minutes MARI ECKERT OT Mar 22, 2017 14:19
--- NOTE | 2017-03-22 15:08 | Physical Therapy Daily Note ---
PT Daily Note-Current Subjective Agrees to PT. Reports she is tired this afternoon. Pain Numeric Pain Scale: 0-No Pain Location: No Pain Reported Mental Status Patient Orientation: Person, Place, Time, Situation Transfers Functional [place] Measure 0=Not Assessed/NA 4=Minimal Assistance 1=Total Assistance 5=Supervision or Setup 2=Maximal Assistance 6=Modified [place] 3=Moderate Assistance 7=Complete IndependenceIRFPAI Quality Coding Scale 6 Independent with activity with or without an assistive device 5 Patient requires set up or clean up by helper. Patient completes activity by themselves 4 Supervision or touching assist (CGA). [place] provide cues , steadying assist 3 The helper provides less than half the effort to complete the activity 2 The helper provides more than half the effort to complete the activity 1 Dependent. The helper does all the effort to complete an activity 7 Patient refused to complete or attempt activity 9 The patient did not perform the activity before the current illness or injury 88 Not attempted due to Medical conditions or safety concerns Pt is mod indep with bed mob. She is able to sit EOB without assist. She is SBA with SPT x 4 reps with hemiwalker with AFO in place on the left. Weight Bearing Right Lower Extremity: Right Weight Bearing/Tolerated Left Lower Extremity: Left Weight Bearing/Tolerated Gait Training Gait x 150 ft with hemiwalker with AFO and hyperextension traffic line painter brace left with close CGA and skilled cues for sequencing and safety. Step to gait pattern with the left and narrow SUZY at times. Unsteady at times but no noted vidhi LOB. Worked on adjusting her AFO as it was rubbing a bit in her shoe. Blanchable redness noted. Treatments Pt in bed post treatment with needs met. Assessment Current Status: Good Progress Transfers and gait continue to improve and safety improves as well. PT Short Term Goals Short Term Goals Time Frame: Mar 02, 2017 Transfers (B,C,W/C) (FIM): 4 (met) Gait (FIM): 1 Gait Distance Comment: 20' Gait Level of Assist: 2 Gait Assistive Device: Walker Nathan Wheelchair (FIM): 6 Wheelchair Distance: 150'x2 PT Prison Goals Prison Goals PT Lead Carpenter Goals Time Frame: Mar 16, 2017 Transfers (B,C,W/C) (FIM): 5 Sit to Lying (QC): 4 Lying-Sitting on Side/Bed(QC): 4 Sit to Stand (QC): 4 Rollin Roll Left to Right (QC): 4 Chair/[id number] Xfer(QC): 4 Car Transfer (QC): 3 Gait (FIM): 2 Distance: 30' Walk 10 feet (QC): 3 Walk 10ft-Uneven Surface(QC): 3 Gait Level of Assist: 4 Gait Assistive Device: Cane Large Base Quad PT Plan Problem List Problem List: Activity Tolerance, Functional Strength, Safety, Balance, Gait, Transfer, Bed Mobility Treatment/Plan Treatment Plan: Continue Plan of Care Treatment Plan: Bed Mobility, Concurrent Therapy, Education, Functional Activity Luis, Functional Strength, Group Therapy, Gait, Safety, Therapeutic Exercise, Transfers Treatment Duration: Mar 16, 2017 Frequency: At least 5 of 7 days/Wk (IRF) Estimated Hrs Per Day: 1.5 hours per day Patient and/or Family Agrees t: Yes Safety Risks/Education Patient Education: Gait Training, Transfer Techniques, Safety Issues Teaching Recipient: Patient Teaching Methods: Demonstration, Discussion Response to Teaching: Reinforcement Needed Discharge Recommendations Therapy D/C Recommendations: Physical Therapy Home Care Time/GCodes Time In: 1255 Time Out: 1325 Total Billed Treatment Time: 30 Total Billed Treatment visit GT 20 FA 10 KAHLIL JOSHUA PT Mar 22, 2017 15:08
[2017-03-22 18:26] VITALS: BP 124/85
[2017-03-22] MEDS: ONDANSETRON 4 MG (ZOFRAN) ORAL DISSOLVE TAB PO PRN (19:34)
[2017-03-22] MEDS: ATORVASTATIN 40 MG (LIPITOR) TABLET PO SCH (20:22)
[2017-03-23] MEDS: ALPRAZolam 1 MG (XANAX) TAB PO PRN (00:17)
[2017-03-23] MEDS: oxyCODONE/APAP 5/325MG (PERCOCET 5) TABLET PO PRN ×3 (04:11→23:29)
[2017-03-23 05:19] VITALS: BP 128/87
[2017-03-23] MEDS: ARIPIPRAZOLE 10 MG (ABILIFY) TAB PO SCH (08:17)
[2017-03-23] MEDS: CLOPIDOGREL 75 MG (PLAVIX) TABLET PO SCH (08:17)
[2017-03-23] MEDS: buPROPion SR 150 MG (WELLBUTRIN SR) TAB PO SCH ×2 (08:17→21:21)
[2017-03-23] MEDS: FAMOTIDINE 20 MG (PEPCID) TABLET PO SCH ×2 (08:17→21:21)
[2017-03-23] MEDS: meTOprolol SUCCINATE 100 MG (TOPROL XL) TAB PO SCH (08:17)
[2017-03-23] MEDS: amLODIPine 5 MG (NORVASC) TAB PO SCH (08:17)
--- NOTE | 2017-03-23 08:23 | Progress Note (SOAP) ---
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 Patient improving. Doing more with legs. Left upper extremity is tight Objective Exam Vital Signs Date Time Temp Pulse Resp B/P (MAP) Pulse Ox O2 Delivery O2 Flow Rate FiO2 03/23/17 05:19 98.7 101 18 128/87 (101) 97 Room Air 03/22/17 21:42 Room Air 03/22/17 18:26 98.8 77 16 124/85 (98) 98 Room Air I & O 03/23/17 07:00 Intake Total 1190 ml Balance 1190 ml Capillary Refill : General Appearance: No Apparent Distress, WD/WN HEENT: Normal ENT Inspection Neck: Full Range of Motion Respiratory: No Accessory Muscle Use, No Respiratory Distress Assessment/Plan Assessment/Plan Assess & Plan/Chief Complaint CVA. Left side weakness. Hypertension. Meth abuse history. . 02/28/17. CVA. Left-sided weakness. Hypertension. Patient is abuse history. Chest discomfort with some loose congestion. . 03/01/17. cva. llEFT-SIDED WEAKNESS. hYPERTENSION. METH ABUSE. Patient felt nauseous this a.m.. . 03/02/17. CVA. Left-sided weakness. Hypertension. Left abuse. Patient's left leg doing better. Patient's left upper extremity problems. . 03/05/17. CVA Left sided weakness. Meth abuse. Patient's left leg doing better Patient has problems with moving of left upper extremity. Patient voices no complaints. . 04/1916. CVA on left. Meth abuse history. Patient doing better with left leg. Not so with left arm.. . 03/07/17. CVA on left. Weakness. Hypertension. Meth abuse. patient doing better with left leg in the left arm. . 03/08/17. CVA on left. Weakness. Hypertension. . 03/09/17. CVA on left. Weakness. Hypertension. patient resting comfortably.. . 03/13/17. CVA on left. Weakness. Hypertension. Meth abuse. Depression. to increase the Wellbutrin. . 03/14. CVA on left. Depression. Hypertension. meth abuse.. . 03/15/17. CVA on left. Depression better. Hypertension okay. Meth abuse. Patient positive today . 03/20/17. CVA on left. Depression. Hypertension. Left abuse. Patient voices no complaints today. . /DISEASE/STATES SEEN. cva ON LEFT. dEPRESSION APPEARS BETTER. hYPERTENSIONAREA Methamphetamine abuse. Hypertension noncompliant 03/22/16. CVA on left. depression. Hypertension noncompliant history Meth abuse. Patient a work in progress. . 03/23/16. CVA on left. Depression better. hypertension. Meth abuse history. Patient doing better with legs Clinical Quality Measures DVT/VTE Risk/Contraindication: Risk Factor Score Per Nursin RFS Level Per Nursing on Admit: 4+=Very High JOAQUIM SHEN DO Mar 23, 2017 08:23
--- NOTE | 2017-03-23 08:52 | PM & R (SOAP) Progress Note ---
Subjective Time Seen by Provider: 08:35 Subjective/Events-last exam Patient was seen in her room this AM [facility] Objective Exam Last Set of Vital Signs Vital Signs Date Time Temp Pulse Resp B/P (MAP) Pulse Ox O2 Delivery O2 Flow Rate FiO2 03/23/17 05:19 98.7 101 18 128/87 (101) 97 Room Air Capillary Refill : I&O Intake and Output 03/23/17 00:00 Intake Total 950 ml Balance 950 ml Intake Oral 950 ml # Voids 5 General: Alert, Oriented X3, Cooperative, No Acute Distress HEENT: Atraumatic, EOMI, Mucous Memb Moist/[place] Neck: Supple, No JVD Lungs: Clear to Auscultation Abdomen: Normal Bowel Sounds, Soft, No Tenderness Extremities: No Edema, No Tenderness/Swelling Neuro: Other (Left HP with o/5 strength UE fiar+ good - left leg Sensation intact Cognition and speech and swallow intact) Assessment/Plan Assessment RT cva with Left HP HTN controlled HX of meth use Tobaccoism-currently abstaining and on patch GERD on med COPD with cough on resp treatments-CXR clear-cough improved Plan ContinuePT/OT ST has signed off Treat dyspepsia as needed-improved Monitor PO intake Team Conference held 03-21-17- -See report for full functional update and POC and ELOS. Discharge set tentatively for next week 04-01-17 Pateint requesting TLOA ( DAY PASS) for this weekend . See orders RODOLFO HUITRON MD Mar 23, 2017 08:52
--- NOTE | 2017-03-23 11:01 | Occupational Ther Daily Note ---
OT Current Status-Daily Note Subjective Pt sleeping in bed, woke to name. Pt agreed to therapy. No c/o pain at this time. Pt had resting hand splint on to decrease tone. Mental Status/Objective Patient Orientation: Person, Place, Time, Situation Functional [place] Measure 0=Not Assessed/NA 4=Minimal Assistance 1=Total Assistance 5=Supervision or Setup 2=Maximal Assistance 6=Modified [place] 3=Moderate Assistance 7=Complete [place] ADL-Treatment Functional [place] Measure 0=Not Assessed/NA 4=Minimal Assistance 1=Total Assistance 5=Supervision or Setup 2=Maximal Assistance 6=Modified [place] 3=Moderate Assistance 7=Complete IndependenceIRFPAI Quality Coding Scale 6 Independent with activity with or without an assistive device 5 Patient requires set up or clean up by helper. Patient completes activity by themselves 4 Supervision or touching assist (CGA). [place] provide cues , steadying assist 3 The helper provides less than half the effort to complete the activity 2 The helper provides more than half the effort to complete the activity 1 Dependent. The helper does all the effort to complete an activity 7 Patient refused to complete or attempt activity 9 The patient did not perform the activity before the current illness or injury 88 Not attempted due to Medical conditions or safety concerns Eating (FIM): 6 (Pt able to open containers and feed self with regular utensils. Gave pt a rocker knife to try with cutting food.) Eating (QC): 6 Grooming (FIM): 6 (Sitting in w/c, pt is able to complete own grooming at sink. ) Oral Hygiene (QC): 6 Bathing (FIM): 5 (Pt completed own bathing using grabbar, shower bench and hand held shower. Pt leaned side to side to cleanse buttocks. Pt shaved while in shower. Pt required assist in gathering supplies during shower.) Bathing Location: L Arm, R Arm, L Upper Leg, R Upper Leg, L Lower Leg ( including foot), R Lower Leg (including foot), Chest, Abdomen, Buttocks, Perineal Area Shower/Bathe Self (QC): 5 Upper Body (FIM): 4 (After set up, pt able to complete donning/doffing shirt by self. Pt required assist to fasten bra.) Upper Body Dressing (QC): 3 Lower Body Dressing (FIM): 4 (After set up, pt donned clothing sitting on EOB then leaned back to hike pants over hips. Pt required CGA in standing to hike pants down over hips. Pt donned B socks sitting on bed. Donned R shoes sitting on bed. Required assist to don AFO and L shoe.) Lower Body Dressing (QC): 3 On/Off Footwear (QC): 3 Toileting (FIM): 4 (Assist in standing to manipulate pants. Able to complete own hygiene.) Toileting Hygiene (QC): 3 Transfers (B, C, W/C) (FIM): 4 (CGA for stand pivot transfer. Verbal cues to position w/c correctly.) Toilet/Commode Transfer (FIM): 4 (CGA using grabbar and w/c.) Toilet Transfer (QC): 4 Shower Transfer(FIM): 4 (CGA using w/c, shower bench and grabbars to complete transfer.) After therapy, pt sitting in w/c in room with breakfast. Call light/phone in reach. All needs met in room. OT Short Term Goals Short Term Goals Time Frame: Mar 02, 2017 Grooming(FIM): 5 Bathing(FIM): 3 Upper Body Dressing(FIM): 4 Lower Body Dressing(FIM): 3 Toileting(FIM): 3 Transfers (B,C,W/C) (FIM): 4 (met) Toilet/Commode Transfer(FIM): 3 1=Demonstrate adherence to instructed precautions during ADL tasks. 2=Patient will verbalize/demonstrate understanding of assistive devices/ modifications for ADL. 3=Patient will improve strength/tolerance for activity to enable patient to perform ADL's. OT Nursing Home Goals Nursing Home Goals Time Frame: Mar 16, 2017 Eating (FIM): 6 (met) Eating (QC): 6 Groomin (ongoing) Oral Hygiene (QC): 6 Bathing(FIM): 4 (met) Shower/Bathe Self (QC): 4 Upper Body Dressing(FIM): 5 (ongoing) Upper Body Dressing (QC): 5 Lower Body Dressing(FIM): 4 (ongoing) Lower Body Dressing (QC): 4 On/Off Footwear (QC): 4 Toileting(FIM): 6 (ongoing) Toileting Hygiene (QC): 4 Toilet/Commode Transfer(FIM): 5 (ongoing) Toilet/Commode Transfer (QC): 4 Shower Transfer(FIM): 4 (met) Comprehension(FIM): 5 (MET) Expression (FIM): 5 (MET) Social Interaction(FIM): 5 (NOT MET) Problem Solving(FIM): 5 (MET) Memory(FIM): 5 (MET) Additional Goals: 1-Demonstrate ADL Tasks, 2-Verbalize Understanding, 3- ImproveStrength/Luis 1=Demonstrate adherence to instructed precautions during ADL tasks. 2=Patient will verbalize/demonstrate understanding of assistive devices/ modifications for ADL. 3=Patient will improve strength/tolerance for activity to enable patient to perform ADL's. OT Education/Plan Discharge Recommendations Plan/Recommendations: Continue POC Treatment Plan/Plan of Care Patient would benefit from OT for education, treatment and training to promote independence in ADL's, mobility, safety and/or upper extremity function for ADL' s. Plan of Care: ADL Retraining, Caregiver Training, Functional Mobility, Group Exercise/Act as Ind, UE Funct Exercise/Act, UE Neuromus Re-Ed/Coord Treatment Duration: Mar 16, 2017 Frequency: At least 5 of 7 days/Wk (IRF) Estimated Hrs Per Day: 1.5 hours per day Agreement: Yes Rehab Potential: Fair Time/GCodes Start Time: 07:30 Stop Time: 09:00 Total Time Billed (hr/min): 90 Billed Treatment Time 1 visit-ADL 6 (90 min) KAHLIL MENDEZ Mar 23, 2017 11:01
--- NOTE | 2017-03-23 11:17 | Physical Therapy Daily Note ---
PT Daily Note-Current Subjective Patient in bathroom post tx, agrees to PT and will come to the gym when she is done. Patient has no complaints of pain. Patient has a red spot on her foot from AFO so it will be modified to attempt to reduce pressure on her foot. Appearance Patient in wheelchair post tx, has nurse call, phone, tray, all needs met. Mental Status Patient Orientation: Normal For Age Transfers Functional [place] Measure 0=Not Assessed/NA 4=Minimal Assistance 1=Total Assistance 5=Supervision or Setup 2=Maximal Assistance 6=Modified [place] 3=Moderate Assistance 7=Complete IndependenceIRFPAI Quality Coding Scale 6 Independent with activity with or without an assistive device 5 Patient requires set up or clean up by helper. Patient completes activity by themselves 4 Supervision or touching assist (CGA). [place] provide cues , steadying assist 3 The helper provides less than half the effort to complete the activity 2 The helper provides more than half the effort to complete the activity 1 Dependent. The helper does all the effort to complete an activity 7 Patient refused to complete or attempt activity 9 The patient did not perform the activity before the current illness or injury 88 Not attempted due to Medical conditions or safety concerns Transfers (B, C, W/C) (FIM): 5 Sit to/from Stand: 5 Bed to/from Chair: 5 Patient now performs a stand pivot transfer to the left side with close SBA, occasional cues for positioning. Weight Bearing Right Lower Extremity: Right Weight Bearing/Tolerated Left Lower Extremity: Left Weight Bearing/Tolerated Gait Training Gait (FIM): 2 Distance: 100'x2 Gait Level of Assist: 4 Gait Persons Needed: 1 Gait Assistive Device: Cane Small Base Quad Patient ambulated 100'x2 using a quad cane with CGA and a left AFO. Patient had no LOB but still needs CGA. Exercises LAQ left side for 5 min NuStep Minutes: 15 NuStep Workload: 6 Treatments transfers, ambulation, functional strengthening, AFO modification Assessment Current Status: Fair Progress improving balance PT Short Term Goals Short Term Goals Time Frame: Mar 02, 2017 Transfers (B,C,W/C) (FIM): 4 (met) Gait (FIM): 1 Gait Distance Comment: 20' Gait Level of Assist: 2 Gait Assistive Device: Walker Nathan Wheelchair (FIM): 6 Wheelchair Distance: 150'x2 PT Circus Supervisor Goals Retirement Goals PT Circus Supervisor Goals Time Frame: Mar 16, 2017 Transfers (B,C,W/C) (FIM): 5 Sit to Lying (QC): 4 Lying-Sitting on Side/Bed(QC): 4 Sit to Stand (QC): 4 Rollin Roll Left to Right (QC): 4 Chair/[id number]-Gdwgk Xfer(QC): 4 Car Transfer (QC): 3 Gait (FIM): 2 Distance: 30' Walk 10 feet (QC): 3 Walk 10ft-Uneven Surface(QC): 3 Gait Level of Assist: 4 Gait Assistive Device: Cane Large Base Quad PT Plan Problem List Problem List: Activity Tolerance, Functional Strength, Safety, Balance, Gait, Transfer, Bed Mobility, ROM Treatment/Plan Treatment Plan: Continue Plan of Care Treatment Plan: Bed Mobility, Concurrent Therapy, Education, Functional Activity Luis, Functional Strength, Group Therapy, Gait, Safety, Therapeutic Exercise, Transfers Treatment Duration: Mar 16, 2017 Frequency: At least 5 of 7 days/Wk (IRF) Estimated Hrs Per Day: 1.5 hours per day Patient and/or Family Agrees t: Yes Safety Risks/Education Patient Education: Gait Training, Transfer Techniques, Correct Positioning, Safety Issues Teaching Recipient: Patient Teaching Methods: Demonstration, Discussion Response to Teaching: Reinforcement Needed Time/GCodes Time In: 1000 Time Out: 1100 Total Billed Treatment Time: 60 Total Billed Treatment 1 visit EX 15' FA 10' GT 35' KIERRA STERLING PT Mar 23, 2017 11:17
--- NOTE | 2017-03-23 15:45 | Physical Therapy Daily Note ---
PT Daily Note-Current Subjective Pt is sitting in [facility] pre tx and agrees to therapy. Pt reports no pain at this time. Appearance Pt returns to sitting in [facility] post tx. All needs met. Mental Status Patient Orientation: Normal For Age Transfers Functional [place] Measure 0=Not Assessed/NA 4=Minimal Assistance 1=Total Assistance 5=Supervision or Setup 2=Maximal Assistance 6=Modified [place] 3=Moderate Assistance 7=Complete IndependenceIRFPAI Quality Coding Scale 6 Independent with activity with or without an assistive device 5 Patient requires set up or clean up by helper. Patient completes activity by themselves 4 Supervision or touching assist (CGA). [place] provide cues , steadying assist 3 The helper provides less than half the effort to complete the activity 2 The helper provides more than half the effort to complete the activity 1 Dependent. The helper does all the effort to complete an activity 7 Patient refused to complete or attempt activity 9 The patient did not perform the activity before the current illness or injury 88 Not attempted due to Medical conditions or safety concerns Transfers (B, C, W/C) (FIM): 5 Scootin Supine to/from Sit: 5 Sit to/from Stand: 5 Close SBA required for safety. Wheelchair Training Does the Pt Use a Wheelchair?: Yes Wheelchair (FIM): 6 Wheelchair Distance: 3=150 ft Distance: 150 feet x2 Wheelchair Level of Assist: 6 Type of Wheelchair: Manual Pt propels with RUE and RLE. Exercises Supine Ex: Resisted flex/ext Supine Reps: 30 3x10 resisted knee extension 1x10, 1x5 during D1 F/E of the LLE Treatments Transfers, functional strengthening Assessment Current Status: Good Progress During resisted knee extension, pt noted difficulty during hip flexion. Pt was able to perform 5 repetitions of D1 F/E of the LLE until a break was needed. PT Short Term Goals Short Term Goals Time Frame: Mar 02, 2017 Transfers (B,C,W/C) (FIM): 4 (met) Gait (FIM): 1 Gait Distance Comment: 20' Gait Level of Assist: 2 Gait Assistive Device: Walker Nathan Wheelchair (FIM): 6 Wheelchair Distance: 150'x2 PT Product Marketing Analyst Goals Fdc Goals PT Product Marketing Analyst Goals Time Frame: Mar 16, 2017 Transfers (B,C,W/C) (FIM): 5 Sit to Lying (QC): 4 Lying-Sitting on Side/Bed(QC): 4 Sit to Stand (QC): 4 Rollin Roll Left to Right (QC): 4 Chair/Obv-ao-Qmpal Xfer(QC): 4 Car Transfer (QC): 3 Gait (FIM): 2 Distance: 30' Walk 10 feet (QC): 3 Walk 10ft-Uneven Surface(QC): 3 Gait Level of Assist: 4 Gait Assistive Device: Cane Large Base Quad PT Plan Problem List Problem List: Activity Tolerance, Functional Strength, Safety, Balance, Gait, Bed Mobility Treatment/Plan Treatment Plan: Continue Plan of Care Treatment Plan: Bed Mobility, Concurrent Therapy, Education, Functional Activity Luis, Functional Strength, Group Therapy, Gait, Safety, Therapeutic Exercise, Transfers Treatment Duration: Mar 16, 2017 Frequency: At least 5 of 7 days/Wk (IRF) Estimated Hrs Per Day: 1.5 hours per day Patient and/or Family Agrees t: Yes Safety Risks/Education Patient Education: Transfer Techniques, Correct Positioning, W/C Management, Safety Issues Teaching Recipient: Patient Teaching Methods: Demonstration, Discussion Response to Teaching: Reinforcement Needed Time/GCodes Time In: 130 Time Out: 200 Total Billed Treatment Time: 30 Total Billed Treatment 1 visit 10 [facility] 20 EX KIERRA STERLING PT Mar 23, 2017 15:45
[2017-03-23 18:40] VITALS: BP 119/78
[2017-03-23] MEDS: ATORVASTATIN 40 MG (LIPITOR) TABLET PO SCH (21:21)
[2017-03-24 05:36] VITALS: BP 118/67
[2017-03-24] MEDS: oxyCODONE/APAP 5/325MG (PERCOCET 5) TABLET PO PRN ×2 (06:28→14:17)
[2017-03-24] MEDS: CLOPIDOGREL 75 MG (PLAVIX) TABLET PO SCH (08:01)
[2017-03-24] MEDS: meTOprolol SUCCINATE 100 MG (TOPROL XL) TAB PO SCH (08:01)
[2017-03-24] MEDS: ARIPIPRAZOLE 10 MG (ABILIFY) TAB PO SCH (08:01)
[2017-03-24] MEDS: FAMOTIDINE 20 MG (PEPCID) TABLET PO SCH ×2 (08:01→21:54)
[2017-03-24] MEDS: amLODIPine 5 MG (NORVASC) TAB PO SCH (08:01)
[2017-03-24] MEDS: buPROPion SR 150 MG (WELLBUTRIN SR) TAB PO SCH ×2 (08:02→21:54)
--- NOTE | 2017-03-24 11:42 | Physical Therapy Daily Note ---
PT Daily Note-Current Subjective Pt. smiles and says her BF of 6 mo had initially "freaked out" when she was hospitalized with this CVA and drank a lot and wasnt in good contact with her but called her a couple days ago and asked her out on a dinner date. Pt. got clearance for a pass from the DrSasha and went out with "Sina" last night and had a great time. "We are going to try again but Im not going to live with him yet". Pt. c/o her right hand is stiff and sore and she suspects it is from pushing hard on the cane/walker to walk yesterday. Pt. declines getting up for gait this date Pain Numeric Pain Scale: 3 Location: Right Location Body Site: Hand Pain Description: Ache Comment: pt. states right hand is sore/stiff Mental Status Patient Orientation: Normal For Age Transfers Functional [place] Measure 0=Not Assessed/NA 4=Minimal Assistance 1=Total Assistance 5=Supervision or Setup 2=Maximal Assistance 6=Modified [place] 3=Moderate Assistance 7=Complete IndependenceIRFPAI Quality Coding Scale 6 Independent with activity with or without an assistive device 5 Patient requires set up or clean up by helper. Patient completes activity by themselves 4 Supervision or touching assist (CGA). [place] provide cues , steadying assist 3 The helper provides less than half the effort to complete the activity 2 The helper provides more than half the effort to complete the activity 1 Dependent. The helper does all the effort to complete an activity 7 Patient refused to complete or attempt activity 9 The patient did not perform the activity before the current illness or injury 88 Not attempted due to Medical conditions or safety concerns Transfers (B, C, W/C) (FIM): 5 Scootin Rollin rolls left and right and pushes self up in bed indep Exercises Supine Ex: Bridging, Ankle pumps, Quad Set, Rolling, Glut sets, Heel Slides, Short Arc Quads, Scooting, Straight leg raise, Hip abd/add Supine Reps: 25 Treatments moist hot pack to right hand x 8 min . pt. states she feels a little better, looser after MHP Assessment Current Status: Good Progress PT Short Term Goals Short Term Goals Time Frame: Mar 02, 2017 Transfers (B,C,W/C) (FIM): 4 (met) Gait (FIM): 1 Gait Distance Comment: 20' Gait Level of Assist: 2 Gait Assistive Device: Walker Nathan Wheelchair (FIM): 6 Wheelchair Distance: 150 feet x2 PT Performing Arts Road Manager Goals Performing Arts Road Manager Goals PT Fdc Goals Time Frame: Mar 16, 2017 Transfers (B,C,W/C) (FIM): 5 Sit to Lying (QC): 4 Lying-Sitting on Side/Bed(QC): 4 Sit to Stand (QC): 4 Rollin Roll Left to Right (QC): 4 Chair/Ysb-dx-Fdfma Xfer(QC): 4 Car Transfer (QC): 3 Gait (FIM): 2 Distance: 30' Walk 10 feet (QC): 3 Walk 10ft-Uneven Surface(QC): 3 Gait Level of Assist: 4 Gait Assistive Device: Cane Large Base Quad PT Plan Treatment/Plan Treatment Plan: Continue Plan of Care Treatment Plan: Bed Mobility, Concurrent Therapy, Education, Functional Activity Luis, Functional Strength, Group Therapy, Gait, Safety, Therapeutic Exercise, Transfers Treatment Duration: Mar 16, 2017 Frequency: At least 5 of 7 days/Wk (IRF) Estimated Hrs Per Day: 1.5 hours per day Patient and/or Family Agrees t: Yes Safety Risks/Education Patient Education: Correct Positioning, Disease Process, Safety Issues Teaching Recipient: Patient Teaching Methods: Demonstration, Discussion Response to Teaching: Verbalize Understanding, Return Demonstration, Reinforcement Needed Time/GCodes Time In: 1035 Time Out: 1100 Total Billed Treatment Time: 25 Total Billed Treatment 1,EX25m G Codes Necessary: MARY KATE Urena BRIDAL GOWN FITTER Mar 24, 2017 11:42
[2017-03-24] MEDS: ONDANSETRON 4 MG (ZOFRAN) ORAL DISSOLVE TAB PO PRN ×2 (16:04→21:54)
[2017-03-24 18:33] VITALS: BP 109/72
[2017-03-24] MEDS: ATORVASTATIN 40 MG (LIPITOR) TABLET PO SCH (21:54)
[2017-03-24] MEDS: ALPRAZolam 1 MG (XANAX) TAB PO PRN (22:18)
[2017-03-25] MEDS: oxyCODONE/APAP 5/325MG (PERCOCET 5) TABLET PO PRN ×2 (02:19→16:56)
[2017-03-25 05:18] VITALS: BP 119/73
[2017-03-25] MEDS: ARIPIPRAZOLE 10 MG (ABILIFY) TAB PO SCH (08:15)
[2017-03-25] MEDS: buPROPion SR 150 MG (WELLBUTRIN SR) TAB PO SCH ×2 (08:16→20:20)
[2017-03-25] MEDS: CLOPIDOGREL 75 MG (PLAVIX) TABLET PO SCH (08:16)
[2017-03-25] MEDS: FAMOTIDINE 20 MG (PEPCID) TABLET PO SCH ×2 (08:16→20:20)
[2017-03-25] MEDS: amLODIPine 5 MG (NORVASC) TAB PO SCH (08:16)
[2017-03-25] MEDS: meTOprolol SUCCINATE 100 MG (TOPROL XL) TAB PO SCH (08:16)
[2017-03-25 18:24] VITALS: BP 142/77
[2017-03-25] MEDS: ATORVASTATIN 40 MG (LIPITOR) TABLET PO SCH (20:20)
[2017-03-25] MEDS: ALPRAZolam 1 MG (XANAX) TAB PO PRN (22:47)
[2017-03-26] MEDS: oxyCODONE/APAP 5/325MG (PERCOCET 5) TABLET PO PRN ×3 (02:42→22:58)
[2017-03-26 05:10] VITALS: BP 121/85
--- NOTE | 2017-03-26 08:41 | Progress Note (SOAP) ---
Subjective Time Seen by Provider: 08:40 Subjective/Events-last exam PATIENT MOST OF THE TIME IS IN WHEELCHAIR.. Patient can use cane with physical therapy. Patient's left hand not feeling well. Left leg is improving. CVA noncompliance with hypertension. left abuse Objective Exam Vital Signs Date Time Temp Pulse Resp B/P (MAP) Pulse Ox O2 Delivery O2 Flow Rate FiO2 03/26/17 05:10 98.8 87 18 121/85 (97) 98 Room Air 03/25/17 20:30 Room Air 03/25/17 18:24 99.9 94 20 142/77 (98) 96 Room Air I & O 03/26/17 07:00 Intake Total 1090 ml Balance 1090 ml Capillary Refill : General Appearance: No Apparent Distress, WD/WN HEENT: Normal ENT Inspection Neck: Full Range of Motion, Normal Inspection Respiratory: Chest Non Tender, Lungs Clear, Normal Breath Sounds, No Accessory Muscle Use, No Respiratory Distress Cardiovascular: Regular Rate, Rhythm, No Murmur Assessment/Plan Assessment/Plan Assess & Plan/Chief Complaint CVA. Left side weakness. Hypertension. Meth abuse history. . 02/28/17. CVA. Left-sided weakness. Hypertension. Patient is abuse history. Chest discomfort with some loose congestion. . 03/01/17. cva. llEFT-SIDED WEAKNESS. hYPERTENSION. METH ABUSE. Patient felt nauseous this a.m.. . 03/02/17. CVA. Left-sided weakness. Hypertension. Left abuse. Patient's left leg doing better. Patient's left upper extremity problems. . 03/05/17. CVA Left sided weakness. Meth abuse. Patient's left leg doing better Patient has problems with moving of left upper extremity. Patient voices no complaints. . 04/1916. CVA on left. Meth abuse history. Patient doing better with left leg. Not so with left arm.. . 03/07/17. CVA on left. Weakness. Hypertension. Meth abuse. patient doing better with left leg in the left arm. . 03/08/17. CVA on left. Weakness. Hypertension. . 03/09/17. CVA on left. Weakness. Hypertension. patient resting comfortably.. . 03/13/17. CVA on left. Weakness. Hypertension. Meth abuse. Depression. to increase the Wellbutrin. . 03/14. CVA on left. Depression. Hypertension. meth abuse.. . 03/15/17. CVA on left. Depression better. Hypertension okay. Meth abuse. Patient positive today . 03/20/17. CVA on left. Depression. Hypertension. Left abuse. Patient voices no complaints today. . /DISEASE/STATES SEEN. cva ON LEFT. dEPRESSION APPEARS BETTER. hYPERTENSIONAREA Methamphetamine abuse. Hypertension noncompliant 03/22/16. CVA on left. depression. Hypertension noncompliant history Meth abuse. Patient a work in progress. . 03/23/16. CVA on left. Depression better. hypertension. Meth abuse history. Patient doing better with legs. . CVA on left. Depression better. Hypertension. Patient able to use cane with physical therapy. Patient in wheelchair Clinical Quality Measures DVT/VTE Risk/Contraindication: Risk Factor Score Per Nursin RFS Level Per Nursing on Admit: 4+=Very High JOAQUIM SHEN DO Mar 26, 2017 08:41
[2017-03-26] MEDS: amLODIPine 5 MG (NORVASC) TAB PO SCH (08:52)
[2017-03-26] MEDS: meTOprolol SUCCINATE 100 MG (TOPROL XL) TAB PO SCH (08:52)
[2017-03-26] MEDS: ARIPIPRAZOLE 10 MG (ABILIFY) TAB PO SCH (08:52)
[2017-03-26] MEDS: CLOPIDOGREL 75 MG (PLAVIX) TABLET PO SCH (08:53)
[2017-03-26] MEDS: buPROPion SR 150 MG (WELLBUTRIN SR) TAB PO SCH ×2 (08:53→20:09)
[2017-03-26] MEDS: FAMOTIDINE 20 MG (PEPCID) TABLET PO SCH ×2 (08:53→20:09)
--- NOTE | 2017-03-26 10:00 | Physical Therapy Daily Note ---
PT Daily Note-Current Subjective Pt. explains more about the exact situation at her grandfathers home in the bathroom she will use there. Pt. states she prefers using the nathan cane vs Qcane. States she has lost her balance using the Qcane. No LOB, near SBA with nathan. Ptl cried this date stating she is so happy after trialing gait without AFO or knee immoblizer. This was done after pt. practiced donning AFO, immoblizer and shoe indep. This process required assist to retrieve devices as well as occas min to kofi and to trouble shoot. Pt. states her grandfather wont be able to help her very much and she suspects she may need to be up to toilet etc in a more expedient manner. Pain Numeric Pain Scale: 0-No Pain Mental Status Patient Orientation: Normal For Age Attachments: Other-See Comments (AFO,knee immob) Transfers Functional [place] Measure 0=Not Assessed/NA 4=Minimal Assistance 1=Total Assistance 5=Supervision or Setup 2=Maximal Assistance 6=Modified [place] 3=Moderate Assistance 7=Complete IndependenceIRFPAI Quality Coding Scale 6 Independent with activity with or without an assistive device 5 Patient requires set up or clean up by helper. Patient completes activity by themselves 4 Supervision or touching assist (CGA). [place] provide cues , steadying assist 3 The helper provides less than half the effort to complete the activity 2 The helper provides more than half the effort to complete the activity 1 Dependent. The helper does all the effort to complete an activity 7 Patient refused to complete or attempt activity 9 The patient did not perform the activity before the current illness or injury 88 Not attempted due to Medical conditions or safety concerns Transfers (B, C, W/C) (FIM): 6 Scootin Rollin Supine to/from Sit: 6 Sit to/from Stand: 6 SPTs from w/c to Rx table and back with and without AFO and immoblizer as well as moving w/c after seated on mat all SBA Gait Training Does the Patient Walk?: Yes Gait (FIM): 2 Distance (FIM): 4=313-92 ft (75) Gait Level of Assist: 4 (CGA only, no LOB) Gait Persons Needed: 1 Gait Assistive Device: Walker Nathan pt. also walked at rail in hallway CGA 20 ft without AFO or knee immob, no buckling, pt. lifiting left hip to clear left foot better. Wheelchair Training Does the Pt Use a Wheelchair?: Yes Wheelchair (FIM): 6 Wheelchair Distance: 3=150 ft Wheelchair Level of Assist: 6 Type of Wheelchair: Manual Exercises Supine Ex: Bridging, Ankle pumps (HC stretch 4 x 20 s left), Rolling, Heel Slides, Short Arc Quads, Straight leg raise (stretches), Hip abd/add (stretches) Supine Reps: 15 Treatments much time spent trialing indep in donning AFO, shoe and knee immoblizer. Pt. can do this given time Assessment Current Status: Good Progress increased stability in gait with and without AFO etc PT Short Term Goals Short Term Goals Time Frame: Mar 02, 2017 Transfers (B,C,W/C) (FIM): 4 (met) Gait (FIM): 1 Gait Distance Comment: 20' Gait Level of Assist: 2 Gait Assistive Device: Walker Nathan Wheelchair (FIM): 6 Wheelchair Distance: 150 feet x2 PT Blasting [employer] Goals Prison Goals PT Blasting [employer]er Goals Time Frame: Mar 16, 2017 Transfers (B,C,W/C) (FIM): 5 Sit to Lying (QC): 4 Lying-Sitting on Side/Bed(QC): 4 Sit to Stand (QC): 4 Rollin Roll Left to Right (QC): 4 Chair/Akp-hi-Nklbx Xfer(QC): 4 Car Transfer (QC): 3 Gait (FIM): 2 Distance: 30' Walk 10 feet (QC): 3 Walk 10ft-Uneven Surface(QC): 3 Gait Level of Assist: 4 Gait Assistive Device: Cane Large Base Quad PT Plan Treatment/Plan Treatment Plan: Continue Plan of Care Treatment Plan: Bed Mobility, Concurrent Therapy, Education, Functional Activity Luis, Functional Strength, Group Therapy, Gait, Safety, Therapeutic Exercise, Transfers Treatment Duration: Mar 16, 2017 Frequency: At least 5 of 7 days/Wk (IRF) Estimated Hrs Per Day: 1.5 hours per day Patient and/or Family Agrees t: Yes Safety Risks/Education Patient Education: Gait Training, Transfer Techniques, Correct Positioning, Safety Issues Teaching Recipient: Patient Teaching Methods: Demonstration, Discussion Response to Teaching: Verbalize Understanding, Return Demonstration, Reinforcement Needed Time/GCodes Time In: 900 Time Out: 1000 Total Billed Treatment Time: 60 Total Billed Treatment ,FA30m,PAae07l,EX10m G Codes Necessary: MARY KATE Urena BIG DATA SOLUTIONS ARCHITECT Mar 26, 2017 10:00
--- NOTE | 2017-03-26 14:07 | Occupational Ther Daily Note ---
OT Current Status-Daily Note Subjective No pain reported. Appearance Pt. states that she does not feel like showering today. OT encourages her to change clothing. Pt. states that the clothes she has on "are fine." Agrees to go to gym with OT. Mental Status/Objective Patient Orientation: Person Functional [place] Measure 0=Not Assessed/NA 4=Minimal Assistance 1=Total Assistance 5=Supervision or Setup 2=Maximal Assistance 6=Modified [place] 3=Moderate Assistance 7=Complete [place] ADL-Treatment Functional [place] Measure 0=Not Assessed/NA 4=Minimal Assistance 1=Total Assistance 5=Supervision or Setup 2=Maximal Assistance 6=Modified [place] 3=Moderate Assistance 7=Complete IndependenceIRFPAI Quality Coding Scale 6 Independent with activity with or without an assistive device 5 Patient requires set up or clean up by helper. Patient completes activity by themselves 4 Supervision or touching assist (CGA). [place] provide cues , steadying assist 3 The helper provides less than half the effort to complete the activity 2 The helper provides more than half the effort to complete the activity 1 Dependent. The helper does all the effort to complete an activity 7 Patient refused to complete or attempt activity 9 The patient did not perform the activity before the current illness or injury 88 Not attempted due to Medical conditions or safety concerns Transfers (B, C, W/C) (FIM): 4 (CGA for sit-stand and transfer to mat/ wheelchair.) Pt. is able to self propel wheelchair to therapy gym. Does not have AFO on so takes that with her to work on standing. Pt. does not remember how to don it while in wheelchair, so transfers to therapy mat. Has some difficulty so min cues are given on sequencing of putting on AFO. Pt. is able to do this with cues, and is able to put shoe back on as well. OT and pt. work on sit-stands at tabletop with cues to position feet correctly, as well as push up from surface. Pt. states that she "forgets" sometimes how to do this correctly. Stands three times, 1-2 minutes each time. Pt. is unable to get left hand into full extension, so OT does this for her, and puts weight through hand while pt. is standing. Pt. states that she has been wearing her resting hand splint at night. Pt. works on controlled sitting as well, with attention to sitting slowly and engaging quads. Pt. states that she does not have "much feeling" in left LE. After standing task, pt. participates in e-stim. Tolerates 7 brandi- amps to left wrist extensors x 10 minutes, and 7.5 brandi-amps to left finger flexors. Note good movement with stimulation. After this, OT provides gentle massage and PROM to left UE. No subluxation noted. Increased tone setting in. Noted increase tightness in pectorals. Scapula facilitated during shoulder flexion movements. Pt. states that it does not hurt when OT ranges arm, but often hurts when she tries herself. Pt. is educated about proper positioning and need for increased movement. Pt. verbalizes understanding. Went back to room via wheelchair. Transferred back to bed. All needs met. Education OT Patient Education: Correct positioning, Exercise program, Modified ADL techniques, Progress toward Goal/Update tx plan, Purpose of tx/functional activities, Reviewed precautions, Rehab process, Transfer techniques Teaching Recipient: Patient Teaching Methods: Demonstration, Discussion Response to Teaching: Verbalize Understanding, Return Demonstration OT Short Term Goals Short Term Goals Time Frame: Mar 02, 2017 Grooming(FIM): 5 Bathing(FIM): 3 Upper Body Dressing(FIM): 4 Lower Body Dressing(FIM): 3 Toileting(FIM): 3 Transfers (B,C,W/C) (FIM): 4 (met) Toilet/Commode Transfer(FIM): 3 1=Demonstrate adherence to instructed precautions during ADL tasks. 2=Patient will verbalize/demonstrate understanding of assistive devices/ modifications for ADL. 3=Patient will improve strength/tolerance for activity to enable patient to perform ADL's. OT Computer Support Analyst Goals Computer Support Analyst Goals Time Frame: Mar 16, 2017 Eating (FIM): 6 (met) Eating (QC): 6 Groomin (ongoing) Oral Hygiene (QC): 6 Bathing(FIM): 4 (met) Shower/Bathe Self (QC): 4 Upper Body Dressing(FIM): 5 (ongoing) Upper Body Dressing (QC): 5 Lower Body Dressing(FIM): 4 (ongoing) Lower Body Dressing (QC): 4 On/Off Footwear (QC): 4 Toileting(FIM): 6 (ongoing) Toileting Hygiene (QC): 4 Toilet/Commode Transfer(FIM): 5 (ongoing) Toilet/Commode Transfer (QC): 4 Shower Transfer(FIM): 4 (met) Comprehension(FIM): 5 (MET) Expression (FIM): 5 (MET) Social Interaction(FIM): 5 (NOT MET) Problem Solving(FIM): 5 (MET) Memory(FIM): 5 (MET) Additional Goals: 1-Demonstrate ADL Tasks, 2-Verbalize Understanding, 3- ImproveStrength/Luis 1=Demonstrate adherence to instructed precautions during ADL tasks. 2=Patient will verbalize/demonstrate understanding of assistive devices/ modifications for ADL. 3=Patient will improve strength/tolerance for activity to enable patient to perform ADL's. OT Education/Plan Problem List/Assessment Assessment: Decreased Activ Tolerance, Decreased UE Strength, Impaired Bed Mobility, Impaired Coordination, Impaired Funct Balance, Impaired I ADL's, Impaired Self-Care Skills, Restricted Funct UE ROM Discharge Recommendations Plan/Recommendations: Continue POC Therapy D/C Recommendations: Home w/ Family Support, Occupational Therapy Home Care Target Placement Home to grandfather's house. Treatment Plan/Plan of Care Treatment,Training & Education: Yes Patient would benefit from OT for education, treatment and training to promote independence in ADL's, mobility, safety and/or upper extremity function for ADL' s. Plan of Care: ADL Retraining, Caregiver Training, Functional Mobility, Group Exercise/Act as Ind, UE Funct Exercise/Act, UE Neuromus Re-Ed/Coord Treatment Duration: Mar 16, 2017 Frequency: At least 5 of 7 days/Wk (IRF) Estimated Hrs Per Day: 1.5 hours per day Agreement: Yes Rehab Potential: Fair Time/GCodes Start Time: 10:15 Stop Time: 11:15 Total Time Billed (hr/min): 60 Billed Treatment Time 1, FA x 30minutes, NM x 30minutes MARI ECKERT OT Mar 26, 2017 14:07
--- NOTE | 2017-03-26 14:34 | Therapy Group Daily Note ---
Therapy Daily Group Note Patient Education Topic Home Safety, Other List Below (wheelchair ) Exercises LE Seated Exercise, UE Exercise Other/Notes Pt. participated in group PT OT session this date. Pt. wheeled self in w/c to group. Pt. was pleasant and shared her name , where she is from and was socially appropriate. Education topics and demonstration this date included transfer techniques and safety and well as bed mobility techniques and pressure relief. Pt also participated in seated U&L extremity exercises. Pt. to room after, in bed with call jackman at hand. Start Time: 13:00 Stop Time: 14:15 Total Billed Treatment Time: 75 Total Billed Treatment 1,GRP MARY KATE MAGUIRE RESTAURANT AND BAR MANAGER Mar 26, 2017 14:34
--- NOTE | 2017-03-26 17:11 | PM & R (SOAP) Progress Note ---
Subjective Time Seen by Provider: 16:55 Subjective/Events-last exam Patient was seen in her room this Afternoon Patient Modified Independent for transfers Objective Exam Last Set of Vital Signs Vital Signs Date Time Temp Pulse Resp B/P (MAP) Pulse Ox O2 Delivery O2 Flow Rate FiO2 03/26/17 08:32 Room Air 03/26/17 05:10 98.8 87 18 121/85 (97) 98 Capillary Refill : I&O Intake and Output 03/25/17 23:59 Intake Total 1140 ml Balance 1140 ml Intake Oral 1140 ml # Voids 4 # Bowel Movements 2 General: Alert, Oriented X3, Cooperative, No Acute Distress HEENT: Atraumatic, EOMI, Mucous Memb Moist/[place] Neck: Supple, No JVD Lungs: Clear to Auscultation Abdomen: Normal Bowel Sounds, Soft, No Tenderness Extremities: No Edema, No Tenderness/Swelling Neuro: Other (Left HP with o/5 strength UE fiar+ good - left leg Sensation intact Cognition and speech and swallow intact) Assessment/Plan Assessment RT cva with Left HP HTN controlled HX of meth use Tobaccoism-currently abstaining and on patch GERD on med COPD with cough on resp treatments-CXR clear-cough improved Plan ContinuePT/OT ST has signed off Treat dyspepsia as needed-improved Monitor PO intake Next Team Conference 03-28-17. Discharge set tentatively for end of this week 04-01-17 Recheck Labs RODOLFO HUITRON MD Mar 26, 2017 17:11
[2017-03-26 18:40] VITALS: BP 127/88
[2017-03-26] MEDS: ALPRAZolam 1 MG (XANAX) TAB PO PRN (20:09)
[2017-03-26] MEDS: ATORVASTATIN 40 MG (LIPITOR) TABLET PO SCH (20:09)
[2017-03-27] MEDS: oxyCODONE/APAP 5/325MG (PERCOCET 5) TABLET PO PRN ×3 (04:54→22:18)
[2017-03-27 05:37] VITALS: BP 109/76
[2017-03-27 06:48] LABS: BASOPHILS % (AUTO) 0 % (0-10); EOSINOPHILS # (AUTO) 0.1 10^3/uL (0.0-0.3); EOSINOPHILS % (AUTO) 2 % (0-10); HEMATOCRIT 35 % (35-52); HEMOGLOBIN 12.4 G/DL (11.5-16.0); LYMPHOCYTES # (AUTO) 1.1 X 10^3 (1.0-4.0); LYMPHOCYTES % (AUTO) 25 % (12-44); MEAN CORPUSCULAR HEMOGLOBIN 31 PG (25-34); MEAN CORPUSCULAR HGB CONC 35 G/DL (32-36); MEAN CORPUSCULAR VOLUME 89 FL (80-99); MEAN PLATELET VOLUME 11.3 FL (7.4-10.4); MONOCYTES # (AUTO) 0.5 X 10^3 (0.0-1.0); MONOCYTES % (AUTO) 13 % (0-12); NEUTROPHILS # (AUTO) 2.5 X 10^3 (1.8-7.8); NEUTROPHILS % (AUTO) 60 % (42-75); PLATELET COUNT 162 10^3/uL (130-400); RED BLOOD COUNT 3.98 10^6/uL (4.35-5.85); RED CELL DISTRIBUTION WIDTH 12.1 % (10.0-14.5); WHITE BLOOD COUNT 4.2 10^3/uL (4.3-11.0)
[2017-03-27 07:17] LABS: ALANINE AMINOTRANSFERASE 18 U/L (0-55); ALBUMIN 3.3 GM/DL (3.2-4.5); ALKALINE PHOSPHATASE 58 U/L (40-136); BILIRUBIN,TOTAL 0.3 MG/DL (0.1-1.0); BUN/CREATININE RATIO 14; CALCIUM 8.6 MG/DL (8.5-10.1); CARBON DIOXIDE 21 MMOL/L (21-32); CHLORIDE 107 MMOL/L (98-107); CREATININE SERUM 0.81 MG/DL (0.60-1.30); GFR ESTIMATED > 60; GLUCOSE 88 MG/DL (70-105); POTASSIUM 3.3 MMOL/L (3.6-5.0); SODIUM 140 MMOL/L (135-145); TOTAL PROTEIN 5.8 GM/DL (6.4-8.2)
--- NOTE | 2017-03-27 08:44 | Progress Note (SOAP) ---
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 Meth abuse. Hypertension with noncompliance. Patient continues to improve. patient doing best with left lower leg Objective Exam Vital Signs Date Time Temp Pulse Resp B/P (MAP) Pulse Ox O2 Delivery O2 Flow Rate FiO2 03/27/17 05:37 98.1 94 20 109/76 (87) 94 Room Air 03/26/17 21:00 Room Air 03/26/17 18:40 98.8 88 20 127/88 (101) 98 Room Air I & O 03/27/17 07:00 Intake Total 1040 ml Balance 1040 ml Capillary Refill : General Appearance: No Apparent Distress, WD/WN Results Lab Laboratory Tests 03/27/17 05:23: White Blood Count 4.2L, Red Blood Count 3.98L, Hemoglobin 12.4, Hematocrit 35, Mean Corpuscular Volume 89, Mean Corpuscular Hemoglobin 31, Mean Corpuscular Hemoglobin Concent 35, Red Cell Distribution Width 12.1, Platelet Count 162, Mean Platelet Volume 11.3H, Neutrophils (%) (Auto) 60, Lymphocytes (%) (Auto) 25 , Monocytes (%) (Auto) 13H, Eosinophils (%) (Auto) 2, Basophils (%) (Auto) 0, Neutrophils # (Auto) 2.5, Lymphocytes # (Auto) 1.1, Monocytes # (Auto) 0.5, Eosinophils # (Auto) 0.1, Basophils # (Auto) 0.0, Sodium Level 140, Potassium Level 3.3L, Chloride Level 107, Carbon Dioxide Level 21, Anion Gap 12, Blood Urea Nitrogen 11, Creatinine 0.81, Estimat Glomerular Filtration Rate > 60, BUN/ Creatinine Ratio 14, Glucose Level 88, Calcium Level 8.6, Total Bilirubin 0.3, Aspartate Amino Transf (AST/SGOT) 15, Alanine Aminotransferase (ALT/SGPT) 18, Alkaline Phosphatase 58, Total Protein 5.8L, Albumin 3.3 Assessment/Plan Assessment/Plan Assess & Plan/Chief Complaint CVA. Left side weakness. Hypertension. Meth abuse history. . 02/28/17. CVA. Left-sided weakness. Hypertension. Patient is abuse history. Chest discomfort with some loose congestion. . 03/01/17. cva. llEFT-SIDED WEAKNESS. hYPERTENSION. METH ABUSE. Patient felt nauseous this a.m.. . 03/02/17. CVA. Left-sided weakness. Hypertension. Left abuse. Patient's left leg doing better. Patient's left upper extremity problems. . 03/05/17. CVA Left sided weakness. Meth abuse. Patient's left leg doing better Patient has problems with moving of left upper extremity. Patient voices no complaints. . 04/1916. CVA on left. Meth abuse history. Patient doing better with left leg. Not so with left arm.. . 03/07/17. CVA on left. Weakness. Hypertension. Meth abuse. patient doing better with left leg in the left arm. . 03/08/17. CVA on left. Weakness. Hypertension. . 03/09/17. CVA on left. Weakness. Hypertension. patient resting comfortably.. . 03/13/17. CVA on left. Weakness. Hypertension. Meth abuse. Depression. to increase the Wellbutrin. . 03/14. CVA on left. Depression. Hypertension. meth abuse.. . 03/15/17. CVA on left. Depression better. Hypertension okay. Meth abuse. Patient positive today . 03/20/17. CVA on left. Depression. Hypertension. Left abuse. Patient voices no complaints today. . /DISEASE/STATES SEEN. cva ON LEFT. dEPRESSION APPEARS BETTER. hYPERTENSIONAREA Methamphetamine abuse. Hypertension noncompliant 03/22/16. CVA on left. depression. Hypertension noncompliant history Meth abuse. Patient a work in progress. . 03/23/16. CVA on left. Depression better. hypertension. Meth abuse history. Patient doing better with legs. . . CVA on left. Depression better. Hypertension. Patient able to use cane with physical therapy. Patient in wheelchair. . 03/27/17. CVA on left. Depression. Hypertension. Patient working better and improving Clinical Quality Measures DVT/VTE Risk/Contraindication: Risk Factor Score Per Nursin RFS Level Per Nursing on Admit: 4+=Very High JOAQUIM SHEN DO Mar 27, 2017 08:44
[2017-03-27] MEDS: buPROPion SR 150 MG (WELLBUTRIN SR) TAB PO SCH ×2 (08:55→20:21)
[2017-03-27] MEDS: ARIPIPRAZOLE 10 MG (ABILIFY) TAB PO SCH (08:56)
[2017-03-27] MEDS: FAMOTIDINE 20 MG (PEPCID) TABLET PO SCH ×2 (08:57→20:21)
[2017-03-27] MEDS: meTOprolol SUCCINATE 100 MG (TOPROL XL) TAB PO SCH (08:57)
[2017-03-27] MEDS: CLOPIDOGREL 75 MG (PLAVIX) TABLET PO SCH (08:57)
[2017-03-27] MEDS: amLODIPine 5 MG (NORVASC) TAB PO SCH (08:58)
--- NOTE | 2017-03-27 09:00 | Physical Therapy Daily Note ---
PT Daily Note-Current Subjective Patient in bed pre tx, agrees to PT. Patient has some pain and swelling in her right hand, nurse and doctor notified. Appearance Patient sitting EOB post tx with nurse call, phone, tray, all needs met. Mental Status Patient Orientation: Normal For Age Transfers Functional [place] Measure 0=Not Assessed/NA 4=Minimal Assistance 1=Total Assistance 5=Supervision or Setup 2=Maximal Assistance 6=Modified [place] 3=Moderate Assistance 7=Complete IndependenceIRFPAI Quality Coding Scale 6 Independent with activity with or without an assistive device 5 Patient requires set up or clean up by helper. Patient completes activity by themselves 4 Supervision or touching assist (CGA). [place] provide cues , steadying assist 3 The helper provides less than half the effort to complete the activity 2 The helper provides more than half the effort to complete the activity 1 Dependent. The helper does all the effort to complete an activity 7 Patient refused to complete or attempt activity 9 The patient did not perform the activity before the current illness or injury 88 Not attempted due to Medical conditions or safety concerns Transfers (B, C, W/C) (FIM): 5 Scootin Rollin Supine to/from Sit: 6 Sit to/from Stand: 5 Bed to/from Chair: 5 Patient still needs occasional cues for hand placement during standing and transfers, performs stand pivot with SBA to the left. Gait Training Gait (FIM): 4 Distance: 150', 20' Gait Level of Assist: 4 Gait Persons Needed: 1 Gait Assistive Device: Walker Nathan left AFO, no LOB Wheelchair Training Does the Pt Use a Wheelchair?: Yes Wheelchair (FIM): 6 Distance: 150'x2 Type of Wheelchair: Manual Stair Training Stair Training: Handrails/: 1 handrail Stairs (FIM): 2 #of Steps: 4 Stairs: Pattern: Step to Level of Assist: 4 Patient went up and down 4 steps x2 using 1 handrail with CGA and cues for step placement and safety, had some scissoring but was able to self-correct. Exercises sit to stand from therapy table with hand on knee 3 sets of 10 Treatments bed mobility and transfers, ambulation, functional strengthening, wheelchair mobility, stair training Assessment Current Status: Fair Progress improving balance and transfers PT Short Term Goals Short Term Goals Time Frame: Mar 02, 2017 Transfers (B,C,W/C) (FIM): 4 (met) Gait (FIM): 1 Gait Distance Comment: 20' Gait Level of Assist: 2 Gait Assistive Device: Walker Nathan Wheelchair (FIM): 6 Wheelchair Distance: 150 feet x2 PT Mechanical Design Engineer Facilities Goals Mechanical Design Engineer Facilities Goals PT Mechanical Design Engineer Facilities Goals Time Frame: Mar 16, 2017 Transfers (B,C,W/C) (FIM): 5 Sit to Lying (QC): 4 Lying-Sitting on Side/Bed(QC): 4 Sit to Stand (QC): 4 Rollin Roll Left to Right (QC): 4 Chair/Xtw-ye-Cizbr Xfer(QC): 4 Car Transfer (QC): 3 Gait (FIM): 2 Distance: 30' Walk 10 feet (QC): 3 Walk 10ft-Uneven Surface(QC): 3 Gait Level of Assist: 4 Gait Assistive Device: Cane Large Base Quad PT Plan Problem List Problem List: Activity Tolerance, Functional Strength, Safety, Balance, Gait, Transfer Treatment/Plan Treatment Plan: Continue Plan of Care Treatment Plan: Bed Mobility, Concurrent Therapy, Education, Functional Activity Luis, Functional Strength, Group Therapy, Gait, Safety, Therapeutic Exercise, Transfers Treatment Duration: Mar 16, 2017 Frequency: At least 5 of 7 days/Wk (IRF) Estimated Hrs Per Day: 1.5 hours per day Patient and/or Family Agrees t: Yes Safety Risks/Education Patient Education: Gait Training, Transfer Techniques, Steps, Correct Positioning, W/C Management, Safety Issues Teaching Recipient: Patient Teaching Methods: Demonstration, Discussion Response to Teaching: Reinforcement Needed Time/GCodes Time In: 800 Time Out: 900 Total Billed Treatment Time: 60 Total Billed Treatment 1 visit GT 30' EX 10' FA 20' KIERRA STERLING PT Mar 27, 2017 09:00
[2017-03-27 09:01] VITALS: BP 118/87
[2017-03-27] MEDS ORDERED: KCL 10 MEQ TAB (MICRO K) PO NR (09:15)
--- NOTE | 2017-03-27 15:16 | Physical Therapy Daily Note ---
PT Daily Note-Current Subjective Pt using restroom upon arrival. Pt agrees to PT. Pain Location: No Pain Reported Mental Status Patient Orientation: Person, Place, Situation Attachments: Other-See Comments (L AFO) Transfers Functional [place] Measure 0=Not Assessed/NA 4=Minimal Assistance 1=Total Assistance 5=Supervision or Setup 2=Maximal Assistance 6=Modified [place] 3=Moderate Assistance 7=Complete IndependenceIRFPAI Quality Coding Scale 6 Independent with activity with or without an assistive device 5 Patient requires set up or clean up by helper. Patient completes activity by themselves 4 Supervision or touching assist (CGA). [place] provide cues , steadying assist 3 The helper provides less than half the effort to complete the activity 2 The helper provides more than half the effort to complete the activity 1 Dependent. The helper does all the effort to complete an activity 7 Patient refused to complete or attempt activity 9 The patient did not perform the activity before the current illness or injury 88 Not attempted due to Medical conditions or safety concerns Scootin Supine to/from Sit: 6 Sit to/from Stand: 6 Sit to Lying (QC): 6 Sit to Stand (QC): 6 Chair/Ezq-uv-Bbout Xfer(QC): 6 Bed to/from Chair: 6 Weight Bearing Right Lower Extremity: Right Full Weight Bearing Left Lower Extremity: Left Full Weight Bearing Gait Training Does the Patient Walk?: Yes Distance (FIM): 5=316-93 ft Distance: 60' Walk 10 feet (QC): 4 Walk 50 ft with 2 Turns(QC): 4 Gait Level of Assist: 4 Gait Persons Needed: 1 Gait Assistive Device: Walker Nathan Pt feels fatigued this afternoon. Pt walks with slow elliot but walking has improved & is more normalized. Wheelchair Training Does the Pt Use a Wheelchair?: Yes Wheelchair Distance: 5=169-20 ft Distance: 100' Wheelchair Level of Assist: 6 Wheel 50 ft with 2 turns (QC): 6 Type of Wheelchair: Manual Exercises Standing: Mini squats, Unilateral stance, Weight shifts Standing Reps: 15 (15 reps x 2 sets) Treatments Pt transfers from toilet to standing at Mod I but TOP POL[employer]ER gives assistance to pulling up pants. Pt transfers to [facility] using SPT at Mod I. Pt propels [facility] to Therapy Gym before completing ambulation using Nathan at [facility] for fatigue. Pt completes Standing Ex at //bars with [employer] at [facility]. Pt returns to room to rest. Pt transfers to Supine in bed using SPT at Mod I. Pt rests with all needs met at end of tx. Assessment Current Status: Good Progress Pt has improved with safety and independence of all transfers and ambulation, now including stairs. PT Short Term Goals Short Term Goals Time Frame: Mar 02, 2017 Transfers (B,C,W/C) (FIM): 4 (met) Gait (FIM): 1 Gait Distance Comment: 20' Gait Level of Assist: 2 Gait Assistive Device: Walker Nathan Wheelchair (FIM): 6 Wheelchair Distance: 150'x2 PT Correction Goals Correction Goals PT [employer] Goals Time Frame: Mar 16, 2017 Transfers (B,C,W/C) (FIM): 5 Sit to Lying (QC): 4 Lying-Sitting on Side/Bed(QC): 4 Sit to Stand (QC): 4 Rollin Roll Left to Right (QC): 4 Chair/Jhl-vo-Ooabk Xfer(QC): 4 Car Transfer (QC): 3 Gait (FIM): 2 Distance: 30' Walk 10 feet (QC): 3 Walk 10ft-Uneven Surface(QC): 3 Gait Level of Assist: 4 Gait Assistive Device: Cane Large Base Quad PT Plan Problem List Problem List: Activity Tolerance, Functional Strength, Gait Treatment/Plan Treatment Plan: Continue Plan of Care Treatment Plan: Bed Mobility, Concurrent Therapy, Education, Functional Activity Luis, Functional Strength, Group Therapy, Gait, Safety, Therapeutic Exercise, Transfers Treatment Duration: Mar 16, 2017 Frequency: At least 5 of 7 days/Wk (IRF) Estimated Hrs Per Day: 1.5 hours per day Patient and/or Family Agrees t: Yes Safety Risks/Education Patient Education: Gait Training, Correct Positioning, Safety Issues Teaching Recipient: Patient Teaching Methods: Discussion Response to Teaching: Verbalize Understanding Time/GCodes Time In: 1430 Time Out: 1500 Total Billed Treatment Time: 30 Total Billed Treatment 1, FA (20m) & GT (10m) JESSE BOO TOP POLISHER Mar 27, 2017 15:16
--- NOTE | 2017-03-27 15:18 | Occupational Ther Daily Note ---
OT Current Status-Daily Note Subjective No pain reported. Appearance Pt. up in chair. Agrees to work with OT. Mental Status/Objective Patient Orientation: Person, Place Functional [place] Measure 0=Not Assessed/NA 4=Minimal Assistance 1=Total Assistance 5=Supervision or Setup 2=Maximal Assistance 6=Modified [place] 3=Moderate Assistance 7=Complete [place] ADL-Treatment Functional [place] Measure 0=Not Assessed/NA 4=Minimal Assistance 1=Total Assistance 5=Supervision or Setup 2=Maximal Assistance 6=Modified [place] 3=Moderate Assistance 7=Complete IndependenceIRFPAI Quality Coding Scale 6 Independent with activity with or without an assistive device 5 Patient requires set up or clean up by helper. Patient completes activity by themselves 4 Supervision or touching assist (CGA). [place] provide cues , steadying assist 3 The helper provides less than half the effort to complete the activity 2 The helper provides more than half the effort to complete the activity 1 Dependent. The helper does all the effort to complete an activity 7 Patient refused to complete or attempt activity 9 The patient did not perform the activity before the current illness or injury 88 Not attempted due to Medical conditions or safety concerns Grooming (FIM): 5 (SBA at wheelchair level.) Oral Hygiene (QC): 4 Bathing (FIM): 5 (SBA in shower.) Shower/Bathe Self (QC): 4 Upper Body (FIM): 4 (Min assist with bra. SBA with shirt.) Upper Body Dressing (QC): 4 Lower Body Dressing (FIM): 5 (Pt. transferred to bed after shower. Completed LE dressing tasks from bed level/supine with SBA.) Lower Body Dressing (QC): 4 On/Off Footwear (QC): 5 (At bed level.) Transfers (B, C, W/C) (FIM): 5 After shower task, pt. self propelled wheelchair to laundry room. Completed laundry task with CGA in stance at washing machine. Went to therapy gym. OT completed gentle stretch to left UE in all planes, including massage and pressure to pectorals. No subluxation noted. However, pt. is having some soreness with movement at the bicep tendon. Pt. is educated about positioning and need for stretch, as well as need for wearing resting hand splint at night. Verbalizes understanding. Education OT Patient Education: Correct positioning, Exercise program, Modified ADL techniques, Progress toward Goal/Update tx plan, Purpose of tx/functional activities, Reviewed precautions, Rehab process, Transfer techniques Teaching Recipient: Patient Teaching Methods: Demonstration, Discussion Response to Teaching: Verbalize Understanding, Return Demonstration OT Short Term Goals Short Term Goals Time Frame: Mar 02, 2017 Grooming(FIM): 5 Bathing(FIM): 3 Upper Body Dressing(FIM): 4 Lower Body Dressing(FIM): 3 Toileting(FIM): 3 Transfers (B,C,W/C) (FIM): 4 (met) Toilet/Commode Transfer(FIM): 3 1=Demonstrate adherence to instructed precautions during ADL tasks. 2=Patient will verbalize/demonstrate understanding of assistive devices/ modifications for ADL. 3=Patient will improve strength/tolerance for activity to enable patient to perform ADL's. OT Chcf Goals Chcf Goals Time Frame: Mar 16, 2017 Eating (FIM): 6 (met) Eating (QC): 6 Groomin (ongoing) Oral Hygiene (QC): 6 Bathing(FIM): 4 (met) Shower/Bathe Self (QC): 4 Upper Body Dressing(FIM): 5 (ongoing) Upper Body Dressing (QC): 5 Lower Body Dressing(FIM): 4 (ongoing) Lower Body Dressing (QC): 4 On/Off Footwear (QC): 4 Toileting(FIM): 6 (ongoing) Toileting Hygiene (QC): 4 Toilet/Commode Transfer(FIM): 5 (ongoing) Toilet/Commode Transfer (QC): 4 Shower Transfer(FIM): 4 (met) Comprehension(FIM): 5 (MET) Expression (FIM): 5 (MET) Social Interaction(FIM): 5 (NOT MET) Problem Solving(FIM): 5 (MET) Memory(FIM): 5 (MET) Additional Goals: 1-Demonstrate ADL Tasks, 2-Verbalize Understanding, 3- ImproveStrength/Luis 1=Demonstrate adherence to instructed precautions during ADL tasks. 2=Patient will verbalize/demonstrate understanding of assistive devices/ modifications for ADL. 3=Patient will improve strength/tolerance for activity to enable patient to perform ADL's. OT Education/Plan Problem List/Assessment Assessment: Decreased Activ Tolerance, Decreased UE Strength, Dependent Transfers, Impaired Coordination, Impaired Funct Balance, Impaired I ADL's, Impaired Self-Care Skills, Restricted Funct UE ROM Discharge Recommendations Plan/Recommendations: Continue POC Therapy D/C Recommendations: Home w/ Family Support, Occupational Therapy Home Care Treatment Plan/Plan of Care Treatment,Training & Education: Yes Patient would benefit from OT for education, treatment and training to promote independence in ADL's, mobility, safety and/or upper extremity function for ADL' s. Plan of Care: ADL Retraining, Caregiver Training, Functional Mobility, Group Exercise/Act as Ind, UE Funct Exercise/Act, UE Neuromus Re-Ed/Coord Treatment Duration: Mar 16, 2017 Frequency: At least 5 of 7 days/Wk (IRF) Estimated Hrs Per Day: 1.5 hours per day Agreement: Yes Rehab Potential: Good Time/GCodes Start Time: 10:30 Stop Time: 12:00 Total Time Billed (hr/min): 90 Billed Treatment Time 1, ADL x 60minutes, NM x 30minutes MARI ECKERT OT Mar 27, 2017 15:18
--- NOTE | 2017-03-27 15:36 | PM & R (SOAP) Progress Note ---
Subjective Time Seen by Provider: 07:40 Subjective/Events-last exam Patient was seen in her room this AM Patient Modified Independent for traNSFERS. Review of Systems Neurological: Weakness Objective Exam Last Set of Vital Signs Vital Signs Date Time Temp Pulse Resp B/P (MAP) Pulse Ox O2 Delivery O2 Flow Rate FiO2 03/27/17 09:01 108 118/87 (97) 03/27/17 08:39 Room Air 03/27/17 05:37 98.1 20 94 Capillary Refill : I&O Intake and Output 03/27/17 00:00 Intake Total 1190 ml Balance 1190 ml Intake Oral 1190 ml # Voids 5 # Bowel Movements 1 General: Alert, Oriented X3, Cooperative, No Acute Distress HEENT: Atraumatic, EOMI, Mucous Memb Moist/[place] Neck: Supple, No JVD Lungs: Clear to Auscultation Abdomen: Normal Bowel Sounds, Soft, No Tenderness Extremities: No Edema, No Tenderness/Swelling Neuro: Other (Left HP with o/5 strength UE fiar+ good - left leg Sensation intact Cognition and speech and swallow intact) Results Lab Laboratory Tests 03/27/17 05:23: White Blood Count 4.2L, Red Blood Count 3.98L, Hemoglobin 12.4, Hematocrit 35, Mean Corpuscular Volume 89, Mean Corpuscular Hemoglobin 31, Mean Corpuscular Hemoglobin Concent 35, Red Cell Distribution Width 12.1, Platelet Count 162, Mean Platelet Volume 11.3H, Neutrophils (%) (Auto) 60, Lymphocytes (%) (Auto) 25 , Monocytes (%) (Auto) 13H, Eosinophils (%) (Auto) 2, Basophils (%) (Auto) 0, Neutrophils # (Auto) 2.5, Lymphocytes # (Auto) 1.1, Monocytes # (Auto) 0.5, Eosinophils # (Auto) 0.1, Basophils # (Auto) 0.0, Sodium Level 140, Potassium Level 3.3L, Chloride Level 107, Carbon Dioxide Level 21, Anion Gap 12, Blood Urea Nitrogen 11, Creatinine 0.81, Estimat Glomerular Filtration Rate > 60, BUN/ Creatinine Ratio 14, Glucose Level 88, Calcium Level 8.6, Total Bilirubin 0.3, Aspartate Amino Transf (AST/SGOT) 15, Alanine Aminotransferase (ALT/SGPT) 18, Alkaline Phosphatase 58, Total Protein 5.8L, Albumin 3.3 Assessment/Plan Assessment RT cva with Left HP HTN controlled HX of meth use Tobaccoism-currently abstaining and on patch GERD on med COPD with cough on resp treatments-CXR clear-cough improved Hypokalemia-replace Plan ContinuePT/OT ST has signed off Treat dyspepsia as needed-improved Monitor PO intake Next Team Conference tomorrow 03-28-17. Discharge set tentatively for end of this week 04-01-17-Will confirm with SW Rechecked Labs Replace K-See orders. RODOLFO HUITRON MD Mar 27, 2017 15:36
[2017-03-27 18:49] VITALS: BP 125/85
[2017-03-27] MEDS: ATORVASTATIN 40 MG (LIPITOR) TABLET PO SCH (20:21)
[2017-03-27] MEDS: ALPRAZolam 1 MG (XANAX) TAB PO PRN (20:21)
[2017-03-28 05:11] VITALS: BP 121/79
--- NOTE | 2017-03-28 08:34 | Progress Note (SOAP) ---
Subjective Time Seen by Provider: 08:32 Subjective/Events-last exam right hand hurting today by the emanuel Patient voices no other complaints Objective Exam Vital Signs Date Time Temp Pulse Resp B/P (MAP) Pulse Ox O2 Delivery O2 Flow Rate FiO2 03/28/17 05:11 96.7 89 18 121/79 (93) 98 Room Air 03/27/17 21:00 Room Air 03/27/17 18:49 97.9 82 16 125/85 (98) 98 Room Air 03/27/17 09:01 108 118/87 (97) 03/27/17 08:39 Room Air I & O 03/28/17 07:00 Intake Total 980 ml Balance 980 ml Capillary Refill : General Appearance: No Apparent Distress, WD/WN Assessment/Plan Assessment/Plan Assess & Plan/Chief Complaint CVA. Left side weakness. Hypertension. Meth abuse history. . 02/28/17. CVA. Left-sided weakness. Hypertension. Patient is abuse history. Chest discomfort with some loose congestion. . 03/01/17. cva. llEFT-SIDED WEAKNESS. hYPERTENSION. METH ABUSE. Patient felt nauseous this a.m.. . 03/02/17. CVA. Left-sided weakness. Hypertension. Left abuse. Patient's left leg doing better. Patient's left upper extremity problems. . 03/05/17. CVA Left sided weakness. Meth abuse. Patient's left leg doing better Patient has problems with moving of left upper extremity. Patient voices no complaints. . 04/1916. CVA on left. Meth abuse history. Patient doing better with left leg. Not so with left arm.. . 03/07/17. CVA on left. Weakness. Hypertension. Meth abuse. patient doing better with left leg in the left arm. . 03/08/17. CVA on left. Weakness. Hypertension. . 03/09/17. CVA on left. Weakness. Hypertension. patient resting comfortably.. . 03/13/17. CVA on left. Weakness. Hypertension. Meth abuse. Depression. to increase the Wellbutrin. . 03/14. CVA on left. Depression. Hypertension. meth abuse.. . 03/15/17. CVA on left. Depression better. Hypertension okay. Meth abuse. Patient positive today . 03/20/17. CVA on left. Depression. Hypertension. Left abuse. Patient voices no complaints today. . /DISEASE/STATES SEEN. cva ON LEFT. dEPRESSION APPEARS BETTER. hYPERTENSIONAREA Methamphetamine abuse. Hypertension noncompliant 03/22/16. CVA on left. depression. Hypertension noncompliant history Meth abuse. Patient a work in progress. . 03/23/16. CVA on left. Depression better. hypertension. Meth abuse history. Patient doing better with legs. . . CVA on left. Depression better. Hypertension. Patient able to use cane with physical therapy. Patient in wheelchair. . 03/27/17. CVA on left. Depression. Hypertension. Patient working better and improving . 03/28/17 CVA on left. Depression. Hypertension. Patient's right hand bothering her Clinical Quality Measures DVT/VTE Risk/Contraindication: Risk Factor Score Per Nursin RFS Level Per Nursing on Admit: 4+=Very High JOAQUIM HSEN DO Mar 28, 2017 08:34
[2017-03-28] MEDS: FAMOTIDINE 20 MG (PEPCID) TABLET PO SCH ×2 (08:37→20:51)
[2017-03-28] MEDS: ARIPIPRAZOLE 10 MG (ABILIFY) TAB PO SCH (08:37)
[2017-03-28] MEDS: CLOPIDOGREL 75 MG (PLAVIX) TABLET PO SCH (08:37)
[2017-03-28] MEDS: amLODIPine 5 MG (NORVASC) TAB PO SCH (08:37)
[2017-03-28] MEDS: meTOprolol SUCCINATE 100 MG (TOPROL XL) TAB PO SCH (08:37)
[2017-03-28] MEDS: oxyCODONE/APAP 5/325MG (PERCOCET 5) TABLET PO PRN ×3 (08:38→22:17)
[2017-03-28] MEDS: buPROPion SR 150 MG (WELLBUTRIN SR) TAB PO SCH ×2 (08:38→20:51)
--- NOTE | 2017-03-28 09:34 | PM & R (SOAP) Progress Note ---
Subjective Time Seen by Provider: 07:55 Subjective/Events-last exam Patient was seen in her room this AM .Concerned re pain dorsum rt hand Patient has tenderness over dorsum rt hand most likely due to overuse to assist with WT bearing-Symptomatic relief [place] consider Xray..Patient Mod Independent for transfers Objective Exam Last Set of Vital Signs Vital Signs Date Time Temp Pulse Resp B/P (MAP) Pulse Ox O2 Delivery O2 Flow Rate FiO2 03/28/17 05:11 96.7 89 18 121/79 (93) 98 Room Air Capillary Refill : I&O Intake and Output 03/28/17 00:00 Intake Total 880 ml Balance 880 ml Intake Oral 880 ml # Voids 4 General: Alert, Oriented X3, Cooperative, No Acute Distress HEENT: Atraumatic, EOMI, Mucous Memb Moist/[place] Neck: Supple, No JVD Lungs: Clear to Auscultation Abdomen: Normal Bowel Sounds, Soft, No Tenderness Extremities: No Edema, No Tenderness/Swelling Neuro: Other (Left HP with o/5 strength UE fiar+ good - left leg Sensation intact Cognition and speech and swallow intact) Results Lab Laboratory Tests 03/27/17 05:23: White Blood Count 4.2L, Red Blood Count 3.98L, Hemoglobin 12.4, Hematocrit 35, Mean Corpuscular Volume 89, Mean Corpuscular Hemoglobin 31, Mean Corpuscular Hemoglobin Concent 35, Red Cell Distribution Width 12.1, Platelet Count 162, Mean Platelet Volume 11.3H, Neutrophils (%) (Auto) 60, Lymphocytes (%) (Auto) 25 , Monocytes (%) (Auto) 13H, Eosinophils (%) (Auto) 2, Basophils (%) (Auto) 0, Neutrophils # (Auto) 2.5, Lymphocytes # (Auto) 1.1, Monocytes # (Auto) 0.5, Eosinophils # (Auto) 0.1, Basophils # (Auto) 0.0, Sodium Level 140, Potassium Level 3.3L, Chloride Level 107, Carbon Dioxide Level 21, Anion Gap 12, Blood Urea Nitrogen 11, Creatinine 0.81, Estimat Glomerular Filtration Rate > 60, BUN/ Creatinine Ratio 14, Glucose Level 88, Calcium Level 8.6, Total Bilirubin 0.3, Aspartate Amino Transf (AST/SGOT) 15, Alanine Aminotransferase (ALT/SGPT) 18, Alkaline Phosphatase 58, Total Protein 5.8L, Albumin 3.3 Assessment/Plan Assessment RT cva with Left HP HTN controlled HX of meth use Tobaccoism-currently abstaining and on patch GERD on med COPD with cough on resp treatments-CXR clear-cough improved Hypokalemia-replace Tendinitis rt hand-can plantar and dorsiflex rt wrist without difficulty Plan ContinuePT/OT ST has signed off Treat dyspepsia as needed-improved Monitor PO intake Next Team Conference later today 03-28-17.-See report for full functional update and POC Discharge set tentatively for end of this week 04-01-17-Will confirm with SW Rechecked Labs Replaced K-See orders. Treat rt hand pain symptomatically RODOLFO HUITRON MD Mar 28, 2017 09:34
--- NOTE | 2017-03-28 10:58 | Physical Therapy Daily Note ---
PT Daily Note-Current Subjective Pt sitting in [facility] upon arrival. Pt agrees to PT. Mental Status Patient Orientation: Person, Place, Situation Attachments: Other-See Comments (L AFO) Transfers Functional [place] Measure 0=Not Assessed/NA 4=Minimal Assistance 1=Total Assistance 5=Supervision or Setup 2=Maximal Assistance 6=Modified [place] 3=Moderate Assistance 7=Complete IndependenceIRFPAI Quality Coding Scale 6 Independent with activity with or without an assistive device 5 Patient requires set up or clean up by helper. Patient completes activity by themselves 4 Supervision or touching assist (CGA). [place] provide cues , steadying assist 3 The helper provides less than half the effort to complete the activity 2 The helper provides more than half the effort to complete the activity 1 Dependent. The helper does all the effort to complete an activity 7 Patient refused to complete or attempt activity 9 The patient did not perform the activity before the current illness or injury 88 Not attempted due to Medical conditions or safety concerns Scootin Supine to/from Sit: 5 Sit to/from Stand: 5 Sit to Lying (QC): 5 Sit to Stand (QC): 5 Chair/Ffr-oc-Pwkbx Xfer(QC): 5 Bed to/from Chair: 5 Weight Bearing Right Lower Extremity: Right Full Weight Bearing Left Lower Extremity: Left Full Weight Bearing Gait Training Does the Patient Walk?: Yes Distance (FIM): 3=150 ft Distance: 125', 135' Walk 10 feet (QC): 4 Walk 50 ft with 2 Turns(QC): 4 Walk 150 ft (QC): 4 Gait Level of Assist: 4 Gait Persons Needed: 1 Gait Assistive Device: Walker Nathan Wheelchair Training Does the Pt Use a Wheelchair?: Yes Wheelchair Distance: 3=150 ft Distance: 200' Wheelchair Level of Assist: 6 Wheel 50 ft with 2 turns (QC): 6 Type of Wheelchair: Manual Exercises Supine Ex: Ankle pumps, Quad Set, Glut sets, Heel Slides, Straight leg raise, Hip abd/add Seated Therapy Exercises: Long arc quads, Hip flexion, Kicking activity Treatments Pt propels [facility] from room in hallway and to Therapy Gym. Pt transfers via SPT from [facility] to EOB then to Supine to complete Supine Ex on mat. Pt takes a couple short rest breaks then transfers to EOB to complete Seated Ex. Pt then transfers back to [facility] followed by ambulation in hallway using Nathan at [facility]. PT returns to [facility] after walk and rest in room at end of tx with all needs met. Assessment Current Status: Good Progress Pt is getting more proficient with transfers and ambulation both with safety and independence. PT Short Term Goals Short Term Goals Time Frame: Mar 02, 2017 Transfers (B,C,W/C) (FIM): 4 (met) Gait (FIM): 1 Gait Distance Comment: 20' Gait Level of Assist: 2 Gait Assistive Device: Walker Nathan Wheelchair (FIM): 6 Wheelchair Distance: 100' PT Ict Support Engineer Goals Ict Support Engineer Goals PT Chcf Goals Time Frame: Mar 16, 2017 Transfers (B,C,W/C) (FIM): 5 Sit to Lying (QC): 4 Lying-Sitting on Side/Bed(QC): 4 Sit to Stand (QC): 4 Rollin Roll Left to Right (QC): 4 Chair/Aoe-io-[place]wk[place] Xfer(QC): 4 Car Transfer (QC): 3 Gait (FIM): 2 Distance: 30' Walk 10 feet (QC): 3 Walk 10ft-Uneven Surface(QC): 3 Gait Level of Assist: 4 Gait Assistive Device: Cane Large Base Quad PT Plan Problem List Problem List: Activity Tolerance, Gait Treatment/Plan Treatment Plan: Continue Plan of Care Treatment Plan: Bed Mobility, Concurrent Therapy, Education, Functional Activity Luis, Functional Strength, Group Therapy, Gait, Safety, Therapeutic Exercise, Transfers Treatment Duration: Mar 16, 2017 Frequency: At least 5 of 7 days/Wk (IRF) Estimated Hrs Per Day: 1.5 hours per day Patient and/or Family Agrees t: Yes Safety Risks/Education Patient Education: Gait Training, Correct Positioning, Safety Issues Teaching Recipient: Patient Teaching Methods: Discussion Response to Teaching: Verbalize Understanding Time/GCodes Time In: 1000 Time Out: 1100 Total Billed Treatment 1, WC (15m), EX x2 (30m) & GT (15m) JESSE BOO GEOMETRY TUTOR Mar 28, 2017 10:57
[2017-03-28] MEDS: DICLOFENAC 1% GEL 100 GM (VOLTAREN) TUBE TOP SCH ×3 (13:33→20:51)
--- NOTE | 2017-03-28 15:26 | Therapy Group Daily Note ---
Therapy Daily Group Note Patient Education Topic Other List Below (memory strategies) Exercises LE Seated Exercise, UE Exercise Other/Notes Pt maneuvered w/c to OT[facility]PT group [facility] area. OT/PT group consisted of introductions (name, place living, worst forgotten moment), socialization, UE/ LE seated exercises, memory strategy education, memory activity, ARU description and expectations. Pt appropriately introduced self. Pt then was able to complete UE/LE seated exercises, difficulty moving L UE/LE's during exercises, but did attempt. Pt verbalized understanding of visual strategies for memory and gave a description of what she used for a memory strategy at home. Pt then participated in memory activity unable to find matches. Pt maneuvered w/c back to room and sat in w/c. Call light/phone in reach. All needs met in room. Start Time: 13:00 Stop Time: 14:20 Total Billed Treatment Time: 80 Total Billed Treatment 1-GRP KAHLIL MENDEZ Mar 28, 2017 15:26
--- NOTE | 2017-03-28 16:06 | Occupational Ther Daily Note ---
OT Current Status-Daily Note Subjective Pt. states that she is sore from "sleeping wrong." Does not report a pain level. Appearance Pt. sitting on side of bed. Agrees to work with OT. Mental Status/Objective Patient Orientation: Person, Place, Time Functional [place] Measure 0=Not Assessed/NA 4=Minimal Assistance 1=Total Assistance 5=Supervision or Setup 2=Maximal Assistance 6=Modified [place] 3=Moderate Assistance 7=Complete [place] ADL-Treatment Functional [place] Measure 0=Not Assessed/NA 4=Minimal Assistance 1=Total Assistance 5=Supervision or Setup 2=Maximal Assistance 6=Modified [place] 3=Moderate Assistance 7=Complete IndependenceIRFPAI Quality Coding Scale 6 Independent with activity with or without an assistive device 5 Patient requires set up or clean up by helper. Patient completes activity by themselves 4 Supervision or touching assist (CGA). [place] provide cues , steadying assist 3 The helper provides less than half the effort to complete the activity 2 The helper provides more than half the effort to complete the activity 1 Dependent. The helper does all the effort to complete an activity 7 Patient refused to complete or attempt activity 9 The patient did not perform the activity before the current illness or injury 88 Not attempted due to Medical conditions or safety concerns Pt. declines showering and is already dressed from the day before. Requests to stay in those clothing items, as they "aren't dirty." Pt. transfers to wheelchair with SBA. Self propels wheelchair to therapy gym. Transfers to mat and into supine position with SBA. Pt. reports that her right hand is sore. Physician comes and looks at it and orders cream for it for pain control. Possible overuse stiffness. OT applies heat pack to left shoulder and arm while massaging right hand with lotion, for pain control. Pt. states that it feels good. After massage of right hand, OT takes off heat pack for muscle tightness. Completed PROM exercises to left UE while pt. in supine position, with gentle stretch in all planes. Note that left hand continues to be in "drawn up" position. Pt. states that she is still wearing resting hand splint at night, which seems to help. Applied gentle pressure to left pectorals, biceps, deltoids in hopes that muscles would relax and tone release. Pt's left UE did seem to decrease in tone. After massage and range, pt. transferred back to sitting position with SBA, and then to wheelchair with SBA. Went back to room with all needs met. Education OT Patient Education: Correct positioning, Exercise program, Progress toward Goal/Update tx plan, Purpose of tx/functional activities, Reviewed precautions, Rehab process, Transfer techniques Teaching Recipient: Patient Teaching Methods: Demonstration, Discussion Response to Teaching: Verbalize Understanding, Return Demonstration OT Short Term Goals Short Term Goals Time Frame: Mar 02, 2017 Grooming(FIM): 5 Bathing(FIM): 3 Upper Body Dressing(FIM): 4 Lower Body Dressing(FIM): 3 Toileting(FIM): 3 Transfers (B,C,W/C) (FIM): 4 (met) Toilet/Commode Transfer(FIM): 3 1=Demonstrate adherence to instructed precautions during ADL tasks. 2=Patient will verbalize/demonstrate understanding of assistive devices/ modifications for ADL. 3=Patient will improve strength/tolerance for activity to enable patient to perform ADL's. OT Die Trouble Shooter Goals Alf Goals Time Frame: Mar 16, 2017 Eating (FIM): 6 (met) Eating (QC): 6 Groomin (ongoing) Oral Hygiene (QC): 6 Bathing(FIM): 4 (met) Shower/Bathe Self (QC): 4 Upper Body Dressing(FIM): 5 (ongoing) Upper Body Dressing (QC): 5 Lower Body Dressing(FIM): 4 (ongoing) Lower Body Dressing (QC): 4 On/Off Footwear (QC): 4 Toileting(FIM): 6 (ongoing) Toileting Hygiene (QC): 4 Toilet/Commode Transfer(FIM): 5 (ongoing) Toilet/Commode Transfer (QC): 4 Shower Transfer(FIM): 4 (met) Comprehension(FIM): 5 (MET) Expression (FIM): 5 (MET) Social Interaction(FIM): 5 (NOT MET) Problem Solving(FIM): 5 (MET) Memory(FIM): 5 (MET) Additional Goals: 1-Demonstrate ADL Tasks, 2-Verbalize Understanding, 3- ImproveStrength/Luis 1=Demonstrate adherence to instructed precautions during ADL tasks. 2=Patient will verbalize/demonstrate understanding of assistive devices/ modifications for ADL. 3=Patient will improve strength/tolerance for activity to enable patient to perform ADL's. OT Education/Plan Problem List/Assessment Assessment: Decreased Activ Tolerance, Decreased UE Strength, Impaired Coordination, Impaired I ADL's, Restricted Funct UE ROM Discharge Recommendations Plan/Recommendations: Continue POC Therapy D/C Recommendations: Home w/ Family Support, Occupational Therapy Home Care Treatment Plan/Plan of Care Treatment,Training & Education: Yes Patient would benefit from OT for education, treatment and training to promote independence in ADL's, mobility, safety and/or upper extremity function for ADL' s. Plan of Care: ADL Retraining, Caregiver Training, Functional Mobility, Group Exercise/Act as Ind, UE Funct Exercise/Act, UE Neuromus Re-Ed/Coord Treatment Duration: Mar 16, 2017 Frequency: At least 5 of 7 days/Wk (IRF) Estimated Hrs Per Day: 1.5 hours per day Agreement: Yes Rehab Potential: Good Time/GCodes Start Time: 08:30 Stop Time: 09:30 Total Time Billed (hr/min): 60 Billed Treatment Time 1, ADL x 15minutes, NM x 45minutes MARI ECKERT OT Mar 28, 2017 16:06
[2017-03-28 19:56] VITALS: BP 122/73
[2017-03-28] MEDS: ATORVASTATIN 40 MG (LIPITOR) TABLET PO SCH (20:51)
[2017-03-28] MEDS: ALPRAZolam 1 MG (XANAX) TAB PO PRN (22:17)
[2017-03-29 05:42] VITALS: BP 115/79
[2017-03-29] MEDS: meTOprolol SUCCINATE 100 MG (TOPROL XL) TAB PO SCH (07:47)
[2017-03-29] MEDS: ARIPIPRAZOLE 10 MG (ABILIFY) TAB PO SCH (07:47)
[2017-03-29] MEDS: FAMOTIDINE 20 MG (PEPCID) TABLET PO SCH ×2 (07:48→20:54)
[2017-03-29] MEDS: oxyCODONE/APAP 5/325MG (PERCOCET 5) TABLET PO PRN ×3 (07:48→21:15)
[2017-03-29] MEDS: amLODIPine 5 MG (NORVASC) TAB PO SCH (07:48)
[2017-03-29] MEDS: CLOPIDOGREL 75 MG (PLAVIX) TABLET PO SCH (07:48)
[2017-03-29] MEDS: buPROPion SR 150 MG (WELLBUTRIN SR) TAB PO SCH ×2 (07:48→20:54)
[2017-03-29] MEDS: DICLOFENAC 1% GEL 100 GM (VOLTAREN) TUBE TOP SCH ×4 (07:49→20:54)
--- NOTE | 2017-03-29 08:08 | Progress Note (SOAP) ---
Subjective Time Seen by Provider: 08:05 Subjective/Events-last exam stroke. Hypertension. patient working progress. Patient doing more for herself Objective Exam Vital Signs Date Time Temp Pulse Resp B/P (MAP) Pulse Ox O2 Delivery O2 Flow Rate FiO2 03/29/17 05:42 98.2 91 18 115/79 (91) 99 Room Air 03/28/17 20:20 Room Air 03/28/17 19:56 98.7 89 16 122/73 (89) 99 Room Air 03/28/17 09:00 Room Air I & O 03/29/17 07:00 Intake Total 1450 ml Balance 1450 ml Capillary Refill : General Appearance: No Apparent Distress, WD/WN Neck: Full Range of Motion Respiratory: Lungs Clear Assessment/Plan Assessment/Plan Assess & Plan/Chief Complaint CVA. Left side weakness. Hypertension. Meth abuse history. . 02/28/17. CVA. Left-sided weakness. Hypertension. Patient is abuse history. Chest discomfort with some loose congestion. . 03/01/17. cva. llEFT-SIDED WEAKNESS. hYPERTENSION. METH ABUSE. Patient felt nauseous this a.m.. . 03/02/17. CVA. Left-sided weakness. Hypertension. Left abuse. Patient's left leg doing better. Patient's left upper extremity problems. . 03/05/17. CVA Left sided weakness. Meth abuse. Patient's left leg doing better Patient has problems with moving of left upper extremity. Patient voices no complaints. . 04/1916. CVA on left. Meth abuse history. Patient doing better with left leg. Not so with left arm.. . 03/07/17. CVA on left. Weakness. Hypertension. Meth abuse. patient doing better with left leg in the left arm. . 03/08/17. CVA on left. Weakness. Hypertension. . 03/09/17. CVA on left. Weakness. Hypertension. patient resting comfortably.. . 03/13/17. CVA on left. Weakness. Hypertension. Meth abuse. Depression. to increase the Wellbutrin. . 03/14. CVA on left. Depression. Hypertension. meth abuse.. . 03/15/17. CVA on left. Depression better. Hypertension okay. Meth abuse. Patient positive today . 03/20/17. CVA on left. Depression. Hypertension. Left abuse. Patient voices no complaints today. . /DISEASE/STATES SEEN. cva ON LEFT. dEPRESSION APPEARS BETTER. hYPERTENSIONAREA Methamphetamine abuse. Hypertension noncompliant 03/22/16. CVA on left. depression. Hypertension noncompliant history Meth abuse. Patient a work in progress. . 03/23/16. CVA on left. Depression better. hypertension. Meth abuse history. Patient doing better with legs. . . CVA on left. Depression better. Hypertension. Patient able to use cane with physical therapy. Patient in wheelchair. . 03/27/17. CVA on left. Depression. Hypertension. Patient working better and improving . 03/28/17 CVA on left. Depression. Hypertension. Patient's right hand bothering her . . 03/29/17. CVA on left. Depression better. Hypertension. Patient doing more for herself Clinical Quality Measures DVT/VTE Risk/Contraindication: Risk Factor Score Per Nursin RFS Level Per Nursing on Admit: 4+=Very High JOAQUIM SHEN DO Mar 29, 2017 08:08
--- NOTE | 2017-03-29 10:58 | Physical Therapy Daily Note ---
PT Daily Note-Current Subjective Agreeable t PT. Nelda is ready to discharge home. Reports she thinks the ramp to enter is fairly steep. Unsure is she will be able to push her wheelchair up it. Pain Numeric Pain Scale: 0-No Pain Location: No Pain Reported Mental Status Patient Orientation: Person, Place, Time, Situation Transfers Functional [place] Measure 0=Not Assessed/NA 4=Minimal Assistance 1=Total Assistance 5=Supervision or Setup 2=Maximal Assistance 6=Modified [place] 3=Moderate Assistance 7=Complete IndependenceIRFPAI Quality Coding Scale 6 Independent with activity with or without an assistive device 5 Patient requires set up or clean up by helper. Patient completes activity by themselves 4 Supervision or touching assist (CGA). [place] provide cues , steadying assist 3 The helper provides less than half the effort to complete the activity 2 The helper provides more than half the effort to complete the activity 1 Dependent. The helper does all the effort to complete an activity 7 Patient refused to complete or attempt activity 9 The patient did not perform the activity before the current illness or injury 88 Not attempted due to Medical conditions or safety concerns Transfers (B, C, W/C) (FIM): 6 Roll Left to Right (QC): 6 Sit to Lying (QC): 6 Sit to Stand (QC): 6 Chair/Qgs-fw-[place] Xfer(QC): 6 Pt is mod indep with functional transfers. Weight Bearing Right Lower Extremity: Right Full Weight Bearing Left Lower Extremity: Left Full Weight Bearing Gait Training Does the Patient Walk?: Yes Gait (FIM): 5 Distance (FIM): 3=150 ft Distance: 150 ft x 2 Walk 10 feet (QC): 5 Walk 50 ft with 2 Turns(QC): 5 Walk 150 ft (QC): 5 Walking 10ft/uneven surface-QC: 4 (across 10 ft x 5 reps with hemiwalker and CGA; slow and steady; 1 LOB with rigid assist to recover. ) Gait Assistive Device: Walker Nathan Wheelchair Training Does the Pt Use a Wheelchair?: Yes Wheelchair (FIM): 6 Wheelchair Distance: 3=150 ft Distance: 300 ft Type of Wheelchair: Manual Worked on a slope; pt able to go down with eccentric control; however, unable to effectively go more than 5 feet up the slope in the forward direction; she was able to go up the slope backwards with SBA. However, this slope is ADA compliant, she believes her grandfather's ramp is steeper. She voiced she may be able to use his power chair to get up the ramp at his house. Exercises Supine Ex: Quad Set, Heel Slides, Resisted flex/ext Supine Reps: 12 (To promote left LE strength and NM control/activation) Assessment Current Status: Good Progress Pt's transfers and gait and progressing well. Mod indep with wheelchair mobility except on a slope. PT Short Term Goals Short Term Goals Time Frame: Mar 02, 2017 Transfers (B,C,W/C) (FIM): 4 (met) Gait (FIM): 1 (met) Gait Distance Comment: 20' Gait Level of Assist: 2 Gait Assistive Device: Walker Nathan Wheelchair (FIM): 6 (met) Wheelchair Distance: 200' PT Alf Goals Scouring Train Operator Chief Goals PT Scouring Train Operator Chief Goals Time Frame: Mar 16, 2017 Transfers (B,C,W/C) (FIM): 5 Sit to Lying (QC): 4 Lying-Sitting on Side/Bed(QC): 4 Sit to Stand (QC): 4 Rollin Roll Left to Right (QC): 4 Chair/Nvg-bw-Cwuyo Xfer(QC): 4 Car Transfer (QC): 3 Gait (FIM): 2 Distance: 30' Walk 10 feet (QC): 3 Walk 10ft-Uneven Surface(QC): 3 Gait Level of Assist: 4 Gait Assistive Device: Cane Large Base Quad PT Plan Problem List Problem List: Activity Tolerance, Functional Strength, Safety, Balance, Gait, Transfer, Bed Mobility Treatment/Plan Treatment Plan: Continue Plan of Care Treatment Plan: Bed Mobility, Concurrent Therapy, Education, Functional Activity Luis, Functional Strength, Group Therapy, Gait, Safety, Therapeutic Exercise, Transfers Treatment Duration: Mar 16, 2017 Frequency: At least 5 of 7 days/Wk (IRF) Estimated Hrs Per Day: 1.5 hours per day Patient and/or Family Agrees t: Yes Safety Risks/Education Patient Education: W/C Management Teaching Recipient: Patient Teaching Methods: Discussion Response to Teaching: Reinforcement Needed Time/GCodes Time In: 940 Time Out: 1041 Total Billed Treatment Time: 61 Total Billed Treatment visit GT 21 EX 10 WC 30 KAHLIL JOSHUA PT Mar 29, 2017 10:58
--- NOTE | 2017-03-29 13:43 | PM & R (SOAP) Progress Note ---
Subjective Time Seen by Provider: 08:15 Subjective/Events-last exam Patient was seen in her room this AM and in common area this afternoon Patient Min assist for gait with hemiwalker and gait belt Review of Systems Neurological: Weakness Objective Exam Last Set of Vital Signs Vital Signs Date Time Temp Pulse Resp B/P (MAP) Pulse Ox O2 Delivery O2 Flow Rate FiO2 03/29/17 09:00 Room Air 03/29/17 05:42 98.2 91 18 115/79 (91) 99 Capillary Refill : I&O Intake and Output 03/29/17 00:00 Intake Total 1400 ml Balance 1400 ml Intake Oral 1400 ml # Voids 7 # Bowel Movements 1 General: Alert, Oriented X3, Cooperative, No Acute Distress HEENT: Atraumatic, EOMI, Mucous Memb Moist/[place] Neck: Supple, No JVD Lungs: Clear to Auscultation Abdomen: Normal Bowel Sounds, Soft, No Tenderness Extremities: No Edema, No Tenderness/Swelling Neuro: Other (Left HP with o/5 strength UE fiar+ good - left leg Sensation intact Cognition and speech and swallow intact) Results Lab Laboratory Tests 03/27/17 05:23: White Blood Count 4.2L, Red Blood Count 3.98L, Hemoglobin 12.4, Hematocrit 35, Mean Corpuscular Volume 89, Mean Corpuscular Hemoglobin 31, Mean Corpuscular Hemoglobin Concent 35, Red Cell Distribution Width 12.1, Platelet Count 162, Mean Platelet Volume 11.3H, Neutrophils (%) (Auto) 60, Lymphocytes (%) (Auto) 25 , Monocytes (%) (Auto) 13H, Eosinophils (%) (Auto) 2, Basophils (%) (Auto) 0, Neutrophils # (Auto) 2.5, Lymphocytes # (Auto) 1.1, Monocytes # (Auto) 0.5, Eosinophils # (Auto) 0.1, Basophils # (Auto) 0.0, Sodium Level 140, Potassium Level 3.3L, Chloride Level 107, Carbon Dioxide Level 21, Anion Gap 12, Blood Urea Nitrogen 11, Creatinine 0.81, Estimat Glomerular Filtration Rate > 60, BUN/ Creatinine Ratio 14, Glucose Level 88, Calcium Level 8.6, Total Bilirubin 0.3, Aspartate Amino Transf (AST/SGOT) 15, Alanine Aminotransferase (ALT/SGPT) 18, Alkaline Phosphatase 58, Total Protein 5.8L, Albumin 3.3 Assessment/Plan Assessment RT cva with Left HP HTN controlled HX of meth use Tobaccoism-currently abstaining and on patch GERD on med COPD with cough on resp treatments-CXR clear-cough improved Hypokalemia-replace Tendinitis rt hand-can plantar and dorsiflex rt wrist without difficulty Plan ContinuePT/OT ST has signed off Treat dyspepsia as needed-improved Monitor PO intake Team Conference held yesterday- 03-28-17.-See report for full functional update and POC Discharge remians set for end of this week 04-01-17 to home with family in [place] Rechecked Labs Replaced K-See orders. Treat rt hand pain symptomatically-improved RODOLFO HUITRON MD Mar 29, 2017 13:43
--- NOTE | 2017-03-29 15:21 | Physical Therapy Daily Note ---
PT Daily Note-Current Subjective Agreeable to PT. No complaints. Transfers Functional [place] Measure 0=Not Assessed/NA 4=Minimal Assistance 1=Total Assistance 5=Supervision or Setup 2=Maximal Assistance 6=Modified [place] 3=Moderate Assistance 7=Complete IndependenceIRFPAI Quality Coding Scale 6 Independent with activity with or without an assistive device 5 Patient requires set up or clean up by helper. Patient completes activity by themselves 4 Supervision or touching assist (CGA). [place] provide cues , steadying assist 3 The helper provides less than half the effort to complete the activity 2 The helper provides more than half the effort to complete the activity 1 Dependent. The helper does all the effort to complete an activity 7 Patient refused to complete or attempt activity 9 The patient did not perform the activity before the current illness or injury 88 Not attempted due to Medical conditions or safety concerns Weight Bearing Right Lower Extremity: Right Full Weight Bearing Left Lower Extremity: Left Full Weight Bearing Gait Training Gait (FIM): 5 Distance (FIM): 3=150 ft Distance: 150 ft x 2 Gait Assistive Device: Walker Nathan Ambulated to and from the therapy gym with hemiwalker with SB-CGA. 1 LOB episode noted as she tried to move a chair and became off balance, rigid assist to correct. Exercises NuStep Minutes: 15 NuStep Workload: 2 (LE strength for functional gait and functional activity tolerance. ) Assessment Current Status: Good Progress Progressing, still unsteady at times with gait. PT Short Term Goals Short Term Goals Time Frame: Mar 02, 2017 Transfers (B,C,W/C) (FIM): 4 (met) Gait (FIM): 1 (met) Gait Distance Comment: 20' Gait Level of Assist: 2 Gait Assistive Device: Walker Nathan Wheelchair (FIM): 6 (met) Wheelchair Distance: 300 ft PT [facility] Goals Trail Construction Worker Goals PT [facility] Goals Time Frame: Mar 16, 2017 Transfers (B,C,W/C) (FIM): 5 Sit to Lying (QC): 4 Lying-Sitting on Side/Bed(QC): 4 Sit to Stand (QC): 4 Rollin Roll Left to Right (QC): 4 Chair/Wfo-nr-Slszq Xfer(QC): 4 Car Transfer (QC): 3 Gait (FIM): 2 Distance: 30' Walk 10 feet (QC): 3 Walk 10ft-Uneven Surface(QC): 3 Gait Level of Assist: 4 Gait Assistive Device: Cane Large Base Quad PT Plan Problem List Problem List: Activity Tolerance, Functional Strength, Safety Treatment/Plan Treatment Plan: Continue Plan of Care Treatment Plan: Bed Mobility, Concurrent Therapy, Education, Functional Activity Luis, Functional Strength, Group Therapy, Gait, Safety, Therapeutic Exercise, Transfers Treatment Duration: Mar 16, 2017 Frequency: At least 5 of 7 days/Wk (IRF) Estimated Hrs Per Day: 1.5 hours per day Patient and/or Family Agrees t: Yes Safety Risks/Education Patient Education: Gait Training, Safety Issues Teaching Recipient: Patient Teaching Methods: Demonstration, Discussion Response to Teaching: Return Demonstration Discharge Recommendations Therapy D/C Recommendations: Physical Therapy Outpatient (or HHC) Time/GCodes Time In: 1330 Time Out: 1400 Total Billed Treatment Time: 30 Total Billed Treatment visit GT 15 EX 15 KAHLIL JOSHUA PT Mar 29, 2017 15:21
--- NOTE | 2017-03-29 16:51 | Occupational Ther Daily Note ---
OT Current Status-Daily Note Subjective No pain reported. Appearance Pt. declines showering this date, but agrees to work with OT. Mental Status/Objective Functional [place] Measure 0=Not Assessed/NA 4=Minimal Assistance 1=Total Assistance 5=Supervision or Setup 2=Maximal Assistance 6=Modified [place] 3=Moderate Assistance 7=Complete [place] ADL-Treatment Functional [place] Measure 0=Not Assessed/NA 4=Minimal Assistance 1=Total Assistance 5=Supervision or Setup 2=Maximal Assistance 6=Modified [place] 3=Moderate Assistance 7=Complete IndependenceIRFPAI Quality Coding Scale 6 Independent with activity with or without an assistive device 5 Patient requires set up or clean up by helper. Patient completes activity by themselves 4 Supervision or touching assist (CGA). [place] provide cues , steadying assist 3 The helper provides less than half the effort to complete the activity 2 The helper provides more than half the effort to complete the activity 1 Dependent. The helper does all the effort to complete an activity 7 Patient refused to complete or attempt activity 9 The patient did not perform the activity before the current illness or injury 88 Not attempted due to Medical conditions or safety concerns Grooming (FIM): 6 (At wheelchair level.) Oral Hygiene (QC): 6 Upper Body (FIM): 4 (Pt. is able to don her shirt with set up, but needs assist with bra. Pt. may be independent with different bra.) Upper Body Dressing (QC): 4 Lower Body Dressing (FIM): 5 (SBA) Lower Body Dressing (QC): 4 On/Off Footwear (QC): 4 Transfers (B, C, W/C) (FIM): 5 (Pt. requires SBA to transfer supine-sit with modified technique, and sit-stand to wheelchair.) Other Treatment Pt. at bed level. Agrees to work with OT. Noted that she had difficulty coming straight up into sitting position from supine position. Worked on rolling to side and using the back of a chair to brace herself, as she will not have a hospital bed at home. Pt. is able to do this with increased time needed. Pt. then transferred to wheelchair and able to brush hair and teeth at sink. Self propelled to gym. Transferred to mat. Pt. and OT worked on trunk strengthening, core control, pelvic tilts, and weight shifts. Educated pt. on importance of having good upright posture during transfers, and engaging her core during activities. Pt. is able to cross midline using her right hand to reach cones. Pt. is also able to tilt pelvis anteriorly and posteriorly. Transferred back to wheelchair and back to room. Education OT Patient Education: Correct positioning, Modified ADL techniques, Progress toward Goal/Update tx plan, Purpose of tx/functional activities, Reviewed precautions, Rehab process, Transfer techniques Teaching Recipient: Patient Teaching Methods: Demonstration Response to Teaching: Verbalize Understanding, Return Demonstration OT Short Term Goals Short Term Goals Time Frame: Mar 02, 2017 Grooming(FIM): 5 Bathing(FIM): 3 Upper Body Dressing(FIM): 4 Lower Body Dressing(FIM): 3 Toileting(FIM): 3 Transfers (B,C,W/C) (FIM): 4 (met) Toilet/Commode Transfer(FIM): 3 1=Demonstrate adherence to instructed precautions during ADL tasks. 2=Patient will verbalize/demonstrate understanding of assistive devices/ modifications for ADL. 3=Patient will improve strength/tolerance for activity to enable patient to perform ADL's. OT Fpc Goals Fpc Goals Time Frame: Mar 16, 2017 Eating (FIM): 6 (met) Eating (QC): 6 Groomin (ongoing) Oral Hygiene (QC): 6 Bathing(FIM): 4 (met) Shower/Bathe Self (QC): 4 Upper Body Dressing(FIM): 5 (ongoing) Upper Body Dressing (QC): 5 Lower Body Dressing(FIM): 4 (ongoing) Lower Body Dressing (QC): 4 On/Off Footwear (QC): 4 Toileting(FIM): 6 (ongoing) Toileting Hygiene (QC): 4 Toilet/Commode Transfer(FIM): 5 (ongoing) Toilet/Commode Transfer (QC): 4 Shower Transfer(FIM): 4 (met) Comprehension(FIM): 5 (MET) Expression (FIM): 5 (MET) Social Interaction(FIM): 5 (NOT MET) Problem Solving(FIM): 5 (MET) Memory(FIM): 5 (MET) Additional Goals: 1-Demonstrate ADL Tasks, 2-Verbalize Understanding, 3- ImproveStrength/Luis 1=Demonstrate adherence to instructed precautions during ADL tasks. 2=Patient will verbalize/demonstrate understanding of assistive devices/ modifications for ADL. 3=Patient will improve strength/tolerance for activity to enable patient to perform ADL's. OT Education/Plan Problem List/Assessment Assessment: Decreased Activ Tolerance, Decreased UE Strength, Impaired Bed Mobility, Impaired Funct Balance, Impaired I ADL's, Impaired Self-Care Skills, Restricted Funct UE ROM Discharge Recommendations Plan/Recommendations: Continue POC Therapy D/C Recommendations: Home w/ Family Support, Occupational Therapy Home Care Treatment Plan/Plan of Care Treatment,Training & Education: Yes Patient would benefit from OT for education, treatment and training to promote independence in ADL's, mobility, safety and/or upper extremity function for ADL' s. Plan of Care: ADL Retraining, Caregiver Training, Functional Mobility, Group Exercise/Act as Ind, UE Funct Exercise/Act, UE Neuromus Re-Ed/Coord Treatment Duration: Mar 16, 2017 Frequency: At least 5 of 7 days/Wk (IRF) Estimated Hrs Per Day: 1.5 hours per day Agreement: Yes Rehab Potential: Good Time/GCodes Start Time: 08:00 Stop Time: 09:00 Total Time Billed (hr/min): 60 Billed Treatment Time 1, ADL x 30minutes, Ex x 30minutes MARI ECKERT OT Mar 29, 2017 16:51
--- NOTE | 2017-03-29 16:56 | Occupational Ther Daily Note ---
OT Current Status-Daily Note Subjective No pain reported. Appearance Pt. is in bed. Agrees to work with OT. Transfers to wheelchair with SBA. Mental Status/Objective Patient Orientation: Person, Place, Time Functional [place] Measure 0=Not Assessed/NA 4=Minimal Assistance 1=Total Assistance 5=Supervision or Setup 2=Maximal Assistance 6=Modified [place] 3=Moderate Assistance 7=Complete [place] ADL-Treatment Functional [place] Measure 0=Not Assessed/NA 4=Minimal Assistance 1=Total Assistance 5=Supervision or Setup 2=Maximal Assistance 6=Modified [place] 3=Moderate Assistance 7=Complete IndependenceIRFPAI Quality Coding Scale 6 Independent with activity with or without an assistive device 5 Patient requires set up or clean up by helper. Patient completes activity by themselves 4 Supervision or touching assist (CGA). [place] provide cues , steadying assist 3 The helper provides less than half the effort to complete the activity 2 The helper provides more than half the effort to complete the activity 1 Dependent. The helper does all the effort to complete an activity 7 Patient refused to complete or attempt activity 9 The patient did not perform the activity before the current illness or injury 88 Not attempted due to Medical conditions or safety concerns Other Treatment Pt. self propelled wheelchair to therapy gym. Tolerated 10 minutes of e-stim, 6 brandi-amps to left wrist extensors, and 10 minutes, 5 brandi-amps to finger extensors. Tolerated this well with good movement. Pt. and OT talked in depth regarding goals for home, and life after stroke. Pt. became very tearful. States that she feels very overwhelmed right now. Pt. is encouraged and educated about all of the positive things that she has accomplished. Education OT Patient Education: Correct positioning, Exercise program Teaching Recipient: Patient Teaching Methods: Demonstration, Discussion Response to Teaching: Verbalize Understanding, Return Demonstration OT Short Term Goals Short Term Goals Time Frame: Mar 02, 2017 Grooming(FIM): 5 Bathing(FIM): 3 Upper Body Dressing(FIM): 4 Lower Body Dressing(FIM): 3 Toileting(FIM): 3 Transfers (B,C,W/C) (FIM): 4 (met) Toilet/Commode Transfer(FIM): 3 1=Demonstrate adherence to instructed precautions during ADL tasks. 2=Patient will verbalize/demonstrate understanding of assistive devices/ modifications for ADL. 3=Patient will improve strength/tolerance for activity to enable patient to perform ADL's. OT [place] Operator Goals Custodial Goals Time Frame: Mar 16, 2017 Eating (FIM): 6 (met) Eating (QC): 6 Groomin (ongoing) Oral Hygiene (QC): 6 Bathing(FIM): 4 (met) Shower/Bathe Self (QC): 4 Upper Body Dressing(FIM): 5 (ongoing) Upper Body Dressing (QC): 5 Lower Body Dressing(FIM): 4 (ongoing) Lower Body Dressing (QC): 4 On/Off Footwear (QC): 4 Toileting(FIM): 6 (ongoing) Toileting Hygiene (QC): 4 Toilet/Commode Transfer(FIM): 5 (ongoing) Toilet/Commode Transfer (QC): 4 Shower Transfer(FIM): 4 (met) Comprehension(FIM): 5 (MET) Expression (FIM): 5 (MET) Social Interaction(FIM): 5 (NOT MET) Problem Solving(FIM): 5 (MET) Memory(FIM): 5 (MET) Additional Goals: 1-Demonstrate ADL Tasks, 2-Verbalize Understanding, 3- ImproveStrength/Luis 1=Demonstrate adherence to instructed precautions during ADL tasks. 2=Patient will verbalize/demonstrate understanding of assistive devices/ modifications for ADL. 3=Patient will improve strength/tolerance for activity to enable patient to perform ADL's. OT Education/Plan Problem List/Assessment Assessment: Decreased UE Strength, Restricted Funct UE ROM Discharge Recommendations Plan/Recommendations: Continue POC Therapy D/C Recommendations: Home w/ Family Support, Occupational Therapy Home Care Treatment Plan/Plan of Care Treatment,Training & Education: Yes Patient would benefit from OT for education, treatment and training to promote independence in ADL's, mobility, safety and/or upper extremity function for ADL' s. Plan of Care: ADL Retraining, Caregiver Training, Functional Mobility, Group Exercise/Act as Ind, UE Funct Exercise/Act, UE Neuromus Re-Ed/Coord Treatment Duration: Mar 16, 2017 Frequency: At least 5 of 7 days/Wk (IRF) Estimated Hrs Per Day: 1.5 hours per day Agreement: Yes Rehab Potential: Good Time/GCodes Start Time: 14:30 Stop Time: 15:15 Total Time Billed (hr/min): 45 Billed Treatment Time 1, FA x 15minutes, NM x 30minutes MARI ECKERT OT Mar 29, 2017 16:56
[2017-03-29 19:07] VITALS: BP 135/85
[2017-03-29] MEDS: ATORVASTATIN 40 MG (LIPITOR) TABLET PO SCH (20:54)
[2017-03-30 06:25] VITALS: BP 129/83
[2017-03-30] MEDS: oxyCODONE/APAP 5/325MG (PERCOCET 5) TABLET PO PRN ×3 (06:45→23:41)
[2017-03-30] MEDS: buPROPion SR 150 MG (WELLBUTRIN SR) TAB PO SCH ×2 (08:20→20:50)
[2017-03-30] MEDS: DICLOFENAC 1% GEL 100 GM (VOLTAREN) TUBE TOP SCH ×4 (08:20→20:50)
[2017-03-30] MEDS: amLODIPine 5 MG (NORVASC) TAB PO SCH (08:20)
[2017-03-30] MEDS: ARIPIPRAZOLE 10 MG (ABILIFY) TAB PO SCH (08:20)
[2017-03-30] MEDS: meTOprolol SUCCINATE 100 MG (TOPROL XL) TAB PO SCH (08:20)
[2017-03-30] MEDS: CLOPIDOGREL 75 MG (PLAVIX) TABLET PO SCH (08:20)
[2017-03-30] MEDS: FAMOTIDINE 20 MG (PEPCID) TABLET PO SCH ×2 (08:20→20:50)
--- NOTE | 2017-03-30 08:32 | Progress Note (SOAP) ---
Subjective Time Seen by Provider: 08:31 Objective Exam Vital Signs Date Time Temp Pulse Resp B/P (MAP) Pulse Ox O2 Delivery O2 Flow Rate FiO2 03/30/17 06:25 100.0 90 18 129/83 (98) 99 Room Air 03/29/17 20:20 Room Air 03/29/17 19:07 98.5 88 16 135/85 (102) 100 Room Air 03/29/17 09:00 Room Air I & O 03/30/17 07:00 Intake Total 880 ml Balance 880 ml Capillary Refill : General Appearance: No Apparent Distress, WD/WN Assessment/Plan Assessment/Plan Assess & Plan/Chief Complaint CVA. Left side weakness. Hypertension. Meth abuse history. . 02/28/17. CVA. Left-sided weakness. Hypertension. Patient is abuse history. Chest discomfort with some loose congestion. . 03/01/17. cva. llEFT-SIDED WEAKNESS. hYPERTENSION. METH ABUSE. Patient felt nauseous this a.m.. . 03/02/17. CVA. Left-sided weakness. Hypertension. Left abuse. Patient's left leg doing better. Patient's left upper extremity problems. . 03/05/17. CVA Left sided weakness. Meth abuse. Patient's left leg doing better Patient has problems with moving of left upper extremity. Patient voices no complaints. . 04/1916. CVA on left. Meth abuse history. Patient doing better with left leg. Not so with left arm.. . 03/07/17. CVA on left. Weakness. Hypertension. Meth abuse. patient doing better with left leg in the left arm. . 03/08/17. CVA on left. Weakness. Hypertension. . 03/09/17. CVA on left. Weakness. Hypertension. patient resting comfortably.. . 03/13/17. CVA on left. Weakness. Hypertension. Meth abuse. Depression. to increase the Wellbutrin. . 03/14. CVA on left. Depression. Hypertension. meth abuse.. . 03/15/17. CVA on left. Depression better. Hypertension okay. Meth abuse. Patient positive today . 03/20/17. CVA on left. Depression. Hypertension. Left abuse. Patient voices no complaints today. . /DISEASE/STATES SEEN. cva ON LEFT. dEPRESSION APPEARS BETTER. hYPERTENSIONAREA Methamphetamine abuse. Hypertension noncompliant 03/22/16. CVA on left. depression. Hypertension noncompliant history Meth abuse. Patient a work in progress. . 03/23/16. CVA on left. Depression better. hypertension. Meth abuse history. Patient doing better with legs. . . CVA on left. Depression better. Hypertension. Patient able to use cane with physical therapy. Patient in wheelchair. . 03/27/17. CVA on left. Depression. Hypertension. Patient working better and improving . 03/28/17 CVA on left. Depression. Hypertension. Patient's right hand bothering her . . 03/29/17. CVA on left. Depression better. Hypertension. Patient doing more for herself. . 03/30/17. CVA on left. Hypertension. Patient doing better. Patient getting up better. Patient has improved Clinical Quality Measures DVT/VTE Risk/Contraindication: Risk Factor Score Per Nursin RFS Level Per Nursing on Admit: 4+=Very High JOAQUIM SHEN DO Mar 30, 2017 08:31
--- NOTE | 2017-03-30 09:44 | PM & R (SOAP) Progress Note ---
Subjective Time Seen by Provider: 08:00 Subjective/Events-last exam Patient was seen in her room this AM Patient Modified Independent for transfers will be discharged on Sunday04-01-17 to home with family and have follow up outpatient PT and OT for ongoing therapies...Patient will have f/u with local Health- care provider in [place] Objective Exam Last Set of Vital Signs Vital Signs Date Time Temp Pulse Resp B/P (MAP) Pulse Ox O2 Delivery O2 Flow Rate FiO2 03/30/17 09:00 Room Air 03/30/17 06:25 100.0 90 18 129/83 (98) 99 Capillary Refill : I&O Intake and Output 03/30/17 00:00 Intake Total 830 ml Balance 830 ml Intake Oral 830 ml # Voids 4 General: Alert, Oriented X3, Cooperative, No Acute Distress HEENT: Atraumatic, EOMI, Mucous Memb Moist/[place] Neck: Supple, No JVD Lungs: Clear to Auscultation Abdomen: Normal Bowel Sounds, Soft, No Tenderness Extremities: No Edema, No Tenderness/Swelling Neuro: Other (Left HP with o/5 strength UE fiar+ good - left leg Sensation intact Cognition and speech and swallow intact) Assessment/Plan Assessment RT cva with Left HP HTN controlled HX of meth use Tobaccoism-currently abstaining and on patch GERD on med COPD with cough on resp treatments-CXR clear-cough improved Hypokalemia-replace Tendinitis rt hand-can plantar and dorsiflex rt wrist without difficulty- improved Plan ContinuePT/OT ST has signed off Treat dyspepsia as needed-improved Monitor PO intake Team Conference held yesterday- 03-28-17.-See report for full functional update and POC Discharge remians set for end of this week 04-01-17 to home with family in [place] Rechecked Labs Replaced K-See orders. Treat rt hand pain symptomatically-improved Discharge to home with family as per above Current meds reviewed See orders RODOLFO HUITRON MD Mar 30, 2017 09:44
[2017-03-30] MEDS ORDERED: CLOP75TA28 PO (09:51)
[2017-03-30] MEDS ORDERED: ATOR40TA PO (09:51)
[2017-03-30] MEDS ORDERED: AMLO5TAB2 PO (09:51)
[2017-03-30] MEDS ORDERED: DICL100G18 TOP (09:51)
--- NOTE | 2017-03-30 10:16 | Physical Therapy Daily Note ---
PT Daily Note-Current Subjective Agreeable to PT. Happy to be going home on Sunday. Reports she will be with her grandpa but he won't be able to help her much. Pain Numeric Pain Scale: 0-No Pain Location: No Pain Reported Mental Status Patient Orientation: Person, Place, Time, Situation Transfers Functional [place] Measure 0=Not Assessed/NA 4=Minimal Assistance 1=Total Assistance 5=Supervision or Setup 2=Maximal Assistance 6=Modified [place] 3=Moderate Assistance 7=Complete IndependenceIRFPAI Quality Coding Scale 6 Independent with activity with or without an assistive device 5 Patient requires set up or clean up by helper. Patient completes activity by themselves 4 Supervision or touching assist (CGA). [place] provide cues , steadying assist 3 The helper provides less than half the effort to complete the activity 2 The helper provides more than half the effort to complete the activity 1 Dependent. The helper does all the effort to complete an activity 7 Patient refused to complete or attempt activity 9 The patient did not perform the activity before the current illness or injury 88 Not attempted due to Medical conditions or safety concerns Transfers (B, C, W/C) (FIM): 6 Roll Left to Right (QC): 6 Sit to Lying (QC): 6 Sit to Stand (QC): 6 Chair/Fcz-fb-Jkrrz Xfer(QC): 6 Car Transfer (QC): 5 Pt is mod indep with all transfers wearing her AFO on the left LE. Weight Bearing Right Lower Extremity: Right Full Weight Bearing Left Lower Extremity: Left Full Weight Bearing Gait Training Does the Patient Walk?: Yes Gait (FIM): 5 (takes extra time and recommend supervision for safety. ) Distance (FIM): 3=150 ft Distance: 150 ft x 4 reps. Walk 10 feet (QC): 5 Walk 50 ft with 2 Turns(QC): 5 Walk 150 ft (QC): 5 Walking 10ft/uneven surface-QC: 5 Gait Assistive Device: Walker Nathan step to gait pattern; slow; no noted LOB this visit. Wheelchair Training Does the Pt Use a Wheelchair?: Yes Wheelchair (FIM): 6 Wheelchair Distance: 3=150 ft Wheel 50 ft with 2 turns (QC): 6 Wheel 150 ft (QC): 6 Type of Wheelchair: Manual 150 ft x 4 reps; up/down slope. goes forward down the slope eccentrically controlling the speed; goes backwards up the slope. Stair Training Stair Training: Handrails/: 1 handrail Stairs (FIM): 4 #of Steps: 12 1 Step (curb) (QC): 4 4 Steps (QC): 4 12 Steps (QC): 4 Stairs: Pattern: Step to CGA and skilled cues for sequencing; tends to want to step up/down with the wrong foot. Balance Picking up an Object (QC): 3 Treatments Functional mobility; discussion and education regarding safety and mobility at home. Assessment Current Status: Good Progress Pt has made good functional progress throughout the course of care. She has made good progress towards established goals. Recommend her primary mobilty at this time be at the wheelchair level due to supervision recommended with gait. Pt aware of this recommendation. PT Short Term Goals Short Term Goals Time Frame: Mar 02, 2017 Transfers (B,C,W/C) (FIM): 4 (met) Gait (FIM): 1 (met) Gait Distance Comment: 20' Gait Level of Assist: 2 Gait Assistive Device: Walker Nathan Wheelchair (FIM): 6 (met) Wheelchair Distance: 300 ft PT Merchandise Displayer Goals Merchandise Displayer Goals PT Merchandise Displayer Goals Time Frame: Mar 16, 2017 Transfers (B,C,W/C) (FIM): 5 (exceeded) Sit to Lying (QC): 4 (exceeded) Lying-Sitting on Side/Bed(QC): 4 (exceeded) Sit to Stand (QC): 4 (exceeded) Rollin Roll Left to Right (QC): 4 (xceeded) Chair/Pmc-bh-Rooiw Xfer(QC): 4 (exceeded) Car Transfer (QC): 3 (exceeded) Gait (FIM): 2 (exceeded) Distance: 30' Walk 10 feet (QC): 3 (exceeded) Walk 10ft-Uneven Surface(QC): 3 (exceeded) Gait Level of Assist: 4 Gait Assistive Device: Cane Large Base Quad PT Plan Problem List Problem List: Activity Tolerance, Functional Strength Treatment/Plan Treatment Plan: Continue Plan of Care (dc on Sunday) Treatment Plan: Bed Mobility, Concurrent Therapy, Education, Functional Activity Luis, Functional Strength, Group Therapy, Gait, Safety, Therapeutic Exercise, Transfers Treatment Duration: Mar 16, 2017 Frequency: At least 5 of 7 days/Wk (IRF) Estimated Hrs Per Day: 1.5 hours per day Patient and/or Family Agrees t: Yes Safety Risks/Education Patient Education: Safety Issues Teaching Recipient: Patient Teaching Methods: Discussion Response to Teaching: Verbalize Understanding Discharge Recommendations Therapy D/C Recommendations: Physical Therapy Outpatient Time/GCodes Time In: 900 Time Out: 1000 Total Billed Treatment Time: 60 Total Billed Treatment visit GT 30 WC 15 FA 15 KAHLIL JOSHUA PT Mar 30, 2017 10:16
[2017-03-30] MEDS: ONDANSETRON 4 MG (ZOFRAN) ORAL DISSOLVE TAB PO PRN (10:37)
--- NOTE | 2017-03-30 13:01 | Occupational Ther Daily Note ---
OT Current Status-Daily Note Subjective No pain reported. Appearance Pt. up in chair. Agrees to shower. Mental Status/Objective Patient Orientation: Person, Place Functional [place] Measure 0=Not Assessed/NA 4=Minimal Assistance 1=Total Assistance 5=Supervision or Setup 2=Maximal Assistance 6=Modified [place] 3=Moderate Assistance 7=Complete [place] ADL-Treatment Functional [place] Measure 0=Not Assessed/NA 4=Minimal Assistance 1=Total Assistance 5=Supervision or Setup 2=Maximal Assistance 6=Modified [place] 3=Moderate Assistance 7=Complete IndependenceIRFPAI Quality Coding Scale 6 Independent with activity with or without an assistive device 5 Patient requires set up or clean up by helper. Patient completes activity by themselves 4 Supervision or touching assist (CGA). [place] provide cues , steadying assist 3 The helper provides less than half the effort to complete the activity 2 The helper provides more than half the effort to complete the activity 1 Dependent. The helper does all the effort to complete an activity 7 Patient refused to complete or attempt activity 9 The patient did not perform the activity before the current illness or injury 88 Not attempted due to Medical conditions or safety concerns Grooming (FIM): 5 (Pt. is able to brush her hair with set up. Pt. is also able to brush her teeth.) Oral Hygiene (QC): 5 Bathing (FIM): 5 (Pt. requires SBA to wash self in shower setting.) Shower/Bathe Self (QC): 4 Upper Body (FIM): 4 (Pt. donned sports bra today, needing only a little assist. Pt. able to don shirt with cues only.) Upper Body Dressing (QC): 4 Lower Body Dressing (FIM): 5 Lower Body Dressing (QC): 4 On/Off Footwear (QC): 4 Transfers (B, C, W/C) (FIM): 5 (SBA to transfer to and from wheelchair.) Shower Transfer(FIM): 5 Education OT Patient Education: Correct positioning, Modified ADL techniques, Progress toward Goal/Update tx plan, Purpose of tx/functional activities, Reviewed precautions, Rehab process, Transfer techniques Teaching Recipient: Patient Teaching Methods: Demonstration, Discussion Response to Teaching: Verbalize Understanding, Return Demonstration OT Short Term Goals Short Term Goals Time Frame: Mar 02, 2017 Grooming(FIM): 5 Bathing(FIM): 3 Upper Body Dressing(FIM): 4 Lower Body Dressing(FIM): 3 Toileting(FIM): 3 Transfers (B,C,W/C) (FIM): 4 (met) Toilet/Commode Transfer(FIM): 3 1=Demonstrate adherence to instructed precautions during ADL tasks. 2=Patient will verbalize/demonstrate understanding of assistive devices/ modifications for ADL. 3=Patient will improve strength/tolerance for activity to enable patient to perform ADL's. OT Jail Goals Youth Nutritional Monitor Goals Time Frame: Mar 16, 2017 Eating (FIM): 6 (met) Eating (QC): 6 Groomin (ongoing) Oral Hygiene (QC): 6 Bathing(FIM): 4 (met) Shower/Bathe Self (QC): 4 Upper Body Dressing(FIM): 5 (ongoing) Upper Body Dressing (QC): 5 Lower Body Dressing(FIM): 4 (ongoing) Lower Body Dressing (QC): 4 On/Off Footwear (QC): 4 Toileting(FIM): 6 (ongoing) Toileting Hygiene (QC): 4 Toilet/Commode Transfer(FIM): 5 (ongoing) Toilet/Commode Transfer (QC): 4 Shower Transfer(FIM): 4 (met) Comprehension(FIM): 5 (MET) Expression (FIM): 5 (MET) Social Interaction(FIM): 5 (NOT MET) Problem Solving(FIM): 5 (MET) Memory(FIM): 5 (MET) Additional Goals: 1-Demonstrate ADL Tasks, 2-Verbalize Understanding, 3- ImproveStrength/Luis 1=Demonstrate adherence to instructed precautions during ADL tasks. 2=Patient will verbalize/demonstrate understanding of assistive devices/ modifications for ADL. 3=Patient will improve strength/tolerance for activity to enable patient to perform ADL's. OT Education/Plan Problem List/Assessment Assessment: Decreased Activ Tolerance, Impaired I ADL's Discharge Recommendations Plan/Recommendations: Continue POC Therapy D/C Recommendations: Home w/ Family Support, Occupational Therapy Outpatient Equpiment Recommendations-D/C: Bath Chair Treatment Plan/Plan of Care Treatment,Training & Education: Yes Patient would benefit from OT for education, treatment and training to promote independence in ADL's, mobility, safety and/or upper extremity function for ADL' s. Plan of Care: ADL Retraining, Caregiver Training, Functional Mobility, Group Exercise/Act as Ind, UE Funct Exercise/Act, UE Neuromus Re-Ed/Coord Treatment Duration: Mar 16, 2017 Frequency: At least 5 of 7 days/Wk (IRF) Estimated Hrs Per Day: 1.5 hours per day Agreement: Yes Rehab Potential: Good Time/GCodes Start Time: 08:00 Stop Time: 09:00 Total Time Billed (hr/min): 60 Billed Treatment Time 1, ADL x 4 MARI ECKERT OT Mar 30, 2017 13:01
--- NOTE | 2017-03-30 14:54 | Therapy Group Daily Note ---
Therapy Daily Group Note Other/Notes Each patient participated in group therapy in the common area of rehab. Each patient ambulated or was transported to the common area of rehab and placed in a [place] with the other patients. Each patient then had to introduce themselves , state where they were born and perform a memory activity. Then patient's were educated about all aspects of pain (cause, types, how to relieve, etc). During education intermittently patients performed exercises ran by the therapists involving both upper and lower extremities. Patient's participated in the discussion and problem solving and socialization were encouraged. After group therapy each patient ambulated or was transported back to their room and placed in chair or bed with call light and tray. Start Time: 13:00 Stop Time: 14:20 Total Billed Treatment Time: 80 Total Billed Treatment 1 visit GRP 80' KIERRA STERLING PT Mar 30, 2017 14:54
[2017-03-30 18:00] VITALS: BP 138/88
[2017-03-30] MEDS: ATORVASTATIN 40 MG (LIPITOR) TABLET PO SCH (20:50)
[2017-03-30] MEDS: ALPRAZolam 1 MG (XANAX) TAB PO PRN (21:57)
[2017-03-31 02:00] VITALS: BP 114/74
[2017-03-31] MEDS: meTOprolol SUCCINATE 100 MG (TOPROL XL) TAB PO SCH (08:36)
[2017-03-31] MEDS: ARIPIPRAZOLE 10 MG (ABILIFY) TAB PO SCH (08:36)
[2017-03-31] MEDS: oxyCODONE/APAP 5/325MG (PERCOCET 5) TABLET PO PRN ×2 (08:36→18:18)
[2017-03-31] MEDS: CLOPIDOGREL 75 MG (PLAVIX) TABLET PO SCH (08:36)
[2017-03-31] MEDS: amLODIPine 5 MG (NORVASC) TAB PO SCH (08:36)
[2017-03-31] MEDS: buPROPion SR 150 MG (WELLBUTRIN SR) TAB PO SCH ×2 (08:36→20:48)
[2017-03-31] MEDS: FAMOTIDINE 20 MG (PEPCID) TABLET PO SCH ×2 (08:36→20:47)
[2017-03-31] MEDS: DICLOFENAC 1% GEL 100 GM (VOLTAREN) TUBE TOP SCH ×4 (08:37→20:48)
[2017-03-31 18:00] VITALS: BP 113/69
[2017-03-31] MEDS: ATORVASTATIN 40 MG (LIPITOR) TABLET PO SCH (20:47)
[2017-03-31] MEDS: ALPRAZolam 1 MG (XANAX) TAB PO PRN (22:15)
[2017-04-01] MEDS: oxyCODONE/APAP 5/325MG (PERCOCET 5) TABLET PO PRN ×2 (00:53→08:21)
[2017-04-01 06:00] VITALS: BP 122/67
[2017-04-01 08:17] VITALS: BP 113/66
[2017-04-01] MEDS: ARIPIPRAZOLE 10 MG (ABILIFY) TAB PO SCH (08:20)
[2017-04-01] MEDS: CLOPIDOGREL 75 MG (PLAVIX) TABLET PO SCH (08:20)
[2017-04-01] MEDS: buPROPion SR 150 MG (WELLBUTRIN SR) TAB PO SCH (08:20)
[2017-04-01] MEDS: meTOprolol SUCCINATE 100 MG (TOPROL XL) TAB PO SCH (08:20)
[2017-04-01] MEDS: FAMOTIDINE 20 MG (PEPCID) TABLET PO SCH (08:21)
[2017-04-01] MEDS: amLODIPine 5 MG (NORVASC) TAB PO SCH (08:21)
[2017-04-01] MEDS: DICLOFENAC 1% GEL 100 GM (VOLTAREN) TUBE TOP SCH (08:21)
[2017-04-01] MEDS ORDERED: METO-395 PO (10:10)
[2017-04-01] MEDS ORDERED: BUPR150T14 PO ×2 (10:10)
[2017-04-01] MEDS ORDERED: OXYC-471 PO (10:10)
[2017-04-01] MEDS ORDERED: ALPR1TAB7 PO (10:10)
[2017-04-01 11:33] VITALS: BP 113/66
--- NOTE | 2017-04-03 12:50 | Therapy Team Discharge Summary ---
Therapy Discharge Summary Discharge Recommendations Date of Discharge Apr 01, 2017 at 11:35 Therapy D/C Recommendations: Home w/ Family Support, Occupational Therapy Outpatient Occupational Therapy Pt admitted to ARU following acute hospitalization for CVA with left side deficits. On admission pt required mod assist with grooming and UE dressing, max assist with bathing, and total assist for LE dressing. Skilled OT intervention focused on ADL training, transfers, ROM/strengthening, and home safety education. Pt made progress with therapy and by discharge is completing grooming, bathing, LE dressing, and shower transfer with SBA and UE dressing with min assist. Pt met goals for eating, bathing, and shower transfer, but did not meet other goals. Pt discharged from ARU, D/C ARU OT. Decreased Activ Tolerance, Impaired I ADL's PT Dynamite Packing Machine Operator Goals Nursing Home Goals PT Nursing Home Goals Time Frame: Mar 16, 2017 Transfers (B,C,W/C) (FIM): 5 (exceeded) Roll Left to Right (QC): 4 (xceeded) Sit to Lying (QC): 4 (exceeded) Lying-Sitting on Side/Bed(QC): 4 (exceeded) Sit to Stand (QC): 4 (exceeded) Chair/Exm-bl-Muysw Xfer(QC): 4 (exceeded) Car Transfer (QC): 3 (exceeded) Gait (FIM): 2 (exceeded) Distance: 30' Walk 10 feet (QC): 3 (exceeded) Walk 10ft-Uneven Surface(QC): 3 (exceeded) Gait Level of Assist: 4 Gait Assistive Device: Cane Large Base Quad OT Dynamite Packing Machine Operator Goals Nursing Home Goals Time Frame: Mar 16, 2017 Eating (FIM): 6 (met) Eating (QC): 6 Oral Hygiene (QC): 6 Grooming(FIM): 6 (ongoing) Bathing(FIM): 4 (met) Shower/Bathe Self (QC): 4 Upper Body Dressing(FIM): 5 (ongoing) Upper Body Dressing (QC): 5 Lower Body Dressing(FIM): 4 (ongoing) Lower Body Dressing (QC): 4 On/Off Footwear (QC): 4 Toileting(FIM): 6 (ongoing) Toileting Hygiene (QC): 4 Toilet/Commode Transfer(FIM): 5 (ongoing) Toilet/Commode Transfer (QC): 4 Shower Transfer(FIM): 4 (met) Comprehension(FIM): 5 (MET) Expression (FIM): 5 (MET) Social Interaction(FIM): 5 (NOT MET) Problem Solving(FIM): 5 (MET) Memory(FIM): 5 (MET) Additional Goals: 1-Demonstrate ADL Tasks, 2-Verbalize Understanding, 3- ImproveStrength/Luis 1=Demonstrate adherence to instructed precautions during ADL tasks. 2=Patient will verbalize/demonstrate understanding of assistive devices/ modifications for ADL. 3=Patient will improve strength/tolerance for activity to enable patient to perform ADL's. Speech Dynamite Packing Machine Operator Goals Nursing Home Goals 1. The patient will display improved articulatory precision for increased intelligibility through verbal communication. MET Time Frame: Two Weeks Comprehension: 5 (MET) Expression: 5 (MET) Social Interaction: 5 (NOT MET) Problem Solvin (MET) Memory: 5 (MET) RUBY MENDOSA OT Apr 03, 2017 12:50
== END 2017-04-01 11:35 | disposition home or self-care (01) | DRG 57 ==
PROVIDERS: ADMIT Physical Medicine & Rehabilitation; ATTEND Physical Medicine & Rehabilitation
DX: I69.354 Hemiplegia and hemiparesis following cerebral infarction affecting left non-dominant side (principal); F17.210 Nicotine dependence, cigarettes, uncomplicated; F15.10 Other stimulant abuse, uncomplicated; J44.9 Chronic obstructive pulmonary disease, unspecified; I10 Essential (primary) hypertension; K21.9 Gastro-esophageal reflux disease without esophagitis; M32.9 Systemic lupus erythematosus, unspecified; F41.0 Panic disorder [episodic paroxysmal anxiety]; F32.9 Major depressive disorder, single episode, unspecified; E87.6 Hypokalemia; M77.9 Enthesopathy, unspecified; Z91.14 Patient's other noncompliance with medication regimen
CPT/HCPCS: 36415; 71020; 73080; 80048; 80053; 82962; 85025; 85027; 94640; 94664; 94760

== ENCOUNTER 2017-07-20 14:34 | Inpatient (IN) | payer MEDICAID ==
[~2017-07-20] VITALS: Ht 162.6 cm; Wt 66.9 kg
[~2017-07-20 14:34] MED LIST: ALPR1TAB7 PO; AMLO5TAB2 PO; ARIP5TAB20 PO; ATOR40TA PO; BUPR150T14 PO; CLOP75TA28 PO; DICL100G18 TOP; GLUC500T10 PO; LOSA100T28 PO; METO-395 PO; OXYC-464 PO; OXYC-471 PO; PROM25TA14 PO; RANI-515 PO
[2017-07-20 17:00] VITALS: BP 121/76
[2017-07-20] MEDS ORDERED: predniSONE 20 MG TAB PO SCH (17:00)
[2017-07-20] MEDS ORDERED: ONDANSETRON 4 MG (ZOFRAN) ORAL DISSOLVE TAB PO PRN (18:45)
[2017-07-20] MEDS: BACLOFEN 10 MG (LIORESAL) TAB PO SCH (20:21)
[2017-07-20] MEDS: ATORVASTATIN 40 MG (LIPITOR) TABLET PO SCH (20:21)
[2017-07-20] MEDS: buPROPion 100 MG (WELLBUTRIN) TAB PO SCH (20:21)
[2017-07-20] MEDS ORDERED: buPROPion 100 MG (WELLBUTRIN) TAB PO SCH (21:00)
[2017-07-20] MEDS: ALPRAZolam 0.5 MG (XANAX) TAB ONE (21:43)
[2017-07-20] MEDS: ALPRAZolam 1 MG (XANAX) TAB PO PRN (21:44)
[2017-07-21 06:00] VITALS: BP 146/101
[2017-07-21] MEDS: FERROUS SULF 325 MG (IRON) TAB PO SCH ×3 (06:09→17:10)
[2017-07-21] MEDS: VITAMIN D3 400 UNITS (CHOLECALCIFEROL) TABLET PO SCH (06:09)
[2017-07-21] MEDS: PANTOPRAZOLE 40 MG (PROTONIX) TAB PO SCH (06:09)
[2017-07-21] MEDS: MAGNESIUM OXIDE (MAG-OX)400 MG TAB PO SCH (06:09)
[2017-07-21] MEDS: CALCIUM CARBONATE 600 MG (CALCARB) TAB PO SCH (06:10)
[2017-07-21] MEDS ORDERED: predniSONE 10 MG TAB PO SCH (07:00)
[2017-07-21] MEDS ORDERED: VITAMIN D3 400 UNITS (CHOLECALCIFEROL) TABLET PO SCH (07:00)
[2017-07-21 09:00] VITALS: BP 134/81
[2017-07-21] MEDS: buPROPion 100 MG (WELLBUTRIN) TAB PO SCH ×2 (09:20→20:22)
[2017-07-21] MEDS: amLODIPine 5 MG (NORVASC) TAB PO SCH (09:20)
[2017-07-21] MEDS: ASPIRIN E.C. 81 MG (ECOTRIN) TAB PO SCH (09:20)
[2017-07-21] MEDS: CLOPIDOGREL 75 MG (PLAVIX) TABLET PO SCH (09:20)
[2017-07-21] MEDS: HYDROXYCHLOROQUINE 200 MG (PLAQUENIL) TAB PO SCH (09:20)
[2017-07-21] MEDS: BACLOFEN 10 MG (LIORESAL) TAB PO SCH ×3 (09:20→20:22)
[2017-07-21] MEDS: ACETAMINOPHEN 500 MG TAB (TYLENOL) PO PRN (09:21)
[2017-07-21] MEDS: ALPRAZolam 1 MG (XANAX) TAB PO PRN ×3 (09:24→20:22)
--- NOTE | 2017-07-21 09:44 | Physical Therapy Evaluation ---
PT Evaluation-General Medical Diagnosis Admission Date July 20, 2017 at 18:07 Medical Diagnosis: CVA Onset Date: July 20, 2017 Therapy Diagnosis Therapy Diagnosis: CVA Height/Weight Height (Feet): 5 Height (Inches): 4.00 Weight (Pounds): 147 Weight (Ounces): 7.0 Precautions Precautions/Isolations: Fall Prevention, Standard Precautions, Pressure Ulcer Weight Bear Status Right Lower Extremity: Right Weight Bearing/Tolerated Referral Physician: Rg Reason for Referral: Evaluation/Treatment Medical History Pertinent Medical History: CVA, GERD, HTN Social History Current Living Status: Prior/Core FIM Prior Level of Function Functional [place] Measure 0=Not Assessed/NA 4=Minimal Assistance 1=Total Assistance 5=Supervision or Setup 2=Maximal Assistance 6=Modified [place] 3=Moderate Assistance 7=Complete [place] Bed Mobility: 6 Transfers (B,C,W/C) (FIM): 6 Gait: 6 Locomotion: 6 PT Evaluation-Current Subjective States that she is doing okay. Pain Numeric Pain Scale: 7 Location Body Site: Abdomen Objective Patient Orientation: Person, Place, Time Problem Solving: Poor ROM/Strength ROM Upper Extremities WFL in (R) UE ; significant spasticity in (L) UE ROM Lower Extremities WFL in (R) UE ; significant spasticity in (L) UE Strength Upper Extremities 4/5 in (R) UE Strenght Lower Extremities 4/5 in (L) LE Neuromuscular (Tone, Coordination, Reflexes) Significant spasticity in the (L) UE and LE. Flexion contracture in UE and extensor tone in LE. Sensory Hand Dominance: Left Sensation Right Upper Extremit: Intact Sensation Left Upper Extremity: Intact Sensation Right Lower Extremit: Intact Sensation Left Lower Extremity: Intact Transfers Functional [place] Measure 0=Not Assessed/NA 4=Minimal Assistance 1=Total Assistance 5=Supervision or Setup 2=Maximal Assistance 6=Modified [place] 3=Moderate Assistance 7=Complete IndependenceIRFPAI Quality Coding Scale 6 Independent with activity with or without an assistive device 5 Patient requires set up or clean up by helper. Patient completes activity by themselves 4 Supervision or touching assist (CGA). [place] provide cues , steadying assist 3 The helper provides less than half the effort to complete the activity 2 The helper provides more than half the effort to complete the activity 1 Dependent. The helper does all the effort to complete an activity 7 Patient refused to complete or attempt activity 9 The patient did not perform the activity before the current illness or injury 88 Not attempted due to Medical conditions or safety concerns Transfers (B, C, W/C) (FIM): 2 Scootin Rollin Roll Left to Right (QC): 2 Supine to/from Sit: 2 Sit to/from Stand: 2 bed t/f WC(FIM only if WC use): 2 Sit to Lying (QC): 2 Lying to Sitting/Side of Bed(Q: 2 Sit to Stand (QC): 2 Chair/Cse-jw-Yhjtj Xfer(QC): 2 Gait Does the Patient Walk?: No and Walking Goal IS indicated Mode of Locomotion: Both Anticipated Mode of Locomotion: Both Distance (FIM): 0=does not occure Wheelchair Training Does the Pt Use a Wheelchair?: Yes Wheelchair (FIM): 3 Wheelchair Distance (FIM): 1=up to 49 ft Distance: 10' Wheelchair Level of Assist: 3 Type of Wheelchair: Manual Stairs If not tested on admit;explain Patient unable to take steps so she is unsafe to perform steps Balance Sitting Static: Fair Sitting Dynamic: Poor Standing Static: Poor Assessment/Needs 37 y.o. female s/p CVA. She has significant spasticity in the (L) UE and LE's which is limiting her functional abilities. She should do well with skilled therapy and be able to make functional gains. Rehab Potential: Good PT Short Term Goals Short Term Goals Time Frame: August 04, 2017 Transfers (B,C,W/C) (FIM): 3 Gait (FIM): 3 Distance (FIM): 1=up to 49 ft Gait Distance Comment: 15' Gait Level of Assist: 3 Gait Assistive Device: Walker Nathan Wheelchair (FIM): 5 Wheelchair distance (FIM): 1=979-07 ft Wheelchair Distance: 50' Wheelchair Level of Assist: 5 PT Feed Mixer Goals Custodial Goals PT Custodial Goals Time Frame: Aug 18, 2017 Transfers (B,C,W/C) (FIM): 5 Sit to Lying (QC): 5 Lying-Sitting on Side/Bed(QC): 5 Sit to Stand (QC): 5 Rollin Roll Left to Right (QC): 5 Chair/Vhg-fo-Kysls Xfer(QC): 5 Car Transfer (QC): 5 Does the Patient Walk: No and Walking Goal IS indicated Gait (FIM): 4 Gait distance (FIM): 1=350-41 ft Distance: 100' Walk 10 feet (QC): 4 Walk 10ft-Uneven Surface(QC): 3 Walk 50ft with 2 Turns (QC): 4 Gait Level of Assist: 4 Gait Assistive Device: Walker Nathan Does the Pt use WC or Scooter?: Yes Wheelchair (FIM): 5 Wheelchair distance (FIM): 3=150 ft Distance: 150' Wheelchair Level of Assist: 5 Wheel 50 feet with 2 turns (QC: 5 Stairs (FIM): 4 # of Steps: 4 1 Step (curb) (QC): 4 4 Steps (QC): 4 12 Steps (QC): 4 Stairs Level Of Assist: 4 Picking up an Object (QC): 4 PT Plan Problem List Problem List: Activity Tolerance, Functional Strength, Safety, Balance, Gait, Transfer, Bed Mobility, ROM Treatment/Plan Treatment Plan: Continue Plan of Care Treatment Plan: Bed Mobility, Education, Functional Activity Luis, Functional Strength, Group Therapy, Gait, Safety, Therapeutic Exercise, Transfers Treatment Duration: Aug 18, 2017 Frequency: At least 5 of 7 days/Wk (IRF) Estimated Hrs Per Day: 1.5 hours per day Patient and/or Family Agrees t: Yes Time/GCodes Time In: 0900 Time Out: 1000 Total Billed Treatment Time: 60 Total Billed Treatment 1, EV Moderate complexity x 15', 45' FA G Codes Necessary: KAMRAN Hunter PT July 21, 2017 09:44
--- NOTE | 2017-07-21 09:58 | Occupational Therapy Eval ---
OT Evaluation-General/PLF Medical Diagnosis Admission Date July 20, 2017 at 18:07 Medical Diagnosis: CVA Onset Date: Jul 15, 2017 Therapy Diagnosis Therapy Diagnosis: impaired self care skills Height/Weight Height (Feet): 5 Height (Inches): 4.00 Weight (Pounds): 147 Weight (Ounces): 7.0 Precautions Precautions/Isolations: Fall Prevention, Standard Precautions, Pressure Ulcer Safety Interventions: Bed Exit Alarm, Move Closer to Desk, Reorient-PRN Referral Physician: Rg Medical History Pertinent Medical History: CVA, GERD, HTN Additional Medical History Lupus, anxiety/depression Reviewed History: Yes Social History Home: Single Level Current Living Status: Other Family (mother) Entry Into Home: Level Entry ADL-Prior Level of Function ADL PLOF Comments Pt states that until three weeks ago she was able to complete most ADLs independently. Was able to walk in the home using a brian walker. Pt states she had a decline in function and was requiring significantly more assistance. DME/Equipment: Bath Chair, Grab Bars, Shower OT Current Status Subjective Pt in bed, agrees to treatment. Pt reports 4/10 generalized pain. Mental Status/Objective Patient Orientation: Person, Place (Pt states "I want to say we are at [facility], but I know that isn't right." Pt then able to state current location as [address]) Pt states "I know I have been confused." Current Glasses/Contacts: No Hearing Aids: No Dentures/Partials: No Hand Dominance: Right (was left handed prior to first CVA, but is now right handed secondary to impaired use of left UE) Upper Extremity ROM Right UE grossly functional Left UE: impaired. Pt has much increased tone in left UE secondary to prior CVA and PROM is limited. Upper Extremity Coordination Right UE- fair Left UE-impaired Upper Extremity Strength Right UE: Proximally grossly 4-/5. Distally grossly 4/5 Left UE: impaired. Increased tone/contracture. No active movement noted. ADL-Treatment ADL-Current Pt supine to sit with max assist. Pt has impaired sitting balance at EOB. Transfer [place] [facility] [place] x2 for safety. Pt was already incontinent in brief. Total assist for hygiene. Transfer to w/c with assist x2 for safety. Sponge bath completed while seated in w/c. Pt able to wash left UE, chest, right upper leg, and partially wash chest, but requires assist for all other areas. Pt requires total assist to don pullover shirt. Due to increased tone of left UE pt has difficulty placing left UE into sleeve. Assist required to thread right UE into sleeve and pick pulling machine tender head. Pt required total assist to don Depends. One person to assist with standing and one to pull Depends up over hips. Total assist to don socks. Pt has decreased sitting balance while in w/c, requires assist to correct. Pt able to partially brush hair, but requires max assist to complete task. Assist required to place toothpaste on toothbrush, but then able to brush teeth. Pt returned to bed after session with needs met. Functional [place] Measure 0=Not Assessed/NA 4=Minimal Assistance 1=Total Assistance 5=Supervision or Setup 2=Maximal Assistance 6=Modified [place] 3=Moderate Assistance 7=Complete IndependenceIRFPAI Quality Coding Scale 6 Independent with activity with or without an assistive device 5 Patient requires set up or clean up by helper. Patient completes activity by themselves 4 Supervision or touching assist (CGA). [place] provide cues , steadying assist 3 The helper provides less than half the effort to complete the activity 2 The helper provides more than half the effort to complete the activity 1 Dependent. The helper does all the effort to complete an activity 7 Patient refused to complete or attempt activity 9 The patient did not perform the activity before the current illness or injury 88 Not attempted due to Medical conditions or safety concerns Grooming (FIM): 2 Oral Hygiene (QC): 3 Bathing (FIM): 2 Shower/Bathe Self (QC): 2 Upper Body Dressing (FIM): 1 Upper Body Dressing (QC): 1 Lower Body Dressing (FIM): 1 Lower Body Dressing (QC): 1 On/Off Footwear (QC): 1 Toilet/Commode Transfer (FIM): 1 Toilet Transfer (QC): 1 Shower Transfer (FIM): 0 Education OT Patient Education: Rehab process Teaching Recipient: Patient Teaching Methods: Discussion Response to Teaching: Reinforcement Needed OT Short Term Goals Short Term Goals Time Frame: August 04, 2017 Eating(FIM): 5 Grooming(FIM): 4 Bathing(FIM): 3 Upper Body Dressing(FIM): 3 Toilet/Commode Transfer(FIM): 3 Additional Short Term Goals: 1-Demonstrate ADL Tasks, 2-Verbalize Understanding , 3-ImproveStrength/Luis 1=Demonstrate adherence to instructed precautions during ADL tasks. 2=Patient will verbalize/demonstrate understanding of assistive devices/ modifications for ADL. 3=Patient will improve strength/tolerance for activity to enable patient to perform ADL's. OT Assistant Corporate Controller Goals Custodial Goals Time Frame: Aug 18, 2017 Eating (FIM): 6 Eating (QC): 6 Groomin Oral Hygiene (QC): 6 Bathing(FIM): 4 Shower/Bathe Self (QC): 4 Upper Body Dressing(FIM): 4 Upper Body Dressing (QC): 4 Lower Body Dressing(FIM): 4 Lower Body Dressing (QC): 3 On/Off Footwear (QC): 3 Toileting(FIM): 3 Toileting Hygiene (QC): 3 Toilet/Commode Transfer(FIM): 4 Toilet/Commode Transfer (QC): 4 Shower Transfer(FIM): 4 Additional Goals: 1-Demonstrate ADL Tasks, 2-Verbalize Understanding, 3- ImproveStrength/Luis 1=Demonstrate adherence to instructed precautions during ADL tasks. 2=Patient will verbalize/demonstrate understanding of assistive devices/ modifications for ADL. 3=Patient will improve strength/tolerance for activity to enable patient to perform ADL's. OT Education/Plan Problem List/Assessment Assessment: Decreased Activ Tolerance, Decreased Safety Aware, Decreased UE Strength, Dependent Transfers, Impaired Bed Mobility, Impaired Coordination, Impaired Funct Balance, Impaired I ADL's, Impaired Self-Care Skills, Restricted Funct UE ROM Pt demonstrates impaired ability to perform ADLs and transfers. Pt has increased tone in left UE/LE and has decreased balance. Pt to benefit from skilled OT intervention for ADL training, transfers, strengthening, and safety education to increase level of function and allow safe discharge plan. Discharge Recommendations Plan/Recommendations: Continue POC Treatment Plan/Plan of Care Treatment,Training & Education: Yes Patient would benefit from OT for education, treatment and training to promote independence in ADL's, mobility, safety and/or upper extremity function for ADL' s. Plan of Care: ADL Retraining, Functional Mobility, Group Exercise/Act as Ind, UE Funct Exercise/Act, UE Neuromus Re-Ed/Coord Treatment Duration: Aug 18, 2017 Frequency: At least 5 of 7 days/Wk (IRF) Estimated Hrs Per Day: 1.5 hours per day Agreement: Yes Rehab Potential: Fair Time/GCodes Start Time: 07:30 Stop Time: 08:30 Total Time Billed (hr/min): 60 Billed Treatment Time 1 visit, EVM(15minutes), ADLx3(45minutes) RUBY MENDOSA OT July 21, 2017 09:58
[2017-07-21] MEDS: methylPREDNISolone SOD SUCC 1,000 MG in NS (IVPB) 100 ML IV SCH (10:09)
[2017-07-21 18:00] VITALS: BP 137/81
[2017-07-21 19:30] VITALS: BP 137/81
[2017-07-21] MEDS: ATORVASTATIN 40 MG (LIPITOR) TABLET PO SCH (20:22)
--- NOTE | 2017-07-21 22:26 | HISTORY AND PHYSICAL ---
DATE OF SERVICE: 07/21/2017 CHIEF COMPLAINT: Difficulty with walking. HISTORY OF PRESENT ILLNESS: The patient is a 37-year-old female who was admitted to [facility] due to stroke with bilateral weakness. 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 She was originally admitted to [facility] in [facility] for acute Frontoparietal and left cerebellar /pontinr infarcts as well as Small aneurysms noted on imaging studies suggestive of vasculitis.She was placed on steroids. Currently, she requires assistance for ADLs and mobility skills.She is dependent for Transfers and on a modified diet due to dysphagia.She is dependent for dressing. PAST MEDICAL HISTORY: Prior stroke, GERD, hypertension. PAST SURGICAL HISTORY: Noncontributory. ALLERGIES: MORPHINE, TRAMADOL. FAMILY HISTORY: Noncontributory. SOCIAL HISTORY: Lives with family in [place], [place]. REVIEW OF SYSTEMS: A 10-point review of systems is significant for left-sided weakness. SOCIAL HISTORY: She lives with her mother in a single level home. MEDICATIONS: Prednisone 60 mg p.o. daily for 7 dose then taper, Bactrim DS 1 tablet p.o. Sunday, Sunday, Sunday, amlodipine 5 mg p.o. daily, ASA 81 mg p.o. daily, Plavix 75 mg p.o. daily, Plaquenil 200 mg p.o. daily, Solu-Medrol IV daily, calcium carbonate 1200 mg p.o. daily, ferrous sulfate 325 mg p.o. t.i.d. with meals, Mag-Ox 400 mg p.o. daily, Protonix 40 mg p.o. daily, vitamin D3 800 international units p.o. daily, Xanax 1 mg p.o. q. 8 hours p.r.n. anxiety, Lipitor 40 mg p.o. at bedtime, baclofen 10 mg p.o. t.i.d., Wellbutrin 200 mg p.o. b.i.d., Tylenol 650 mg p.o. q. 4 hours p.r.n. mild pain, Zofran 4 mg q. 6 hours p.r.n. nausea, vomiting. PHYSICAL EXAMINATION: GENERAL: Significant for a female appearing stated age, alert and oriented, in no acute distress. VITAL SIGNS: She is afebrile, pulse is 83, respirations 18, blood pressure 137/81, O2 sat 98% on room air. HEENT: Vision, speech, hearing is functional. No oral lesion is noted.Plus left facial droop NECK: Supple without mass. HEART: Regular rhythm. CHEST: Clear. ABDOMEN: Soft, nontender. Bowel sounds present. EXTREMITIES: No limb edema. No calf tenderness. MUSCULOSKELETAL: The patient has contractures in the left upper limb. NEUROLOGIC: She has increased tone in the left upper limb with some contractures. Right upper limb is 4-/5 proximal and 4/5 distal. Strength, left lower extremity is 4/5. Sensation is grossly intact to touch. Cognition appears somewhat slow. IMPRESSION: 1. Left cerebrovascular accident involving the adonay and cerebellum with RT hemiparesis and dysphagia as well as small acute strokes involving the rt frontalparietal cortex. 2. Hypertension, controlled with medication. 3. 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 4. Prior RT CVA with Left HP PLAN: The patient will have a comprehensive program of inpatient rehabilitation with goal maximizing level of functional independence prior to discharge home with her family. The patient will have PT, OT 90 minutes per day each discipline, 5 days a week for 2 weeks with goal of maximizing level of function dependence. Please see post-admission physician evaluation, a separate document for details of plan of care. Speech therapy to do cognitive assessment and treat as indicated. Rehabilitation nursing to assist with bowel, bladder, skin care, medication administration, pain management. Social service to assist with discharge planning, community reentry. ESTIMATED LENGTH OF STAY: 18 days. PROGNOSIS: Rehab prognosis appears fair for improving level of functional independence prior to discharge home with her mother. DIET: Regular. CODE STATUS: Full code. POST-ADMISSION PHYSICIAN EVALUATION: The preadmission screen agrees with the post-admission assessment that the patient is a good candidate for inpatient rehabilitation. She appears to be well motivated to participate in 3 hours of therapy a day. She should be able to tolerate three hours of therapy a day from a medical standpoint. She should benefit with three hours of therapy a day. She has a reasonable discharge plan, reasonable discharge rehabilitation goals and a supportive family. She hasvarious comorbidities that need to be closely monitored with medications and treatment suggested on daily basis as stated. These include hypertension and lupus. Barriers to discharge are for her to be modified independent to supervision for ADLs and mobility skills prior to discharge so as to lessen the burden of the caregivers. Risks for this patient is Recurrent stroke, Poorly controlledhypertension, Fall, fracture, DVT Pulmonary embolism, Urinary retention, UTI. Job ID: [id number] DocumentID: [id number] Dictated Date: 07/21/2017 21:30:54 Crystalizer Tender Date: 07/21/2017 22:26:16 Dictated By: RODOLFO HUITRON MD MTDD
[2017-07-22] MEDS: MAGNESIUM OXIDE (MAG-OX)400 MG TAB PO SCH (05:59)
[2017-07-22 06:00] VITALS: BP 154/93
[2017-07-22] MEDS: FERROUS SULF 325 MG (IRON) TAB PO SCH ×3 (06:00→18:10)
[2017-07-22] MEDS: CALCIUM CARBONATE 600 MG (CALCARB) TAB PO SCH (06:00)
[2017-07-22] MEDS: VITAMIN D3 400 UNITS (CHOLECALCIFEROL) TABLET PO SCH (06:00)
[2017-07-22] MEDS: PANTOPRAZOLE 40 MG (PROTONIX) TAB PO SCH (06:00)
[2017-07-22 09:10] VITALS: BP 158/85
[2017-07-22] MEDS: buPROPion 100 MG (WELLBUTRIN) TAB PO SCH ×2 (09:32→20:59)
[2017-07-22] MEDS: HYDROXYCHLOROQUINE 200 MG (PLAQUENIL) TAB PO SCH (09:32)
[2017-07-22] MEDS: BACLOFEN 10 MG (LIORESAL) TAB PO SCH ×3 (09:32→20:59)
[2017-07-22] MEDS: amLODIPine 5 MG (NORVASC) TAB PO SCH (09:32)
[2017-07-22] MEDS: CLOPIDOGREL 75 MG (PLAVIX) TABLET PO SCH (09:32)
[2017-07-22] MEDS: ASPIRIN E.C. 81 MG (ECOTRIN) TAB PO SCH (09:32)
[2017-07-22] MEDS: ACETAMINOPHEN 500 MG TAB (TYLENOL) PO PRN ×2 (09:33→21:00)
[2017-07-22] MEDS: methylPREDNISolone SOD SUCC 1,000 MG in NS (IVPB) 100 ML IV SCH (09:59)
[2017-07-22] MEDS: ALPRAZolam 1 MG (XANAX) TAB PO PRN (14:53)
[2017-07-22] MEDS ORDERED: ASPI-999 PO (17:58)
[2017-07-22] MEDS ORDERED: AMLO5TAB2 PO (17:58)
[2017-07-22] MEDS ORDERED: ATOR40TA70 PO (17:58)
[2017-07-22 18:33] VITALS: BP 153/90
[2017-07-22] MEDS ORDERED: BUPR150T14 PO (18:43)
[2017-07-22] MEDS ORDERED: FOLI1TAB6 PO (18:43)
[2017-07-22] MEDS ORDERED: LOSA100T28 PO (18:43)
[2017-07-22] MEDS ORDERED: CLOP75TA28 PO (18:43)
[2017-07-22] MEDS ORDERED: METO-395 PO (18:43)
[2017-07-22] MEDS: ATORVASTATIN 40 MG (LIPITOR) TABLET PO SCH (20:59)
[2017-07-23] MEDS: ALPRAZolam 1 MG (XANAX) TAB PO PRN (00:55)
[2017-07-23 04:58] VITALS: BP 161/83
[2017-07-23] MEDS: CALCIUM CARBONATE 600 MG (CALCARB) TAB PO SCH (06:57)
[2017-07-23] MEDS: FERROUS SULF 325 MG (IRON) TAB PO SCH ×2 (06:57→12:45)
[2017-07-23] MEDS: VITAMIN D3 400 UNITS (CHOLECALCIFEROL) TABLET PO SCH (06:57)
[2017-07-23] MEDS: PANTOPRAZOLE 40 MG (PROTONIX) TAB PO SCH (06:58)
[2017-07-23] MEDS: MAGNESIUM OXIDE (MAG-OX)400 MG TAB PO SCH (06:58)
[2017-07-23] MEDS ORDERED: TRIM/SULFAMETH 160/800 (SEPTRA DS) TAB PO SCH (07:00)
[2017-07-23] MEDS: amLODIPine 5 MG (NORVASC) TAB PO SCH (09:05)
[2017-07-23] MEDS: HYDROXYCHLOROQUINE 200 MG (PLAQUENIL) TAB PO SCH (09:05)
[2017-07-23] MEDS: BACLOFEN 10 MG (LIORESAL) TAB PO SCH ×2 (09:05→12:45)
[2017-07-23] MEDS: ASPIRIN E.C. 81 MG (ECOTRIN) TAB PO SCH (09:05)
[2017-07-23] MEDS: buPROPion 100 MG (WELLBUTRIN) TAB PO SCH (09:05)
[2017-07-23] MEDS: CLOPIDOGREL 75 MG (PLAVIX) TABLET PO SCH (09:05)
--- NOTE | 2017-07-23 10:58 | Physical Therapy Daily Note ---
PT Daily Note-Current Subjective Patient in bed pre tx, cries out occasionally with pain or distress, states she has painful muscle spasms. Nurse in room and gives her meds. Will be co- treating with OT for 60 min this morning. Appearance Patient in wheelchair post tx with nurse call, phone, tray, has ST right after. All needs met. Mental Status Patient Orientation: Person, Situation Transfers Functional [place] Measure 0=Not Assessed/NA 4=Minimal Assistance 1=Total Assistance 5=Supervision or Setup 2=Maximal Assistance 6=Modified [place] 3=Moderate Assistance 7=Complete IndependenceIRFPAI Quality Coding Scale 6 Independent with activity with or without an assistive device 5 Patient requires set up or clean up by helper. Patient completes activity by themselves 4 Supervision or touching assist (CGA). [place] provide cues , steadying assist 3 The helper provides less than half the effort to complete the activity 2 The helper provides more than half the effort to complete the activity 1 Dependent. The helper does all the effort to complete an activity 7 Patient refused to complete or attempt activity 9 The patient did not perform the activity before the current illness or injury 88 Not attempted due to Medical conditions or safety concerns Transfers (B, C, W/C) (FIM): 1 Scootin Rollin Supine to/from Sit: 1 Sit to/from Stand: 2 Bed to/from Chair: 2 Weight Bearing Right Lower Extremity: Right Weight Bearing/Tolerated Wheelchair Training Wheelchair (FIM): 1 Treatments Patient bathed at the side of the bed and during standing (to get backside), transferred to the wheelchair and dressed upper and stood for dressing lower. Patient taken to therapy gym and stood in the parallel bars x2 for about 1-3 min each time and LLE ROM/stretching was performed while OT performed LUE ROM/ stretching. PT performed bed mobility, transfers, sitting balance during ADL's and bathing, standing, ROM/stretching. OT performed ADL's, bathing, dressing, UE positioning during standing, and UE ROM and stretching. Co-treated for the whole 60 min. Assessment Current Status: Poor Progress Patient has pretty extreme extension tone in the left leg and a left ankle contracture. Poor prognosis. PT Short Term Goals Short Term Goals Time Frame: August 04, 2017 Transfers (B,C,W/C) (FIM): 3 Gait (FIM): 3 Distance (FIM): 1=up to 49 ft Gait Distance Comment: 15' Gait Level of Assist: 3 Gait Assistive Device: Walker Nathan Wheelchair (FIM): 5 Wheelchair distance (FIM): 1=925-33 ft Wheelchair Distance: SEE PT GOALS Wheelchair Level of Assist: 5 PT Director Of Marketing [employer] Goals Director Of Marketing [employer] Goals PT Chcf Goals Time Frame: Aug 18, 2017 Transfers (B,C,W/C) (FIM): 5 Sit to Lying (QC): 5 Lying-Sitting on Side/Bed(QC): 5 Sit to Stand (QC): 5 Rollin Roll Left to Right (QC): 5 Chair/Gkv-rw-Fupig Xfer(QC): 5 Car Transfer (QC): 5 Does the Patient Walk: No and Walking Goal IS indicated Gait (FIM): 4 Gait distance (FIM): 9=644-36 ft Distance: 100' Walk 10 feet (QC): 4 Walk 10ft-Uneven Surface(QC): 3 Walk 50ft with 2 Turns (QC): 4 Gait Level of Assist: 4 Gait Assistive Device: Walker Nathan Does the Pt use WC or Scooter?: Yes Wheelchair (FIM): 5 Wheelchair distance (FIM): 3=150 ft Distance: 150' Wheelchair Level of Assist: 5 Wheel 50 feet with 2 turns (QC: 5 Stairs (FIM): 4 # of Steps: 4 1 Step (curb) (QC): 4 4 Steps (QC): 4 12 Steps (QC): 4 Stairs Level Of Assist: 4 Picking up an Object (QC): 4 PT Plan Problem List Problem List: Activity Tolerance, Functional Strength, Safety, Balance, Gait, Transfer, Bed Mobility, ROM Treatment/Plan Treatment Plan: Continue Plan of Care Treatment Plan: Bed Mobility, Education, Functional Activity Luis, Functional Strength, Group Therapy, Gait, Safety, Therapeutic Exercise, Transfers Treatment Duration: Aug 18, 2017 Frequency: At least 5 of 7 days/Wk (IRF) Estimated Hrs Per Day: 1.5 hours per day Patient and/or Family Agrees t: Yes Safety Risks/Education Patient Education: Transfer Techniques, Correct Positioning, W/C Management, Safety Issues Teaching Recipient: Patient Teaching Methods: Demonstration, Discussion Response to Teaching: Reinforcement Needed Time/GCodes Time In: 0900 Time Out: 1000 Total Billed Treatment Time: 60 Total Billed Treatment 1 visit FA 60' KRTEK,KIERRA PT July 23, 2017 10:58
--- NOTE | 2017-07-23 13:59 | ST Dysphagia Evaluation ---
Speech Evaluation-General Medical Diagnosis Left CVA Onset Date: July 20, 2017 Therapy Diagnosis Therapy Diagnosis: Mild to Moderate Oropharyngeal Dysphagia Precautions Precautions: Aspiration (Upright and Alert for PO Intake, Small Bites and Sips , No Straws) Precautions/Isolations: Fall Prevention, Standard Precautions, Pressure Ulcer Referral Referring Physician: Dr. Carrington Diez Reason for Referral: Evaluation/Treatment Clinical Bedside Swallowing Evaluation Medical History Pertinent Medical History: CVA, GERD, HTN Current History The patient was recently admitted following a left fronto-parietal CVA which involved aspects of the adonay and cerebellum. Reviewed History: Yes Social History Current Living Status: Speech PLF/Current-Dysphagia Prior Level of Function The patient is unable to provide prior level of function information to the clinician due to the severity of her expressive aphasia. Subjective The patient was seated upright in her wheelchair upon entrance. The patient makes eye contact with the clinician upon entrance, however, does not verbalize a greeting. The patient is currently receiving a regular diet with thin liquids as placed upon admission by transfer facility. The RN contacted the clinician with concerns regarding the patient's swallowing function. Per RN, the patient rigorously coughed throughout a drink of thin liquid. Due to these observations, the RN requested a bedside swallowing evaluation by the clinician. Cognitive Status Patient Orientation: Person The patient displays extremely flat affect. The patient states her location as [facility] after prompting (verbal) from the clinician. The patient is aware of her date of and age. Oral Motor Skills Dentition: Natural Current Food Consistancy: Regular, Thin Liquids Ability to Follow Directions: Fair Oral Expression Ability: Moderate Impairment Voice Voice Phonatory-Based Quality: Harsh (The patient displays a forced, effortful , strained vocal quality.) Voice Pitch: Normal Voice Loudness: Normal Face Facial Symmetry: Asymmetrical (The patient displays a left facial droop at rest.) Oral-Facial Assessment Oral-Facial Dentition: Normal Labial Seal Description: Droops Left, Weak, Poor Coordination Smile: Droops Left Lingual Protrusion: Abnormal (The patient was able to extend tongue minimally, barely reaching the exterior of the lips. Upon protrusion, left deviation was evident.) Lingual ROM: Abnormal (Limited left sided range of motion was achieved.) Lingual Strength: Abnormal (Reduced strength bilaterally (L>R).) Volitional Dry Swallow: No Voluntary Cough: No Can Clear Throat Volitionally: No Productive Cough: Yes Productive Throat Clear: Yes Dysphagia Evaluation Consistencies Presented: Regular, Thin Liquid, [place] Thick Liquid, Pureed Oral Phase: Anterior Spillage, Unable to Form Bolus, Unable to Suck Straw, Reduced Oral Transit The patient displayed a poorly coordinated oral phase of swallow, being unable to intermittently draw liquid from a straw. The patient "smacked" lips and tongue in attempts to move the bolus posterior in the oral cavity. The patient displayed poor mastication of solid consistencies. Pharyngeal Phase: Decreased A/P Bolus Transit, Delayed Swallow The patient made several attempts at swallowing puree consistency, mostly due to the inability to effectively move the bolus to an adequate location to trigger the pharyngeal swallow. Funct. Velo/Pharyngeal Symptom: Cough After Swallow - Thin Liquid (via teaspoon): An immediate, rigorous cough and watery eyes were demonstrated with two of two boluses of thin liquid via teaspoon. - [place]-Thick (via teaspoon and straw sip): No signs/symptoms of aspiration were demonstrated with multiple boluses of nectar-thick liquid via straw sip or teaspoon. The patient intermittently demonstrated the inability to draw liquids through a straw, as well as, the inability to place the straw adequately in her mouth. It is a possibility the patient is experience object apraxia with ADL items. - Puree: No signs/symptoms of aspiration were demonstrated with multiple boluses of puree consistency. - Solid: Increased mastication time and poor coordination was noted with solid consistencies. The patient required a nectar-thick liquid wash to clear material from the oral cavity. Dietary Recommendations: Mechanical Soft Liquid Recommendations: [place] Consistancy Crush medication and place in puree for administration. Swallowing Precautions: Decreased Rate of Oral Intake, No Straw, Oral Supervision Staff (1:1 Feeding Assistance Required.), Pocketing (Assess for left pocketing throughout meals.), Small Bites and Sips, Sitting 90 Degrees 30 Post Intake, Left Tongue Sweep Dysphagia Evaluation Summary The patient displays mild to moderate oropharyngeal dysphagia characterized by reduced left labial and lingual range of motion, coordination, and strength, delayed onset of the pharyngeal swallow, decreased airway protection in the presence of bolus material, and an overall poorly coordinated swallow function. At this time, the patient is appropriate for mechanical soft consistencies. However, due to the patient's inconsistent, intermittent poor coordination of bolus material and inability to move bolus material posterior in a timely fashion, she may be downgraded to a puree consistency to reduce effort with meals. The RN and clinician discussed this recommendation and possibility necessity in detail. Additionally, the patient may need to be downgraded to nectar-thick liquid consistency via teaspoon as she intermittently displays the inability to pull bolus material through a straw. Barriers to Learning Poor Comprehension Speech Short Term Goals Short Term Goals Short Term Goals 1. The patient will tolerate 10/10 trials of nectar-thick liquid consistency without signs/symptoms of aspiration or laryngeal penetration. Time Frame-STG: One Week Speech Jacquard Plate Maker Goals Usp Goals 1. The patient will tolerate the least restrictive diet without signs/symptoms of aspiration or laryngeal penetration. Time Frame: Two Weeks Speech-Plan Treatment Plan Speech Therapy Treatment Plan: Continue Plan of Care Continue skilled speech pathology to target swallowing safety. Treatment Duration: August 06, 2017 Frequency: 3 times per week Estimated Hrs Per Day: .5 hour per day Rehab Potential: Poor Safety Risks/Education Teaching Recipient: Patient Teaching Methods: Discussion Response to Teaching: Reinforcement Needed Education Topics Provided: Results, Recommendations, Plan of Care, Swallowing Strategies Discharge Recommendations Senior Living (TCU/NH) Time Speech Therapy Time In: 11:00 Speech Therapy Time Out: 11:15 Total Billed Time: 15 Billed Treatment Time 1 CAMI CUELLAR July 23, 2017 13:59
--- NOTE | 2017-07-23 14:23 | ST Cognitive Linguistic Eval ---
Speech Evaluation-General Medical Diagnosis Left CVA Onset Date: July 20, 2017 Therapy Diagnosis Therapy Diagnosis: Moderate Expressive and Receptive Aphasia Precautions Precautions: Aspiration (Upright and Alert for PO Intake, Small Bites and Sips , No Straws) Precautions/Isolations: Fall Prevention, Standard Precautions, Pressure Ulcer Referral Referring Physician: Dr. Carrington Diez Reason for Referral: Evaluation/Treatment Cognitive, Speech, and Language Evaluation Medical History Pertinent Medical History: CVA, GERD, HTN Current History The patient was recently admitted to [facility] following a left CVA involving the left fronto-parietal lobe, as well as, portions of the adonay and cerebellum. Reviewed History: Yes Social History Current Living Status: Speech PLF-Current Status Prior Level of Function The patient was unable to provide prior level of function due to her moderate expressive aphasia. The patient is known to this clinician from a previous hospitalization. At the patient's previous hospitalization she displayed adequate expressive and receptive communication. Subjective The patient was seated upright in her wheelchair upon entrance. The patient greeted the clinician with an eye gaze, however, no verbalizations were provided by the patient. Language Eval: Auditory Comprehends Simple Yes/No Ques: Functional Indent/Objects Multiple Germain: Functional Ident/Pics in Multiple Germain: Functional Follows 1-Step Commands: Functional Follows Complex Directions: Moderate (Increased repetition and response time was required for multi-step commands.) Follows General Conversations: Moderate On average, the patient required five seconds per simple response (including yes and no). Language Eval: Verbal Language Produces Auto, Serial Info: Functional (The patient was able to state her name and date of .) Imitates Simple Words/Phrases: Moderate (The patient is able to repeat single words. The patient is unable to repeat short phrases.) Word Finding: Severe Requests Basic Needs: Moderate (The patient is able to state short phrases, "I' m hungry," however, unable to express complex needs (including additional options for comfort and location of pain).) States Basic Personal Info: Functional Expresses Complex Ideas: Severe The patient displays extremely flat affect, as well as, limited eye contact and left gaze. Language Evaluation: Reading Comprehends Single Nouns: Functional (The patient is able to identify menu options.) Language Evaluation: Writing Writes to Simple Dictation: Severe Writes Personal Information: Severe Cognitive Patient Orientation The patient is oriented to month and year. When poised questions regarding date and day of week, the patient stated "no." Objective Cognitive Domain Attention: Moderate Memory: Mild (The patient was able to identify two of three words following a five minute delay.) Problem Solving: Severe (The patient was unable to problem solve ways to improve comfort, identify her location.) Visuospatial Skills: Severe (While attempting clock drawing, the patient was not aware of right side of page. The clinician is concerned of the possible right neglect because the patient also did not gaze past midline to the left throughout exchanges.) Objective Oral Motor/Speech Production Left facial (lower 2/3) droop present at rest. Reduced left labial retraction, left sided deviation upon protrusion. Impression The patient displays moderate expressive aphasia, mild receptive aphasia, and a moderate cognitive impairment characterized by inability to follow multi-step commands, poor orientation, decreased accuracy with repetition, and limited verbalizations. Communication/Social Cognition Comprehension: 3 (The patient requires prompting 50 to 75% of the time, as well as, increased response time.) Expression: 2 (Maximal prompting required for limited expressive ability.) Social Interaction: 2 (The patient is often tearful and displays anxiety to staff. The patient interacts appropriately approxmately 40 to 50% of the time.) Problem Solvin (Maximum direction required to initiate, plan and complete simple daily activities.) Memory: 4 (Minimal prompting required.) Speech Patient Assess Expression of Ideas/Wants: Frequently (2) Understanding [place]ebal Content: Sometimes Understands(2) Brief Interview-Mental Status: Yes Repetition of Three Words: Three (3) Temporal Orientation: Year: Correct (3) Temporal Orientation: Month: Accurate within 5 days(2) Temporal Orientation: Day: Incorrect or No Answer(0) Recall : Wear to say "Sock": No, could not recall (0) Recall : Color: Yes, no cue required (2) Recall : Bed: Yes, no cue required (2) Speech Short Term Goals Short Term Goals Short Term Goals 1. The patient will tolerate 10/10 trials of nectar-thick liquid consistency without signs/symptoms of aspiration or laryngeal penetration. 2. The patient will state orientation information, including personal information, with the use of an external aid with 75% accuracy. 3. The patient will repeat short phrases with 75% accuracy and moderate clinician cueing. 4. The patient will displays 90% accuracy with yes and no questions, independently. Time Frame-STG: Two Weeks Speech Felt Hanger Goals Felt Hanger Goals 1. The patient will tolerate the least restrictive diet without signs/symptoms of aspiration or laryngeal penetration. Time Frame: Three Weeks Comprehension: 4 Expression: 4 Social Interaction: 5 Problem Solvin Memory: 5 Speech-Plan Treatment Plan Speech Therapy Treatment Plan: Continue Plan of Care Skilled speech pathology to improve functional expressive communication. Treatment Duration: August 06, 2017 Frequency: 3 times per week Estimated Hrs Per Day: .5 hour per day Rehab Potential: Poor Safety Risks/Education Teaching Recipient: Patient Teaching Methods: Discussion Response to Teaching: Reinforcement Needed Education Topics Provided: Results, Plan of Care, Recommendation Time Speech Therapy Time In: 10:00 Speech Therapy Time Out: 10:30 Total Billed Time: 30 Billed Treatment Time 1, CAMI MACIEL July 23, 2017 14:23
--- NOTE | 2017-07-23 14:34 | Therapy Group Daily Note ---
Therapy Daily Group Note Patient Education Topic Other List Below Exercises LE Seated Exercise, UE Exercise Other/Notes Pt. participated in group PT OT session this date. Pt. required Max assist of 2 TRF in out bed and w/c. Pt. very limited in communication. Pts socialized, shared names , home town and an experience they remember where they forgot something. Pts. shared memory strategies and strategies were traught as well as general information about LT and ST memory, visual and repetitive memory strategies etc. Pts. participated in memory matching game via images on board observed , then turned over etc as well as collectively deciding on 4 items to remember and see if they can recall on Sun group: 1)blue 2) cat 3) peanuts 4) 19 of September. Pt. in room after group with 2 Max to TRF and much assist to try to break up tone and comfort pt. as she had requested to leave group and indicated she wanted in bed. jackman at hand Start Time: 13:00 Stop Time: 14:20 Total Billed Treatment Time: 80 Total Billed Treatment 1,GRP MARY KATE MAGUIRE GAS WELDING MACHINE OPERATOR July 23, 2017 14:34
[2017-07-23] MEDS ORDERED: ACET-2267 PO (14:43)
[2017-07-23] MEDS ORDERED: LORA10TA76 PO (14:43)
[2017-07-23] MEDS ORDERED: BUPR200T PO (14:43)
[2017-07-23] MEDS ORDERED: FERR-84 PO (14:43)
[2017-07-23] MEDS ORDERED: ALPR1TAB2 PO (14:43)
[2017-07-23] MEDS ORDERED: DOCU-143 PO (14:43)
[2017-07-23] MEDS ORDERED: GABA-488 PO (14:43)
[2017-07-23] MEDS ORDERED: NF-MINO10T PO (14:43)
[2017-07-23] MEDS ORDERED: SUGAMMADEX 500 MG/5 ML VIAL (BRIDION) IV ONE (16:07)
[2017-07-23] MEDS ORDERED: PROPOFOL DRIP (ICU) 100 ML IV ONE (16:13)
--- NOTE | 2017-07-23 16:19 | Diagnostic Imaging Report ---
EXAMINATION: CT of the head without contrast. INDICATION: Unresponsive. COMPARISON: There are no prior studies available for comparison. FINDINGS: There is acute hemorrhage in the subarachnoid space about the atka of [place]. There are also areas of increased density near the bifurcation of the middle cerebral artery on the right and adjacent to the falx anteriorly. There also appears to be some hemorrhage within the parenchyma adjacent to the falx just superior to the lateral ventricles. There is no other focus of hemorrhage identified. There is a sizable 1.7 x 4.6 cm area of diminished density in the putamen on the right. Most likely, this is a sequela of a prior infarct. There also appears to be a lobulated area of encephalomalacia in the left adonay. This measures 1.3 x 1.3 cm. There is no shift of the midline. The right lateral ventricle is compensatorily enlarged due to the encephalomalacia involving the right putamen. There is also cortical atrophy present. The degree of atrophy is somewhat greater than expected for a patient of this age. The bone windows show no sign of a skull fracture or of a destructive lesion. The orbits are symmetrical and within normal limits. The sinuses are generally clear. IMPRESSION: 1. There is acute subarachnoid hemorrhage in the suprasellar cistern. Smaller areas of hemorrhage are also seen in the middle cerebral artery bifurcation region on the right and along the anterior falx. 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 2. There is no acute intracranial abnormality noted otherwise. 3. There are areas of encephalomalacia related to prior infarcts Involving the right putamen and left adonay. 4. These results were called to Dr. Carrington Diez at the time of this dictation. CRITICAL FINDING Dictated by: Dictated on workstation # [id number]
--- NOTE | 2017-07-23 16:30 | Occupational Ther Daily Note ---
OT Current Status-Daily Note Subjective Pt. crying and yelling when therapy came into room. Pt. calms down. Does not state what she is upset about but when prompted, indicates that she is hurting. Unable to state where or how much. Nursing gives pt. medicine. Appearance Pt. in bed. Communication is not fluid. At times, pt. is able to answer OT, and other times she stares back. Mental Status/Objective Patient Orientation: Confused, Unable to Assess Functional [place] Measure 0=Not Assessed/NA 4=Minimal Assistance 1=Total Assistance 5=Supervision or Setup 2=Maximal Assistance 6=Modified [place] 3=Moderate Assistance 7=Complete [place] Attachments: IV ADL-Treatment Functional [place] Measure 0=Not Assessed/NA 4=Minimal Assistance 1=Total Assistance 5=Supervision or Setup 2=Maximal Assistance 6=Modified [place] 3=Moderate Assistance 7=Complete IndependenceIRFPAI Quality Coding Scale 6 Independent with activity with or without an assistive device 5 Patient requires set up or clean up by helper. Patient completes activity by themselves 4 Supervision or touching assist (CGA). Lizella provide cues , steadying assist 3 The helper provides less than half the effort to complete the activity 2 The helper provides more than half the effort to complete the activity 1 Dependent. The helper does all the effort to complete an activity 7 Patient refused to complete or attempt activity 9 The patient did not perform the activity before the current illness or injury 88 Not attempted due to Medical conditions or safety concerns Grooming (FIM): 1 (OT brushes pt's hair and puts into ponytail.) Bathing (FIM): 1 (Pt. is unable to assist with bathing. OT and PT do this for her up in chair.) Shower/Bathe Self (QC): 1 Upper Body (FIM): 1 (Pt. demonstrates swelling and significant increased tone in left UE. Requires dependent assist to don shirt.) Upper Body Dressing (QC): 1 Lower Body Dressing (FIM): 1 (Max assist to don slipper socks, pants, and brief.) Lower Body Dressing (QC): 1 On/Off Footwear (QC): 1 Transfers (B, C, W/C) (FIM): 1 (Max x 2 supine-sit and max x 1-2 for sit-stand and transfer to chair.) Other Treatment Pt. seen by OT/PT for co-treat due to level of skilled care needed. OT focused on ADL training and skills while PT facilitated transfers and mobility training. Pt. demonstrates significant tone in left UE/LE. OT/PT took turns with PROM to these areas. Unable to fully get left UE into extension in elbow, wrist, fingers. Stood at parallel bars with max x2 for hand placement, glute facilitation, leg placement, and upright posture. Stood approximately 1-2 minutes. Stephens belt on pt. at end of treatment. Pt. states that she remembers this clinician from previous hospital stay. However, fully inconsistent with verbalization and making needs known. Education OT Patient Education: Correct positioning, Modified ADL techniques, Progress toward Goal/Update tx plan, Purpose of tx/functional activities, Reviewed precautions, Rehab process, Safety issues, Transfer techniques Teaching Recipient: Patient Teaching Methods: Demonstration, Discussion Response to Teaching: Verbalize Understanding, Return Demonstration OT Short Term Goals Short Term Goals Time Frame: August 04, 2017 Eating(FIM): 5 Grooming(FIM): 4 Bathing(FIM): 3 Upper Body Dressing(FIM): 3 Transfers (B,C,W/C) (FIM): 3 Toilet/Commode Transfer(FIM): 3 Additional Short Term Goals: 1-Demonstrate ADL Tasks, 2-Verbalize Understanding , 3-ImproveStrength/Luis 1=Demonstrate adherence to instructed precautions during ADL tasks. 2=Patient will verbalize/demonstrate understanding of assistive devices/ modifications for ADL. 3=Patient will improve strength/tolerance for activity to enable patient to perform ADL's. OT Experimental Aircraft Mechanic Goals Experimental Aircraft Mechanic Goals Time Frame: Aug 18, 2017 Eating (FIM): 6 Eating (QC): 6 Groomin Oral Hygiene (QC): 6 Bathing(FIM): 4 Shower/Bathe Self (QC): 4 Upper Body Dressing(FIM): 4 Upper Body Dressing (QC): 4 Lower Body Dressing(FIM): 4 Lower Body Dressing (QC): 3 On/Off Footwear (QC): 3 Toileting(FIM): 3 Toileting Hygiene (QC): 3 Toilet/Commode Transfer(FIM): 4 Toilet/Commode Transfer (QC): 4 Shower Transfer(FIM): 4 Comprehension(FIM): 4 Expression (FIM): 4 Social Interaction(FIM): 5 Problem Solving(FIM): 4 Memory(FIM): 5 Additional Goals: 1-Demonstrate ADL Tasks, 2-Verbalize Understanding, 3- ImproveStrength/Luis 1=Demonstrate adherence to instructed precautions during ADL tasks. 2=Patient will verbalize/demonstrate understanding of assistive devices/ modifications for ADL. 3=Patient will improve strength/tolerance for activity to enable patient to perform ADL's. OT Education/Plan Problem List/Assessment Assessment: Decreased Activ Tolerance, Decreased Safety Aware, Decreased UE Strength, Dependent Transfers, Edema, Impaired Bed Mobility, Impaired Cognition , Impaired Coordination, Impaired Funct Balance, Impaired I ADL's, Impaired Self -Care Skills, Restricted Funct UE ROM, Visual-Perceptual Deficit Pt demonstrates impaired ability to perform ADLs and transfers. Pt has increased tone in left UE/LE and has decreased balance. Pt to benefit from skilled OT intervention for ADL training, transfers, strengthening, and safety education to increase level of function and allow safe discharge plan. Discharge Recommendations Plan/Recommendations: Continue POC Therapy D/C Recommendations: 24 hr Supervision Treatment Plan/Plan of Care Treatment,Training & Education: Yes Patient would benefit from OT for education, treatment and training to promote independence in ADL's, mobility, safety and/or upper extremity function for ADL' s. Plan of Care: ADL Retraining, Caregiver Training, Functional Mobility, Group Exercise/Act as Ind, UE Funct Exercise/Act, UE Neuromus Re-Ed/Coord Treatment Duration: Aug 18, 2017 Frequency: At least 5 of 7 days/Wk (IRF) Estimated Hrs Per Day: 1.5 hours per day Agreement: Yes Rehab Potential: Guarded Time/GCodes Start Time: 09:00 Stop Time: 10:00 Total Time Billed (hr/min): 60 Billed Treatment Time 1, ADL x 45minutes, FA x 15minutes MARI ECKERT OT July 23, 2017 16:29
[2017-07-23 16:44] LABS: ABG BASE EXCESS -3.3 MMOL/L (-2.5-2.5); ABG OXYGEN SATURATION 100 % (94-100); ABG PCO2 36 MMHG (35-45); ABG PH 7.38 (7.37-7.43); ABG PO2 140 MMHG (79-93); ABG TCO2 21.7 MMOL/L (21.0-31.0)
[2017-07-23 16:46] LABS: ALLENS TEST YES-POS; INSPIRED O2 50%; PATIENT TEMP 101; VENTILATOR YES
--- NOTE | 2017-07-23 18:38 | PM & R (SOAP) Progress Note ---
Subjective This was a face to face visit with the patient. Date Seen by Provider: July 23, 2017 Time Seen by Provider: 18:10 Subjective/Events-last exam Patient was seen in ICU sedated and intubated awaiting tansfer back to [facility] Radiologist her called me with report of [facility] RN then vcalled me repatients change of staus becoming unresponsive earlier today following therapies Patient did participate in therapies todday CABINETMAKER HELPER called re case and I requested an Overhead Crane Operator/PULM consult I Believe the Hospitalist has assessed patient and arranged for transfer back to [facility] EMS at bedside when I assessed.Uncertain of cause of bleed and Neuro will assess and treat at [facility] Review of Systems Neurological: Other (change in LOC) Objective Physician Exam Last Set of Vital Signs Vital Signs Date Time Temp Pulse Resp B/P (MAP) Pulse Ox O2 Delivery O2 Flow Rate FiO2 07/23/17 09:41 Room Air 07/23/17 04:58 97.8 71 16 161/83 (109) 98 Capillary Refill : Less Than 3 Seconds I&O Intake and Output 07/23/17 00:00 Intake Total 1420 ml Balance 1420 ml Intake Oral 1420 ml # Voids 5 General: Other (Sedated and intubated) Psych/Mental Status: Other (as per above) Results Lab Data Laboratory Tests 07/23/17 15:50: Glucometer 77 07/23/17 16:30: Blood Gas Puncture Site RT RAD, Blood Gas Patient Temperature 101, Arterial Blood pH 7.38, Arterial Blood Partial Pressure CO2 36, Arterial Blood Partial Pressure O2 140H, Arterial Blood HCO3 21L, Arterial Blood Total CO2 21.7, Arterial Blood Oxygen Saturation 100, Arterial Blood Base Excess -3.3L, Ignacio Test YES-POS, Blood Gas Ventilator Setting YES, Blood Gas Inspired Oxygen 50% Current Funtional Status The patient was max assist to dependent for transfers this AM with PT Assessment/Plan Assessment and Plan Recuurent stroke with [facility] Plan Back to [facility] for ongoing care and treatment F/U with Neuro there Co-Morbidities that are continuing to impact the rehab process: (include details ) RODOLFO HUITRON MD July 23, 2017 6:38 pm
[2017-07-24] MEDS ORDERED: predniSONE 20 MG TAB PO SCH (07:00)
--- NOTE | 2017-07-24 08:40 | Therapy Team Discharge Summary ---
Therapy Discharge Summary Discharge Recommendations Date of Discharge July 23, 2017 at 16:04 Therapy D/C Recommendations: 24 hr Supervision Occupational Therapy Pt. has discharged to other medical facility due to extension of symptoms. At discharge, pt. required full assist with all tasks. Pt. dependent. Decreased Activ Tolerance, Decreased Safety Aware, Decreased UE Strength, Dependent Transfers, Edema, Impaired Bed Mobility, Impaired Cognition, Impaired Coordination, Impaired Funct Balance, Impaired I ADL's, Impaired Self-Care Skills, Restricted Funct UE ROM, Visual-Perceptual Deficit PT Machine Long Goods Helper Goals Mcc Goals PT Machine Long Goods Helper Goals Time Frame: Aug 18, 2017 Transfers (B,C,W/C) (FIM): 5 Roll Left to Right (QC): 5 Sit to Lying (QC): 5 Lying-Sitting on Side/Bed(QC): 5 Sit to Stand (QC): 5 Chair/Epu-cs-Ascho Xfer(QC): 5 Car Transfer (QC): 5 Does the Patient Walk: No and Walking Goal IS indicated Gait (FIM): 4 Gait distance (FIM): 3=235-73 ft Distance: 100' Walk 10 feet (QC): 4 Walk 10ft-Uneven Surface(QC): 3 Walk 50ft with 2 Turns (QC): 4 Gait Level of Assist: 4 Gait Assistive Device: Walker Nathan Does the Pt use WC or Scooter?: Yes Wheelchair (FIM): 5 Wheelchair distance (FIM): 3=150 ft Distance: 150' Wheelchair Level of Assist: 5 Wheel 50 feet with 2 turns (QC: 5 Stairs (FIM): 4 # of Steps: 4 1 Step (curb) (QC): 4 4 Steps (QC): 4 12 Steps (QC): 4 Stairs Level Of Assist: 4 Picking up an Object (QC): 4 OT Machine Long Goods Helper Goals Machine Long Goods Helper Goals Time Frame: Aug 18, 2017 Eating (FIM): 6 (not met) Eating (QC): 6 (not met) Oral Hygiene (QC): 6 (not met) Grooming(FIM): 6 (not met) Bathing(FIM): 4 (not met) Shower/Bathe Self (QC): 4 (not met) Upper Body Dressing(FIM): 4 (not met) Upper Body Dressing (QC): 4 (not met) Lower Body Dressing(FIM): 4 (not met) Lower Body Dressing (QC): 3 (not met) On/Off Footwear (QC): 3 (not met) Toileting(FIM): 3 (not met) Toileting Hygiene (QC): 3 (not met) Toilet/Commode Transfer(FIM): 4 (not met) Toilet/Commode Transfer (QC): 4 (not met) Shower Transfer(FIM): 4 (not met) Comprehension(FIM): 4 Expression (FIM): 4 Social Interaction(FIM): 5 Problem Solving(FIM): 4 Memory(FIM): 5 Additional Goals: 1-Demonstrate ADL Tasks, 2-Verbalize Understanding, 3- ImproveStrength/Luis 1=Demonstrate adherence to instructed precautions during ADL tasks. 2=Patient will verbalize/demonstrate understanding of assistive devices/ modifications for ADL. 3=Patient will improve strength/tolerance for activity to enable patient to perform ADL's. Speech Mcc Goals Machine Long Goods Helper Goals 1. The patient will tolerate the least restrictive diet without signs/symptoms of aspiration or laryngeal penetration. Time Frame: Three Weeks Comprehension: 4 Expression: 4 Social Interaction: 5 Problem Solvin Memory: 5 MARI ECKERT OT July 24, 2017 08:40
--- NOTE | 2017-07-24 15:15 | Therapy Team Discharge Summary ---
Therapy Discharge Summary Discharge Recommendations Date of Discharge July 23, 2017 at 16:04 Therapy D/C Recommendations: 24 hr Supervision Occupational Therapy Decreased Activ Tolerance, Decreased Safety Aware, Decreased UE Strength, Dependent Transfers, Edema, Impaired Bed Mobility, Impaired Cognition, Impaired Coordination, Impaired Funct Balance, Impaired I ADL's, Impaired Self-Care Skills, Restricted Funct UE ROM, Visual-Perceptual Deficit Speech-Language Pathology The patient was admitted to [facility] following a CVA. Upon admission, the patient demonstrated moderate oropharyngeal dysphagia, as well as, moderate to severe expressive aphasia. Skilled speech pathology was to focus on swallowing strengthening, swallowing strategies, yes and no questions, and repetition of phrases. The day of the evaluation, the RN contacted rapid response and the patient was found to have a new hemorrhage on brain CT. The patient was medically flown to [facility] for further care. The patient will be discharged from skilled speech pathology services at this time. PT Nursing Home Goals Nursing Home Goals PT Nursing Home Goals Time Frame: Aug 18, 2017 Transfers (B,C,W/C) (FIM): 5 Roll Left to Right (QC): 5 Sit to Lying (QC): 5 Lying-Sitting on Side/Bed(QC): 5 Sit to Stand (QC): 5 Chair/Hfp-mj-Bqihg Xfer(QC): 5 Car Transfer (QC): 5 Does the Patient Walk: No and Walking Goal IS indicated Gait (FIM): 4 Gait distance (FIM): 9=931-68 ft Distance: 100' Walk 10 feet (QC): 4 Walk 10ft-Uneven Surface(QC): 3 Walk 50ft with 2 Turns (QC): 4 Gait Level of Assist: 4 Gait Assistive Device: Walker Nathan Does the Pt use WC or Scooter?: Yes Wheelchair (FIM): 5 Wheelchair distance (FIM): 3=150 ft Distance: 150' Wheelchair Level of Assist: 5 Wheel 50 feet with 2 turns (QC: 5 Stairs (FIM): 4 # of Steps: 4 1 Step (curb) (QC): 4 4 Steps (QC): 4 12 Steps (QC): 4 Stairs Level Of Assist: 4 Picking up an Object (QC): 4 OT Nursing Home Goals Venereal Disease Investigator Goals Time Frame: Aug 18, 2017 Eating (FIM): 6 (not met) Eating (QC): 6 (not met) Oral Hygiene (QC): 6 (not met) Grooming(FIM): 6 (not met) Bathing(FIM): 4 (not met) Shower/Bathe Self (QC): 4 (not met) Upper Body Dressing(FIM): 4 (not met) Upper Body Dressing (QC): 4 (not met) Lower Body Dressing(FIM): 4 (not met) Lower Body Dressing (QC): 3 (not met) On/Off Footwear (QC): 3 (not met) Toileting(FIM): 3 (not met) Toileting Hygiene (QC): 3 (not met) Toilet/Commode Transfer(FIM): 4 (not met) Toilet/Commode Transfer (QC): 4 (not met) Shower Transfer(FIM): 4 (not met) Comprehension(FIM): 4 Expression (FIM): 4 Social Interaction(FIM): 5 Problem Solving(FIM): 4 Memory(FIM): 5 Additional Goals: 1-Demonstrate ADL Tasks, 2-Verbalize Understanding, 3- ImproveStrength/Luis 1=Demonstrate adherence to instructed precautions during ADL tasks. 2=Patient will verbalize/demonstrate understanding of assistive devices/ modifications for ADL. 3=Patient will improve strength/tolerance for activity to enable patient to perform ADL's. Speech Venereal Disease Investigator Goals Nursing Home Goals 1. The patient will tolerate the least restrictive diet without signs/symptoms of aspiration or laryngeal penetration. Time Frame: Three Weeks Comprehension: 4 Expression: 4 Social Interaction: 5 Problem Solvin Memory: 5 CAMI SPRINGER July 24, 2017 15:15
--- NOTE | 2017-07-25 08:22 | Therapy Team Discharge Summary ---
Therapy Discharge Summary Discharge Recommendations Date of Discharge July 23, 2017 at 16:04 Therapy D/C Recommendations: 24 hr Supervision Physical Therapy This patient was admitted to our unit post CVA. Upon admission she was dependent with all functional mobility but was able to participate with therapies. On , post therapies, she had a change in status and found to have had a bleed causing further stroke symptoms. She was transferred off the unit to ICU and I believe subsequently flown to [facility]. Pt remained at a dependent level at discharge. DC PT. no goals met. Occupational Therapy Decreased Activ Tolerance, Decreased Safety Aware, Decreased UE Strength, Dependent Transfers, Edema, Impaired Bed Mobility, Impaired Cognition, Impaired Coordination, Impaired Funct Balance, Impaired I ADL's, Impaired Self-Care Skills, Restricted Funct UE ROM, Visual-Perceptual Deficit PT Credit And Collections Representative Goals Credit And Collections Representative Goals PT Longterm Goals Time Frame: Aug 18, 2017 Transfers (B,C,W/C) (FIM): 5 Roll Left to Right (QC): 5 Sit to Lying (QC): 5 Lying-Sitting on Side/Bed(QC): 5 Sit to Stand (QC): 5 Chair/Ppi-ec-Uqiin Xfer(QC): 5 Car Transfer (QC): 5 Does the Patient Walk: No and Walking Goal IS indicated Gait (FIM): 4 Gait distance (FIM): 1=425-11 ft Distance: 100' Walk 10 feet (QC): 4 Walk 10ft-Uneven Surface(QC): 3 Walk 50ft with 2 Turns (QC): 4 Gait Level of Assist: 4 Gait Assistive Device: Walker Nathan Does the Pt use WC or Scooter?: Yes Wheelchair (FIM): 5 Wheelchair distance (FIM): 3=150 ft Distance: 150' Wheelchair Level of Assist: 5 Wheel 50 feet with 2 turns (QC: 5 Stairs (FIM): 4 # of Steps: 4 1 Step (curb) (QC): 4 4 Steps (QC): 4 12 Steps (QC): 4 Stairs Level Of Assist: 4 Picking up an Object (QC): 4 No goals met; transferred off unit to ICU due to recurrent CVA OT Credit And Collections Representative Goals Longterm Goals Time Frame: Aug 18, 2017 Eating (FIM): 6 (not met) Eating (QC): 6 (not met) Oral Hygiene (QC): 6 (not met) Grooming(FIM): 6 (not met) Bathing(FIM): 4 (not met) Shower/Bathe Self (QC): 4 (not met) Upper Body Dressing(FIM): 4 (not met) Upper Body Dressing (QC): 4 (not met) Lower Body Dressing(FIM): 4 (not met) Lower Body Dressing (QC): 3 (not met) On/Off Footwear (QC): 3 (not met) Toileting(FIM): 3 (not met) Toileting Hygiene (QC): 3 (not met) Toilet/Commode Transfer(FIM): 4 (not met) Toilet/Commode Transfer (QC): 4 (not met) Shower Transfer(FIM): 4 (not met) Comprehension(FIM): 4 Expression (FIM): 4 Social Interaction(FIM): 5 Problem Solving(FIM): 4 Memory(FIM): 5 Additional Goals: 1-Demonstrate ADL Tasks, 2-Verbalize Understanding, 3- ImproveStrength/Luis 1=Demonstrate adherence to instructed precautions during ADL tasks. 2=Patient will verbalize/demonstrate understanding of assistive devices/ modifications for ADL. 3=Patient will improve strength/tolerance for activity to enable patient to perform ADL's. Speech Longterm Goals Credit And Collections Representative Goals 1. The patient will tolerate the least restrictive diet without signs/symptoms of aspiration or laryngeal penetration. Time Frame: Three Weeks Comprehension: 4 Expression: 4 Social Interaction: 5 Problem Solvin Memory: 5 KAHLIL JOSHUA PT July 25, 2017 08:21
[2017-07-31] MEDS ORDERED: predniSONE 10 MG TAB PO SCH (07:00)
--- NOTE | 2017-08-01 12:34 | DISCHARGE SUMMARY ---
DATE OF SERVICE: 07/23/2017 HISTORY OF PRESENT ILLNESS: The patient is a 37-year-old female who was admitted to [facility] due to stroke with bilateral weakness. 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 She was originally admitted to [facility] in [place], [place] for acute frontal parietal and left cerebellopontine infarct as well as small aneurysms noted on imaging studies suggestive of vasculitis. She was placed on steroids. She was subsequently transferred to [facility]. She is now referred to inpatient rehabilitation unit for ongoing stroke rehabilitation. PAST MEDICAL HISTORY: Prior stroke, GERD, hypertension. MEDICAL COURSE: The patient was followed by Dr. Diez while on rehab unit. Her stay was brief because she had a decline in function and change in mental status on Sunday the after being admitted on Sunday the . She was seen by the rescue team. CT of the head was ordered which revealed an acute subarachnoid hemorrhage in the suprasellar cistern, small areas of hemorrhage were also seen in the middle cerebral artery bifurcation region on the right and along anterior falx. These findings were felt to be possibly secondary to rupture of an aneurysm arising from the [place]. Radiology communicated this to Dr. Diez. The patient was transferred to ICU and I believe the hospitalist, they arranged for transfer for the patient back to [facility]. Because of the brevity of her stay and her bleed, therapies were unable to make any significant improvement in her care and function. Blood gas on 07/23 showed ABG 7.38, pO2 140, CO2 of 21. Accu-Chek was 77 on 07/23. She was afebrile during her stay. Her pulse was 71 on 07/23, respirations 16, blood pressure 161/83, and O2 sat 98% on room air. She tolerated therapy the morning of the , but in the afternoon, she had a change in status and that was when the CT was ordered. DISCHARGE INSTRUCTIONS: I believe someone from this facility discussed case with [facility] prior to transfer. Dr. Diez did see the patient briefly in the ICU before being transferred, I believe by copter to [facility]. She was intubated and sedated for that reason. Her p.o. medications were on hold obviously. She was on IV Solu-Medrol due to the probable vasculitis. The rest of the medications were all p.o. and are on hold at this point including prednisone, Bactrim DS, amlodipine, Plavix, Plaquenil, calcium carbonate, ferrous sulfate, Mag-Ox, Protonix, Xanax, Lipitor, baclofen, Wellbutrin, Tylenol and Zofran. DISCHARGE DIAGNOSES: 1. Rehabilitation ambulatory dysfunction secondary to left cerebrovascular accident involving adonay and cerebellum. 2. Right hemiplegia. 3. History of stroke with left hemiplegia. 4. Subarachnoid hemorrhage. 5. Dysphagia. 6. Hypertension. 7. Gastroesophageal reflux disease. 8. Lupus. 9. Vasculitis with various micro aneurysms. CONDITION AT DISCHARGE: Unimproved, but stable for ambulance air transport. PROGNOSIS: Prognosis appears somewhat guarded at this point. Job ID: [id number] DocumentID: [id number] Dictated Date: 07/31/2017 13:00:00 Tree And Shrub Technician Date: 08/01/2017 12:33:47 Dictated By: RODOLFO DIEZ MD
[2017-09-18] MEDS ORDERED: predniSONE 20 MG TAB PO SCH (07:00)
== END 2017-07-23 16:04 | disposition short-term general hospital (02) | DRG 56 ==
PROVIDERS: ADMIT Physical Medicine & Rehabilitation; ATTEND Physical Medicine & Rehabilitation
DX: I69.351 Hemiplegia and hemiparesis following cerebral infarction affecting right dominant side (principal); I69.354 Hemiplegia and hemiparesis following cerebral infarction affecting left non-dominant side; I60.8 Other nontraumatic subarachnoid hemorrhage; I69.391 Dysphagia following cerebral infarction; R13.10 Dysphagia, unspecified; I10 Essential (primary) hypertension; K21.9 Gastro-esophageal reflux disease without esophagitis; L93.0 Discoid lupus erythematosus; I77.6 Arteritis, unspecified
CPT/HCPCS: 70450; 82805; 82962

== ENCOUNTER 2017-07-23 16:09 | Inpatient (IN) | payer MEDICAID ==
[~2017-07-23 16:09] MED LIST changes: +ACET-2267 PO; +ALPR1TAB2 PO; +ASPI-999 PO; +ATOR40TA70 PO; +BUPR200T PO; +DOCU-143 PO; +FERR-84 PO; +FOLI1TAB6 PO; +GABA-488 PO; +LORA10TA76 PO; +NF-MINO10T PO
[2017-07-23 16:25] VITALS: BP 164/97
[2017-07-23] MEDS ORDERED: NS IV 1000 ML 1,000 ML ONE (16:26)
--- NOTE | 2017-07-23 16:47 | Anesthesia-Procedure Note ---
Procedures/Interventions Procedure Start/Stop/Diagnosis Date of Procedure: July 23, 2017 Start Time: 16:16 Referring Physician: RITUU Stop Time: 16:30 Intubation Reason Intubation/Diagnosis: Stroke RSI: Yes Vital Signs Pre-procedure Per ICU, Pt hypertensive and tachycardic 100% pre-Ox, [id number]: Yes Intubation Method: orotracheal Videoscope used: Yes Grade View: 1 Medications: Propofol (200), Rocuronium (100) Mask Ventilation: positive Positive End Tide CO2: Yes Breath Sounds after Intubation: bilateral-equal ETT Securred @ (cm): 22 Intubated with ease: Yes Intubation Complications: no complications Post Intubation Xray-done: Yes Post Procedure Intubated with ease. Care to EICU physician and ICU Staff. Care turned over to: EICU physician and ICU staff YELENA GUSMAN CRNA July 23, 2017 16:47
[2017-07-23] MEDS ORDERED: ROCURONIUM 10 MG/ML 5 ML SYRINGE IV ONE (16:50)
--- NOTE | 2017-07-23 16:54 | Diagnostic Imaging Report ---
Indication: Respiratory failure Portable chest 4:37 PM ET tube projects over the trachea. NG tube enters stomach. Heart size and pulmonary vascular normal. Lungs are clear. There is no effusion or pneumothorax. Impression: Support tubes and catheters project over appropriate structures. Dictated by: Dictated on workstation # [id number]
[2017-07-23] MEDS ORDERED: PIPERACILLIN SODIUM/TAZOBACTAM 4.5 GM in NS (IVPB) 100 ML IV NR (17:00)
[2017-07-23 17:08] VITALS: BP 188/110
[2017-07-23] MEDS ORDERED: niCARdipine IV FOR DRIP 50 MG KIT ONE (17:10)
[2017-07-23] MEDS ORDERED: NORMAL SALINE 250 ML ONE (17:11)
[2017-07-23 17:13] LABS: BASOPHILS % (AUTO) 0 % (0-10); EOSINOPHILS % (AUTO) 0 % (0-10); HEMATOCRIT 25 % (35-52); HEMOGLOBIN 8.2 G/DL (11.5-16.0); LYMPHOCYTES # (AUTO) 0.7 X 10^3 (1.0-4.0); LYMPHOCYTES % (AUTO) 7 % (12-44); MEAN CORPUSCULAR HEMOGLOBIN 27 PG (25-34); MEAN CORPUSCULAR HGB CONC 33 G/DL (32-36); MEAN CORPUSCULAR VOLUME 82 FL (80-99); MEAN PLATELET VOLUME 11.3 FL (7.4-10.4); MONOCYTES # (AUTO) 0.8 X 10^3 (0.0-1.0); MONOCYTES % (AUTO) 7 % (0-12); NEUTROPHILS # (AUTO) 8.9 X 10^3 (1.8-7.8); NEUTROPHILS % (AUTO) 86 % (42-75); PLATELET COUNT 295 10^3/uL (130-400); RED BLOOD COUNT 3.07 10^6/uL (4.35-5.85); RED CELL DISTRIBUTION WIDTH 22.6 % (10.0-14.5); WHITE BLOOD COUNT 10.4 10^3/uL (4.3-11.0)
[2017-07-23] MEDS ORDERED: CATHETER FLUSH 10 ML SYR IV PRN (17:15)
[2017-07-23] MEDS ORDERED: niCARdipine 50 MG/NS 250 ML IV DRIP IV SCH ×2 (17:15)
[2017-07-23 17:19] LABS: BILIRUBIN,URINE NEGATIVE (NEGATIVE); CLARITY,URINE SLIGHTLY CLOUDY; COLOR,URINE YELLOW; GLUCOSE, URINE (UA) NEGATIVE (NEGATIVE); KETONES,URINE NEGATIVE (NEGATIVE); LEUKOCYTE ESTERASE ,URINE 1+ (NEGATIVE); NITRITE,URINE NEGATIVE (NEGATIVE); PH,URINE 8 (5-9); PROTEIN,URINE 2+ (NEGATIVE); UROBILINOGEN,URINE NORMAL (NORMAL)
[2017-07-23 17:25] LABS: ALANINE AMINOTRANSFERASE 25 U/L (0-55); ALKALINE PHOSPHATASE 48 U/L (40-136); BILIRUBIN,TOTAL 0.7 MG/DL (0.1-1.0); BUN/CREATININE RATIO 30; CALCIUM 8.4 MG/DL (8.5-10.1); CARBON DIOXIDE 21 MMOL/L (21-32); CHLORIDE 112 MMOL/L (98-107); CREATININE SERUM 0.77 MG/DL (0.60-1.30); GFR ESTIMATED > 60; GLUCOSE 79 MG/DL (70-105); MAGNESIUM 1.8 MG/DL (1.8-2.4); PHOSPHORUS 2.2 MG/DL (2.3-4.7); POTASSIUM 3.5 MMOL/L (3.6-5.0); SODIUM 141 MMOL/L (135-145); TOTAL PROTEIN 5.5 GM/DL (6.4-8.2)
[2017-07-23 17:30] VITALS: BP 187/117
[2017-07-23] MEDS ORDERED: meTOprolol 5 MG/5 ML (LOPRESSOR) VIAL IV NR (17:30)
[2017-07-23 17:32] LABS: INR 1.2 (0.8-1.4); PROTHROMBIN TIME PATIENT 15.2 SEC (12.2-14.7)
[2017-07-23 17:34] LABS: AMORPHOUS SEDIMENT,UR MOD AMOR PHOSPHATE /LPF
[2017-07-23] MEDS ORDERED: LEVETIRACETAM INJECTION 1,000 MG in NS (IVPB) 100 ML IV SCH (18:00)
[2017-07-23 18:07] LABS: BAND NEUTROPHILS 5 %; LYMPHOCYTES % (MANUAL) 5 %; METAMYELOCYTES % 1 %; MONOCYTES % (MANUAL) 7 %; NEUTROPHILS % (MANUAL) 82 %; NUCLEATED RED BLOOD CELLS 1
[2017-07-23 18:08] LABS: ANISOCYTOSIS MARKED; ELLIPT/OVALOCYTES SLIGHT; HYPOCHROMASIA SLIGHT; MICROCYTOSIS MODERATE; POIKILOCYTOSIS SLIGHT; POLYCHROMASIA SLIGHT
[2017-07-23] MEDS ORDERED: CHLORHEXIDINE 0.12% SOLN 15 ML (PERIDEX) UDC PO SCH (21:00)
[2017-07-23] MEDS ORDERED: CATHETER FLUSH 10 ML SYR IV SCH (22:00)
[2017-07-23] MEDS ORDERED: PIPERACILLIN SODIUM/TAZOBACTAM 4.5 GM in NS (IVPB) 100 ML IV SCH (23:00)
--- NOTE | 2017-07-24 14:58 | Consultation-Hospitalist ---
HPI History of Present Illness: HPI/Chief Complaint The patient was a 37-year-old white female admitted to inpatient rehabilitation on 07/20/17. She was a transfer from [facility]. Her history is garnered from records as she was intubated and sedated. She had been transferred here from [facility] after having been seen for multiple previous strokes. The rehabilitation staff stated that they had heard loud breathing from her room and went to check her. They found her posturing and unresponsive. As a rapid response she was sent to the ICU and I was contacted. Anesthesia had also been contacted and had done a rapid sequence intubation. She had then gone to the x-ray department and had a CT scan of the brain which showed an acute bleed to go along with her previous infarct. It occurred that the posturing described to me by the IRF staff may have in fact been the tonic phase of a seizure. Physical exam showed her to be quite sedated. Pupils were equal and midpoint. Lungs were clear on the ventilator. CV showed a tachycardia with a rate in the 130s. She was hypertensive as well. Abdomen was soft. Extremities were relatively flaccid. There was no Babinski noted to plantar stimulus. Impression: Previous ischemic cerebral infarcts. 2.acute subarachnoid bleed. Note: [facility] was then called. I first spoke to the stroke on-call neurologist. He was most pleasant but informed me that I would need to speak to neurosurgery. I then spoke to the 1 call service. The findings were brief relayed to them. The CT scan had already been sent to the cloud for their reviewing. It was agreed that they would take her in transfer. The nurse practitioner to whom I spoke also stated that the neuro surgeon would suggest that I loaded her with Keppra and use antihypertensives to drop her blood pressure to less than 160/90. This was implemented. The helicopter service was notified and flew in from [place]. 45 minutes of ICU time was utilized in this effort. Date Seen 07/23/17 Attending Physician Junito Gaines MD PCP Girish Mccoy DO Referring Physician Date of Admission July 23, 2017 at 16:15 Home Medications & Allergies Home Medications Reviewed patient Home Medication Reconciliation performed by pharmacy medication reconciliations coroner transport technician and/or nursing. Patients Allergies have been reviewed. 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 Former Smoker, Quit: Feb 19, 2017 Type Used: Cigarettes Recent [facility]izations: Yes ([facility]) Immunizations Up To Date Date of Pneumonia Vaccine: Dec 03, 2013 Date of Influenza Vaccine: Jan 20, 2017 Seasonal Allergies Seasonal Allergies: Yes Past Medical History Respiratory: Asthma, COPD Cardiac: Hypertension Neurological: Stroke Genitourinary: Kidney Stones Gastrointestinal: Gastroesophageal Reflux, Pancreatitis, Irritable Bowel Loss of Vision: Denies Psychosocial: Sleep Difficulties, Anxiety, Depression History of Blood Disorders: Yes (thrombocytopenia) Review of Systems ROS-Unable to Obtain: assisted ventilation and sedation Constitutional: see HPI Physical Exam Physical Exam Vital Signs Capillary Refill : General Appearance: Other Eyes: Bilateral Eye Normal Inspection Respiratory: Chest Non Tender, Lungs Clear, Normal Breath Sounds, No Accessory Muscle Use, No Respiratory Distress Cardiovascular: Regular Rate, Rhythm, No Edema, No Gallop, No JVD, No Murmur, Normal Peripheral Pulses Neurologic/Psychiatric: Other Results Results/Procedures Labs Patient resulted labs reviewed. Assessment/Plan Assessment and Plan Assess & Plan/Chief Complaint Intracranial bleed on top of 2 previous strokes. Plan: Transfer to [facility] by helicopter JUNITO GAINES MD July 24, 2017 14:58
--- NOTE | 2017-07-30 09:35 | Physician Query Clarification ---
PQ-Intro New Diagnosis Admission/Discharge Admission Date: July 23, 2017 at 16:15 Discharge Date: July 23, 2017 at 17:15 The medical record reflects the following clinical scenario: History/Risk Factors: Previous stroke, HTN, Smoking, COPD Clinical Findings: CT scan brain showed acute bleed, extremities flaccid Treatment: Intubation/ventilation, transferred Question: What condition best reflects the flaccid extremities? Please document below. 1. hemiplegia rt dominant side and lt nondominate side 2. previous stroke unknown deficits 3. Other, with explanation of the clinical findings. 4. Clinically undetermined, no explanation for the clinical findings. PHYSICIAN RESPONSE What condition reflects above: Other, explanation/clinical finding Explanation of clincal finding Multiple possibilities 1.acute and serious intracranial hemorrhage. 2.multiple drug administration for paralysis and intubation and subsequent sedation on ventilator In responding to this query, please exercise your independent professional judgment. The purpose of this communication is to more accurately reflect the complexity of your patients condition. The fact that a question is asked does not imply that any particular answer is desired or expected. Thank you for your timely response to this clarification. Requestors name: Joo THIS PHYSICIAN QUERY FORM IS A PERMANENT PART OF THE MEDICAL RECORD JOO GATES July 30, 2017 09:35 AMBERLY GAINES MD Aug 17, 2017 09:53
== END 2017-07-23 17:15 | disposition short-term general hospital (02) | DRG 66 ==
LOC: ICU 16:15
PROVIDERS: ADMIT Internal Medicine; ATTEND Internal Medicine
PROC: 5A1935Z Respiratory Ventilation, Less than 24 Consecutive Hours (ICD-10-PCS; principal; 2017-07-23)
DX: I61.9 Nontraumatic intracerebral hemorrhage, unspecified (principal); I10 Essential (primary) hypertension; F17.210 Nicotine dependence, cigarettes, uncomplicated; J44.9 Chronic obstructive pulmonary disease, unspecified; K21.9 Gastro-esophageal reflux disease without esophagitis; R29.732 NIHSS score 32
CPT/HCPCS: 36415; 36600; 71045; 80053; 81000; 83605; 83735; 84100; 85007; 85027; 85610; 87070; 87205; 94002